=== PATIENT | male | born 1970 | race Caucasian/White ===

== ENCOUNTER 2017-03-12 19:02 | Inpatient (IN) | payer OTHER ==
--- NOTE | 2017-03-12 20:49 | PDOC ---
History of Present Illness - History of Present Illness Initial Comments: 46 year old male with MR and multiple congenital cerebral malformations presenting for supposed workup for constipation. Paperwork did not reveal much else but to simply perform an abdominal XR for constipation workup. Per the sitter at the side f the bed, his behavior is normal and denies any fevers, chils, nausea, vomiting. He did not that he had some liquid stool in his diaper and is passing gas. 03/12/17 21:39 <Jose Bowden - Last Filed: 03/12/17 21:38> <Zi Muñoz - Last Filed: 03/13/17 01:00> - General Chief Complaint: Constipation Stated Complaint: PCP SENT/CONSTIPATION Time Seen by Provider: 03/12/17 20:49 Past History - Suicide/Smoking/Psychosocial Hx Smoking History: Never smoked Have you smoked in the past 12 months: No Information on smoking cessation initiated: No Hx Alcohol Use: No Drug/Substance Use Hx: No <Jose Bowden - Last Filed: 03/12/17 21:38> <Zi Muñoz - Last Filed: 03/13/17 01:00> - Past Medical History Allergies/Adverse Reactions: Allergies Allergy/AdvReac Type Severity Reaction Status Date / Time ceresin [From Eucerin] Allergy Verified 03/12/17 19:25 emollient combination no.33 Allergy Verified 03/12/17 19:25 [From Eucerin] isopropyl myristate Allergy Verified 03/12/17 19:25 [From Eucerin] lanolin alcohols Allergy Verified 03/12/17 19:25 [From Eucerin] latex Allergy Verified 03/12/17 19:25 mineral oil [From Eucerin] Allergy Verified 03/12/17 19:25 petrolatum,white Allergy Verified 03/12/17 19:25 [From Eucerin] phenytoin sodium Allergy Verified 03/12/17 19:25 [From Dilantin] phenytoin sodium extended Allergy Verified 03/12/17 19:25 [From Dilantin] soap [From Eucerin] Allergy Verified 03/12/17 19:25 water [From Eucerin] Allergy Verified 03/12/17 19:25 Review of Systems - Review of Systems Able to Perform ROS?: No <Jose Bowden - Last Filed: 03/12/17 21:38> *Physical Exam - Vital Signs Last Vital Signs Temp Pulse Resp BP Pulse Ox 97.5 F L 94 H 18 134/88 03/12/17 19:23 03/12/17 19:23 03/12/17 19:23 03/12/17 19:23 - Physical Exam General Appearance: Yes: Nourished, Appropriately Dressed. No: Apparent Distress Gastrointestinal/Abdominal: positive: Soft, Protuberent, Other (Tympanitic. Difficult to assess bowel sounds 2/2 movement.). negative: Normal Bowel Sounds , Tender, Flat, Tenderness Rectal Exam: positive: normal exam, normal rectal tone, other (No stool in the recatal vault.) Musculoskeletal: positive: Other (COntracted to the side.) Extremity: positive: Normal Capillary Refill, Normal Inspection Integumentary: positive: Normal Color, Dry, Warm Neurologic: positive: Alert (MR at baseline. Makes vocal noises but does not have an intellible speech ability. ) <Jose Bowden - Last Filed: 03/12/17 21:38> - Vital Signs Last Vital Signs Temp Pulse Resp BP Pulse Ox 97.5 F L 94 H 18 134/88 03/12/17 19:23 03/12/17 19:23 03/12/17 19:23 03/12/17 19:23 <Zi Muñoz - Last Filed: 03/13/17 01:00> ED Treatment Course - RADIOLOGY Radiology Studies Ordered: Category Date Time Status ABDOMEN & PELVIS CT W/O CONTR [CT] Stat CT Scan 03/12/17 22:11 Taken <Zi Muñoz - Last Filed: 03/13/17 01:00> Medical Decision Making - Medical Decision Making 46 year old male with MR presenting with possible constipation as there is no stool in his rectal vault and his bowel soudn sare possibly hyperactive with difficult to assess bowel sounds. Will get an abdominal series for constipation evaluation. 03/12/17 21:54 <Jose Bowden - Last Filed: 03/12/17 21:38> *DC/Admit/Observation/Transfer <Jose Bowden - Last Filed: 03/12/17 21:38> - Discharge Dispostion Admit: Yes <Zi Muñoz - Last Filed: 10/05/17 01:00> Diagnosis at time of Disposition: Large bowel obstruction - Discharge Dispostion Condition at time of disposition: Fair
--- NOTE | 2017-03-12 22:06 | PDOC ---
Attending Attestation - Resident Resident Name: Jose Bowden - ED Attending Attestation I have performed the following: I have examined & evaluated the patient, The case was reviewed & discussed with the resident, I agree w/resident's findings & plan, Exceptions are as noted - HPI HPI: 03/12/17 22:05 46-year-old male with multiple comorbidities, severe MR referred to the ER for evaluation of distended abdomen and suspected constipation. - Physicial Exam PE: 03/12/17 22:05 Patient is awake, nonverbal, not uncooperative, afebrile and hemodynamically stable. Abdomen is noted to be distended, nontender and tympanitic. Rectal exam reveals no stool in the rectal vault and passage of flat is. - Medical Decision Making 03/12/17 22:06 46-year-old male with multiple comorbidities, severe mental retardation referred to the ER for distended abdomen and suspected constipation. Rectal exam reveals no evidence of impaction. Will obtain flat and upright to rule out an SBO. Will reassess. 03/13/17 00:48 CT that and pelvis reveals large amount of retained feces, dilated loops of redundant sigmoid proximally, questionable distal obstruction and rectal mucosal thickening. Will admit to med/surge with GI consultation further evaluation and treatment.
[2017-03-13] MEDS ORDERED: DEXTROSE 5%-0.45% SALINE 1,000 ML IV SCH (00:45)
[2017-03-13 01:20] LABS: MCH 30.2 pg (25.7-33.7); MCHC 33.7 g/dl (32.0-35.9); MEAN CELL VOLUME 89.6 fl (80-96); MEAN PLT VOLUME 6.6 fl (7.5-11.1); PLATELET COUNT 416 K/MM3 (134-434); RDW 13.2 % (11.9-15.9); WHITE BLOOD COUNT 5.4 K/mm3 (4.0-10.0)
[2017-03-13 01:32] LABS: INR 1.13 (0.82-1.09); PROTHROMBIN TIME (PATIENT) 12.5 SEC (9.98-11.88)
[2017-03-13 01:43] LABS: ALBUMIN 3.1 g/dl (3.4-5.0); ALK PHOS 152 U/L (45-117); ANION GAP 8 (8-16); BILIRUBIN,TOTAL 0.2 mg/dL (0.2-1.0); CALCIUM 8.9 mg/dL (8.5-10.1); CO2 30 mmol/L (21-32); CREATININE 0.6 mg/dL (0.7-1.3); GLUCOSE,RANDOM 84 mg/dL (74-106); SGOT/AST 14 U/L (15-37); SGPT/ALT 16 U/L (12-78); TOT PROT 6.8 g/dl (6.4-8.2)
[2017-03-13] MEDS: SODIUM CHLORIDE 1,000 ML IV SCH (02:32)
--- NOTE | 2017-03-13 03:05 | HP ---
CHIEF COMPLAINT: r/o fecal impaction PCP: Dr. Kahlil Mcdaniels HISTORY OF PRESENT ILLNESS: 46yo M with PMH of epilepsy and profound MR, sent in from [place] for r/o of fecal impaction. Pt is nonverbal, aide at bedside. Per aide pt's last normal bowel movement was yesterday. Pt had small amount of liquid stool today. Pt is passing flatus. Aide denies recent illness, fever, vomiting. Per aide pt is at baseline mentation and does not appear to be in pain. 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 profound mental retardation parotitis PAST SURGICAL HISTORY: ventriculo-peritoneal shunt placement lumbosacral spinal surgery Social History: Smoking: never Alcohol: none Drugs: none Allergies ceresin [From Eucerin] Allergy (Verified 03/12/17 19:25) emollient combination no.33 [From Eucerin] Allergy (Verified 03/12/17 19:25) isopropyl myristate [From Eucerin] Allergy (Verified 03/12/17 19:25) lanolin alcohols [From Eucerin] Allergy (Verified 03/12/17 19:25) latex Allergy (Verified 03/12/17 19:25) mineral oil [From Eucerin] Allergy (Verified 03/12/17 19:25) petrolatum,white [From Eucerin] Allergy (Verified 03/12/17 19:25) phenytoin sodium [From Dilantin] Allergy (Verified 03/12/17 19:25) phenytoin sodium extended [From Dilantin] Allergy (Verified 03/12/17 19:25) soap [From Eucerin] Allergy (Verified 03/12/17 19:25) water [From Eucerin] Allergy (Verified 03/12/17 19:25) HOME MEDICATIONS: Home Medications Medication Instructions Recorded Calcium Carbonate/Vitamin D3 1 each PO DAILY 03/13/17 [Oyster Shell Calcium-Vit D Tab] Calcium Carbonate/Vitamin D3 1 each PO BID 03/13/17 [Oystercal-D 500 mg-400 Unit Tb] Carbamazepine [Carbamazepine ER] 200 mg PO DAILY 03/13/17 Carbamazepine [Carbamazepine ER] 200 mg PO DAILY 03/13/17 Carbamazepine [Carbamazepine ER] 300 mg PO DAILY 03/13/17 Carbamazepine [Carbamazepine ER] 300 mg PO DAILY 03/13/17 Carbamazepine [Carbamazepine ER] 400 mg PO DAILY 03/13/17 Cetirizine HCl 10 mg PO DAILY 03/13/17 Cetirizine HCl [Zyrtec -] 10 mg PO DAILY 03/13/17 Clonazepam [KlonoPIN] 0.5 mg PO TID 03/13/17 Clonazepam [Klonopin -] 0.5 mg PO TID 03/13/17 Electrolyte,Oral [Pedialyte -] 118 ml PO QID 03/13/17 Fluticasone Prop 0.05% Nasal 2 spray NS DAILY 03/13/17 [Flonase -] Magnesium Hydrox 2400MG/30Ml [Milk 30 ml PO BID 03/13/17 of Magnesia -] Methylcellulose [Citrucel] 1,000 mg PO DAILY 03/13/17 Methylcellulose [Citrucel] 1,000 mg PO DAILY 03/13/17 Phenobarbital 64.8 mg PO BID 03/13/17 Sodium Chloride 500 mg PO BID 03/13/17 REVIEW OF SYSTEMS Unable to perform. PHYSICAL EXAMINATION Vital Signs - 24 hr 03/12/17 03/13/17 03/13/17 19:23 03:11 03:39 Temperature 97.5 F L 99 F Pulse Rate 94 H 71 Respiratory 18 20 20 Rate Blood Pressure 134/88 136/98 O2 Sat by Pulse 96 Oximetry (%) GENERAL: Awake, alert, in no acute distress. HEAD: Atraumatic, large deformity of frontal skull noted. EYES: Sclera anicteric, conjunctiva clear. No lid lag. EARS, NOSE, THROAT: Moist mucous membranes. NECK: Supple, trachea midline. LUNGS: Breath sounds equal, clear to auscultation bilaterally. No wheezes, and no crackles. No accessory muscle use. HEART: Regular rate and rhythm, normal S1 and S2 without murmur, rub or gallop. ABDOMEN: Soft, nontender, not distended, hyperactive bowel sounds, tympanitic. MUSCULOSKELETAL: Extremities flexed, though could be extended passively. No bony deformities or tenderness. LOWER EXTREMITIES: Warm, well-perfused. No peripheral edema. SKIN: Warm, dry, normal turgor, no rashes or lesions noted. Laboratory Last Values WBC 5.4 K/mm3 (4.0-10.0) 03/13/17 01:12 RBC 4.12 M/mm3 (4.00-5.60) 03/13/17 01:12 Hgb 12.4 GM/dL (11.7-16.9) 03/13/17 01:12 Hct 36.9 % (35.4-49) 03/13/17 01:12 MCV 89.6 fl (80-96) 03/13/17 01:12 MCH 30.2 pg (25.7-33.7) 03/13/17 01:12 MCHC 33.7 g/dl (32.0-35.9) 03/13/17 01:12 RDW 13.2 % (11.9-15.9) 03/13/17 01:12 Plt Count 416 K/MM3 (134-434) 03/13/17 01:12 MPV 6.6 fl (7.5-11.1) L 03/13/17 01:12 Total Counted 100 03/13/17 01:12 Neutrophils % No Result Required. 03/13/17 01:12 Neutrophils % (Manual) 36 % (42.8-82.8) L 03/13/17 01:12 Band Neuts % (Manual) 3 % (0-10) 03/13/17 01:12 Lymphocytes % No Result Required. 03/13/17 01:12 Lymphocytes % (Manual) 45 % (8-40) H 03/13/17 01:12 Monocytes % (Manual) 16 % (3.8-10.2) H* 03/13/17 01:12 PT with INR 12.50 SEC (9.98-11.88) H 03/13/17 01:12 INR 1.13 (0.82-1.09) 03/13/17 01:12 Sodium 133 mmol/L (136-145) L 03/13/17 01:12 Potassium 4.3 mmol/L (3.5-5.1) 03/13/17 01:12 Chloride 95 mmol/L (98-107) L 03/13/17 01:12 Carbon Dioxide 30 mmol/L (21-32) 03/13/17 01:12 Anion Gap 8 (8-16) 03/13/17 01:12 BUN 5 mg/dL (7-18) L 03/13/17 01:12 Creatinine 0.6 mg/dL (0.7-1.3) L 03/13/17 01:12 Creat Clearance w eGFR > 60 (>60) 03/13/17 01:12 Random Glucose 84 mg/dL (74-106) 03/13/17 01:12 Calcium 8.9 mg/dL (8.5-10.1) 03/13/17 01:12 Total Bilirubin 0.2 mg/dL (0.2-1.0) 03/13/17 01:12 AST 14 U/L (15-37) L 03/13/17 01:12 ALT 16 U/L (12-78) 03/13/17 01:12 Alkaline Phosphatase 152 U/L (45-117) H 03/13/17 01:12 Total Protein 6.8 g/dl (6.4-8.2) 03/13/17 01:12 Albumin 3.1 g/dl (3.4-5.0) L 03/13/17 01:12 IMAGIN03/12/17 Abdominal Xray - official report pending 03/12/17 Abdomen/Pelvis CT without contrast -> large feces colon. Slightly thickened rectum and distal sigmoid colon with minimally dilated, air-filled redundant sigmoid colon proximal to this point, suspicious for ileus or partial obstruction due to sigmoid mass or colitis; consider f/u colonoscopy. No volvulus. No free air. ASSESSMENT/PLAN: 46yo M with PMH of epilepsy and profound MR, sent in from [place] for r/o of fecal impaction. Admit to Med-Surg for ileus vs partial large bowel obstruction. 1) ileus vs partial large bowel obstruction vs reactive proctitis 2/2 impacted stool - npo - NS @ 80 ml/hr - GI Consult - continue home meds of MOM 30ml po BID, Citrucel 1,000mg po daily. 2) epilepsy - continue home meds of Carbamazepine 500mg po in the am and 400mg po in the pm, Clonazepam 0.5mg po TID, and Phenobarbital 64.8mg po BID. 3) disuse osteoporosis - continue home med of Ca++ carbonate/Vit D3 500mg/400U po BID 4) FEN - Fluids: NS @ 80 ml/hr - Electrolytes: slight hyponatremia noted, continue IVFs - Nutrition: npo 5) DVT prophylaxis - Heparin 5,000U SQ TID Visit type - Emergency Visit Emergency Visit: Yes ED Registration Date: 03/13/17 Care time: The patient presented to the Emergency Department on the above date and was hospitalized for further evaluation of their emergent condition. - New Patient This patient is new to me today: Yes Date on this admission: 03/13/17 - Critical Care Critical Care patient: No
--- NOTE | 2017-03-13 03:21 | HP ---
Admitting History and Physical - Admission Chief Complaint: Abd distention History of Present Illness: 46M with multiple medical problems including multiple congential problems such as microcephaly functional quadriplegia seizure disorder severe mental retardation presents to the ED with caregiver from [facility] with no bowel movement and abdomina ditention. Per aide he recently had a small BM which was liquid in nature and has been passing flatus. Caregiver denies any history of recent fevers chills chest pain or shortness of breath. CTAP done in ED found to have possible large bowel obstruction large amount of stool in colon possible reactive proctitis vs rectal thickening from sigmoid thichening or mass. History Source: Medical Record, Caregiver Limitations to Obtaining History: Clinical Condition, Physical Impairment, Poor Historian, Other (MR) - Smoking History Smoking history: Never smoked Have you smoked in the past 12 months: No - Alcohol/Substance Use Hx Alcohol Use: No Home Medications - Allergies Allergies/Adverse Reactions: Allergies Allergy/AdvReac Type Severity Reaction Status Date / Time ceresin [From Eucerin] Allergy Verified 03/12/17 19:25 emollient combination no.33 Allergy Verified 03/12/17 19:25 [From Eucerin] isopropyl myristate Allergy Verified 03/12/17 19:25 [From Eucerin] lanolin alcohols Allergy Verified 03/12/17 19:25 [From Eucerin] latex Allergy Verified 03/12/17 19:25 mineral oil [From Eucerin] Allergy Verified 03/12/17 19:25 petrolatum,white Allergy Verified 03/12/17 19:25 [From Eucerin] phenytoin sodium Allergy Verified 03/12/17 19:25 [From Dilantin] phenytoin sodium extended Allergy Verified 03/12/17 19:25 [From Dilantin] soap [From Eucerin] Allergy Verified 03/12/17 19:25 water [From Eucerin] Allergy Verified 03/12/17 19:25 - Home Medications Home Medications: Ambulatory Orders Calcium Carbonate/Vitamin D3 [Oyster Shell Calcium-Vit D Tab] 1 each PO DAILY Calcium Carbonate/Vitamin D3 [Oystercal-D 500 mg-400 Unit Tb] 1 each PO BID 10/23 Carbamazepine [Carbamazepine ER] 200 mg PO DAILY 03/13/17 Carbamazepine [Carbamazepine ER] 200 mg PO DAILY 03/13/17 Carbamazepine [Carbamazepine ER] 300 mg PO DAILY 03/13/17 Carbamazepine [Carbamazepine ER] 300 mg PO DAILY 03/13/17 Carbamazepine [Carbamazepine ER] 400 mg PO DAILY 03/13/17 Cetirizine HCl 10 mg PO DAILY 03/13/17 Cetirizine HCl [Zyrtec -] 10 mg PO DAILY 03/13/17 Clonazepam [KlonoPIN] 0.5 mg PO TID 03/13/17 Clonazepam [Klonopin -] 0.5 mg PO TID 03/13/17 Electrolyte,Oral [Pedialyte -] 118 ml PO QID 03/13/17 Fluticasone Prop 0.05% Nasal [Flonase -] 2 spray NS DAILY 03/13/17 Magnesium Hydrox 2400MG/30Ml [Milk of Magnesia -] 30 ml PO BID 03/13/17 Methylcellulose [Citrucel] 1,000 mg PO DAILY 03/13/17 Methylcellulose [Citrucel] 1,000 mg PO DAILY 03/13/17 Phenobarbital 64.8 mg PO BID 03/13/17 Sodium Chloride 500 mg PO BID 03/13/17 Review of Systems Unable to obtain ROS, reason: nonverbal Physical Examination Vital Signs: Vital Signs Temperature 97.5 F L 03/12/17 19:23 Pulse Rate 94 H 03/12/17 19:23 Respiratory Rate 18 03/12/17 19:23 Blood Pressure 134/88 03/12/17 19:23 O2 Sat by Pulse Oximetry (%) Constitutional: Yes: No Distress, Calm Eyes: Yes: Conjunctiva Clear HENT: Yes: Other (prominent forehead) Cardiovascular: Yes: Regular Rate and Rhythm Respiratory: Yes: CTA Bilaterally Gastrointestinal: Yes: Soft, Distention. No: Tenderness Edema: No Neurological: Yes: Alert Psychiatric: Yes: Alert Labs: CBC, BMP 03/13/17 01:12 03/13/17 01:12 Imaging - Results X-ray: Image Reviewed Cat Scan: Report Reviewed, Image Reviewed Assessment/Plan 46M with mutliple congential medical problems presents to ED from [facility] Problem list: Possible large bowel obstruction secondary to large amount of stool vs pseudoobstruction vs ileus sigmoid and rectal thickening ABD distention seizure d/o functional quadriplegia microcephaly severe MR Plan: Admit to inpatient med/surg NPO IVF will consider NGT if worsen or has nausea vomiting continue home meds DVT PPx with HSQ GI consult restart home meds for seizure restart klonopin Full H&P to follow Case discussed with admitting business services intern and attending Dr. Martinez Visit type - Emergency Visit Emergency Visit: Yes ED Registration Date: 03/13/17 Care time: The patient presented to the Emergency Department on the above date and was hospitalized for further evaluation of their emergent condition. - New Patient This patient is new to me today: Yes Date on this admission: 03/13/17 - Critical Care Critical Care patient: No
[2017-03-13 03:28] VITALS: BMI 17.9
[2017-03-13 04:22] LABS: TOTAL CELLS COUNTED 100
--- NOTE | 2017-03-13 04:36 | PN ---
Teaching Attending Note Name of Resident: Roslyn Meléndez ATTENDING PHYSICIAN STATEMENT I saw and evaluated the patient. I reviewed the resident's note and discussed the case with the resident. I agree with the resident's findings and plan as documented. SUBJECTIVE: 46 year old male with mental retardation , non verbal, presents from [place] for constipation / possible fecal impaction . As per aide Pt is passing flatus. No further information is available . At baseline of his mental status PAST MEDICAL HISTORY: MR Porencephalic cerebral cysts Cortical blindness Epilepsy Osteoporosis GERD Esophagitis Cerebral Palsy Sialoadenitis PAST SURGICAL HISTORY: TONGUE AND QUARTER STITCHER shunt lumbosacral spinal surgery Social History: Smoking: never Alcohol: none Drugs: none Allergies ceresin [From Eucerin] Allergy (Verified 03/12/17 19:25) emollient combination no.33 [From Eucerin] Allergy (Verified 03/12/17 19:25) isopropyl myristate [From Eucerin] Allergy (Verified 03/12/17 19:25) lanolin alcohols [From Eucerin] Allergy (Verified 03/12/17 19:25) latex Allergy (Verified 03/12/17 19:25) mineral oil [From Eucerin] Allergy (Verified 03/12/17 19:25) petrolatum,white [From Eucerin] Allergy (Verified 03/12/17 19:25) phenytoin sodium [From Dilantin] Allergy (Verified 03/12/17 19:25) phenytoin sodium extended [From Dilantin] Allergy (Verified 03/12/17 19:25) soap [From Eucerin] Allergy (Verified 03/12/17 19:25) water [From Eucerin] Allergy (Verified 03/12/17 19:25) OBJECTIVE: Vital Signs Temperature 99 F 03/13/17 03:11 Pulse Rate 71 03/13/17 03:11 Respiratory Rate 20 03/13/17 03:39 Blood Pressure 136/98 03/13/17 03:11 O2 Sat by Pulse Oximetry (%) 96 03/13/17 03:39 Eyes: Yes: Conjunctiva Clear HENT: Yes: Other (prominent forehead) Cardiovascular: Yes: Regular Rate and Rhythm Respiratory: Yes: CTA Bilaterally Gastrointestinal: Yes: Soft, Distention. No: Tenderness Edema: No EXT: contracted CBC, BMP 03/13/17 01:12 03/13/17 01:12 CMP Sodium 133 mmol/L (136-145) L 03/13/17 01:12 Potassium 4.3 mmol/L (3.5-5.1) 03/13/17 01:12 Chloride 95 mmol/L (98-107) L 03/13/17 01:12 Carbon Dioxide 30 mmol/L (21-32) 03/13/17 01:12 Anion Gap 8 (8-16) 03/13/17 01:12 BUN 5 mg/dL (7-18) L 03/13/17 01:12 Creatinine 0.6 mg/dL (0.7-1.3) L 03/13/17 01:12 Creat Clearance w eGFR > 60 (>60) 03/13/17 01:12 Random Glucose 84 mg/dL (74-106) 03/13/17 01:12 Calcium 8.9 mg/dL (8.5-10.1) 03/13/17 01:12 Total Bilirubin 0.2 mg/dL (0.2-1.0) 03/13/17 01:12 AST 14 U/L (15-37) L 03/13/17 01:12 ALT 16 U/L (12-78) 03/13/17 01:12 Alkaline Phosphatase 152 U/L (45-117) H 03/13/17 01:12 Total Protein 6.8 g/dl (6.4-8.2) 03/13/17 01:12 Albumin 3.1 g/dl (3.4-5.0) L 03/13/17 01:12 03/12/17 Abdominal Xray - official report pending 03/12/17 Abdomen/Pelvis CT without contrast -> large feces colon. Slightly thickened rectum and distal sigmoid colon with minimally dilated, air-filled redundant sigmoid colon proximal to this point, suspicious for ileus or partial obstruction due to sigmoid mass or colitis; consider f/u colonoscopy. No volvulus. No free air. ASSESSMENT AND PLAN: 1. Proctitis/sigmoiditis/possible pseudo obstruction - possibly due to fecal impaction /constipation - MOM BID - record BM - IVF - GI eval - NPO except meds 2. Hyponatremia - hypovolemic - IVF -monitor BMP 3. Seizure disorder - c/w current meds
[2017-03-13] MEDS: clonazePAM 0.5 MG TABLET PO SCH ×4 (05:35→21:25)
[2017-03-13] MEDS: HEPARIN NA (PORCINE) 5,000 UNITS/ML 1ML VIAL SQ SCH ×3 (05:36→21:24)
--- NOTE | 2017-03-13 07:19 | CONSULT ---
Consult Consult Specialty:: GI Referred by:: Hospitalist Reason for Consultation:: abnormal CT abdomen, constipation - History of Present Illness History of Present Illness: Profound mental retardation, seizures. [facility] a [facility] for evaluation of constipation. Rectal exam on admission revealed no stool in rectal vault, soft abdomen with with hyperactive bowels, no significant electrolytes abnormalities, or leukocytosis. As per records, a normal BM was on Mar. 4. On Mar 5, the pt had a small volume, loose stools. CT abdomen significant for large amount of stool up to proximal sigmoid, sigmoid mucosal thickening, question of partial obstruction. Official CT read is pending. No vomiting. - History Source History Provided By: Medical Record, Caregiver (as documented) - Past Medical History Additional Medical History: H&P reviewed. Please see H&P - Past Surgical History Additional Surgical History: H&P reviewed. Please see H&P - Alcohol/Substance Use Hx Alcohol Use: No - Smoking History Smoking history: Never smoked Have you smoked in the past 12 months: No Home Medications - Allergies Allergies/Adverse Reactions: Allergies Allergy/AdvReac Type Severity Reaction Status Date / Time ceresin [From Eucerin] Allergy Verified 03/12/17 19:25 emollient combination no.33 Allergy Verified 03/12/17 19:25 [From Eucerin] isopropyl myristate Allergy Verified 03/12/17 19:25 [From Eucerin] lanolin alcohols Allergy Verified 03/12/17 19:25 [From Eucerin] latex Allergy Verified 03/12/17 19:25 mineral oil [From Eucerin] Allergy Verified 03/12/17 19:25 petrolatum,white Allergy Verified 03/12/17 19:25 [From Eucerin] phenytoin sodium Allergy Verified 03/12/17 19:25 [From Dilantin] phenytoin sodium extended Allergy Verified 03/12/17 19:25 [From Dilantin] soap [From Eucerin] Allergy Verified 03/12/17 19:25 water [From Eucerin] Allergy Verified 03/12/17 19:25 - Home Medications Home Medications: Ambulatory Orders Calcium Carbonate/Vitamin D3 [Oyster Shell Calcium-Vit D Tab] 1 each PO DAILY Calcium Carbonate/Vitamin D3 [Oystercal-D 500 mg-400 Unit Tb] 1 each PO BID 10/23 Carbamazepine [Carbamazepine ER] 200 mg PO DAILY 03/13/17 Carbamazepine [Carbamazepine ER] 200 mg PO DAILY 03/13/17 Carbamazepine [Carbamazepine ER] 300 mg PO DAILY 03/13/17 Carbamazepine [Carbamazepine ER] 300 mg PO DAILY 03/13/17 Carbamazepine [Carbamazepine ER] 400 mg PO DAILY 03/13/17 Cetirizine HCl 10 mg PO DAILY 03/13/17 Cetirizine HCl [Zyrtec -] 10 mg PO DAILY 03/13/17 Clonazepam [KlonoPIN] 0.5 mg PO TID 03/13/17 Clonazepam [Klonopin -] 0.5 mg PO TID 03/13/17 Electrolyte,Oral [Pedialyte -] 118 ml PO QID 03/13/17 Fluticasone Prop 0.05% Nasal [Flonase -] 2 spray NS DAILY 03/13/17 Magnesium Hydrox 2400MG/30Ml [Milk of Magnesia -] 30 ml PO BID 03/13/17 Methylcellulose [Citrucel] 1,000 mg PO DAILY 03/13/17 Methylcellulose [Citrucel] 1,000 mg PO DAILY 03/13/17 Phenobarbital 64.8 mg PO BID 03/13/17 Sodium Chloride 500 mg PO BID 03/13/17 Family Disease History - Family Disease History Family History: Unable to Obtain Review of Systems Unable to obtain ROS, reason: Please see HP. Physical Exam Vital Signs: Vital Signs Temperature 99 F 03/13/17 03:11 Pulse Rate 71 03/13/17 03:11 Respiratory Rate 20 03/13/17 03:39 Blood Pressure 136/98 03/13/17 03:11 O2 Sat by Pulse Oximetry (%) 96 03/13/17 03:39 Constitutional: Yes: No Distress Eyes: Yes: Conjunctiva Clear Respiratory: Yes: Regular Gastrointestinal: Yes: Normal Bowel Sounds, Soft. No: Distention, Hepatomegaly , Melena, Palpable Mass, Pulsatile Mass, Rectal Bleeding, Tenderness, Tenderness , Rebound, Vomiting ...Rectal Exam: Yes: Other (Done in ED earlier to day, no stool in rectal vault) Musculoskeletal: Yes: Joint Stiffness. No: Joint Swelling Labs: Abnormal Lab Results 03/13/17 03/13/17 03/13/17 01:12 01:12 01:12 MPV 6.6 L Neutrophils % (Manual) 36 L Lymphocytes % (Manual) 45 H Monocytes % (Manual) 16 H* PT with INR 12.50 H Sodium 133 L Chloride 95 L BUN 5 L Creatinine 0.6 L AST 14 L Alkaline Phosphatase 152 H Albumin 3.1 L Current Medications Generic Name Dose Route Start Last Admin Trade Name Freq PRN Reason Stop Dose Admin Calcium Carbonate/Cholecalciferol 1 tab 03/13/17 10:00 Os-Giovanni 500+D - PO BID [facility] Carbamazepine 400 mg/ 500 mg 03/13/17 10:00 Carbamazepine 100 mg PO DAILY LINO Carbamazepine 400 mg 03/13/17 22:00 Tegretol Xr - PO HS LINO Clonazepam 0.5 mg 03/13/17 06:00 03/13/17 05:35 Klonopin - PO 0.5 mg TID LINO Administration Fluticasone Propionate 2 spray 03/13/17 10:00 Flonase - NS DAILY [facility] Heparin Sodium (Porcine) 5,000 unit 03/13/17 06:00 03/13/17 05:36 Heparin - SQ 5,000 unit TID LINO Administration Sodium Chloride 1,000 mls @ 80 mls/hr 03/13/17 01:45 03/13/17 02:32 Normal Saline - IV 80 mls/hr ASDIR LINO Administration Influenza Virus Vaccine Quadrival 60 mcg 03/13/17 03:45 Flulaval Quad [id number] IM 03/13/17 03:46 .ONCE ONE Loratadine 10 mg 03/13/17 10:00 Claritin - PO DAILY [facility] Magnesium Hydroxide 30 ml 03/13/17 10:00 Milk Of Magnesia - PO BID [facility] Non-Formulary Medication 1,000 mg 03/13/17 10:00 Methylcellulose [Citrucel] PO DAILY [facility] Phenobarbital 60 mg 03/13/17 10:00 Phenobarbital - PO BID [facility] Imaging - Results X-ray: Report Reviewed Cat Scan: Report Reviewed Problem List - Problems (1) Large bowel obstruction Assessment/Plan: Abnormal CT findings suggestive of sigmoid mucosal abnormality/possible partial large bowel obstruction with a large amounts of stool up to proximal sigmoid on CT. The patient, however, is not in distress and appears to be at his baseline. There is no vomiting, or distended abdomen. A normal BM was 1 day ago (as per HP ). Will plan a colonoscopy to asses sigmoid findings. Split prep with dulcolax ordered. May need to use and NG to administer the PEG Code(s): K56.609 - UNSP INTESTNL OBST, UNSP TO PARTIAL VERSUS COMPLETE OBST (2) Constipation Code(s): K59.00 - CONSTIPATION, UNSPECIFIED Qualifiers: Constipation type: other constipation type Qualified Code(s): K59.09 - Other constipation; K59.09 - Other constipation Visit type - Emergency Visit Emergency Visit: No - New Patient This patient is new to me today: No - Critical Care Critical Care patient: No
[2017-03-13 07:24] LABS: MCH 30.4 pg (25.7-33.7); MEAN CELL VOLUME 89.6 fl (80-96); MEAN PLT VOLUME 6.7 fl (7.5-11.1); PLATELET COUNT 405 K/MM3 (134-434); RDW 13.4 % (11.9-15.9); WHITE BLOOD COUNT 4.5 K/mm3 (4.0-10.0)
[2017-03-13 08:08] LABS: CALCIUM 8.3 mg/dL (8.5-10.1); GLUCOSE,RANDOM 82 mg/dL (74-106)
[2017-03-13 08:17] LABS: ALK PHOS 150 U/L (45-117); ANION GAP 8 (8-16); BILIRUBIN,TOTAL 0.5 mg/dL (0.2-1.0); CO2 28 mmol/L (21-32); CREATININE 0.4 mg/dL (0.7-1.3); PHOSPHOROUS 2.7 mg/dL (2.5-4.9); SGOT/AST 15 U/L (15-37); SGPT/ALT 14 U/L (12-78); TOT PROT 6.4 g/dl (6.4-8.2)
[2017-03-13] MEDS: CALCIUM 500MG/VIT-D 200 UNITS COMBO TABLET (FP) PO SCH ×3 (09:42→16:19)
[2017-03-13] MEDS: FLUTICASONE PROP 0.05% 16 GM NASAL SPRAY NS SCH (09:43)
[2017-03-13] MEDS: MAGNESIUM HYDROX 2400MG/30ML ORAL SUSPENSION 30 ML CUP PO SCH ×4 (09:43→21:23)
[2017-03-13] MEDS: PHENobarbital 30 MG TABLET PO SCH ×4 (09:43→21:23)
[2017-03-13] MEDS: LORATADINE 10 MG TABLET PO SCH ×2 (09:43→16:19)
[2017-03-13] MEDS ORDERED: CARBAMAZEPINE 200 MG PO SCH (10:00)
[2017-03-13] MEDS ORDERED: CARBAMAZEPINE 400 MG PO SCH (10:00)
[2017-03-13] MEDS ORDERED: PATIENT'S OWN MEDICATION (NON-FORMULARY) (Methylcellulose [Citrucel] 1,000 MG) PO SCH (10:00)
[2017-03-13] MEDS ORDERED: FLU VACCINE QUAD 60 MCG/0.5 ML (MDV 17-18) IM ONE (10:00)
[2017-03-13] MEDS ORDERED: PATIENT'S OWN MEDICATION (NON-FORMULARY) (Carbamazepine [Carbamazepine Er] 300 MG) PO SCH (10:00)
[2017-03-13] MEDS ORDERED: ELECTROLYTE,ORAL 118 ML SOLUTION PO SCH (10:00)
--- NOTE | 2017-03-13 10:12 | PN ---
Progress Note (short form) - Note Progress Note: CT suggests sigmoid valvulus. Plan Flex-sig now Problem List - Problems (1) Large bowel obstruction Code(s): K56.609 - UNSP INTESTNL OBST, UNSP TO PARTIAL VERSUS COMPLETE OBST (2) Constipation Code(s): K59.00 - CONSTIPATION, UNSPECIFIED Qualifiers: Constipation type: other constipation type Qualified Code(s): K59.09 - Other constipation; K59.09 - Other constipation Visit type - Emergency Visit Emergency Visit: No - New Patient This patient is new to me today: No - Critical Care Critical Care patient: No
[2017-03-13] MEDS ORDERED: PROPOFOL 20 ML ONE ×2 (11:33)
[2017-03-13] MEDS ORDERED: PEG3350/SOD SULF,BICARB,CL/KCL 4,000 ML SOLN.RECON PO ONE ×2 (12:18→16:00)
--- NOTE | 2017-03-13 12:18 | PN ---
Progress Note (short form) - Note Progress Note: A colonoscopy to transverse colon was perfomed. A sigmoid valvulus was noted and mitigated without imediate complications. Formed stool noted from sigmoid to examined transverse colono. Visualized mucosa appeared normal. No lesion. Noted. No need for colonoscopy at ths time however, complete Golytely as ordered and maintain on Miramax po bid going forward. Problem List - Problems (1) Large bowel obstruction Code(s): K56.609 - UNSP INTESTNL OBST, UNSP TO PARTIAL VERSUS COMPLETE OBST (2) Constipation Code(s): K59.00 - CONSTIPATION, UNSPECIFIED Qualifiers: Constipation type: other constipation type Qualified Code(s): K59.09 - Other constipation; K59.09 - Other constipation Visit type - Emergency Visit Emergency Visit: No - New Patient This patient is new to me today: No - Critical Care Critical Care patient: No
--- NOTE | 2017-03-13 12:43 | PN ---
Progress Note (short form) - Note Progress Note: post procedure. Discussed with the pt's next of kin on record Problem List - Problems (1) Large bowel obstruction Code(s): K56.609 - UNSP INTESTNL OBST, UNSP TO PARTIAL VERSUS COMPLETE OBST (2) Constipation Code(s): K59.00 - CONSTIPATION, UNSPECIFIED Qualifiers: Constipation type: other constipation type Qualified Code(s): K59.09 - Other constipation; K59.09 - Other constipation
[2017-03-13] MEDS: CARBAMAZEPINE PO SCH ×2 (14:05→16:20)
--- NOTE | 2017-03-13 14:30 | PROC ---
Procedure Note Procedure: NGT inserted. 16fr used. Placed at 55 cm. Patient tolerated the procedure well. CXR ordered to confirm placement.
--- NOTE | 2017-03-13 14:41 | PN ---
Physical Exam: SUBJECTIVE: Patient seen and examined at bedside. Patient nonverbal at baseline and unable to give ROS. No events overnight as per aide at bedside. OBJECTIVE: Vital Signs Period Temp Pulse Resp BP Sys/Skinner Pulse Ox Last 24 Hr 97.7 F-99 F 71-98 20-28 99-141/58-98 96-99 GENERAL: The patient is awake, alert, and fully oriented, in no acute distress. HEAD: Normal with no signs of trauma. EYES: extraocular movements intact, sclera anicteric, conjunctiva clear. No ptosis. . NECK: Trachea midline, full range of motion, supple. LUNGS: Breath sounds equal, clear to auscultation bilaterally, no wheezes, no crackles, no accessory muscle use. HEART: Regular rate and rhythm, S1, S2 without murmur, rub or gallop. ABDOMEN: Soft, nontender, nondistended, normoactive bowel sounds, no guarding, no rebound, no hepatosplenomegaly, distended colon felt in the lower quadrants. EXTREMITIES: 2+ pulses, warm, well-perfused, no edema. NEUROLOGICAL: Cranial nerves II through X grossly intact. Normal speech, gait not observed. PSYCH: Normal mood, normal affect. SKIN: Warm, dry, normal turgor, no rashes or lesions noted Laboratory Results - last 24 hr 03/13/17 03/13/17 03/13/17 01:12 01:12 01:12 WBC 5.4 RBC 4.12 Hgb 12.4 Hct 36.9 MCV 89.6 MCH 30.2 MCHC 33.7 RDW 13.2 Plt Count 416 MPV 6.6 L Total Counted 100 Neutrophils % No Result Required. Neutrophils % (Manual) 36 L Band Neuts % (Manual) 3 Lymphocytes % No Result Required. Lymphocytes % (Manual) 45 H Monocytes % (Manual) 16 H* PT with INR 12.50 H INR 1.13 Sodium 133 L Potassium 4.3 Chloride 95 L Carbon Dioxide 30 Anion Gap 8 BUN 5 L Creatinine 0.6 L Creat Clearance w eGFR > 60 Random Glucose 84 Calcium 8.9 Phosphorus Magnesium Total Bilirubin 0.2 AST 14 L ALT 16 Alkaline Phosphatase 152 H Total Protein 6.8 Albumin 3.1 L 03/13/17 03/13/17 06:45 06:45 WBC 4.5 RBC 3.89 L Hgb 11.8 Hct 34.9 L MCV 89.6 MCH 30.4 MCHC 34.0 RDW 13.4 Plt Count 405 MPV 6.7 L Total Counted Neutrophils % Neutrophils % (Manual) Band Neuts % (Manual) Lymphocytes % Lymphocytes % (Manual) Monocytes % (Manual) PT with INR INR Sodium 133 L Potassium 4.2 Chloride 97 L Carbon Dioxide 28 Anion Gap 8 BUN 3 L D Creatinine 0.4 L D Creat Clearance w eGFR > 60 Random Glucose 82 Calcium 8.3 L Phosphorus 2.7 Magnesium 2.0 Total Bilirubin 0.5 D AST 15 ALT 14 Alkaline Phosphatase 150 H Total Protein 6.4 Albumin 3.0 L Active Medications Generic Name Dose Route Start Last Admin Trade Name Freq PRN Reason Stop Dose Admin Bisacodyl 20 mg 03/13/17 15:00 Dulcolax - PO 03/13/17 15:01 ONCE ONE Calcium Carbonate/Cholecalciferol 1 tab 03/13/17 10:00 03/13/17 14:05 Os-Giovanni 500+D - PO 1 tab BID LINO Administration Carbamazepine 400 mg/ 500 mg 03/13/17 10:00 03/13/17 14:05 Carbamazepine 100 mg PO 500 mg DAILY LINO Administration Carbamazepine 400 mg 03/13/17 22:00 Tegretol Xr - PO HS LINO Clonazepam 0.5 mg 03/13/17 06:00 03/13/17 14:06 Klonopin - PO 0.5 mg TID LINO Administration Fluticasone Propionate 2 spray 03/13/17 10:00 03/13/17 09:43 Flonase - NS 2 sprays DAILY LINO Administration Heparin Sodium (Porcine) 5,000 unit 03/13/17 06:00 03/13/17 14:06 Heparin - SQ 5,000 unit TID LINO Administration Sodium Chloride 1,000 mls @ 80 mls/hr 03/13/17 01:45 03/13/17 02:32 Normal Saline - IV 80 mls/hr ASDIR LINO Administration Loratadine 10 mg 03/13/17 10:00 03/13/17 09:43 Claritin - PO 10 mg DAILY LINO Administration Magnesium Hydroxide 30 ml 03/13/17 10:00 03/13/17 14:05 Milk Of Magnesia - PO 30 ml BID LINO Administration Phenobarbital 60 mg 03/13/17 10:00 03/13/17 14:05 Phenobarbital - PO 60 mg BID LINO Administration ASSESSMENT/PLAN: 46yo M with PMH of epilepsy and profound MR, sent in from [place] for r/o of fecal impaction. Admit to Med-Surg for ileus vs partial large bowel obstruction. # partial large bowel obstruction 2/2 sigmoid volvulus -CT shows sigmoid volvulus -s/p flexible sigmoidoscopy with resolution of the volvulus -golytely via NGT as per GI -npo -NS @ 80 ml/hr -continue home meds of Milk Of Magnesia 30ml po BID, Citrucel 1,000mg po daily. # epilepsy -continue home Carbamazepine 500mg po in the am and 400mg po in the pm -continue home Clonazepam 0.5mg po TID -continue home Phenobarbital 64.8mg po BID. #disuse osteoporosis -continue home med of Ca++ carbonate/Vit D3 500mg/400U po BID #FEN -NS @ 80 ml/hr -monitor lytes -NPO #DVT prophylaxis -Heparin 5kU SQ TID #Dispo -admitted for the treatment of sigmoid volvulus Visit type - Emergency Visit Emergency Visit: Yes ED Registration Date: 03/13/17 Care time: The patient presented to the Emergency Department on the above date and was hospitalized for further evaluation of their emergent condition. - New Patient This patient is new to me today: No - Critical Care Critical Care patient: No
[2017-03-13] MEDS ORDERED: BISACODYL 5 MG TABLET.DR (FP) PO ONE (15:00)
--- NOTE | 2017-03-13 15:15 | PROC ---
Endoscopy Procedure Endoscopy procedure completed. Please see scanned procedure report.
--- NOTE | 2017-03-13 17:08 | PN ---
Teaching Attending Note Name of Resident: Charlie Curran ATTENDING PHYSICIAN STATEMENT I saw and evaluated the patient. I reviewed the resident's note and discussed the case with the resident. I agree with the resident's findings and plan as documented. SUBJECTIVE:resting comfortable OBJECTIVE: Last Vital Signs Temp Pulse Resp BP Pulse Ox 97.8 F 106 H 22 134/78 99 03/13/17 15:10 03/13/17 15:10 03/13/17 15:10 03/13/17 12:29 03/13/17 12:29 General NAD HEENT enlarged protrusion from center of forehead, soft center, non tender CV S1 S2 RRR no murmur/rub/gallop Lungs CTA anteriorly Abdomen firm +distended +tympanic throughout non tender ASSESSMENT AND PLAN: 46yo M with PMH microcephaly, functional quadriplegia, seizure, intellectual disability sent from [place] due to abdominal distention 1. Sigmoid volvulus- s/p flex sigmoidoscopy today. with successful reversal of obstruction. NGT placed and confirmed by CXR on my read. will start golytelyl via NGT to encourage fecal impaction evacuation. if pt is unable to tolerate NGT placement will need to encourage frequent drinking of golyteyl. GI on board 2. Hyponatremia- likley dehydration. IVF. monitor 3. seizure-no seizure like activity. cont phenobarb and carbmazepine 4. functional quadriplegia 5. intellectual disability 6. DVT ppx -hep sq
[2017-03-13] MEDS ORDERED: PT OWN MED DRAWER 7, Y5N ONE (18:27)
[2017-03-13] MEDS ORDERED: carBAMazepine XR 400 MG TAB.ER.12H PO SCH (22:00)
[2017-03-13] MEDS ORDERED: carBAMazepine 200 MG/10 ML UNIT-DOSE CUP PEG SCH ×2 (22:00→22:09)
[2017-03-14] MEDS: SODIUM CHLORIDE 1,000 ML IV SCH ×2 (01:10→16:50)
[2017-03-14] MEDS: HEPARIN NA (PORCINE) 5,000 UNITS/ML 1ML VIAL SQ SCH ×3 (05:48→22:05)
[2017-03-14] MEDS: clonazePAM 0.5 MG TABLET PO SCH ×3 (06:14→22:04)
--- NOTE | 2017-03-14 06:35 | PN ---
Physical Exam: SUBJECTIVE: Patient seen and examined at bedside. Patient pulled out his NGT overnight. OBJECTIVE: Vital Signs Period Temp Pulse Resp BP Sys/Skinner Pulse Ox Last 24 Hr 97.8 F-98.5 F 88-114 20-28 99-150/58-95 96-99 GENERAL: The patient is awake, alert, and fully oriented, in no acute distress. HEAD: Normal with no signs of trauma. EYES: sclera anicteric, conjunctiva clear. No ptosis. NECK: Trachea midline, full range of motion, supple. LUNGS: Breath sounds equal, clear to auscultation bilaterally, no wheezes, no crackles, no accessory muscle use. HEART: Regular rate and rhythm, S1, S2 without murmur, rub or gallop. ABDOMEN: Soft, nontender, mild distension , normoactive bowel sounds, no guarding, no rebound, no hepatosplenomegaly, no masses. EXTREMITIES: 2+ pulses, warm, well-perfused, no edema. NEUROLOGICAL: Cranial nerves II through X grossly intact. Normal speech, gait not observed. exam limited due to patient's functional status SKIN: Warm, dry, normal turgor, no rashes or lesions noted Laboratory Results - last 24 hr 03/13/17 03/13/17 06:45 06:45 WBC 4.5 RBC 3.89 L Hgb 11.8 Hct 34.9 L MCV 89.6 MCH 30.4 MCHC 34.0 RDW 13.4 Plt Count 405 MPV 6.7 L Sodium 133 L Potassium 4.2 Chloride 97 L Carbon Dioxide 28 Anion Gap 8 BUN 3 L D Creatinine 0.4 L D Creat Clearance w eGFR > 60 Random Glucose 82 Calcium 8.3 L Phosphorus 2.7 Magnesium 2.0 Total Bilirubin 0.5 D AST 15 ALT 14 Alkaline Phosphatase 150 H Total Protein 6.4 Albumin 3.0 L Active Medications Generic Name Dose Route Start Last Admin Trade Name Freq PRN Reason Stop Dose Admin Carbamazepine 500 mg 03/14/17 10:00 Tegretol Oral Suspension - PEG DAILY LINO Carbamazepine 400 mg 03/13/17 22:09 Tegretol Oral Suspension - PEG HS LINO Clonazepam 0.5 mg 03/13/17 06:00 03/14/17 06:14 Klonopin - PO 0.5 mg TID LINO Administration Fluticasone Propionate 2 spray 03/13/17 10:00 03/13/17 09:43 Flonase - NS 2 sprays DAILY LINO Administration Heparin Sodium (Porcine) 5,000 unit 03/13/17 06:00 03/14/17 05:48 Heparin - SQ 5,000 unit TID LINO Administration Sodium Chloride 1,000 mls @ 80 mls/hr 03/13/17 01:45 03/14/17 01:10 Normal Saline - IV 80 mls/hr ASDIR LINO Administration Magnesium Hydroxide 30 ml 03/13/17 10:00 03/13/17 21:23 Milk Of Magnesia - PO 30 ml BID LINO Administration Phenobarbital 60 mg 03/13/17 10:00 03/13/17 21:23 Phenobarbital - PO 60 mg BID LINO Administration ASSESSMENT/PLAN: 46yo M with PMH of epilepsy and profound MR, sent in from [place] for r/o of fecal impaction. Admit to Med-Surg for ileus vs partial large bowel obstruction. # partial large bowel obstruction 2/2 sigmoid volvulus -s/p flexible sigmoidoscopy with resolution of the volvulus -s/p about 3L golytely via NGT before is was pulled out -diet advanced to clears -NS @ 80 ml/hr -continue home meds of Milk Of Magnesia 30ml po BID, Citrucel 1,000mg po daily. -CT shows sigmoid volvulus # epilepsy -continue home Carbamazepine 500mg po in the am and 400mg po in the pm -continue home Clonazepam 0.5mg po TID -continue home Phenobarbital 64.8mg po BID. #disuse osteoporosis -continue home med of Ca++ carbonate/Vit D3 500mg/400U po BID #FEN -NS @ 80 ml/hr -monitor lytes -clear liquid diet #DVT prophylaxis -Heparin 5kU SQ TID #Dispo -admitted for the treatment of sigmoid volvulus; planning for discharge in the next few days if patient tolerating PO Visit type - Emergency Visit Emergency Visit: Yes ED Registration Date: 03/13/17 Care time: The patient presented to the Emergency Department on the above date and was hospitalized for further evaluation of their emergent condition. - New Patient This patient is new to me today: No - Critical Care Critical Care patient: No
[2017-03-14] MEDS ORDERED: carBAMazepine 200 MG/10 ML UNIT-DOSE CUP PO SCH (07:08)
--- NOTE | 2017-03-14 07:30 | PN ---
Progress Note, Physician History of Present Illness: Received > 3000 ml of Golytely and having multiple loose stools, as per night nurse. No events otherwise. - Current Medication List Current Medications: Active Medications Carbamazepine (Tegretol Oral Suspension -) 400 mg PO HS [facility] Carbamazepine (Tegretol Oral Suspension -) 500 mg PO DAILY [facility] Clonazepam (Klonopin -) 0.5 mg PO TID [facility] Last Admin: 03/14/17 06:14 Dose: 0.5 mg Fluticasone Propionate (Flonase -) 2 spray NS DAILY [facility] Last Admin: 03/13/17 09:43 Dose: 2 sprays Heparin Sodium (Porcine) (Heparin -) 5,000 unit SQ TID [facility] Last Admin: 03/14/17 05:48 Dose: 5,000 unit Sodium Chloride (Normal Saline -) 1,000 mls @ 80 mls/hr IV ASDIR [facility] Last Admin: 03/14/17 01:10 Dose: 80 mls/hr Magnesium Hydroxide (Milk Of Magnesia -) 30 ml PO BID [facility] Last Admin: 03/13/17 21:23 Dose: 30 ml Phenobarbital (Phenobarbital -) 60 mg PO BID [facility] Last Admin: 03/13/17 21:23 Dose: 60 mg - Objective Vital Signs: Vital Signs Temperature 98.5 F 03/14/17 06:00 Pulse Rate 102 H 03/14/17 06:00 Respiratory Rate 20 03/14/17 06:00 Blood Pressure 148/89 03/14/17 06:00 O2 Sat by Pulse Oximetry (%) 96 03/13/17 22:00 Constitutional: Yes: No Distress, Calm Cardiovascular: Yes: Regular Rate and Rhythm Respiratory: Yes: Regular, CTA Bilaterally Gastrointestinal: Yes: Normal Bowel Sounds, Soft. No: Distention, Melena, Palpable Mass, Pulsatile Mass, Rectal Bleeding, Tenderness, Vomiting Labs: CBC, BMP 03/13/17 06:45 03/13/17 06:45 INR, PTT INR 1.13 (0.82-1.09) 03/13/17 01:12 Abnormal Lab Results 03/13/17 03/13/17 06:45 06:45 RBC 3.89 L Hct 34.9 L MPV 6.7 L Sodium 133 L Chloride 97 L BUN 3 L D Creatinine 0.4 L D Calcium 8.3 L Alkaline Phosphatase 150 H Albumin 3.0 L Problem List - Problems (1) Large bowel obstruction Assessment/Plan: s/p colonoscopy with resolution of sigmoid valvulus Code(s): K56.609 - UNSP INTESTNL OBST, UNSP TO PARTIAL VERSUS COMPLETE OBST (2) Constipation Assessment/Plan: resolved. D/c home on Miramax bid Code(s): K59.00 - CONSTIPATION, UNSPECIFIED Qualifiers: Constipation type: other constipation type Qualified Code(s): K59.09 - Other constipation; K59.09 - Other constipation
[2017-03-14 08:34] LABS: MCH 29.7 pg (25.7-33.7); MCHC 33.1 g/dl (32.0-35.9); MEAN CELL VOLUME 89.7 fl (80-96); MEAN PLT VOLUME 6.5 fl (7.5-11.1); PLATELET COUNT 472 K/MM3 (134-434); RDW 13.5 % (11.9-15.9); WHITE BLOOD COUNT 4.5 K/mm3 (4.0-10.0)
[2017-03-14 08:56] LABS: ALBUMIN 2.8 g/dl (3.4-5.0); ANION GAP 8 (8-16); BILIRUBIN,TOTAL 0.3 mg/dL (0.2-1.0); CALCIUM 8.3 mg/dL (8.5-10.1); CO2 28 mmol/L (21-32); GLUCOSE,RANDOM 87 mg/dL (74-106); MAGNESIUM 2.4 mg/dL (1.8-2.4); PHOSPHOROUS 2.4 mg/dL (2.5-4.9); SGOT/AST 14 U/L (15-37)
[2017-03-14 09:02] LABS: ALK PHOS 150 U/L (45-117); CREATININE 0.4 mg/dL (0.7-1.3); SGPT/ALT 15 U/L (12-78); TOT PROT 6.5 g/dl (6.4-8.2)
[2017-03-14] MEDS ORDERED: carBAMazepine 200 MG/10 ML UNIT-DOSE CUP PEG SCH (10:00)
[2017-03-14] MEDS ORDERED: PT OWN MED DRAWER 7, Y5N ONE ×3 (11:17→11:40)
[2017-03-14] MEDS: MAGNESIUM HYDROX 2400MG/30ML ORAL SUSPENSION 30 ML CUP PO SCH ×2 (11:24→22:04)
[2017-03-14] MEDS: FLUTICASONE PROP 0.05% 16 GM NASAL SPRAY NS SCH (11:25)
[2017-03-14] MEDS: PHENobarbital 30 MG TABLET PO SCH ×2 (11:25→22:04)
[2017-03-14] MEDS: carBAMazepine 200 MG/10 ML UNIT-DOSE CUP PO SCH (11:48)
--- NOTE | 2017-03-14 12:25 | PN ---
Teaching Attending Note Name of Resident: Charlie Curran ATTENDING PHYSICIAN STATEMENT I saw and evaluated the patient. I reviewed the resident's note and discussed the case with the resident. I agree with the resident's findings and plan as documented. SUBJECTIVE:resting comfortable OBJECTIVE: Last Vital Signs Temp Pulse Resp BP Pulse Ox 98.5 F 102 H 20 148/89 96 03/14/17 06:00 03/14/17 06:00 03/14/17 06:00 03/14/17 06:00 03/13/17 22:00 General NAD Abdomen soft +distended +tympanic. hypoactive BS. ASSESSMENT AND PLAN: 46yo M with PMH microcephaly, functional quadriplegia, seizure, intellectual disability sent from [place] due to abdominal distention 1. Sigmoid volvulus- s/p flex sigmoidoscopy 03/14 with successful reversal. pt tolerated NGT till this morning when he pulled it out. multiple BM since last night. will slowly advance diet. will cont gentle hydration. concern for dehydration with multiple BM. miralax as needed to maintain daily BM. GI on board 2. Hyponatremia- likley dehydration. improved 3. seizure-no seizure like activity. cont phenobarb and carbmazepine 4. functional quadriplegia 5. intellectual disability 6. DVT ppx -hep sq 7. plan for discharge tomorrow
[2017-03-14] MEDS: NAPH,MB-DB/K PH,MBDB POWDER PACKET PO SCH (22:05)
[2017-03-15] MEDS: SODIUM CHLORIDE 1,000 ML IV SCH ×2 (04:55→05:24)
[2017-03-15] MEDS: NAPH,MB-DB/K PH,MBDB POWDER PACKET PO SCH (05:26)
[2017-03-15] MEDS: clonazePAM 0.5 MG TABLET PO SCH (05:26)
[2017-03-15] MEDS: HEPARIN NA (PORCINE) 5,000 UNITS/ML 1ML VIAL SQ SCH (05:26)
[2017-03-15 08:23] VITALS: PULSE 98
[2017-03-15 08:48] LABS: ANION GAP 10 (8-16); CALCIUM 8.5 mg/dL (8.5-10.1); CO2 26 mmol/L (21-32); CREATININE 0.5 mg/dL (0.7-1.3); GLUCOSE,RANDOM 71 mg/dL (74-106); MAGNESIUM 2.5 mg/dL (1.8-2.4); PHOSPHOROUS 3.5 mg/dL (2.5-4.9)
[2017-03-15 09:04] VITALS: BP 169/95; TEMP 98.7
--- NOTE | 2017-03-15 09:10 | PN ---
Progress Note (short form) - Note Progress Note: resting comfortable Current Medications Generic Name Dose Route Start Last Admin Trade Name Laverne PRN Reason Stop Dose Admin Carbamazepine 400 mg 03/14/17 07:08 03/14/17 22:05 Tegretol Oral Suspension - PO 400 mg HS LINO Administration Carbamazepine 500 mg 03/14/17 10:00 03/14/17 11:48 Tegretol Oral Suspension - PO 500 mg DAILY LINO Administration Clonazepam 0.5 mg 03/13/17 06:00 03/15/17 05:26 Klonopin - PO 0.5 mg TID LINO Administration Fluticasone Propionate 2 spray 03/13/17 10:00 03/14/17 11:25 Flonase - NS 2 sprays DAILY LINO Administration Heparin Sodium (Porcine) 5,000 unit 03/13/17 06:00 03/15/17 05:26 Heparin - SQ 5,000 unit TID LINO Administration Sodium Chloride 1,000 mls @ 80 mls/hr 03/13/17 01:45 03/15/17 05:24 Normal Saline - IV Not Given ASDIR LINO Magnesium Hydroxide 30 ml 03/13/17 10:00 03/14/17 22:04 Milk Of Magnesia - PO 30 ml BID LINO Administration Phenobarbital 60 mg 03/13/17 10:00 03/14/17 22:04 Phenobarbital - PO 60 mg BID LINO Administration Potassium Phos/Sodium Phos 1 packet 03/14/17 22:00 03/15/17 05:26 Phos-Nak Packet - PO 1 packet TID LINO Administration Last Vital Signs Temp Pulse Resp BP Pulse Ox 98.7 F 98 H 18 169/95 95 03/15/17 09:00 03/15/17 06:00 03/15/17 09:00 03/15/17 09:00 03/14/17 22:00 General resting comfortable CV S1 S2 RRR no murmur/rub/gallop Lungs CTA anteriorly Abdomen soft +distended +tympanic, normoactive BS not tender extremities no edema CBCD WBC 4.5 K/mm3 (4.0-10.0) 03/14/17 08:00 RBC 3.87 M/mm3 (4.00-5.60) L 03/14/17 08:00 Hgb 11.5 GM/dL (11.7-16.9) L 03/14/17 08:00 Hct 34.7 % (35.4-49) L 03/14/17 08:00 MCV 89.7 fl (80-96) 03/14/17 08:00 MCHC 33.1 g/dl (32.0-35.9) 03/14/17 08:00 RDW 13.5 % (11.9-15.9) 03/14/17 08:00 Plt Count 472 K/MM3 (134-434) H 03/14/17 08:00 MPV 6.5 fl (7.5-11.1) L 03/14/17 08:00 CMP Sodium 135 mmol/L (136-145) L 03/15/17 06:00 Potassium 4.5 mmol/L (3.5-5.1) 03/15/17 06:00 Chloride 99 mmol/L (98-107) 03/15/17 06:00 Carbon Dioxide 26 mmol/L (21-32) 03/15/17 06:00 Anion Gap 10 (8-16) 03/15/17 06:00 BUN 3 mg/dL (7-18) L 03/15/17 06:00 Creatinine 0.5 mg/dL (0.7-1.3) L D 03/15/17 06:00 Creat Clearance w eGFR > 60 (>60) 03/14/17 08:00 Calcium 8.5 mg/dL (8.5-10.1) 03/15/17 06:00 Total Bilirubin 0.3 mg/dL (0.2-1.0) D 03/14/17 08:00 AST 14 U/L (15-37) L 03/14/17 08:00 ALT 15 U/L (12-78) 03/14/17 08:00 Alkaline Phosphatase 150 U/L (45-117) H 03/14/17 08:00 Total Protein 6.5 g/dl (6.4-8.2) 03/14/17 08:00 Albumin 2.8 g/dl (3.4-5.0) L 03/14/17 08:00 ASSESSMENT AND PLAN: 46yo M with PMH microcephaly, functional quadriplegia, seizure, intellectual disability sent from [place] due to abdominal distention 1. Sigmoid volvulus- s/p flex sigmoidoscopy 03/14 with successful reversal. tolerating liquid diet. continues to have multiple BM now semi-solid. will advance to regular diet. will need to cont miralax to cont BM twice daily. GI on board 2. Hyponatremia- likley dehydration. improved 3. seizure-no seizure like activity. cont phenobarb and carbmazepine 4. functional quadriplegia 5. intellectual disability 6. DVT ppx -hep sq 7. medical stable for discharge. multiple attempts to reach Dr Mcdaniels yesterday. will reach out this morning for as ready for discharge Visit type - Emergency Visit Emergency Visit: Yes ED Registration Date: 03/13/17 Care time: The patient presented to the Emergency Department on the above date and was hospitalized for further evaluation of their emergent condition. - New Patient This patient is new to me today: No - Critical Care Critical Care patient: No - Discharge Referral Referred to [facility] No
[2017-03-15] MEDS ORDERED: PT OWN MED DRAWER 7, Y5N ONE (11:13)
[2017-03-15] MEDS: carBAMazepine 200 MG/10 ML UNIT-DOSE CUP PO SCH (11:25)
[2017-03-15] MEDS: FLUTICASONE PROP 0.05% 16 GM NASAL SPRAY NS SCH (11:25)
[2017-03-15] MEDS: PHENobarbital 30 MG TABLET PO SCH (11:25)
[2017-03-15] MEDS: MAGNESIUM HYDROX 2400MG/30ML ORAL SUSPENSION 30 ML CUP PO SCH (11:26)
--- NOTE | 2017-03-16 16:23 | DS ---
Physical Exam: HOSPITAL COURSE: Date of Admission:03/13/17 The patient is a 46 yo m w/ PMH epilepsy and developmental delay sent from [place] for evaluation of abdominal distension and suspected fecal impaction. In the ED, a KUB showed moderate air distension of the bowel compatible with constipation. He was admitted for the evaluation of constipation with possible large bowel obstruction. Gastroenterology specialists were consulted. Patient was treated with A CT of the abdomen showed a sigmoid volvulus. The patient underwent a flexible sigmoidoscopy on 03/[address] Johnson. Patient tolerated procedure well with resolution of the volvulus. Patient was treated with golytely via NGT resulting in multiple loose bowel movments. The patient was discharged back to [place] with instructions to take his home milk of magnesia daily until he began having 2 bowel movements per day. He was also advised to drink water to prevent dehydration. Date of Discharge: 03/16/17 Minutes to complete discharge: 20 Discharge Summary Reason For Visit: LARGE BOWEL OBSTRUCTION - Instructions Diet, Activity, Other Instructions: You were admitted to the hospital due to a sigmoid volvulus which is a twisting of the bowel. Due to this you had a lot of stool backed up in your bowels. Continue to take milk of magnesia every day until you are having at least 2 bowel movements per day. While you are having a lot of bowel movements ensure you are drinking plenty of water so that you do not get dehydrated. Resume your home medications Return to the hospital if your symptoms worsen. Referrals: Kahlil Mcdaniels Jr [Non Staff, Medical] - Disposition[facility] - Home Medications Comprehensive Discharge Medication List: Ambulatory Orders Calcium Carbonate/Vitamin D3 [Oystercal-D 500 mg-400 Unit Tb] 1 each PO BID 10/23 Carbamazepine [Carbamazepine ER] 200 mg PO DAILY 03/13/17 Carbamazepine [Carbamazepine ER] 200 mg PO DAILY 03/13/17 Carbamazepine [Carbamazepine ER] 300 mg PO DAILY 03/13/17 Carbamazepine [Carbamazepine ER] 300 mg PO DAILY 03/13/17 Carbamazepine [Carbamazepine ER] 400 mg PO DAILY 03/13/17 Cetirizine HCl [Zyrtec -] 10 mg PO DAILY 03/13/17 Clonazepam [KlonoPIN] 0.5 mg PO TID 03/13/17 Clonazepam [Klonopin -] 0.5 mg PO TID 03/13/17 Electrolyte,Oral [Pedialyte -] 118 ml PO QID 03/13/17 Fluticasone Prop 0.05% Nasal [Flonase -] 2 spray NS DAILY 03/13/17 Magnesium Hydrox 2400MG/30Ml [Milk of Magnesia -] 30 ml PO BID 03/13/17 Methylcellulose [Citrucel] 1,000 mg PO DAILY 03/13/17 Methylcellulose [Citrucel] 1,000 mg PO DAILY 03/13/17 Phenobarbital 64.8 mg PO BID 03/13/17 Sodium Chloride 500 mg PO BID 03/13/17 Carbamazepine Xr [Tegretol XR -] 400 mg PO HS tab 03/15/17 This patient is new to me today: No Emergency Visit: Yes ED Registration Date: 03/13/17 Care time: The patient presented to the Emergency Department on the above date and was hospitalized for further evaluation of their emergent condition. Critical Care patient: No - Discharge Referral Referred to [facility] Med [facility].: No
== END 2017-03-15 14:58 | DRG 388 ==
LOC: JER 19:02 → JERBED 03-13 01:00 → J6S 03-13 02:36
PROVIDERS: ADMIT Internal Medicine; ATTEND Internal Medicine
PROC: 0D9680Z Drainage of Stomach with Drainage Device, Via Natural or Artificial Opening Endoscopic (ICD-10-PCS; 2017-03-13)
PROC: 0DJD8ZZ Inspection of Lower Intestinal Tract, Via Natural or Artificial Opening Endoscopic (ICD-10-PCS; principal; 2017-03-13 11:00)
DX: K56.2 Volvulus (principal); R53.2 Functional quadriplegia; G40.802 Other epilepsy, not intractable, without status epilepticus; F73 Profound intellectual disabilities; Q04.6 Congenital cerebral cysts; E87.1 Hypo-osmolality and hyponatremia; K56.699 Other intestinal obstruction unspecified as to partial versus complete obstruction; K56.41 Fecal impaction; M81.8 Other osteoporosis without current pathological fracture; H47.619 Cortical blindness, unspecified side of brain; L30.8 Other specified dermatitis; K21.0 Gastro-esophageal reflux disease with esophagitis; G80.8 Other cerebral palsy; K11.20 Sialoadenitis, unspecified; I34.0 Nonrheumatic mitral (valve) insufficiency; Q02 Microcephaly; E86.1 Hypovolemia
CPT/HCPCS: 36415; 71010-TC; 74020-TC; 74176-TC; 80048; 80053; 83735; 84100; 85025; 85027; 85610; 90688; 99282-25; J1644

== ENCOUNTER 2017-03-19 18:56 | Emergency (ER) | payer OTHER ==
[2017-03-19 19:11] VITALS: BP 120/94; PULSE 68; TEMP 98.3; BMI 19.0
--- NOTE | 2017-03-19 22:06 | PDOC ---
History of Present Illness - General Chief Complaint: Constipation Stated Complaint: PCP SENT Time Seen by Provider: 03/19/17 21:56 History Source: Patient (c0) - History of Present Illness Initial Comments: 03/19/17 22:08 46 year old male with history of CP, nonverbal, spasticity, UTI, h-pylori, esophagitis from [facility] c/o enlarged abdomen recent admission for intestinal obstruction. patient sent from radiology department xray dilated loops r/o SBO. Past History - Past Medical History Allergies/Adverse Reactions: Allergies Allergy/AdvReac Type Severity Reaction Status Date / Time ceresin [From Eucerin] Allergy Verified 03/19/17 19:02 emollient combination no.33 Allergy Verified 03/19/17 19:02 [From Eucerin] isopropyl myristate Allergy Verified 03/19/17 19:02 [From Eucerin] lanolin alcohols Allergy Verified 03/19/17 19:02 [From Eucerin] latex Allergy Verified 03/19/17 19:02 mineral oil [From Eucerin] Allergy Verified 03/19/17 19:02 petrolatum,white Allergy Verified 03/19/17 19:02 [From Eucerin] phenytoin sodium Allergy Verified 03/19/17 19:02 [From Dilantin] phenytoin sodium extended Allergy Verified 03/19/17 19:02 [From Dilantin] soap [From Eucerin] Allergy Verified 03/19/17 19:02 water [From Eucerin] Allergy Verified 03/19/17 19:02 Home Medications: Ambulatory Orders Calcium Carbonate/Vitamin D3 [Oystercal-D 500 mg-400 Unit Tb] 1 each PO BID 10/23 Carbamazepine [Carbamazepine ER] 200 mg PO DAILY 03/13/17 Carbamazepine [Carbamazepine ER] 200 mg PO DAILY 03/13/17 Carbamazepine [Carbamazepine ER] 300 mg PO DAILY 03/13/17 Carbamazepine [Carbamazepine ER] 300 mg PO DAILY 03/13/17 Carbamazepine [Carbamazepine ER] 400 mg PO DAILY 03/13/17 Cetirizine HCl [Zyrtec -] 10 mg PO DAILY 03/13/17 Clonazepam [KlonoPIN] 0.5 mg PO TID 03/13/17 Clonazepam [Klonopin -] 0.5 mg PO TID 03/13/17 Electrolyte,Oral [Pedialyte -] 118 ml PO QID 03/13/17 Fluticasone Prop 0.05% Nasal [Flonase -] 2 spray NS DAILY 03/13/17 Magnesium Hydrox 2400MG/30Ml [Milk of Magnesia -] 30 ml PO BID 03/13/17 Methylcellulose [Citrucel] 1,000 mg PO DAILY 03/13/17 Methylcellulose [Citrucel] 1,000 mg PO DAILY 03/13/17 Phenobarbital 64.8 mg PO BID 03/13/17 Sodium Chloride 500 mg PO BID 03/13/17 Carbamazepine Xr [Tegretol XR -] 400 mg PO HS tab 03/15/17 Cefpodoxime Proxetil [Vantin -] 200 mg PO Q12H #20 tablet 03/20/17 GI Disorders: Yes (esophagitis) 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 No: Vomiting *Physical Exam - Vital Signs Last Vital Signs Temp Pulse Resp BP Pulse Ox 98.3 F 68 18 120/94 97 03/19/17 19:00 03/19/17 19:00 03/19/17 19:00 03/19/17 19:00 03/19/17 19:00 - Physical Exam General Appearance: Yes: Other (nonverbal. no eye contact) Respiratory/Chest: positive: Lungs Clear, Normal Breath Sounds Cardiovascular: positive: Regular Rhythm, Regular Rate Gastrointestinal/Abdominal: positive: Decreased BS, Distended, Tenderness Extremity: positive: Normal Capillary Refill Integumentary: positive: Dry, Warm Neurologic: positive: Alert Heart Score/ECG Review - ECG Intrepretation Rhythm: Regular Rhythm Comment:: 03/20/17 03:36 NSR: 72 ED Treatment Course - LABORATORY CBC & Chemistry Diagram: 03/20/17 00:45 03/20/17 00:45 - RADIOLOGY Radiograph Interpretation: 03/19/17 22:16 X-ray: Moderate diffuse air distention in the colon with paucity of stools. Air- filled nondilated small bowel loops likely on the basis of ileus. Progress Note - Progress Note Progress Note: A: abdominal distention r/o SBO P: cbc cmp type and screen CTAP: There is moderate diffuse colonic distention with air and liquid stool which could represent ileus or diarrhea. Moderate cystitis. Mild proctitis with diffuse colonic air and liquid stool suggestive of diarrheal illness or ileitis UA: Suggestive of UTI *DC/Admit/Observation/Transfer Diagnosis at time of Disposition: UTI (urinary tract infection) Qualifiers: Urinary tract infection type: acute cystitis Hematuria presence: without hematuria Qualified Code(s): N30.00 - Acute cystitis without hematuria - Discharge Dispostion Disposition: [facility] - Prescriptions Prescriptions: Cefpodoxime Proxetil [Vantin -] 200 mg PO Q12H #20 tablet - Patient Instructions Printed Discharge Instructions: Urinary Tract Infection Additional Instructions: continue cefpodoxime as prescribed. return to the ER if symptoms worsen.
[2017-03-19] MEDS ORDERED: SODIUM CHLORIDE 500 ML IV STA (22:18)
[2017-03-19] MEDS ORDERED: ONDANSETRON 4 MG/2 ML VIAL IVPUSH ONE (22:35)
[2017-03-19] MEDS ORDERED: ONDANSETRON 4 MG/2 ML VIAL ONE (22:46)
[2017-03-19 23:43] LABS: URINE APPEARANCE SLCLOUDY; URINE BILIRUBIN NEGATIVE (NEGATIVE); URINE BLOOD 2+ (NEGATIVE); URINE GLUCOSE (UA) NEGATIVE (NEGATIVE); URINE KETONE NEGATIVE (NEGATIVE); URINE NITRITE POSITIVE (NEGATIVE); URINE PROTEIN NEGATIVE (NEGATIVE); URINE UROBILINOGEN NEGATIVE mg/dL (0.2-1.0)
[2017-03-19 23:45] LABS: URINE COLOR YELLOW
[2017-03-19 23:52] LABS: URINE BACTERIA MANY /hpf (NONE SEEN); URINE MUCUS MANY; URINE RBC 47 /hpf (0-3); URINE WBC 93 /hpf (3-5)
[2017-03-20 00:53] LABS: MCH 30.6 pg (25.7-33.7); MCHC 33.9 g/dl (32.0-35.9); MEAN CELL VOLUME 90.1 fl (80-96); RDW 13.8 % (11.9-15.9)
[2017-03-20 00:58] LABS: INR 0.97 (0.82-1.09)
[2017-03-20 01:01] LABS: ACTIVATED PTT 32.8 SECONDS (26.9-34.4)
[2017-03-20 01:21] LABS: ALBUMIN 3.5 g/dl (3.4-5.0); ALK PHOS 168 U/L (45-117); ANION GAP 10 (8-16); BILIRUBIN,TOTAL 0.3 mg/dL (0.2-1.0); CO2 29 mmol/L (21-32); CREATININE 0.6 mg/dL (0.7-1.3); GLUCOSE,RANDOM 76 mg/dL (74-106); SGPT/ALT 21 U/L (12-78); TOT PROT 7.9 g/dl (6.4-8.2)
[2017-03-20 01:22] LABS: SGOT/AST 26 U/L (15-37)
--- NOTE | 2017-03-20 01:59 | PDOC ---
*Physical Exam - Vital Signs Last Vital Signs Temp Pulse Resp BP Pulse Ox 98.3 F 68 18 120/94 97 03/19/17 19:00 03/19/17 19:00 03/19/17 19:00 03/19/17 19:00 03/19/17 19:00 Heart Score/ECG Review #1 03/20/17 01:58 Twelve-lead EKG was performed and reviewed by me. Normal sinus rhythm, rate of 72. Normal axis and intervals. Possible left ventricular hypertrophy. No ST elevations or T-wave inversions. ED Treatment Course - LABORATORY CBC & Chemistry Diagram: 03/20/17 00:45 03/20/17 00:45 - ADDITIONAL ORDERS Additional order review: Laboratory Results 03/20/17 03/20/17 03/19/17 00:45 00:35 23:25 PT with INR 11.00 INR 0.97 PTT (Actin FS) 32.8 Sodium 133 L Cancelled Potassium 5.0 Cancelled Chloride 94 L Cancelled Carbon Dioxide 29 Cancelled Anion Gap 10 Cancelled BUN 5 L D Cancelled Creatinine 0.6 L Cancelled Creat Clearance w eGFR > 60 Cancelled Random Glucose 76 Cancelled Calcium 9.0 Cancelled Total Bilirubin 0.3 Cancelled AST 26 D Cancelled ALT 21 D Cancelled Alkaline Phosphatase 168 H Cancelled Total Protein 7.9 D Cancelled Albumin 3.5 D Cancelled Lipase Cancelled Urine Color Urine Appearance Urine pH Urine Protein Urine Glucose (UA) Urine Ketones Urine Blood Urine Nitrite Urine Bilirubin Urine Urobilinogen Urine RBC Urine WBC Ur Epithelial Cells Urine Bacteria Urine Mucus 03/19/17 23:25 PT with INR INR PTT (Actin FS) Sodium Potassium Chloride Carbon Dioxide Anion Gap BUN Creatinine Creat Clearance w eGFR Random Glucose Calcium Total Bilirubin AST ALT Alkaline Phosphatase Total Protein Albumin Lipase Urine Color Yellow Urine Appearance Slcloudy Urine pH 5.0 Urine Protein Negative Urine Glucose (UA) Negative Urine Ketones Negative Urine Blood 2+ H Urine Nitrite Positive Urine Bilirubin Negative Urine Urobilinogen Negative Urine RBC 47 Urine WBC 93 Ur Epithelial Cells Rare Urine Bacteria Many Urine Mucus Many 03/20/17 00:45 RBC 4.40 MCV 90.1 MCHC 33.9 RDW 13.8 - Medications Given in the ED: ED Medications Discontinued Medications Generic Name Dose Route Start Last Admin Trade Name Freq PRN Reason Stop Dose Admin Sodium Chloride 500 mls @ 500 mls/hr 10/11/17 22:18 03/20/17 00:56 Normal Saline - IV 03/19/17 23:17 500 mls/hr ASDIR STA Administration Ondansetron HCl 4 mg 03/19/17 22:35 03/20/17 00:56 Zofran Injection IVPUSH 03/19/17 22:36 4 mg ONCE ONE Administration Medical Decision Making - Medical Decision Making 03/20/17 01:40 Pt seen by the Advanced Practice Provider under my direct supervision In summary, pt with a hx of severe MR, recent intestinal obstruction p/w outpatient AXR concerning for bowel obstruction. Labs pending currently as first set was hemolyzed. Pt is pending CTAP to evaluate for obstruction. Pt signed out to night attending Dr. Glover for further management and follow up on pending studies. *DC/Admit/Observation/Transfer Diagnosis at time of Disposition: UTI (urinary tract infection) - Discharge Dispostion [facility] - Prescriptions Prescriptions: Cefpodoxime Proxetil [Vantin -] 200 mg PO Q12H #20 tablet - Patient Instructions Printed Discharge Instructions: Urinary Tract Infection Additional Instructions: continue cefpodoxime as prescribed. return to the ER if symptoms worsen.
[2017-03-20 02:11] LABS: MEAN PLT VOLUME 6.8 fl (7.5-11.1); PLATELET COUNT 430 K/MM3 (134-434); PLATELET ESTIMATE ADEQUATE (NORMAL); TOTAL CELLS COUNTED 100; WHITE BLOOD COUNT 8.1 K/mm3 (4.0-10.0)
[2017-03-20] MEDS ORDERED: CEFTRIAXONE 1 GM in DEXTROSE 5%-WATER - 50 ML IVPB ONE (02:35)
[2017-03-20] MEDS ORDERED: CEFTRIAXONE 50 ML ONE (03:12)
[2017-03-20 10:22] LABS: URINE LEUK ESTERASE 1+ (NEGATIVE)
--- NOTE | 2017-03-20 11:53 | EKG ---
Test Reason : Blood Pressure : / mmHG Vent. Rate : 072 BPM Atrial Rate : 072 BPM P-R Int : 118 ms QRS Dur : 090 ms QT Int : 388 ms P-R-T Axes : 036 083 071 degrees QTc Int : 424 ms POOR DATA QUALITY, INTERPRETATION MAY BE ADVERSELY AFFECTED NORMAL SINUS RHYTHM VOLTAGE CRITERIA FOR LEFT VENTRICULAR HYPERTROPHY ABNORMAL ECG WHEN COMPARED WITH ECG OF 13-APR-2004 02:15, VENT. RATE HAS DECREASED BY [address] ELEVATION NOW PRESENT IN INFERIOR LEADS NON-SPECIFIC CHANGE IN ST SEGMENT IN ANTEROLATERAL LEADS T WAVE INVERSION NO LONGER EVIDENT IN INFERIOR LEADS T WAVE INVERSION NO LONGER EVIDENT IN ANTERIOR LEADS Confirmed by MIRNA MIKE MD ([id number]) on 03/20/2017 11:53:00 AM Referred By: Confirmed By:MIRNA MIKE MD
== END 2017-03-20 03:43 ==
LOC: JER 18:56
PROC: 3E03329 Introduction of Other Anti-infective into Peripheral Vein, Percutaneous Approach (ICD-10-PCS; principal; 2017-03-19)
PROC: 3E033GC Introduction of Other Therapeutic Substance into Peripheral Vein, Percutaneous Approach (ICD-10-PCS; 2017-03-19)
PROC: 3E0337Z Introduction of Electrolytic and Water Balance Substance into Peripheral Vein, Percutaneous Approach (ICD-10-PCS; 2017-03-19)
DX: N30.00 Acute cystitis without hematuria (principal); G80.9 Cerebral palsy, unspecified; H54.7 Unspecified visual loss; R25.2 Cramp and spasm; K20.9 Esophagitis, unspecified
CPT/HCPCS: 36415; 71010-TC; 74000-TC; 74177-TC; 80053; 81003; 81015; 85027; 85610; 85730; 93005; 93010; 99282-25

== ENCOUNTER 2017-03-30 17:28 | Emergency (ER) | payer OTHER ==
[2017-03-30 17:37] VITALS: BP 116/96; PULSE 82; BMI 16.8
--- NOTE | 2017-03-30 18:03 | PDOC ---
Attending Attestation - Resident Resident Name: Benito Cuellar - ED Attending Attestation I have performed the following: I have examined & evaluated the patient, The case was reviewed & discussed with the resident, I agree w/resident's findings & plan, Exceptions are as noted - HPI HPI: 03/30/17 18:01 46 yo male BIBA from [facility] for abd distention. Seen several times this month for same cmoplaint. Has had 2 ct scans ,the first on Mar 12 and Mar 20. 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
--- NOTE | 2017-03-30 18:43 | PDOC ---
History of Present Illness - General Chief Complaint: Pain Stated Complaint: STOMACH PAIN Time Seen by Provider: 03/30/17 17:55 Past History - Past Medical History Allergies/Adverse Reactions: Allergies Allergy/AdvReac Type Severity Reaction Status Date / Time ceresin [From Eucerin] Allergy Verified 03/30/17 17:37 emollient combination no.33 Allergy Verified 03/30/17 17:37 [From Eucerin] isopropyl myristate Allergy Verified 03/30/17 17:37 [From Eucerin] lanolin alcohols Allergy Verified 03/30/17 17:37 [From Eucerin] latex Allergy Verified 03/30/17 17:37 mineral oil [From Eucerin] Allergy Verified 03/30/17 17:37 petrolatum,white Allergy Verified 03/30/17 17:37 [From Eucerin] phenytoin sodium Allergy Verified 03/30/17 17:37 [From Dilantin] phenytoin sodium extended Allergy Verified 03/30/17 17:37 [From Dilantin] soap [From Eucerin] Allergy Verified 03/30/17 17:37 water [From Eucerin] Allergy Verified 03/19/17 19:02 Home Medications: Ambulatory Orders Calcium Carbonate/Vitamin D3 [Oystercal-D 500 mg-400 Unit Tb] 1 each PO BID Carbamazepine [Carbamazepine ER] 200 mg PO DAILY 03/30/17 Carbamazepine [Carbamazepine ER] 300 mg PO DAILY 03/30/17 Carbamazepine [Carbamazepine ER] 400 mg PO DAILY 03/30/17 Cetirizine HCl 10 mg PO DAILY 03/30/17 Clonazepam [Klonopin -] 0.5 mg PO TID 03/30/17 Fluticasone Prop 0.05% Nasal [Flonase -] 1 - 2 spray NS DAILY 03/30/17 Magnesium Hydrox 2400MG/30Ml [Milk of Magnesia -] 30 ml PO DAILY 03/30/17 Multivit-Min/FA/Lycopen/Lutein [Vitrum 50+ Senior Tablet] 5 5ml PO DAILY Phenobarbital 64.8 mg PO BID 03/30/17 Sodium Chloride 500 mg PO DAILY 03/30/17 GI Disorders: Yes (esophagitis) Seizures: Yes (general convulsive epilepsy) Other medical history: MR - Immunization History Immunization Up to Date: Yes - Suicide/Smoking/Psychosocial Hx Smoking History: Never smoked Have you smoked in the past 12 months: No Hx Alcohol Use: No Drug/Substance Use Hx: No Substance Use Type: None *Physical Exam - Vital Signs Last Vital Signs Temp Pulse Resp BP Pulse Ox 82 20 116/96 99 03/30/17 17:29 03/30/17 17:29 03/30/17 17:29 03/30/17 17:29
--- NOTE | 2017-03-30 19:07 | PDOC ---
History of Present Illness - General Chief Complaint: Pain Stated Complaint: STOMACH PAIN Time Seen by Provider: 03/30/17 17:55 - History of Present Illness Initial Comments: 03/30/17 21:02 Patient is a 46 y.o. male with a PMH of CP who presents with abdominal distention. As per electronics hardware design engineer at bedside patient had 2 normal bowel movement today and one watery bowel movement As per EMR, patient has been evaluated x2 at our facility for the same complaint at which time he was diagnosed with adynamic ileus (03/20) and sigmoid volulus and constipation (03/22). As patient has a h/o CP with resulting MR, patient is unable to provide ROS. Past History - Past Medical History Allergies/Adverse Reactions: Allergies Allergy/AdvReac Type Severity Reaction Status Date / Time ceresin [From Eucerin] Allergy Verified 03/30/17 17:37 emollient combination no.33 Allergy Verified 03/30/17 17:37 [From Eucerin] isopropyl myristate Allergy Verified 03/30/17 17:37 [From Eucerin] lanolin alcohols Allergy Verified 03/30/17 17:37 [From Eucerin] latex Allergy Verified 03/30/17 17:37 mineral oil [From Eucerin] Allergy Verified 03/30/17 17:37 petrolatum,white Allergy Verified 03/30/17 17:37 [From Eucerin] phenytoin sodium Allergy Verified 03/30/17 17:37 [From Dilantin] phenytoin sodium extended Allergy Verified 03/30/17 17:37 [From Dilantin] soap [From Eucerin] Allergy Verified 03/30/17 17:37 water [From Eucerin] Allergy Verified 03/19/17 19:02 Home Medications: Ambulatory Orders Calcium Carbonate/Vitamin D3 [Oystercal-D 500 mg-400 Unit Tb] 1 each PO BID Carbamazepine [Carbamazepine ER] 200 mg PO DAILY 03/30/17 Carbamazepine [Carbamazepine ER] 300 mg PO DAILY 03/30/17 Carbamazepine [Carbamazepine ER] 400 mg PO DAILY 03/30/17 Cetirizine HCl 10 mg PO DAILY 03/30/17 Clonazepam [Klonopin -] 0.5 mg PO TID 03/30/17 Fluticasone Prop 0.05% Nasal [Flonase -] 1 - 2 spray NS DAILY 03/30/17 Magnesium Hydrox 2400MG/30Ml [Milk of Magnesia -] 30 ml PO DAILY 03/30/17 Multivit-Min/FA/Lycopen/Lutein [Vitrum 50+ Senior Tablet] 5 5ml PO DAILY Phenobarbital 64.8 mg PO BID 03/30/17 Sodium Chloride 500 mg PO DAILY 03/30/17 GI Disorders: Yes (esophagitis) Seizures: Yes (general convulsive epilepsy) Other medical history: MR - Immunization History Immunization Up to Date: Yes - Suicide/Smoking/Psychosocial Hx Smoking History: Never smoked Have you smoked in the past 12 months: No Hx Alcohol Use: No Drug/Substance Use Hx: No Substance Use Type: None Review of Systems - Review of Systems Able to Perform ROS?: No *Physical Exam - Vital Signs Last Vital Signs Temp Pulse Resp BP Pulse Ox 82 20 116/96 99 03/30/17 17:29 03/30/17 17:29 03/30/17 17:29 03/30/17 17:29 - Physical Exam General Appearance: Yes: Thin HEENT: positive: Other (large forehead lipoma). negative: Muffled/Hoarse voice (non-verbal (@ baseline)) Cardiovascular: positive: S1, S2 Gastrointestinal/Abdominal: positive: Normal Bowel Sounds, Protuberent, Distended, Other (semi-rigid) Musculoskeletal: positive: Other (Patient is contracted with flexed LE) Neurologic: positive: Alert, Other (Patient has CP as per electronics hardware design engineer @ bedside is at baseline MS) ED Treatment Course - LABORATORY CBC & Chemistry Diagram: 03/30/17 22:35 03/30/17 22:35 Medical Decision Making - Medical Decision Making 03/30/17 22:44 Patient is a 46 y.o. male who presents with distended abdomen. Patient has recent CT scan x2 showing volvulus and constipation. PLAN: 1. CBC, CMP 2. KUB Reasess 03/30/17 23:58 Patient care to continue with Dr. Arndt (Attending) *DC/Admit/Observation/Transfer Diagnosis at time of Disposition: Abdominal distension
[2017-03-30] MEDS ORDERED: SODIUM CHLORIDE 500 ML IV STA (21:42)
[2017-03-30 22:46] LABS: BASOPHIL 1.1 % (0-2.0); MCH 30.5 pg (25.7-33.7); MCHC 34.5 g/dl (32.0-35.9); MEAN CELL VOLUME 88.4 fl (80-96); MEAN PLT VOLUME 6.5 fl (7.5-11.1); NEUTROPHILS 46.5 % (42.8-82.8); PLATELET COUNT 579 K/MM3 (134-434); RDW 13.7 % (11.9-15.9); WHITE BLOOD COUNT 5.4 K/mm3 (4.0-10.0)
[2017-03-30 23:05] LABS: ALBUMIN 3.6 g/dl (3.4-5.0); ALK PHOS 144 U/L (45-117); ANION GAP 11 (8-16); BILIRUBIN,TOTAL 0.3 mg/dL (0.2-1.0); CALCIUM 9.2 mg/dL (8.5-10.1); CO2 28 mmol/L (21-32); CREATININE 0.5 mg/dL (0.7-1.3); GLUCOSE,RANDOM 85 mg/dL (74-106); SGPT/ALT 24 U/L (12-78); TOT PROT 7.5 g/dl (6.4-8.2)
[2017-03-30 23:06] LABS: SGOT/AST 24 U/L (15-37)
[2017-03-31 02:58] LABS: URINE APPEARANCE CLEAR; URINE BILIRUBIN NEGATIVE (NEGATIVE); URINE BLOOD NEGATIVE (NEGATIVE); URINE COLOR COLORLESS; URINE GLUCOSE (UA) NEGATIVE (NEGATIVE); URINE KETONE NEGATIVE (NEGATIVE); URINE NITRITE NEGATIVE (NEGATIVE); URINE PROTEIN NEGATIVE (NEGATIVE); URINE UROBILINOGEN NEGATIVE mg/dL (0.2-1.0)
[2017-03-31] MEDS ORDERED: SODIUM CHLORIDE 500 ML IV STA (03:15)
--- NOTE | 2017-03-31 03:28 | PDOC ---
*Physical Exam - Vital Signs Last Vital Signs Temp Pulse Resp BP Pulse Ox 82 20 116/96 99 03/30/17 17:29 03/30/17 17:29 03/30/17 17:29 03/30/17 17:29 ED Treatment Course - LABORATORY CBC & Chemistry Diagram: 03/30/17 22:35 03/30/17 22:35 - ADDITIONAL ORDERS Additional order review: Laboratory Results 03/31/17 03/30/17 03/30/17 02:45 22:35 22:35 Sodium 133 L Potassium 4.2 Chloride 94 L Carbon Dioxide 28 Anion Gap 11 BUN 3 L D Creatinine 0.5 L Creat Clearance w eGFR > 60 Random Glucose 85 Lactic Acid 1.1 Calcium 9.2 Total Bilirubin 0.3 AST 24 ALT 24 Alkaline Phosphatase 144 H Total Protein 7.5 Albumin 3.6 Urine Color Colorless Urine Appearance Clear Urine pH 8.0 D Urine Protein Negative Urine Glucose (UA) Negative Urine Ketones Negative Urine Blood Negative Urine Nitrite Negative Urine Bilirubin Negative Urine Urobilinogen Negative 03/30/17 22:35 RBC 4.34 MCV 88.4 MCHC 34.5 RDW 13.7 MPV 6.5 L Neutrophils % 46.5 Lymphocytes % 35.1 Monocytes % 12.3 H Eosinophils % 5.0 H Basophils % 1.1 - RADIOLOGY Radiology Studies Ordered: Category Date Time Status ABDOMEN & PELVIS CT WITH CONTR [CT] Stat CT Scan 03/31/17 00:52 Taken - Medications Given in the ED: ED Medications Discontinued Medications Generic Name Dose Route Start Last Admin Trade Name Rikyq PRN Reason Stop Dose Admin Sodium Chloride 500 mls @ 500 mls/hr 03/30/17 21:42 03/30/17 22:46 Normal Saline - IV 03/30/17 22:41 500 mls/hr ASDIR STA Administration *DC/Admit/Observation/Transfer Diagnosis at time of Disposition: Abdominal distension - Discharge Dispostion Disposition: HOME Condition at time of disposition: Improved - Patient Instructions Printed Discharge Instructions: DI for Ileus Additional Instructions: please continue GI regiment return for any worsening symptoms
[2017-03-31 10:22] LABS: URINE LEUK ESTERASE Negative (NEGATIVE)
== END 2017-03-31 04:13 ==
LOC: JER 17:28
PROC: 3E0337Z Introduction of Electrolytic and Water Balance Substance into Peripheral Vein, Percutaneous Approach (ICD-10-PCS; principal; 2017-03-30)
DX: R14.0 Abdominal distension (gaseous) (principal); G80.8 Other cerebral palsy; F79 Unspecified intellectual disabilities; G40.802 Other epilepsy, not intractable, without status epilepticus; K20.8 Other esophagitis
CPT/HCPCS: 36415; 74000-TC; 74177-TC; 80053; 81003; 83605; 85025; 96360; 96361; 99282-25

== ENCOUNTER 2017-05-05 19:31 | Inpatient (IN) | payer OTHER ==
--- NOTE | 2017-05-05 21:52 | PDOC ---
History of Present Illness - General Chief Complaint: Pain Stated Complaint: ABDOMINAL DISTENTION Time Seen by Provider: 05/05/17 21:52 History Source: Patient - History of Present Illness Initial Comments: 05/05/17 22:22 46 year old male send in from [facility] to worsening abdominal distention and scrotal abrasion. patient is noted to have sudden onset on abdominal distension. reports one small BM today as per nurse. denies vomiting, SOB, patient has a history of profound MR, seizure disorder, ileus, partial obstruction Past History - Past Medical History Allergies/Adverse Reactions: Allergies Allergy/AdvReac Type Severity Reaction Status Date / Time ceresin [From Eucerin] Allergy Verified 03/30/17 17:37 egg Allergy Verified 05/06/17 10:26 emollient combination no.33 Allergy Verified 05/05/17 19:35 [From Eucerin] isopropyl myristate Allergy Verified 05/05/17 19:35 [From Eucerin] lanolin alcohols Allergy Verified 05/05/17 19:35 [From Eucerin] latex Allergy Verified 05/05/17 19:35 mineral oil [From Eucerin] Allergy Verified 05/05/17 19:35 petrolatum,white Allergy Verified 05/05/17 19:35 [From Eucerin] phenytoin sodium Allergy Verified 05/05/17 19:35 [From Dilantin] phenytoin sodium extended Allergy Verified 05/05/17 19:35 [From Dilantin] soap [From Eucerin] Allergy Verified 05/05/17 19:35 strawberry Allergy Verified 05/06/17 19:52 water [From Eucerin] Allergy Verified 05/05/17 19:35 Home Medications: Ambulatory Orders Calcium Carbonate/Vitamin D3 [Oystercal-D 500 mg-400 Unit Tb] 1 each PO BID Carbamazepine [Carbamazepine ER] 200 mg PO DAILY 03/30/17 Carbamazepine [Carbamazepine ER] 300 mg PO DAILY 03/30/17 Carbamazepine [Carbamazepine ER] 400 mg PO DAILY 03/30/17 Cetirizine HCl 10 mg PO DAILY 03/30/17 Clonazepam [Klonopin -] 0.5 mg PO TID 03/30/17 Fluticasone Prop 0.05% Nasal [Flonase -] 1 - 2 spray NS DAILY 03/30/17 Magnesium Hydrox 2400MG/30Ml [Milk of Magnesia -] 30 ml PO DAILY 03/30/17 Multivit-Min/FA/Lycopen/Lutein [Vitrum 50+ Senior Tablet] 5 5ml PO DAILY Phenobarbital 64.8 mg PO BID 03/30/17 Sodium Chloride 500 mg PO DAILY 03/30/17 COPD: No GI Disorders: Yes (esophagitis) Seizures: Yes (general convulsive epilepsy) Other medical history: profound mental retardation, vp training shunt cortical blindness , cerebral palsy - Immunization History Immunization Up to Date: Yes - Suicide/Smoking/Psychosocial Hx Smoking History: Never smoked Have you smoked in the past 12 months: No Hx Alcohol Use: No Drug/Substance Use Hx: No Substance Use Type: None Review of Systems - Review of Systems Able to Perform ROS?: Yes Is the patient limited Italian proficient: No Constitutional: No: Symptoms Reported, See HPI, Chills, Diaphoresis, Fever, Loss of Appetite, Malaise, Night Sweats, Weakness, Weight Stable, Unintentional Wgt. Loss, Unexplained wgt Loss, Other ABD/GI: Yes: Constipated : Yes: Other (foul smelling urine, abdominal distention) *Physical Exam - Vital Signs Last Vital Signs Temp Pulse Resp BP Pulse Ox 85 20 112/80 96 05/05/17 19:35 05/05/17 19:35 05/05/17 19:35 05/05/17 19:35 - Physical Exam General Appearance: Yes: Appropriately Dressed Respiratory/Chest: positive: Lungs Clear, Normal Breath Sounds Gastrointestinal/Abdominal: positive: Soft, Decreased BS, Distended (Typhanic) Male Genitalia: positive: normal genitalia, other (excoriation to scrotal area. ) Extremity: positive: Normal Capillary Refill, Normal Inspection, Normal Range of Motion ED Treatment Course - LABORATORY CBC & Chemistry Diagram: 05/08/17 09:30 05/07/17 06:30 Progress Note - Progress Note Progress Note: A: Abdominal distention/ constipation P: UA UCX Abdominal Xray: CTAP patient to be admitted for further management of care. Medical Decision Making - Medical Decision Making 05/06/17 01:02 CTAP: An new dense right lower lobar consolidation is suspicious for pneumonia. Additional bilateral pacer these are more consistent with dependent atelectasis. The visualized cardiac chambers are normal in size and configuration. Normal unenhanced liver gallbladder pancreas, spleen, adrenal glands and kidneys. There is diffuse air and liquid stool distention to the colon measuring up to 11.3 cm in the sigmoid colon. Patient is at risk for bowel perforation and severe ileus/toxic megacolon is considered. There is no aortic aneurysm. There is no significant retroperitoneal lymphadenopathy. Appendix not visualized. Urinary bladder and prostate glands are normal. pelvic free fluid is identified. 05/06/17 04:21 patient case discussed with Dr. Walters. reports no acute surgical intervention. will see patient in the AM ICU ted [employer] consulted for admission. patient is hemodynamically stable. *DC/Admit/Observation/Transfer Diagnosis at time of Disposition: Ileus, unspecified, Abdominal distension Pneumonia Qualifiers: Pneumonia type: due to unspecified organism Laterality: right Lung location: lower lobe of lung Qualified Code(s): J18.1 - Lobar pneumonia, unspecified organism UTI (urinary tract infection) Qualifiers: Urinary tract infection type: acute cystitis Hematuria presence: without hematuria Qualified Code(s): N30.00 - Acute cystitis without hematuria - Discharge Dispostion Admit: Yes - Referrals - Patient Instructions - Post Discharge Activity
[2017-05-05 22:59] LABS: URINE APPEARANCE CLOUDY; URINE BILIRUBIN NEGATIVE (NEGATIVE); URINE BLOOD 2+ (NEGATIVE); URINE COLOR AMBER; URINE GLUCOSE (UA) NEGATIVE (NEGATIVE); URINE KETONE NEGATIVE (NEGATIVE); URINE NITRITE NEGATIVE (NEGATIVE); URINE PROTEIN NEGATIVE (NEGATIVE); URINE UROBILINOGEN NEGATIVE mg/dL (0.2-1.0)
[2017-05-05 23:04] LABS: URINE MUCUS RARE; URINE RBC 13 /hpf (0-3); URINE WBC 16 /hpf (3-5)
[2017-05-06] MEDS ORDERED: PIPERACILLIN/TAZOBACTAM 4.5 GM VIAL IVPB ONE (01:25)
[2017-05-06 01:38] LABS: EOSINOPHIL 2.8 % (0-4.5); MCH 29.9 pg (25.7-33.7); MCHC 34.2 g/dl (32.0-35.9); MEAN CELL VOLUME 87.6 fl (80-96); MEAN PLT VOLUME 6.6 fl (7.5-11.1); NEUTROPHILS 50.4 % (42.8-82.8); PLATELET COUNT 421 K/MM3 (134-434); RDW 13.2 % (11.9-15.9); WHITE BLOOD COUNT 7.6 K/mm3 (4.0-10.0)
[2017-05-06 01:48] LABS: INR 1.24 (0.82-1.09)
[2017-05-06 01:50] LABS: ACTIVATED PTT 32.6 SECONDS (26.9-34.4)
[2017-05-06 02:08] LABS: ALBUMIN 3.1 g/dl (3.4-5.0); ALK PHOS 136 U/L (45-117); ANION GAP 8 (8-16); BILIRUBIN,TOTAL 0.2 mg/dL (0.2-1.0); CO2 30 mmol/L (21-32); CREATININE 0.4 mg/dL (0.7-1.3); GLUCOSE,RANDOM 86 mg/dL (74-106); SGOT/AST 35 U/L (15-37); SGPT/ALT 42 U/L (12-78); TOT PROT 6.8 g/dl (6.4-8.2)
[2017-05-06] MEDS ORDERED: SODIUM CHLORIDE 1,000 ML IV STA (02:33)
[2017-05-06] MEDS ORDERED: METRONIDAZOLE 500 MG PREMIXED 500 MG/100 ML MG IVPB ONE (02:33)
[2017-05-06] MEDS ORDERED: VANCOMYCIN 1 GRAM (PRE-DOCKED) 1,000 MG/250 ML BAG IVPB ONE (02:38)
--- NOTE | 2017-05-06 02:54 | PN ---
Teaching Attending Note Name of Resident: Parker Pace ATTENDING PHYSICIAN STATEMENT I saw and evaluated the patient. I reviewed the resident's note and discussed the case with the resident. I agree with the resident's findings and plan as documented. SUBJECTIVE: 46 M with MR/CP, porencephalic cerebral cysts, Siloadenitis, epilepsy, cortical blindness, GERD, esophagitis, from [facility], who is non-verbal at baseline , who presents with abdominal distension and scrotal rash. As per aide, pt. has been having diarrhea and last movement was yesterday, unsure of flatus. Pt. had recent admit in 03/25 for sigmoid volvulous. Pt. was coughing at bedside. OBJECTIVE: Physical: VS: Vital Signs Period Temp Pulse Resp BP Sys/Skinner Pulse Ox Last 24 Hr 85 20 112/80 96 GEN: NAD, resting in bed, AA0X0 HEENT: Tumor on forehead, Eyes pt. unwilling to open, mouth pt. unwilling to open CARD: RRR S1, S2 RESP: Coarse breath sounds bases ABD: BS X4, NTD to palpation, Distended EXT: - C/C/E Allergies Allergy/AdvReac Type Severity Reaction Status Date / Time ceresin [From Eucerin] Allergy Verified 03/30/17 17:37 emollient combination no.33 Allergy Verified 05/05/17 19:35 [From Eucerin] isopropyl myristate Allergy Verified 05/05/17 19:35 [From Eucerin] lanolin alcohols Allergy Verified 05/05/17 19:35 [From Eucerin] latex Allergy Verified 05/05/17 19:35 mineral oil [From Eucerin] Allergy Verified 05/05/17 19:35 petrolatum,white Allergy Verified 05/05/17 19:35 [From Eucerin] phenytoin sodium Allergy Verified 05/05/17 19:35 [From Dilantin] phenytoin sodium extended Allergy Verified 05/05/17 19:35 [From Dilantin] soap [From Eucerin] Allergy Verified 05/05/17 19:35 water [From Eucerin] Allergy Verified 05/05/17 19:35 CBCD WBC 7.6 K/mm3 (4.0-10.0) D 05/06/17 01:25 RBC 3.93 M/mm3 (4.00-5.60) L 05/06/17 01:25 Hgb 11.8 GM/dL (11.7-16.9) D 05/06/17 01:25 Hct 34.4 % (35.4-49) L 05/06/17 01:25 MCV 87.6 fl (80-96) 05/06/17 01:25 MCHC 34.2 g/dl (32.0-35.9) 05/06/17 01:25 RDW 13.2 % (11.9-15.9) 05/06/17 01:25 Plt Count 421 K/MM3 (134-434) D 05/06/17 01:25 MPV 6.6 fl (7.5-11.1) L 05/06/17 01:25 CMP Sodium 131 mmol/L (136-145) L 05/06/17 01:25 Potassium 4.6 mmol/L (3.5-5.1) 05/06/17 01:25 Chloride 93 mmol/L (98-107) L 05/06/17 01:25 Carbon Dioxide 30 mmol/L (21-32) 05/06/17 01:25 Anion Gap 8 (8-16) 05/06/17 01:25 BUN 5 mg/dL (7-18) L D 05/06/17 01:25 Creatinine 0.4 mg/dL (0.7-1.3) L 05/06/17 01:25 Creat Clearance w eGFR > 60 (>60) 05/06/17 01:25 Random Glucose 86 mg/dL (74-106) 05/06/17 01:25 Calcium 9.0 mg/dL (8.5-10.1) 05/06/17 01:25 Total Bilirubin 0.2 mg/dL (0.2-1.0) D 05/06/17 01:25 AST 35 U/L (15-37) D 05/06/17 01:25 ALT 42 U/L (12-78) D 05/06/17 01:25 Alkaline Phosphatase 136 U/L (45-117) H 05/06/17 01:25 Total Protein 6.8 g/dl (6.4-8.2) 05/06/17 01:25 Albumin 3.1 g/dl (3.4-5.0) L 05/06/17 01:25 CTAP: An new dense right lower lobar consolidation is suspicious for pneumonia. Additional bilateral pacer these are more consistent with dependent atelectasis. The visualized cardiac chambers are normal in size and configuration. Normal unenhanced liver gallbladder pancreas, spleen, adrenal glands and kidneys. There is diffuse air and liquid stool distention to the colon measuring up to 11.3 cm in the sigmoid colon. Patient is at risk for bowel perforation and severe ileus/toxic megacolon is considered. There is no aortic aneurysm. There is no significant retroperitoneal lymphadenopathy. Appendix not visualized. Urinary bladder and prostate glands are normal. pelvic free fluid is identified. Urine Test Results Urine Color Cindy 05/05/17 22:50 Urine Appearance Cloudy 05/05/17 22:50 Urine pH 7.0 (5.0-8.0) 05/05/17 22:50 Ur Specific [place] 1.011 (1.001-1.035) 05/05/17 22:50 Urine Protein Negative (NEGATIVE) 05/05/17 22:50 Urine Glucose (UA) Negative (NEGATIVE) 05/05/17 22:50 Urine Ketones Negative (NEGATIVE) 05/05/17 22:50 Urine Blood 2+ (NEGATIVE) H 05/05/17 22:50 Urine Nitrite Negative (NEGATIVE) 05/05/17 22:50 Urine Bilirubin Negative (NEGATIVE) 05/05/17 22:50 Ur Epithelial Cells Rare /HPF (FEW) 05/05/17 22:50 Urine Mucus Rare 05/05/17 22:50 Ambulatory Orders Calcium Carbonate/Vitamin D3 [Oystercal-D 500 mg-400 Unit Tb] 1 each PO BID Carbamazepine [Carbamazepine ER] 200 mg PO DAILY 03/30/17 Carbamazepine [Carbamazepine ER] 300 mg PO DAILY 03/30/17 Carbamazepine [Carbamazepine ER] 400 mg PO DAILY 03/30/17 Cetirizine HCl 10 mg PO DAILY 03/30/17 Clonazepam [Klonopin -] 0.5 mg PO TID 03/30/17 Fluticasone Prop 0.05% Nasal [Flonase -] 1 - 2 spray NS DAILY 03/30/17 Magnesium Hydrox 2400MG/30Ml [Milk of Magnesia -] 30 ml PO DAILY 03/30/17 Multivit-Min/FA/Lycopen/Lutein [Vitrum 50+ Senior Tablet] 5 5ml PO DAILY Phenobarbital 64.8 mg PO BID 03/30/17 Sodium Chloride 500 mg PO DAILY 03/30/17 ASSESSMENT AND PLAN: 46 M with MR/CP, porencephalic cerebral cysts, Siloadenitis, epilepsy, cortical blindness, GERD, esophagitis, from [facility], who is non-verbal at baseline , who presents with abdominal distension and rash on scrotum, found to have toxic megacolon, uti and RLL pneumonia 1.) Severe Ileus/Toxic Megacolon - Stat LA - IVF - Sx. consulted for risk of bowel perf. - GI consult - C/W Flagyl, S/P Zosyn in ED - Chk. C.Diff- consider adding PO Vanc - Repeat labs - Zosyn in ED - Blood cx - ID consult 2.) UTI - Zosyn given in ED - U Cx 3.) RLL PNA - HCAP (recent Hospitlization) - Vanco/Zosyn given in ED - CXR stat - Urine AGs - Sputum Cx 4.)SeiszureDO - C/W home meds 5.) Scrotal Rash - May be Daphne, difficult to assess due to pt. positioning - Nystatin Powder 6.) GERD - C/W Home meds 7.) Epilepsy - C/W home meds 8.) Dvt ppx - SCDS Place in Med-Sx
--- NOTE | 2017-05-06 03:07 | HP ---
CHIEF COMPLAINT: Abdominal distention PCP:Dr. Kahlil Mcdaniels HISTORY OF PRESENT ILLNESS: 46yo M with PMH of epilepsy and profound MR, sent in from [place] for abdominal distention and scrotal rash. Pt is nonverbal, aide at bedside. Patient had sudden onset abdominal distention. Per aide pt had 1 small BM yesterday. Patient was admitted in early March for sigmoid volvulous. ER course was notable for: (1) CBC, CMP, UA- wbc of 16 (2)Abd xray- mechanical obstruction vs pseudo obstruction vs ileus vs toxic megacolon (3)CTAP: An new dense right lower lobar consolidation is suspicious for pneumonia. Additional bilateral pacer these are more consistent with dependent atelectasis. The visualized cardiac chambers are normal in size and configuration. Normal unenhanced liver gallbladder pancreas, spleen, adrenal glands and kidneys. There is diffuse air and liquid stool distention to the colon measuring up to 11.3 cm in the sigmoid colon. Patient is at risk for bowel perforation and severe ileus/toxic megacolon is considered. There is no aortic aneurysm. There is no significant retroperitoneal lymphadenopathy. Appendix not visualized. Urinary bladder and prostate glands are normal. pelvic free fluid is identified. 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 parotitis PAST SURGICAL HISTORY: ventriculo-peritoneal shunt placement lumbosacral spinal surgery Social History: Smoking: unable to assess Alcohol: Drugs: Family History: unable to assess Allergies ceresin [From Eucerin] Allergy (Verified 03/30/17 17:37) emollient combination no.33 [From Eucerin] Allergy (Verified 05/05/17 19:35) isopropyl myristate [From Eucerin] Allergy (Verified 05/05/17 19:35) lanolin alcohols [From Eucerin] Allergy (Verified 05/05/17 19:35) latex Allergy (Verified 05/05/17 19:35) mineral oil [From Eucerin] Allergy (Verified 05/05/17 19:35) petrolatum,white [From Eucerin] Allergy (Verified 05/05/17 19:35) phenytoin sodium [From Dilantin] Allergy (Verified 05/05/17 19:35) phenytoin sodium extended [From Dilantin] Allergy (Verified 05/05/17 19:35) soap [From Eucerin] Allergy (Verified 05/05/17 19:35) water [From Eucerin] Allergy (Verified 05/05/17 19:35) HOME MEDICATIONS: Home Medications Medication Instructions Recorded Calcium Carbonate/Vitamin D3 1 each PO BID 03/30/17 [Oystercal-D 500 mg-400 Unit Tb] Carbamazepine [Carbamazepine ER] 200 mg PO DAILY 03/30/17 Carbamazepine [Carbamazepine ER] 300 mg PO DAILY 03/30/17 Carbamazepine [Carbamazepine ER] 400 mg PO DAILY 03/30/17 Cetirizine HCl 10 mg PO DAILY 03/30/17 Clonazepam [Klonopin -] 0.5 mg PO TID 03/30/17 Fluticasone Prop 0.05% Nasal 1 - 2 spray NS DAILY 03/30/17 [Flonase -] Magnesium Hydrox 2400MG/30Ml [Milk 30 ml PO DAILY 03/30/17 of Magnesia -] Multivit-Min/FA/Lycopen/Lutein 5 5ml PO DAILY 03/30/17 [Vitrum 50+ Senior Tablet] Phenobarbital 64.8 mg PO BID 03/30/17 Sodium Chloride 500 mg PO DAILY 03/30/17 REVIEW OF SYSTEMS-- UNABLE TO ASSESS PHYSICAL EXAMINATION Vital Signs - 24 hr 05/05/17 19:35 Pulse Rate 85 Respiratory 20 Rate Blood Pressure 112/80 O2 Sat by Pulse 96 Oximetry (%) GENERAL: a&o X 0, No acute distress, laying in bed HEAD: forehead mass, unable to assess HEENT LUNGS: Breath sounds equal, mild crackles at base. HEART: Regular rate and rhythm, normal S1 and S2 without murmur, rub or gallop. ABDOMEN: Soft, nontender, +distended, hyperactive bowel sounds, no guarding, no rebound, no masses. No hepatomegaly or splenomegaly. : +scrotal rash Rectal: No stool in the vault. Good tone. No blood. Laboratory Results - last 24 hr 05/05/17 05/06/17 05/06/17 22:50 01:25 01:25 WBC 7.6 D RBC 3.93 L Hgb 11.8 D Hct 34.4 L MCV 87.6 MCH 29.9 MCHC 34.2 RDW 13.2 Plt Count 421 D MPV 6.6 L Neutrophils % 50.4 Lymphocytes % 31.3 Monocytes % 14.5 H Eosinophils % 2.8 Basophils % 1.0 PT with INR INR PTT (Actin FS) Sodium Potassium Chloride Carbon Dioxide Anion Gap BUN Creatinine Creat Clearance w eGFR Random Glucose Calcium Total Bilirubin AST ALT Alkaline Phosphatase Total Protein Albumin Urine Color Cindy Urine Appearance Cloudy Urine pH 7.0 Ur Specific [place] 1.011 Urine Protein Negative Urine Glucose (UA) Negative Urine Ketones Negative Urine Blood 2+ H Urine Nitrite Negative Urine Bilirubin Negative Urine Urobilinogen Negative Urine WBC (Auto) 16 Urine RBC (Auto) 13 Ur Epithelial Cells Rare Urine Mucus Rare Blood Type O POSITIVE Antibody Screen Negative 05/06/17 05/06/17 01:25 01:25 WBC RBC Hgb Hct MCV MCH MCHC RDW Plt Count MPV Neutrophils % Lymphocytes % Monocytes % Eosinophils % Basophils % PT with INR 14.00 H INR 1.24 H PTT (Actin FS) 32.6 Sodium 131 L Potassium 4.6 Chloride 93 L Carbon Dioxide 30 Anion Gap 8 BUN 5 L D Creatinine 0.4 L Creat Clearance w eGFR > 60 Random Glucose 86 Calcium 9.0 Total Bilirubin 0.2 D AST 35 D ALT 42 D Alkaline Phosphatase 136 H Total Protein 6.8 Albumin 3.1 L Urine Color Urine Appearance Urine pH Ur Specific [place] Urine Protein Urine Glucose (UA) Urine Ketones Urine Blood Urine Nitrite Urine Bilirubin Urine Urobilinogen Urine WBC (Auto) Urine RBC (Auto) Ur Epithelial Cells Urine Mucus Blood Type Antibody Screen ASSESSMENT/PLAN: 46yo M with PMH of epilepsy and profound MR, sent in from [place] for abdominal distention admitted to med-surg for further evaluation # ABD distention 2/2 to ileus vs toxic megacolon -IVF @ 100 cc/hr -GI consult, Dr Johnson -Surgery consult, Dr. Walters -ID consult, Dr. Pablo -C diff and stool cx pending -Zosyn given in the ED, Flagyl x 1 dose given -Blood cultures # UTI -Zosyn given in the ED -Urine culture pending # Right lower lobe pneumonia, possible HCAP -Vancomycin and zosyn given in the ED -Stat CXR -Urine antigens pending -Sputum culture pending # Seizure disorder -Continue carbamazepine, klonopin, and phenobarbital # Scrotal rash -Nystatin powder to affected area #FEN/GI -IVF NS @ 100 cc/hr -wnl -npo #PPx -scd's b/l -GI ppx not indicated at this time Dispo: Home medications need to be confirmed, Visit type - Emergency Visit Emergency Visit: Yes ED Registration Date: 05/06/17 Care time: The patient presented to the Emergency Department on the above date and was hospitalized for further evaluation of their emergent condition. - New Patient This patient is new to me today: Yes Date on this admission: 05/06/17 - Critical Care Critical Care patient: No
[2017-05-06] MEDS: SODIUM CHLORIDE 1,000 ML IV SCH ×2 (04:02→11:19)
[2017-05-06] MEDS ORDERED: HEPARIN NA (PORCINE) 5,000 UNITS/ML 1ML VIAL SQ SCH (06:00)
[2017-05-06] MEDS: clonazePAM 0.5 MG TABLET PO SCH ×3 (07:45→21:40)
[2017-05-06 09:41] LABS: BASOPHIL 0.6 % (0-2.0); EOSINOPHIL 2.7 % (0-4.5); MCH 29.4 pg (25.7-33.7); MCHC 33.8 g/dl (32.0-35.9); MEAN CELL VOLUME 86.9 fl (80-96); MEAN PLT VOLUME 6.7 fl (7.5-11.1); NEUTROPHILS 60.5 % (42.8-82.8); PLATELET COUNT 462 K/MM3 (134-434); RDW 13.1 % (11.9-15.9); WHITE BLOOD COUNT 6.1 K/mm3 (4.0-10.0)
[2017-05-06 09:47] LABS: PHOSPHOROUS 3.7 mg/dL (2.5-4.9)
[2017-05-06 10:05] LABS: ANION GAP 6 (8-16); CALCIUM 8.6 mg/dL (8.5-10.1); CO2 29 mmol/L (21-32); CREATININE 0.4 mg/dL (0.7-1.3); GLUCOSE,RANDOM 89 mg/dL (74-106); MAGNESIUM 2.2 mg/dL (1.8-2.4)
[2017-05-06] MEDS: METRONIDAZOLE 500 MG PREMIXED 500 MG/100 ML MG IVPB SCH ×3 (10:55→18:32)
[2017-05-06] MEDS: carBAMazepine XR 400 MG TAB.ER.12H PO SCH (10:55)
[2017-05-06] MEDS ORDERED: PT OWN MED DRAWER 7, Y5N ONE (11:14)
[2017-05-06] MEDS: NYSTATIN POWDER 100,000 UNITS/GM - 15 GM TOPICAL POWDER TP SCH (11:31)
[2017-05-06 11:41] LABS: URINE LEUK ESTERASE TRACE (NEGATIVE)
--- NOTE | 2017-05-06 11:43 | CON.GI ---
Consult Consult Specialty:: GI Referred by:: Hospitalist Diamante - History of Present Illness History of Present Illness: Chart reviewed. The patient is known to us from prior admission in March for sigmiod valvulous s/p flex-sig decompression. 46yo M with PMH of epilepsy and profound MR, sent in from [place] for abdominal distention. Per aide, pt had 1 small BM yesterday. Not in distress, or discomfort. No vomiting reported. Afebrile with soft abdomen and dilated distal colon on imaging w/o typical valvulous picture. - History Source History Provided By: Medical Record, Caregiver Limitations to Obtaining History: Clinical Condition - Past Medical History Additional Medical History: H&P reviewed. Please see H&P - Alcohol/Substance Use Hx Alcohol Use: No - Smoking History Smoking history: Never smoked Have you smoked in the past 12 months: No Home Medications - Allergies Allergies/Adverse Reactions: Allergies Allergy/AdvReac Type Severity Reaction Status Date / Time ceresin [From Eucerin] Allergy Verified 03/30/17 17:37 egg Allergy Verified 05/06/17 10:26 emollient combination no.33 Allergy Verified 05/05/17 19:35 [From Eucerin] isopropyl myristate Allergy Verified 05/05/17 19:35 [From Eucerin] lanolin alcohols Allergy Verified 05/05/17 19:35 [From Eucerin] latex Allergy Verified 05/05/17 19:35 mineral oil [From Eucerin] Allergy Verified 05/05/17 19:35 petrolatum,white Allergy Verified 05/05/17 19:35 [From Eucerin] phenytoin sodium Allergy Verified 05/05/17 19:35 [From Dilantin] phenytoin sodium extended Allergy Verified 05/05/17 19:35 [From Dilantin] soap [From Eucerin] Allergy Verified 05/05/17 19:35 strawberry Allergy Verified 05/06/17 19:52 water [From Eucerin] Allergy Verified 05/05/17 19:35 - Home Medications Home Medications: Ambulatory Orders Calcium Carbonate/Vitamin D3 [Oystercal-D 500 mg-400 Unit Tb] 1 each PO BID Carbamazepine [Carbamazepine ER] 200 mg PO DAILY 03/30/17 Carbamazepine [Carbamazepine ER] 300 mg PO DAILY 03/30/17 Carbamazepine [Carbamazepine ER] 400 mg PO DAILY 03/30/17 Cetirizine HCl 10 mg PO DAILY 03/30/17 Clonazepam [Klonopin -] 0.5 mg PO TID 03/30/17 Fluticasone Prop 0.05% Nasal [Flonase -] 1 - 2 spray NS DAILY 03/30/17 Magnesium Hydrox 2400MG/30Ml [Milk of Magnesia -] 30 ml PO DAILY 03/30/17 Multivit-Min/FA/Lycopen/Lutein [Vitrum 50+ Senior Tablet] 5 5ml PO DAILY Phenobarbital 64.8 mg PO BID 03/30/17 Sodium Chloride 500 mg PO DAILY 03/30/17 Family Disease History - Family Disease History Family History: Unable to Obtain Review of Systems Findings/Remarks: please refer to H&P Physical Exam-GI Vital Signs: Vital Signs Temperature 99.7 F H 05/06/17 08:15 Pulse Rate 81 05/06/17 08:15 Respiratory Rate 19 05/06/17 08:15 Blood Pressure 124/67 05/06/17 08:15 O2 Sat by Pulse Oximetry (%) 96 05/05/17 19:35 Constitutional: Yes: No Distress, Calm Eyes: Yes: Conjunctiva Clear HENT: Yes: Atraumatic Cardiovascular: Yes: Regular Rate and Rhythm Respiratory: Yes: Regular Gastrointestinal Inspection: No: Distention ...Palpate: Yes: Soft. No: Firm/Rigid, Guarding, Mass, Pulsatile Mass, Tenderness, Tenderness, Epigastium, Tenderness, Rebound ...Percussion: No: Fluid Wave, Tympanitic Labs: CBC, BMP 05/06/17 09:15 05/06/17 09:15 INR, PTT INR 1.24 (0.82-1.09) H 05/06/17 01:25 CBCD WBC 6.1 K/mm3 (4.0-10.0) 05/06/17 09:15 RBC 4.20 M/mm3 (4.00-5.60) 05/06/17 09:15 Hgb 12.4 GM/dL (11.7-16.9) 05/06/17 09:15 Hct 36.5 % (35.4-49) 05/06/17 09:15 MCV 86.9 fl (80-96) 05/06/17 09:15 MCHC 33.8 g/dl (32.0-35.9) 05/06/17 09:15 RDW 13.1 % (11.9-15.9) 05/06/17 09:15 Plt Count 462 K/MM3 (134-434) H 05/06/17 09:15 MPV 6.7 fl (7.5-11.1) L 05/06/17 09:15 CMP Sodium 132 mmol/L (136-145) L 05/06/17 09:15 Potassium 4.2 mmol/L (3.5-5.1) 05/06/17 09:15 Chloride 97 mmol/L (98-107) L 05/06/17 09:15 Carbon Dioxide 29 mmol/L (21-32) 05/06/17 09:15 Anion Gap 6 (8-16) L 05/06/17 09:15 BUN 3 mg/dL (7-18) L D 05/06/17 09:15 Creatinine 0.4 mg/dL (0.7-1.3) L 05/06/17 09:15 Creat Clearance w eGFR > 60 (>60) 05/06/17 01:25 Calcium 8.6 mg/dL (8.5-10.1) 05/06/17 09:15 Total Bilirubin 0.2 mg/dL (0.2-1.0) D 05/06/17 01:25 AST 35 U/L (15-37) D 05/06/17 01:25 ALT 42 U/L (12-78) D 05/06/17 01:25 Alkaline Phosphatase 136 U/L (45-117) H 05/06/17 01:25 Total Protein 6.8 g/dl (6.4-8.2) 05/06/17 01:25 Albumin 3.1 g/dl (3.4-5.0) L 05/06/17 01:25 Laboratory Results - last 24 hr 05/05/17 05/06/17 05/06/17 22:50 01:25 01:25 WBC 7.6 D RBC 3.93 L Hgb 11.8 D Hct 34.4 L MCV 87.6 MCH 29.9 MCHC 34.2 RDW 13.2 Plt Count 421 D MPV 6.6 L Neutrophils % 50.4 Lymphocytes % 31.3 Monocytes % 14.5 H Eosinophils % 2.8 Basophils % 1.0 PT with INR INR PTT (Actin FS) Sodium Potassium Chloride Carbon Dioxide Anion Gap BUN Creatinine Creat Clearance w eGFR Random Glucose Lactic Acid Calcium Phosphorus Magnesium Total Bilirubin AST ALT Alkaline Phosphatase Total Protein Albumin Urine Color Cindy Urine Appearance Cloudy Urine pH 7.0 Ur Specific [place] 1.011 Urine Protein Negative Urine Glucose (UA) Negative Urine Ketones Negative Urine Blood 2+ H Urine Nitrite Negative Urine Bilirubin Negative Urine Urobilinogen Negative Ur Leukocyte Esterase Trace H Urine WBC (Auto) 16 Urine RBC (Auto) 13 Ur Epithelial Cells Rare Urine Mucus Rare Blood Type O POSITIVE Antibody Screen Negative 05/06/17 05/06/17 05/06/17 01:25 01:25 02:49 WBC RBC Hgb Hct MCV MCH MCHC RDW Plt Count MPV Neutrophils % Lymphocytes % Monocytes % Eosinophils % Basophils % PT with INR 14.00 H INR 1.24 H PTT (Actin FS) 32.6 Sodium 131 L Potassium 4.6 Chloride 93 L Carbon Dioxide 30 Anion Gap 8 BUN 5 L D Creatinine 0.4 L Creat Clearance w eGFR > 60 Random Glucose 86 Lactic Acid 1.0 Calcium 9.0 Phosphorus 3.7 Magnesium Total Bilirubin 0.2 D AST 35 D ALT 42 D Alkaline Phosphatase 136 H Total Protein 6.8 Albumin 3.1 L Urine Color Urine Appearance Urine pH Ur Specific [place] Urine Protein Urine Glucose (UA) Urine Ketones Urine Blood Urine Nitrite Urine Bilirubin Urine Urobilinogen Ur Leukocyte Esterase Urine WBC (Auto) Urine RBC (Auto) Ur Epithelial Cells Urine Mucus Blood Type Antibody Screen 05/06/17 05/06/17 09:15 09:15 WBC 6.1 RBC 4.20 Hgb 12.4 Hct 36.5 MCV 86.9 MCH 29.4 MCHC 33.8 RDW 13.1 Plt Count 462 H MPV 6.7 L Neutrophils % 60.5 D Lymphocytes % 21.7 D Monocytes % 14.5 H Eosinophils % 2.7 Basophils % 0.6 PT with INR INR PTT (Actin FS) Sodium 132 L Potassium 4.2 Chloride 97 L Carbon Dioxide 29 Anion Gap 6 L BUN 3 L D Creatinine 0.4 L Creat Clearance w eGFR Random Glucose 89 Lactic Acid Calcium 8.6 Phosphorus Magnesium 2.2 Total Bilirubin AST ALT Alkaline Phosphatase Total Protein Albumin Urine Color Urine Appearance Urine pH Ur Specific [place] Urine Protein Urine Glucose (UA) Urine Ketones Urine Blood Urine Nitrite Urine Bilirubin Urine Urobilinogen Ur Leukocyte Esterase Urine WBC (Auto) Urine RBC (Auto) Ur Epithelial Cells Urine Mucus Blood Type Antibody Screen Imaging - Results X-ray: Report Reviewed (distended colon with cut off at rectum) Cat Scan: Report Reviewed (limited study, pulm consolidation?) Assessment/Plan Recurrent colonic distension w/o signs f toxicity, significant electrolyte imbalance, or surgical abdomen. Had a small BM yesterday, per caregiver. No significant pathology on flex-sig in March of this year. Consider rectal tube PRN Miralax qid Resume previous diet Frequent abdominal exams repeat abd xray in am tomorrow Observe
--- NOTE | 2017-05-06 11:45 | PN ---
Progress Note (short form) - Note Progress Note: ID consult dictated imp/reccd 46 year old male from [facility] recent admission for sigmoid volvolus in March treated with endoscopy by GI, now readmitted with abdominal distention and diarrhea staff from the center is at the bedside and reports that about a week or two back he started having abdominal distention no fevers, no vomiting but he is "spitting up" cxray with left sided infiltrate ct abd pelvis with RLL pneumonia and distended colon received vancomycin and zosyn and flagyl in ED suggest continue zosyn for HCAP/aspiration pneumonia flagyl for possible cdiff f/u cultures stools for cdiff/culture GI/Surgery to see d/w Surgery Dr Walters who is requesting repeat abdominal xray- will order for surgeon Problem List - Problems (1) Pneumonia Code(s): J18.9 - PNEUMONIA, UNSPECIFIED ORGANISM Qualifiers: Pneumonia type: due to unspecified organism Laterality: right Lung location: lower lobe of lung Qualified Code(s): J18.1 - Lobar pneumonia, unspecified organism (2) Ileus, unspecified Code(s): K56.7 - ILEUS, UNSPECIFIED
[2017-05-06] MEDS ORDERED: PIPERACILLIN/TAZOB 3.375 GM/50 ML PRE-DOCKED IVPB SCH (12:00)
[2017-05-06 13:25] VITALS: BMI 17.1
[2017-05-06] MEDS: PIPERACILLIN/TAZOB 3.375 GM 3.375 GM in DEXTROSE 5%-WATER - 50 ML IVPB SCH ×2 (13:30→21:37)
--- NOTE | 2017-05-06 13:42 | CONSULT ---
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 Patient was admitted in early March for sigmoid volvulus and had flex sig decompression by GI. Pt is nonverbal, aide at bedside, but he was not here last night when pt was admitted. Patient reportedly had sudden onset abdominal distention. Per chart, pt had had 1 small BM yesterday before coming in. The aide reports he gets enemas if no formed stool for 3 days, but then he usually has very watery output. In the ER, he was afebrile, with mild hyponatremia and normal wbc; CT showed colonic distention without obstruction. He is admitted to medicine. 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 multiple porencephalic cerebral cysts. presence of cerebrospinal fluid drainage device / ventriculo-peritoneal shunt. 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 atopic dermatitis. GERD with esophagitis. mumps. optic atrophy. 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 sialoadenitis. profound mental retardation. parotitis - Past Surgical History Past Surgical History: Yes: Colonoscopy (flex sig for decompression Mar 2017) Additional Surgical History: CONDUIT INSTALLER shunt, spinal rods/LS spine surgery - Alcohol/Substance Use Hx Alcohol Use: No History of Substance Use: reports: None - Smoking History Smoking history: Never smoked Have you smoked in the past 12 months: No - Social History Usual Living Arrangement: Other (residential facility) ADL: Support Services Home Medications - Allergies Allergies/Adverse Reactions: Allergies Allergy/AdvReac Type Severity Reaction Status Date / Time ceresin [From Eucerin] Allergy Verified 03/30/17 17:37 egg Allergy Verified 05/06/17 10:26 emollient combination no.33 Allergy Verified 05/05/17 19:35 [From Eucerin] isopropyl myristate Allergy Verified 05/05/17 19:35 [From Eucerin] lanolin alcohols Allergy Verified 05/05/17 19:35 [From Eucerin] latex Allergy Verified 05/05/17 19:35 mineral oil [From Eucerin] Allergy Verified 05/05/17 19:35 petrolatum,white Allergy Verified 05/05/17 19:35 [From Eucerin] phenytoin sodium Allergy Verified 05/05/17 19:35 [From Dilantin] phenytoin sodium extended Allergy Verified 05/05/17 19:35 [From Dilantin] soap [From Eucerin] Allergy Verified 05/05/17 19:35 water [From Eucerin] Allergy Verified 05/05/17 19:35 - Home Medications Home Medications: Ambulatory Orders Calcium Carbonate/Vitamin D3 [Oystercal-D 500 mg-400 Unit Tb] 1 each PO BID Carbamazepine [Carbamazepine ER] 200 mg PO DAILY 03/30/17 Carbamazepine [Carbamazepine ER] 300 mg PO DAILY 03/30/17 Carbamazepine [Carbamazepine ER] 400 mg PO DAILY 03/30/17 Cetirizine HCl 10 mg PO DAILY 03/30/17 Clonazepam [Klonopin -] 0.5 mg PO TID 03/30/17 Fluticasone Prop 0.05% Nasal [Flonase -] 1 - 2 spray NS DAILY 03/30/17 Magnesium Hydrox 2400MG/30Ml [Milk of Magnesia -] 30 ml PO DAILY 03/30/17 Multivit-Min/FA/Lycopen/Lutein [Vitrum 50+ Senior Tablet] 5 5ml PO DAILY Phenobarbital 64.8 mg PO BID 03/30/17 Sodium Chloride 500 mg PO DAILY 03/30/17 Family Disease History - Family Disease History Family History: Unable to Obtain (pt nonverbal) Review of Systems Unable to obtain ROS, reason: pt nonverbal Findings/Remarks: per chart from ER/facility - Review of Systems Gastrointestinal: reports: Bloating, Constipation. denies: Nausea, Vomiting Neurological: reports: Pre-Existing Deficit Physical Exam Vital Signs: Vital Signs Temperature 99.7 F H 05/06/17 13:16 Pulse Rate 81 05/06/17 13:16 Respiratory Rate 19 05/06/17 13:16 Blood Pressure 124/67 05/06/17 13:16 O2 Sat by Pulse Oximetry (%) 97 05/06/17 13:16 Constitutional: Yes: No Distress, Calm, Thin Eyes: Yes: Conjunctiva Clear, Other (blind) HENT: Yes: Atraumatic. No: Normocephalic (bulging/bulbous forehead) Neck: Yes: Supple, Trachea Midline Cardiovascular: Yes: Regular Rate and Rhythm. No: Murmur Respiratory: Yes: Regular, CTA Bilaterally (with slightly coarse exhalations) Gastrointestinal: Yes: Normal Bowel Sounds, Soft. No: Distention (abdomen flat/ scaphoid but somewhat tympanic), Tenderness (does not seem to be) ...Rectal Exam: Yes: Sphincter Tone Normal, Other (vault empty, no stool on glove). No: Hemorrhoids/External Renal/: Yes: Incontinence (in diaper) Musculoskeletal: Yes: Other (moves all limbs) Extremities: Yes: Other (holds UE and LE in contracted positions but can straighten out) Edema: No Integumentary: No: Jaundice, Rash Neurological: Yes: Alert, Pre-Existing Deficit, Unresponsive (nonverbal but does wail at times) Psychiatric: Yes: Alert (but nonverbal, nonresponsive). No: Oriented Labs: CBC, BMP 05/06/17 09:15 05/06/17 09:15 CMP Sodium 132 mmol/L (136-145) L 05/06/17 09:15 Potassium 4.2 mmol/L (3.5-5.1) 05/06/17 09:15 Chloride 97 mmol/L (98-107) L 05/06/17 09:15 Carbon Dioxide 29 mmol/L (21-32) 05/06/17 09:15 Anion Gap 6 (8-16) L 05/06/17 09:15 BUN 3 mg/dL (7-18) L D 05/06/17 09:15 Creatinine 0.4 mg/dL (0.7-1.3) L 05/06/17 09:15 Creat Clearance w eGFR > 60 (>60) 05/06/17 01:25 Random Glucose 89 mg/dL (74-106) 05/06/17 09:15 Lactic Acid 1.0 mmol/L (0.4-2.0) 05/06/17 02:49 Calcium 8.6 mg/dL (8.5-10.1) 05/06/17 09:15 Phosphorus 3.7 mg/dL (2.5-4.9) 05/06/17 01:25 Magnesium 2.2 mg/dL (1.8-2.4) 05/06/17 09:15 Total Bilirubin 0.2 mg/dL (0.2-1.0) D 05/06/17 01:25 AST 35 U/L (15-37) D 05/06/17 01:25 ALT 42 U/L (12-78) D 05/06/17 01:25 Alkaline Phosphatase 136 U/L (45-117) H 05/06/17 01:25 Total Protein 6.8 g/dl (6.4-8.2) 05/06/17 01:25 Albumin 3.1 g/dl (3.4-5.0) L 05/06/17 01:25 Urine Test Results Urine Color Cindy 05/05/17 22:50 Urine Appearance Cloudy 05/05/17 22:50 Urine pH 7.0 (5.0-8.0) 05/05/17 22:50 Ur Specific [place] 1.011 (1.001-1.035) 05/05/17 22:50 Urine Protein Negative (NEGATIVE) 05/05/17 22:50 Urine Glucose (UA) Negative (NEGATIVE) 05/05/17 22:50 Urine Ketones Negative (NEGATIVE) 05/05/17 22:50 Urine Blood 2+ (NEGATIVE) H 05/05/17 22:50 Urine Nitrite Negative (NEGATIVE) 05/05/17 22:50 Urine Bilirubin Negative (NEGATIVE) 05/05/17 22:50 Ur Leukocyte Esterase Trace (NEGATIVE) H 05/05/17 22:50 Ur Epithelial Cells Rare /HPF (FEW) 05/05/17 22:50 Urine Mucus Rare 05/05/17 22:50 Imaging - Results X-ray: Pending Cat Scan: Report Reviewed (colonic distention, particularly sigmoid, without evidence of obstruction, liquid stool and air in rectum, patchy consolidation RLL lung), Image Reviewed Problem List - Problems (1) Adynamic ileus Assessment/Plan: abdomen not really distended on exam, no tenderness, no distress pt with recurrent colonic dilation will check AXR prior to considering rectal tube placement, given lack of abdominal distention GI consult noted Thank you for the opportunity to participate in the care of this patient. Code(s): K56.0 - PARALYTIC ILEUS (2) Hyponatremia Code(s): E87.1 - HYPO-OSMOLALITY AND HYPONATREMIA (3) Functional quadriplegia Code(s): R53.2 - FUNCTIONAL QUADRIPLEGIA (4) Intellectual disability Code(s): F79 - UNSPECIFIED INTELLECTUAL DISABILITIES (5) Seizure Code(s): R56.9 - UNSPECIFIED CONVULSIONS
--- NOTE | 2017-05-06 16:40 | CONS ---
INFECTIOUS DISEASE CONSULTATION DATE OF CONSULTATION: 05/06/2017 REQUESTING PHYSICIAN: The hospitalist service. HISTORY OF PRESENT ILLNESS: This is a 46-year-old man who is a resident of the [facility]. He has a history of mental retardation, cerebral palsy, and seizure disorder. He was recently in the hospital in March with a sigmoid volvulus that was decompressed by GI via endoscopy. He apparently, after several weeks at the senior care, started having increasing abdominal distention. He was admitted yesterday with abdominal distention and reported diarrhea at the senior care. In the emergency room, he was noted to have a possible ileus as well as a right-sided pneumonia. He was given vancomycin, Zosyn, and Flagyl in the ER, and I am asked to see him for further recommendations. He has had no fever, and he is resting comfortably. He is nonverbal and unable to give any history. The aide is present who reports that he is behaving normally. He does not have any signs of distress and he looks quite comfortable. He has apparently been eating normally. There has been no vomiting, though he does "spit up" frequently. PAST MEDICAL HISTORY: Notable for profound mental retardation, cerebral palsy, epilepsy, esophagitis. 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 He has had lumbosacral spinal surgery as well. FAMILY HISTORY: Not available. ALLERGIES: LATEX and DILANTIN as well as he has food allergies. MEDICATIONS AT THE RETIREMENT: Include calcium with vitamin D, carbamazepine, cetirizine, clonazepam, fluticasone, milk of magnesia, phenobarbital. SOCIAL HISTORY: Not available. REVIEW OF SYSTEMS: Per the aide, he reports that he had a small bowel movement that was normal this morning, but per the report, he has had diarrhea. PHYSICAL EXAMINATION: General: He is resting comfortably. Vital Signs: His temperature is 99.7. His pulse is 124/67, respiratory rate is 81, blood pressure is 127/67. He weighs 119 pounds. HEENT: Normocephalic. He has a conical protrusion in his forehead. He is alert, but he is not participating in his care. Heart: Regular rate and rhythm. Lungs: Diminished breath sounds at the bases. Abdomen: He has bowel sounds. It is soft. It is distended. Extremities: Without edema. LABORATORY DATA: Labs are notable for a white count of 6.1, hemoglobin 12.4, platelets of 462. BUN is 3 and creatinine 0.4. LFTs are normal. His CAT scan of his abdomen and pelvis shows consolidation of the right lower lobe and colonic distention. Chest x-ray shows a right-sided infiltrate. In summary, this is a 46-year-old man with pneumonia. I would suggest considering continuing Zosyn for healthcare-acquired pneumonia versus aspiration, Flagyl for possible Clostridium difficile given the history of diarrhea in the setting of bowel distention. Follow up his cultures, stools for C. difficile and culture. GI Surgery to see. I spoke with the surgeon, Dr. Walters, who is requesting repeat abdominal x-ray which I will order. Further recommendations to follow. JAXSON MILLER M.D. [id number]
--- NOTE | 2017-05-06 17:04 | PN ---
Physical Exam: SUBJECTIVE: Patient seen and examined at bedside. He is nonverbal and baseline altered. History was unable to be taken. His aid states that he had one previous bowel movement. OBJECTIVE: Vital Signs Period Temp Pulse Resp BP Sys/Skinner Pulse Ox Last 24 Hr 99.7 F-99.7 F 81-85 19-20 112-124/67-80 96-97 GENERAL: The patient is awake, but not alert or oriented x3 HEAD: large mass protruding from the front of the forehead that is firm on palpation with a soft top. This is chronic and has been documented before LUNGS: Breath sounds equal, clear to auscultation bilaterally, no wheezes, no crackles, no accessory muscle use. HEART: Regular rate and rhythm, S1, S2 without murmur, rub or gallop. ABDOMEN: Soft, nontender, nondistended, normoactive bowel sounds, no guarding, no rebound, no hepatosplenomegaly, no masses. Abdomen was not found to be distended per my exam. EXTREMITIES: 2+ pulses, warm, well-perfused, no edema. NEUROLOGICAL: unable to assess due to mental status PSYCH: Normal mood, normal affect. SKIN: Warm, dry, normal turgor, no rashes or lesions noted Laboratory Results - last 24 hr 05/05/17 05/06/17 05/06/17 22:50 01:25 01:25 WBC 7.6 D RBC 3.93 L Hgb 11.8 D Hct 34.4 L MCV 87.6 MCH 29.9 MCHC 34.2 RDW 13.2 Plt Count 421 D MPV 6.6 L Neutrophils % 50.4 Lymphocytes % 31.3 Monocytes % 14.5 H Eosinophils % 2.8 Basophils % 1.0 PT with INR INR PTT (Actin FS) Sodium Potassium Chloride Carbon Dioxide Anion Gap BUN Creatinine Creat Clearance w eGFR Random Glucose Lactic Acid Calcium Phosphorus Magnesium Total Bilirubin AST ALT Alkaline Phosphatase Total Protein Albumin Urine Color Cindy Urine Appearance Cloudy Urine pH 7.0 Ur Specific Lemmon 1.011 Urine Protein Negative Urine Glucose (UA) Negative Urine Ketones Negative Urine Blood 2+ H Urine Nitrite Negative Urine Bilirubin Negative Urine Urobilinogen Negative Ur Leukocyte Esterase Trace H Urine WBC (Auto) 16 Urine RBC (Auto) 13 Ur Epithelial Cells Rare Urine Mucus Rare Blood Type O POSITIVE Antibody Screen Negative 05/06/17 05/06/17 05/06/17 01:25 01:25 02:49 WBC RBC Hgb Hct MCV MCH MCHC RDW Plt Count MPV Neutrophils % Lymphocytes % Monocytes % Eosinophils % Basophils % PT with INR 14.00 H INR 1.24 H PTT (Actin FS) 32.6 Sodium 131 L Potassium 4.6 Chloride 93 L Carbon Dioxide 30 Anion Gap 8 BUN 5 L D Creatinine 0.4 L Creat Clearance w eGFR > 60 Random Glucose 86 Lactic Acid 1.0 Calcium 9.0 Phosphorus 3.7 Magnesium Total Bilirubin 0.2 D AST 35 D ALT 42 D Alkaline Phosphatase 136 H Total Protein 6.8 Albumin 3.1 L Urine Color Urine Appearance Urine pH Ur Specific Lemmon Urine Protein Urine Glucose (UA) Urine Ketones Urine Blood Urine Nitrite Urine Bilirubin Urine Urobilinogen Ur Leukocyte Esterase Urine WBC (Auto) Urine RBC (Auto) Ur Epithelial Cells Urine Mucus Blood Type Antibody Screen 05/06/17 05/06/17 09:15 09:15 WBC 6.1 RBC 4.20 Hgb 12.4 Hct 36.5 MCV 86.9 MCH 29.4 MCHC 33.8 RDW 13.1 Plt Count 462 H MPV 6.7 L Neutrophils % 60.5 D Lymphocytes % 21.7 D Monocytes % 14.5 H Eosinophils % 2.7 Basophils % 0.6 PT with INR INR PTT (Actin FS) Sodium 132 L Potassium 4.2 Chloride 97 L Carbon Dioxide 29 Anion Gap 6 L BUN 3 L D Creatinine 0.4 L Creat Clearance w eGFR Random Glucose 89 Lactic Acid Calcium 8.6 Phosphorus Magnesium 2.2 Total Bilirubin AST ALT Alkaline Phosphatase Total Protein Albumin Urine Color Urine Appearance Urine pH Ur Specific Lemmon Urine Protein Urine Glucose (UA) Urine Ketones Urine Blood Urine Nitrite Urine Bilirubin Urine Urobilinogen Ur Leukocyte Esterase Urine WBC (Auto) Urine RBC (Auto) Ur Epithelial Cells Urine Mucus Blood Type Antibody Screen Active Medications Generic Name Dose Route Start Last Admin Trade Name Freq PRN Reason Stop Dose Admin Carbamazepine 400 mg 05/06/17 10:00 05/06/17 10:55 Tegretol Xr - PO Not Given DAILY LINO Clonazepam 0.5 mg 05/06/17 06:00 05/06/17 07:45 Klonopin - PO 0.5 mg TID LINO Administration Sodium Chloride 1,000 mls @ 100 mls/hr 05/06/17 03:15 05/06/17 11:19 Normal Saline - IV 100 mls/hr ASDIR LINO Administration Metronidazole 500 mg in 100 mls @ 100 mls/hr 05/06/17 12:00 05/06/17 14:00 Flagyl 500mg Premixed Ivpb - IVPB 100 mls/hr Q8H-IV LINO Administration Piperacillin Sod/Tazobactam 50 mls @ 100 mls/hr 05/06/17 12:00 05/06/17 13:30 Sod 3.375 gm/ Dextrose IVPB 100 mls/hr Q8H-IV LINO Administration Nystatin 1 applic 05/06/17 10:00 05/06/17 11:31 Nystop Powder - TP 1 applic DAILY LINO Administration Phenobarbital 60 mg 05/06/17 11:41 Phenobarbital - PO BID LINO ASSESSMENT/PLAN: 46yo M with PMH of epilepsy and profound MR, sent in from [place] for abdominal distention admitted to med-surg for further evaluation of possible ileus, pseudoobstruction, or obstruction. # ABD distention 2/2 to ileus -continue IVF @ 100 cc/hr -GI consult, Dr Johnson appreciated: miralax QID, resume previous diet, frequent abdominal exams, repeat abdominal xray -Surgery consult, Dr. Walters appreciated: does not think abdomen is distended, will recheck abd xray before attempting rectal tube placement -ID consult, Dr. Rojas -Zosyn given in the ED, Flagyl x 1 dose given, continue abx day 2 -f/u abdominal xray in AM -f/u Blood cultures # UTI: leukocyte esterase rare -Zosyn given in the ED -Urine culture pending # Right lower lobe pneumonia, possible HCAP -Vancomycin and zosyn given in the ED -f/u CXR -continue zosyn as per ID recs # Seizure disorder -Continue carbamazepine, klonopin, and phenobarbital # Scrotal rash -Nystatin powder to affected area #FEN/GI -IVF NS @ 100 cc/hr -replete electrolytes in AM -NPO until speech and swallow, except meds #PPx -scd's b/l -GI ppx not indicated at this time Dispo: Home medications need to be confirmed, Visit type - Emergency Visit Emergency Visit: No - New Patient This patient is new to me today: Yes Date on this admission: 05/06/17 - Critical Care Critical Care patient: No
--- NOTE | 2017-05-06 18:52 | PN ---
Teaching Attending Note Name of Resident: Joni Fisher ATTENDING PHYSICIAN STATEMENT I saw and evaluated the patient. I reviewed the resident's note and discussed the case with the resident. I agree with the resident's findings and plan as documented. SUBJECTIVE:resting comfortable OBJECTIVE: Last Vital Signs Temp Pulse Resp BP Pulse Ox 99.7 F H 81 19 124/67 97 05/06/17 13:16 05/06/17 13:16 05/06/17 13:16 05/06/17 13:16 05/06/17 13:16 General NAD HEENT large frontal mass, soft, nontender CV S1 S2 RRR no murmur/rub/gallop Lungs CTA B/L No wheezing/ralesr/rhonchi abdomen soft +distended +tympanic. normoactive BS Extremities no pedal edema ASSESSMENT AND PLAN: 46yo M with PMH MR/CP, porencephalic cerebral cysts, Siloadenitis, epilepsy, cortical blindness, GERD, esophagitis, from [facility] presented with abdominal distention 1. Abdominal distention- clinically stable. AXR concern for obstruction with possible toxic megacolon. CT imaging is now negative for this. will repeat AXR in the AM. remain NPO for now. IVF. check bladder scan to ensure not retaining. 2. RLL HCAP- possible aspiration. will check swallow eval to assess prior to starting for diet. start on Zosyn and flagyl. ID on board. Cx pending. legionella/strep negative. 3. Hyponatremia- likely dehydration. on IVF. 4. scrotal rash- not visualized by me. on nystatin powder 5. epilepsy- no signs of seizure like activity. cont tegretol 6. DVT ppx- start hep sq as no emergent need for surgery
[2017-05-06] MEDS: HEPARIN NA (PORCINE) 5,000 UNITS/ML 1ML VIAL SQ SCH ×2 (20:20→21:39)
[2017-05-06] MEDS: PHENobarbital 30 MG TABLET PO SCH (21:37)
[2017-05-07] MEDS: METRONIDAZOLE 500 MG PREMIXED 500 MG/100 ML MG IVPB SCH ×2 (02:38→12:12)
[2017-05-07] MEDS: PIPERACILLIN/TAZOB 3.375 GM 3.375 GM in DEXTROSE 5%-WATER - 50 ML IVPB SCH ×3 (02:39→17:07)
[2017-05-07] MEDS: SODIUM CHLORIDE 1,000 ML IV SCH ×3 (06:33→21:43)
[2017-05-07] MEDS: clonazePAM 0.5 MG TABLET PO SCH ×3 (06:34→21:46)
[2017-05-07 07:21] LABS: MCH 29.7 pg (25.7-33.7); MEAN CELL VOLUME 87.2 fl (80-96); MEAN PLT VOLUME 6.5 fl (7.5-11.1); PLATELET COUNT 493 K/MM3 (134-434); RDW 13.2 % (11.9-15.9); WHITE BLOOD COUNT 5.2 K/mm3 (4.0-10.0)
[2017-05-07 08:00] LABS: ALBUMIN 2.9 g/dl (3.4-5.0); ANION GAP 9 (8-16); CALCIUM 8.5 mg/dL (8.5-10.1); CO2 26 mmol/L (21-32); GLUCOSE,RANDOM 88 mg/dL (74-106); MAGNESIUM 2.3 mg/dL (1.8-2.4); PHOSPHOROUS 3.5 mg/dL (2.5-4.9); SGOT/AST 32 U/L (15-37)
[2017-05-07 08:02] LABS: ALK PHOS 120 U/L (45-117); BILIRUBIN,TOTAL 0.5 mg/dL (0.2-1.0); CREATININE 0.6 mg/dL (0.7-1.3); SGPT/ALT 42 U/L (12-78); TOT PROT 6.7 g/dl (6.4-8.2)
--- NOTE | 2017-05-07 11:11 | PN ---
Progress Note, Physician History of Present Illness: No events. Not in distress. Abdomen soft, not distended - Current Medication List Current Medications: Active Medications Carbamazepine (Tegretol Xr -) 400 mg PO DAILY [facility] Last Admin: 05/06/17 10:55 Dose: Not Given Clonazepam (Klonopin -) 0.5 mg PO TID [facility] Last Admin: 05/07/17 06:34 Dose: 0.5 mg Heparin Sodium (Porcine) (Heparin -) 5,000 unit SQ BID [facility] Last Admin: 05/06/17 21:39 Dose: Not Given Sodium Chloride (Normal Saline -) 1,000 mls @ 100 mls/hr IV ASDIR [facility] Last Admin: 05/07/17 06:33 Dose: 100 mls/hr Metronidazole (Flagyl 500mg Premixed Ivpb -) 500 mg in 100 mls @ 100 mls/hr IVPB Q8H-IV [facility] Last Admin: 05/07/17 02:38 Dose: 100 mls/hr Piperacillin Sod/Tazobactam (Sod 3.375 gm/ Dextrose) 50 mls @ 100 mls/hr IVPB Q8H-IV [facility] Last Admin: 05/07/17 02:39 Dose: 100 mls/hr Nystatin (Nystop Powder -) 1 applic TP DAILY [facility] Last Admin: 05/06/17 11:31 Dose: 1 applic Phenobarbital (Phenobarbital -) 60 mg PO BID [facility] Last Admin: 05/06/17 21:37 Dose: 60 mg - Objective Vital Signs: Vital Signs Temperature 98.8 F 05/07/17 07:00 Pulse Rate 80 05/07/17 07:00 Respiratory Rate 20 05/07/17 07:00 Blood Pressure 141/57 05/07/17 07:00 O2 Sat by Pulse Oximetry (%) 97 05/06/17 21:00 Constitutional: Yes: No Distress, Calm Gastrointestinal: Yes: Soft. No: Distention, Melena, Palpable Mass, Rectal Bleeding, Tenderness, Vomiting Labs: CBC, BMP 05/07/17 06:30 05/07/17 06:30 INR, PTT INR 1.24 (0.82-1.09) H 05/06/17 01:25 - ....Imaging X-ray: Report Reviewed (colon not distended) Problem List - Problems (1) Abdominal distension Code(s): R14.0 - ABDOMINAL DISTENSION (GASEOUS) Assessment/Plan Comfortable. No longer distended. Benign abdomen on exam Miralax qid-qd (proactively) Resume previous diet OK to D/C? from GI stand point
--- NOTE | 2017-05-07 11:12 | CONSULT ---
Admitting History and Physical - Primary Care Physician PCP: Maddison Boucher - Admission History of Present Illness: 46yo M with PMH MR/CP, porencephalic cerebral cysts, Siloadenitis, epilepsy, cortical blindness, GERD, esophagitis, from [facility] presented with abdominal distention CXR at [facility]- "Probable RLL PNA.Aspiration to be considered.Severe Ileus/toxic megacolon...."" CXR/CT abd Right infiltrate. AB tx for HCAP/aspiration pneumonia Today's Abd X-ray- Resolved distention/No obstruction. Pt on a pureed diet and thin(?) liquid at [facility]. Pt has been NPO since admission. 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: Seizure (epilepsy), Other (profound MR) Gastrointestinal: Yes: Constipation, GERD, Other (recurrent/chronic colonic dilation, sigmoid volvulus in March 2017) Musculoskeletal: Yes: Other (some contractions) - Past Surgical History Past Surgical History: Yes: Colonoscopy (flex sig for decompression Mar 2017) - Smoking History Smoking history: Never smoked Have you smoked in the past 12 months: No - Alcohol/Substance Use Hx Alcohol Use: No History of Substance Use: reports: None - Social History ADL: Support Services History - Admission Reason For Visit: ABDOMINAL DISTENTION ILEUS OF UNSPECIFIED TYPE - Diagnostics X-ray: Report Reviewed CT Scan: Report Reviewed - General Mental Status: Awake and Alert (Profound cognitive/language deficits from . ) Attention: Distractible Ability to Follow Directions: Poor - Hearing Hearing: Normal Speech Evaluation - Communication Primary Language: KINYARWANDA Communication: Yes: Non-Communicable Oral Expression Ability: Yes: Non-Verbal (vocal) - Speech Characteristics Voice Loudness: Normal Voice Pitch: Yes: Normal Voice Phonatory-based Quality: Yes: Normal Nasal Resonance: Normal - Language/Auditory Comprehension Observation: Able to respond to yes/no queries: No, Comprehends Conversational Speech: No (doubtful) - Swallow Evaluation/Bedside Assessment Current Nutritional Intake: NPO Laryngeal Movement: Able to Palpate, Reduced Excursion, Labored,delay initiation , Reduced Velocity, Other (At times not triggered.) Oral Prep Time: Increased Timing of Swallow: Delayed Coughing/Throat Clear: Yes Recommendations - Speech Evaluation, Impression/Plan Impression: Pt with h/o coughing on meals, with recent right side PNA. Swallow is delayed, intermittently not generated and with reduced VOM/ROM of laryngeal swallow. - [facility] - Dysphagia Impressions/Plan Swallowing Skills: Impaired Dysphagia Impressions: Mild Impairment, Moderate Impairment, Ongoing Evaluation , Suspect Aspiration *Silent aspiration: cannot be R/O at bedside Recommendations: Modified Barium Swallow, Other (NPO until [facility] [place] today) - Recommendations Medication Administration: Crushed with applesauce
--- NOTE | 2017-05-07 11:16 | PN ---
Progress Note (short form) - Note Progress Note: Pt seen and examined in bed. No distress. Aide at bedside, states pt does not appear uncomfortable or in pain. No overnight events. Had small BM yesterday per aide, soft. Vital Signs Period Temp Pulse Resp BP Sys/Skinner Pulse Ox Last 24 Hr 97.5 F-98.8 F 80-98 20-22 128-165/57-98 97 PE: nonverbal, appears comfortable, vocalizes occasionally but unintelligible protuberant forehead/soft mass present, blind but does open eyes abdomen soft, nondistended, nontender, + tympany holds limbs contracted but can extend both arms and legs CBC, BMP 05/07/17 06:30 05/07/17 06:30 AXR showing distended loops of colon, but appears a little less dilated than yesterday and less than corrosion technician/CT from day before A/P: recurrent colonic dilation, likely pseudoobstruction no volvulus this admission seems to be resolving spontaneously no surgical intervention indicated would ensure that pt is not receiving lactulose as part of bowel regimen, as it will ferment and tend to produce gas ok for diet resumption pending speech/swallow eval Problem List - Problems (1) Adynamic ileus Code(s): K56.0 - PARALYTIC ILEUS (2) Hyponatremia Assessment/Plan: resolved Code(s): E87.1 - HYPO-OSMOLALITY AND HYPONATREMIA (3) Functional quadriplegia Code(s): R53.2 - FUNCTIONAL QUADRIPLEGIA (4) Intellectual disability Code(s): F79 - UNSPECIFIED INTELLECTUAL DISABILITIES (5) Seizure Code(s): R56.9 - UNSPECIFIED CONVULSIONS
[2017-05-07] MEDS ORDERED: PT OWN MED DRAWER 7, Y5N ONE ×3 (11:56→21:10)
[2017-05-07] MEDS: HEPARIN NA (PORCINE) 5,000 UNITS/ML 1ML VIAL SQ SCH ×2 (12:11→21:45)
[2017-05-07] MEDS: PHENobarbital 30 MG TABLET PO SCH ×2 (12:11→21:46)
[2017-05-07] MEDS: carBAMazepine XR 400 MG TAB.ER.12H PO SCH (12:11)
[2017-05-07] MEDS: NYSTATIN POWDER 100,000 UNITS/GM - 15 GM TOPICAL POWDER TP SCH (12:12)
--- NOTE | 2017-05-07 13:25 | PN ---
Teaching Attending Note Name of Resident: Joni Fisher ATTENDING PHYSICIAN STATEMENT I saw and evaluated the patient. I reviewed the resident's note and discussed the case with the resident. I agree with the resident's findings and plan as documented. SUBJECTIVE:resting comfortable OBJECTIVE: Last Vital Signs Temp Pulse Resp BP Pulse Ox 98.8 F 80 20 141/57 97 05/07/17 07:00 05/07/17 07:00 05/07/17 07:00 05/07/17 07:00 05/06/17 21:00 General NAD HEENT large frontal mass, soft, nontender CV S1 S2 RRR no murmur/rub/gallop Lungs CTA B/L No wheezing/ralesr/rhonchi abdomen soft NT/ND. normoactive BS Extremities no pedal edema ASSESSMENT AND PLAN: 46yo M with PMH MR/CP, porencephalic cerebral cysts, Siloadenitis, epilepsy, cortical blindness, GERD, esophagitis, from [facility] presented with abdominal distention 1. Abdominal distention- clinically stable. AXR shows improvement from yesterday. will advance diet once cleared by swallow therapist. \ 2. RLL HCAP- possible aspiration. will check swallow eval to assess prior to starting for diet. on Zosyn and flagyl day 2. ID on board. Cx pending. legionella/strep negative. 3. Hyponatremia- likely dehydration. improved. on IVF which will d/c once diet is advanced 4. scrotal rash- not visualized by me. on nystatin powder 5. epilepsy- no signs of seizure like activity. cont tegretol 6. DVT ppx- start hep sq
--- NOTE | 2017-05-07 15:44 | PN ---
Progress Note (short form) - Note Progress Note: just returned from barium swallow NAD Vital Signs Period Temp Pulse Resp BP Sys/Skinner Pulse Ox Last 24 Hr 97.5 F-98.8 F 80-98 20-22 128-165/57-98 97 cor-rrr lungs clear abd soft,nt, less distention ext no edema Microbiology 05/06/17 04:40 Blood - Fresh Frozen Plasma Unit Blood Culture - Preliminary NO GROWTH OBTAINED AFTER 24 HOURS, INCUBATION TO CONTINUE FOR 4 DAYS. 05/06/17 04:40 Blood - Fresh Frozen Plasma Unit Blood Culture - Preliminary NO GROWTH OBTAINED AFTER 24 HOURS, INCUBATION TO CONTINUE FOR 4 DAYS. 05/05/17 22:30 Urine - Urine Clean Catch Legionella Antigen - Final 05/05/17 22:30 Urine - Urine Clean Catch Streptococcus pneumoniae Antigen ( M - Final suggest continue zosyn for HCAP/aspiration pneumonia-day #2 no diarrhea here in the hospital to f/u with swallow and advance diet as tolerated if tolerating diet can switch to po augmentin in am to complete 7 days Problem List - Problems (1) Pneumonia Code(s): J18.9 - PNEUMONIA, UNSPECIFIED ORGANISM Qualifiers: Pneumonia type: due to unspecified organism Laterality: right Lung location: lower lobe of lung Qualified Code(s): J18.1 - Lobar pneumonia, unspecified organism (2) Ileus, unspecified Code(s): K56.7 - ILEUS, UNSPECIFIED
--- NOTE | 2017-05-07 16:39 | PN ---
Physical Exam: SUBJECTIVE: Patient seen and examined at bedside. History unable to be taken due to mental status, aid says he had a couple of bowel movements. OBJECTIVE: Vital Signs Period Temp Pulse Resp BP Sys/Skinner Pulse Ox Last 24 Hr 97.5 F-98.8 F 80-98 20-22 128-165/57-98 97 GENERAL: The patient is awake, but not alert or oriented x3 HEAD: large mass protruding from the front of the forehead that is firm on palpation with a soft top. This is chronic and has been documented before LUNGS: Breath sounds equal, clear to auscultation bilaterally, no wheezes, no crackles, no accessory muscle use. HEART: Regular rate and rhythm, S1, S2 without murmur, rub or gallop. ABDOMEN: Soft, nontender, nondistended, normoactive bowel sounds, no guarding, no rebound, no hepatosplenomegaly, no masses. Abdomen was not found to be distended per my exam. EXTREMITIES: 2+ pulses, warm, well-perfused, no edema. NEUROLOGICAL: unable to assess due to mental status PSYCH: Normal mood, normal affect. SKIN: Warm, dry, normal turgor, no rashes or lesions noted Laboratory Results - last 24 hr 05/07/17 05/07/17 06:30 06:30 WBC 5.2 RBC 3.93 L Hgb 11.6 L Hct 34.2 L MCV 87.2 MCH 29.7 MCHC 34.0 RDW 13.2 Plt Count 493 H MPV 6.5 L Sodium 135 L Potassium 4.4 Chloride 100 Carbon Dioxide 26 Anion Gap 9 BUN 6 L D Creatinine 0.6 L D Creat Clearance w eGFR > 60 Random Glucose 88 Calcium 8.5 Phosphorus 3.5 Magnesium 2.3 Total Bilirubin 0.5 D AST 32 ALT 42 Alkaline Phosphatase 120 H Total Protein 6.7 Albumin 2.9 L Active Medications Generic Name Dose Route Start Last Admin Trade Name Freq PRN Reason Stop Dose Admin Carbamazepine 400 mg 05/07/17 16:00 Tegretol Oral Suspension - PO DAILY LINO Clonazepam 0.5 mg 05/06/17 06:00 05/07/17 06:34 Klonopin - PO 0.5 mg TID LINO Administration Heparin Sodium (Porcine) 5,000 unit 05/06/17 19:00 05/07/17 12:11 Heparin - SQ 5,000 unit BID LINO Administration Sodium Chloride 1,000 mls @ 100 mls/hr 05/06/17 03:15 05/07/17 06:33 Normal Saline - IV 100 mls/hr ASDIR LINO Administration Piperacillin Sod/Tazobactam 50 mls @ 100 mls/hr 05/06/17 12:00 05/07/17 02:39 Sod 3.375 gm/ Dextrose IVPB 100 mls/hr Q8H-IV LINO Administration Nystatin 1 applic 05/06/17 10:00 05/07/17 12:12 Nystop Powder - TP 1 applic DAILY LINO Administration Phenobarbital 60 mg 05/06/17 11:41 05/07/17 12:11 Phenobarbital - PO 60 mg BID LINO Administration ASSESSMENT/PLAN: 46yo M with PMH of epilepsy and profound MR, sent in from [place] for abdominal distention admitted to med-surg for further evaluation of possible ileus, pseudoobstruction, or obstruction. # ABD distention 2/2 to ileus -GI consult, Dr Johnson appreciated: miralax QID, resume previous diet, frequent abdominal exams, repeat abdominal xray -ID consult, Dr. Rojas, can D/c flagyl, will transition to augmentin PO tomorrow, abx day 3 - take augmentin 875mg BID for 7 days starting in the AM -abdominal xray shows improving distention -speech swallow performed - pureed food -blood cx negative # UTI: leukocyte esterase rare -Zosyn given in the ED -Urine culture pending # Right lower lobe pneumonia, possible HCAP -Vancomycin and zosyn given in the ED -f/u CXR -continue zosyn as per ID recs # Seizure disorder -Continue carbamazepine, klonopin, and phenobarbital -- switch carbamazepine to liquid formulation # Scrotal rash -Nystatin powder to affected area #FEN/GI -no standing fluids -replete electrolytes in AM -puree foods #PPx -scd's b/l -GI ppx not indicated at this time Dispo: -continue to monitor on med-surg, possible DC friday Visit type - Emergency Visit Emergency Visit: No - New Patient This patient is new to me today: No - Critical Care Critical Care patient: No
[2017-05-07] MEDS: carBAMazepine 200 MG/10 ML UNIT-DOSE CUP PO SCH ×2 (18:44→21:47)
[2017-05-08] MEDS: clonazePAM 0.5 MG TABLET PO SCH ×3 (05:54→23:31)
[2017-05-08] MEDS: SODIUM CHLORIDE 1,000 ML IV SCH (05:57)
--- NOTE | 2017-05-08 09:52 | PN ---
Progress Note (short form) - Note Progress Note: Pt seen and examined in bed. No distress but mildly agitated. No overnight events. Pt is awake, vocalizing at times, unintelligible. Puts finger in mouth, may be hungry. Peripheral IV running. Vital Signs Period Temp Pulse Resp BP Sys/Skinner Pulse Ox Last 24 Hr 97.1 F-97.8 F 71-98 22-22 140-169/49-98 97 PE: nonverbal, appears comfortable, vocalizes occasionally but unintelligible protuberant forehead/soft mass present, blind but does open eyes abdomen soft, nondistended, nontender moving all limbs, legs wrapped around each other yesterday CBC, BMP 05/07/17 06:30 05/07/17 06:30 A/P: recurrent colonic dilation, likely pseudoobstruction resolving spontaneously tolerating po as puree would ensure that pt is not receiving lactulose as part of bowel regimen, as it will ferment and tend to produce gas no surgical intervention indicated Problem List - Problems (1) Adynamic ileus Code(s): K56.0 - PARALYTIC ILEUS (2) Functional quadriplegia Code(s): R53.2 - FUNCTIONAL QUADRIPLEGIA (3) Intellectual disability Code(s): F79 - UNSPECIFIED INTELLECTUAL DISABILITIES (4) Seizure Code(s): R56.9 - UNSPECIFIED CONVULSIONS
[2017-05-08] MEDS ORDERED: PT OWN MED DRAWER 7, Y5N ONE ×3 (09:57→21:04)
[2017-05-08] MEDS: PHENobarbital 30 MG TABLET PO SCH ×2 (09:57→23:32)
[2017-05-08] MEDS: AMOX TR/POT CLAV 875MG/125MG TABLETS (FP) PO SCH ×2 (09:57→17:55)
[2017-05-08] MEDS: carBAMazepine 200 MG/10 ML UNIT-DOSE CUP PO SCH ×2 (10:05→23:31)
[2017-05-08] MEDS: HEPARIN NA (PORCINE) 5,000 UNITS/ML 1ML VIAL SQ SCH ×2 (10:05→23:31)
[2017-05-08] MEDS: NYSTATIN POWDER 100,000 UNITS/GM - 15 GM TOPICAL POWDER TP SCH (10:11)
[2017-05-08 10:23] LABS: MCH 29.3 pg (25.7-33.7); MCHC 33.5 g/dl (32.0-35.9); MEAN CELL VOLUME 87.3 fl (80-96); MEAN PLT VOLUME 6.3 fl (7.5-11.1); PLATELET COUNT 545 K/MM3 (134-434); RDW 13.1 % (11.9-15.9)
[2017-05-08] MEDS ORDERED: POLYETHYLENE GLYCOL 3350 119 GM BTL PO ONE (10:45)
--- NOTE | 2017-05-08 12:33 | PN ---
Progress Note, CLAY MILLER - Note Progress Note: Selected Entries 05/07/17 05/07/17 05/07/17 07:00 14:04 18:24 Breakfast Temperature 98.8 F 97.5 F L 97.8 F 05/07/17 05/08/17 05/08/17 22:00 06:00 10:41 Breakfast 50% Temperature 97.6 F 97.1 F L Started on puree/thin liquid. Good appetite and tolerance. Lying down after lunch, although staff repeatedly repositions him. Observe for increase in congestion.
--- NOTE | 2017-05-08 16:37 | PN ---
Teaching Attending Note Name of Resident: Joni Fisher ATTENDING PHYSICIAN STATEMENT I saw and evaluated the patient. I reviewed the resident's note and discussed the case with the resident. I agree with the resident's findings and plan as documented. SUBJECTIVE:agitated. clapping his hands repeatedly OBJECTIVE: Last Vital Signs Temp Pulse Resp BP Pulse Ox 98.1 F 90 20 145/50 97 05/08/17 14:58 05/08/17 14:58 05/08/17 14:58 05/08/17 14:58 05/07/17 21:00 General agitated, unable to sit still HEENT large frontal mass, soft, nontender CV S1 S2 RRR no murmur/rub/gallop Lungs CTA B/L No wheezing/ralesr/rhonchi abdomen soft NT/ND. 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 Abdominal distention- clinically stable. tolerating puree diet. no BM since yesterday. pt appears uncomfortable. concern may be due to no BM. will give miralax and monitor for response. since abdomen is soft with BS will hold off on repeating imaging of abdomen 2. RLL HCAP- possible aspiration. switched zosyn to augmentin to complete 7 day course. ID on board. Cx negative 3. Hyponatremia- likely dehydration. d/c IVF 4. scrotal rash- not visualized by me. on nystatin powder 5. epilepsy- no signs of seizure like activity. cont tegretol 6. DVT ppx- hep sq
--- NOTE | 2017-05-08 18:31 | PN ---
Physical Exam: SUBJECTIVE: Patient seen and examined at bedside. He is more agitated compared to yesterday, flailing around and being more aggressive. OBJECTIVE: Vital Signs Period Temp Pulse Resp BP Sys/Skinner Pulse Ox Last 24 Hr 97 F-98.1 F 75-93 20-22 138-165/49-78 97-97 GENERAL: The patient is awake, but not alert or oriented x3, very agitated HEAD: large mass protruding from the front of the forehead that is firm on palpation with a soft top. This is chronic and has been documented before LUNGS: Breath sounds equal, clear to auscultation bilaterally, no wheezes, no crackles, no accessory muscle use. HEART: Regular rate and rhythm, S1, S2 without murmur, rub or gallop. ABDOMEN: Soft, nontender, nondistended, normoactive bowel sounds, no guarding, no rebound, no hepatosplenomegaly, no masses. Abdomen was not found to be distended per my exam. EXTREMITIES: 2+ pulses, warm, well-perfused, no edema. NEUROLOGICAL: unable to assess due to mental status PSYCH: Normal mood, normal affect. SKIN: Warm, dry, normal turgor, no rashes or lesions noted CBC, BMP 05/08/17 09:30 05/07/17 06:30 ASSESSMENT/PLAN: 46yo M with PMH of epilepsy and profound MR, sent in from [place] for abdominal distention admitted to med-surg for further evaluation of possible ileus, pseudoobstruction, or obstruction. # ABD distention 2/2 to ileus -GI consult, Dr Johnson appreciated: miralax QID, frequent abdominal exams -Speech/Swallow - puree diet -ID consult, Dr. Rojas, augmentin 875mg BID for 7 days, day 1 -abdominal xray shows improving distention -blood cx negative -reevaluate in Am # UTI: leukocyte esterase rare -Zosyn given in the ED -Urine culture pending # Right lower lobe pneumonia, possible HCAP -Vancomycin and zosyn given in the ED -f/u CXR -continue zosyn as per ID recs # Seizure disorder -switch carbamazepine to liquid formulation # Scrotal rash -Nystatin powder to affected area #FEN/GI -no standing fluids -replete electrolytes in AM -puree foods #PPx -scd's b/l -GI ppx not indicated at this time Dispo: -continue to monitor on med-surg, possible DC friday Visit type - Emergency Visit Emergency Visit: No - New Patient This patient is new to me today: No - Critical Care Critical Care patient: No
[2017-05-09] MEDS: clonazePAM 0.5 MG TABLET PO SCH ×2 (06:44→15:08)
[2017-05-09 06:57] LABS: MCH 29.7 pg (25.7-33.7); MCHC 33.7 g/dl (32.0-35.9); MEAN PLT VOLUME 6.7 fl (7.5-11.1); PLATELET COUNT 520 K/MM3 (134-434); WHITE BLOOD COUNT 6.8 K/mm3 (4.0-10.0)
[2017-05-09 07:03] LABS: ANION GAP 4 (8-16); CALCIUM 8.7 mg/dL (8.5-10.1); CO2 30 mmol/L (21-32); CREATININE 0.5 mg/dL (0.7-1.3); GLUCOSE,RANDOM 75 mg/dL (74-106)
[2017-05-09] MEDS: AMOX TR/POT CLAV 875MG/125MG TABLETS (FP) PO SCH (09:00)
[2017-05-09] MEDS: PHENobarbital 30 MG TABLET PO SCH (11:08)
[2017-05-09] MEDS: HEPARIN NA (PORCINE) 5,000 UNITS/ML 1ML VIAL SQ SCH (11:08)
[2017-05-09] MEDS: carBAMazepine 200 MG/10 ML UNIT-DOSE CUP PO SCH (11:09)
[2017-05-09] MEDS: NYSTATIN POWDER 100,000 UNITS/GM - 15 GM TOPICAL POWDER TP SCH (11:10)
--- NOTE | 2017-05-09 11:21 | PN ---
Progress Note (short form) - Note Progress Note: Pt seen and examined in bed. No distress, resting comfortably, smiles and puts finger in mouth when awakened. No overnight events. Two BMs recorded yesterday. Vital Signs Period Temp Pulse Resp BP Sys/Skinner Pulse Ox Last 24 Hr 96.9 F-98.6 F 77-93 19-20 109-145/50-87 97 PE: nonverbal, appears comfortable, vocalizes occasionally but unintelligible protuberant forehead/soft mass present, blind but does open eyes abdomen soft, nondistended, nontender moving all limbs, legs wrapped around each other CBC, BMP 05/09/17 06:25 05/09/17 06:25 Microbiology 05/06/17 04:40 Blood Culture - Preliminary Blood - Fresh Frozen Plasma Unit NO GROWTH OBTAINED AFTER 72 HOURS, INCUBATION TO CONTINUE FOR 2 DAYS. 05/06/17 04:40 Blood Culture - Preliminary Blood - Fresh Frozen Plasma Unit NO GROWTH OBTAINED AFTER 72 HOURS, INCUBATION TO CONTINUE FOR 2 DAYS. 05/05/17 22:50 Urine Culture - Final Urine - Urine Kumar Escherichia Coli E. coli resistant to amp, Unasyn A/P: recurrent colonic dilation, likely pseudoobstruction resolved spontaneously tolerating po would ensure that pt is not receiving lactulose as part of bowel regimen (inpt or outpatient), as it will ferment and tend to produce gas no surgical intervention indicated will sign off, no need for surgical followup Problem List - Problems (1) Adynamic ileus Code(s): K56.0 - PARALYTIC ILEUS (2) Functional quadriplegia Code(s): R53.2 - FUNCTIONAL QUADRIPLEGIA (3) Intellectual disability Code(s): F79 - UNSPECIFIED INTELLECTUAL DISABILITIES (4) Seizure Code(s): R56.9 - UNSPECIFIED CONVULSIONS
--- NOTE | 2017-05-09 14:41 | DS ---
Physical Exam: SUBJECTIVE: Patient seen and examined at bedside. Patient was laying in bed with his legs up in the air and making unintelligble noises. Per nurse, this is patient's baseline. OBJECTIVE: Vital Signs Period Temp Pulse Resp BP Sys/Skinner Pulse Ox Last 24 Hr 96.9 F-98.6 F 77-93 19-20 109-145/50-87 97 PHYSICAL EXAM GENERAL: The patient is awake, but not alert or oriented x3, very agitated HEAD: large mass protruding from the front of the forehead that is firm on palpation with a soft top. This is chronic and has been documented before LUNGS: Breath sounds equal, clear to auscultation bilaterally, no wheezes, no crackles, no accessory muscle use. HEART: Regular rate and rhythm, S1, S2 without murmur, rub or gallop. ABDOMEN: Soft, nontender, nondistended, normoactive bowel sounds, no guarding, no rebound, no hepatosplenomegaly, no masses. Abdomen was not found to be distended per my exam. EXTREMITIES: 2+ pulses, warm, well-perfused, no edema. NEUROLOGICAL: unable to assess due to mental status PSYCH: Normal mood, normal affect. SKIN: Warm, dry, normal turgor, no rashes or lesions noted LABS Laboratory Results - last 24 hr 05/09/17 05/09/17 06:25 06:25 WBC 6.8 D RBC 4.19 Hgb 12.4 Hct 36.8 MCV 88.0 MCH 29.7 MCHC 33.7 RDW 13.0 Plt Count 520 H MPV 6.7 L Sodium 134 L Potassium 4.3 Chloride 100 Carbon Dioxide 30 Anion Gap 4 L BUN 6 L Creatinine 0.5 L Random Glucose 75 Calcium 8.7 HOSPITAL COURSE: Date of Admission:05/06/17 46yo M with PMH of epilepsy and profound MR, sent in from [place] for abdominal distention admitted to med-surg for further evaluation of abdominal distention. Patient had an xray abdomen performed that showed diffuse abdominal distention and infiltrates in the lungs. He was also found to have a UTI. Patient was started on antibiotics and kept NPO. The following day, patient appeared clinically better with no further distention. Patient had one bowel movement. He was given a speech and swallow evaluation and was found to tolerate dysphagia puree diet. Patient was subsequently given miralax and then a fleet enema. Patient had a bowel movement. Patient improved the following day and the decision was made to discharge the patient on a course to finish antibiotics at his halfway care facility. Date of Discharge: 05/09/17 Minutes to complete discharge: 30 Discharge Summary Reason For Visit: ABDOMINAL DISTENTION ILEUS OF UNSPECIFIED TYPE Current Active Problems Abdominal distension (Acute) Ileus, unspecified (Acute) Pneumonia (Acute) UTI (urinary tract infection) (Acute) Condition: Stable - Instructions Diet, Activity, Other Instructions: You have been admitted to the hospital for the treatment of bowel distention, urinary tract infection and pneumonia. Your distention has significantly decreased and you were able to have bowel movements. You were treated for pneumonia and urinary tract infection with antibiotics in the hospital. Medical Recommendations: -Your swallowing was evaluated in the hospital and it was determined that you would be most benefited from a dysphagia pureed diet at home. -Please take the following medications at home: -Cefuroxime (Ceftin) 500mg by mouth two times a day for 3 days after you leave the hospital. This is an antibiotic that will help treat both pneumonia and urinary tract infection together. -You can take miralax at home as you have been doing for constipation. If that does not work and you have not had a bowel movement in >1 day, you can try doing a fleet enema, which has worked for you during this hospitalization. -If you begin to have fevers >101, chills, nausea, vomiting, diarrhea, please return to the emergency room immediately. Referrals: Kahlil Mcdaniels Jr [Primary Care Provider] - Disposition: HOME - Home Medications Comprehensive Discharge Medication List: Ambulatory Orders Calcium Carbonate/Vitamin D3 [Oystercal-D 500 mg-400 Unit Tb] 1 each PO BID Carbamazepine [Carbamazepine ER] 300 mg PO DAILY 03/30/17 Cetirizine HCl 10 mg PO DAILY 03/30/17 Clonazepam [Klonopin -] 0.5 mg PO TID 03/30/17 Fluticasone Prop 0.05% Nasal [Flonase -] 1 - 2 spray NS DAILY 03/30/17 Magnesium Hydrox 2400MG/30Ml [Milk of Magnesia -] 30 ml PO DAILY 03/30/17 Multivit-Min/FA/Lycopen/Lutein [Vitrum 50+ Senior Tablet] 5 5ml PO DAILY Phenobarbital 64.8 mg PO BID 03/30/17 Sodium Chloride 500 mg PO DAILY 03/30/17 Cefuroxime Axetil [Ceftin -] 500 mg PO BID #6 tablet 05/09/17 This patient is new to me today: No Emergency Visit: No Critical Care patient: No - Discharge Referral Referred to [facility] No
--- NOTE | 2017-05-09 14:50 | PN ---
Teaching Attending Note Name of Resident: Joni Fisher ATTENDING PHYSICIAN STATEMENT I saw and evaluated the patient. I reviewed the resident's note and discussed the case with the resident. I agree with the resident's findings and plan as documented. SUBJECTIVE:resting comfortable OBJECTIVE: Last Vital Signs Temp Pulse Resp BP Pulse Ox 97.1 F L 77 19 111/77 97 05/09/17 06:00 05/09/17 06:00 05/09/17 06:00 05/09/17 06:00 05/08/17 21:00 General NADl HEENT large frontal mass, soft, nontender CV S1 S2 RRR no murmur/rub/gallop Lungs CTA B/L No wheezing/ralesr/rhonchi abdomen soft NT/ND. 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 Abdominal distention- clinically stable. tolerating puree diet. s/p moderate BM after miralax. agitation yesterday was likely due to constipation. need to cont miralax to monitor for daily BM 2. RLL HCAP- possible aspiration. on augmentin to complete 7 day course. ID on board. Cx negative 3. Hyponatremia- likely dehydration. resolved 4. scrotal rash- not visualized by me. on nystatin powder 5. epilepsy- no signs of seizure like activity. cont tegretol 6. DVT ppx- hep sq 7. medically optimized for discharge to [facility]
[2017-05-09 14:52] VITALS: BP 115/69; PULSE 79; TEMP 97.4
[2017-05-09] MEDS ORDERED: CEFUROXIME AXETIL 500 MG TABLET PO SCH (22:00)
== END 2017-05-09 17:12 | disposition home or self-care (01) | DRG 177 ==
LOC: JER 19:31 → JERBED 05-06 02:28 → J5S 05-06 07:18
PROVIDERS: ADMIT Internal Medicine; ATTEND Internal Medicine
DX: J69.0 Pneumonitis due to inhalation of food and vomit (principal); R53.2 Functional quadriplegia; K56.0 Paralytic ileus; F73 Profound intellectual disabilities; N39.0 Urinary tract infection, site not specified; K59.31 Toxic megacolon; G80.1 Spastic diplegic cerebral palsy; E87.1 Hypo-osmolality and hyponatremia; G40.89 Other seizures; J98.11 Atelectasis; E86.0 Dehydration; B96.20 Unspecified Escherichia coli [E. coli] as the cause of diseases classified elsewhere; B95.3 Streptococcus pneumoniae as the cause of diseases classified elsewhere; G93.0 Cerebral cysts; Z98.2 Presence of cerebrospinal fluid drainage device; R32 Unspecified urinary incontinence; L20.9 Atopic dermatitis, unspecified; K59.00 Constipation, unspecified; R21 Rash and other nonspecific skin eruption; D49.2 Neoplasm of unspecified behavior of bone, soft tissue, and skin; M81.8 Other osteoporosis without current pathological fracture; K21.0 Gastro-esophageal reflux disease with esophagitis
CPT/HCPCS: 36415; 71010-TC; 74000-TC; 74020-TC; 74176-TC; 74230-TC; 80048; 80053; 81003; 81015; 83605; 83735; 84100; 85025; 85027; 85610; 85730; 86850; 86900; 86901; 87040; 87086; 87186; 87899; 92611-GN; 99282-25; J1644

== ENCOUNTER 2017-09-13 20:50 | Emergency (ER) | payer OTHER ==
[2017-09-13 21:22] VITALS: BP 116/82; PULSE 98; TEMP 97.8; BMI 22.9
--- NOTE | 2017-09-13 23:49 | PDOC ---
History of Present Illness - History of Present Illness Initial Comments: 09/13/17 23:24 History obtained from EMR, [facility] papers and aide @ bedside as patient has baseline MR. 46 year old male presents from [facility] after 1 episode of brown colored hematemesis. FOBT positive @ [facility]. Tolerating PO intake. Normal BM. No h/o fevers/chills. As per EMR patient has h/o previous admissions for illeus, volvulus. Staff @ bedside cannot recall last BM. <Gwen Duncan - Last Filed: 09/14/17 07:30> <Zita Hahn - Last Filed: 09/14/17 22:57> - General Chief Complaint: Nausea/Vomiting Stated Complaint: VOMIT Time Seen by Provider: 09/13/17 22:26 Past History - Past Medical History Anemia: No Asthma: No Cancer: No Cardiac Disorders: No CVA: No COPD: No CHF: No Dementia: No Diabetes: No GI Disorders: Yes (esophagitis) Disorders: No HTN: No Hypercholesterolemia: No Liver Disease: No Seizures: Yes (general convulsive epilepsy) Thyroid Disease: No - Surgical History Abdominal Surgery: No Appendectomy: No Cardiac Surgery: No Cholecystectomy: No Lung Surgery: No Neurologic Surgery: No - Immunization History Immunization Up to Date: Yes - Suicide/Smoking/Psychosocial Hx Smoking History: Never smoked Have you smoked in the past 12 months: No Information on smoking cessation initiated: No Hx Alcohol Use: No Drug/Substance Use Hx: No Substance Use Type: None <Gwen Duncan - Last Filed: 09/14/17 07:30> <Zita Hahn - Last Filed: 09/14/17 22:57> - Past Medical History Allergies/Adverse Reactions: Allergies Allergy/AdvReac Type Severity Reaction Status Date / Time ceresin [From Eucerin] Allergy Verified 03/30/17 17:37 egg Allergy Verified 05/06/17 10:26 emollient combination no.33 Allergy Verified 05/05/17 19:35 [From Eucerin] isopropyl myristate Allergy Verified 05/05/17 19:35 [From Eucerin] lanolin alcohols Allergy Verified 05/05/17 19:35 [From Eucerin] latex Allergy Verified 05/05/17 19:35 mineral oil [From Eucerin] Allergy Verified 05/05/17 19:35 petrolatum,white Allergy Verified 05/05/17 19:35 [From Eucerin] phenytoin sodium Allergy Verified 05/05/17 19:35 [From Dilantin] phenytoin sodium extended Allergy Verified 05/05/17 19:35 [From Dilantin] soap [From Eucerin] Allergy Verified 05/05/17 19:35 strawberry Allergy Verified 05/06/17 19:52 water [From Eucerin] Allergy Verified 05/05/17 19:35 Home Medications: Ambulatory Orders Calcium Carbonate/Vitamin D3 [Oystercal-D 500 mg-400 Unit Tb] 1 each PO BID Carbamazepine [Carbamazepine ER] 300 mg PO DAILY 03/30/17 Cetirizine HCl 10 mg PO DAILY 03/30/17 Fluticasone Prop 0.05% Nasal [Flonase -] 1 - 2 spray NS DAILY 03/30/17 Magnesium Hydrox 2400MG/30Ml [Milk of Magnesia -] 30 ml PO DAILY 03/30/17 Multivit-Min/FA/Lycopen/Lutein [Vitrum 50+ Senior Tablet] 5 5ml PO DAILY Phenobarbital 64.8 mg PO BID 03/30/17 Sodium Chloride 500 mg PO DAILY 03/30/17 clonazePAM [Klonopin -] 0.5 mg PO TID 03/30/17 Cefuroxime Axetil [Ceftin -] 500 mg PO BID #6 tablet 05/09/17 Review of Systems - Review of Systems Able to Perform ROS?: No (MR - non verbal, baseline) <Gwen Duncan - Last Filed: 09/14/17 07:30> *Physical Exam - Vital Signs Last Vital Signs Temp Pulse Resp BP Pulse Ox 97.8 F 98 H 18 116/82 100 09/13/17 21:06 09/13/17 21:06 09/13/17 21:06 09/13/17 21:06 09/13/17 21:06 - Physical Exam General Appearance: Yes: Nourished, Appropriately Dressed, Other (non-verbal ( baseline), withdraws from pain) HEENT: positive: JANE Neck: positive: Trachea midline, Supple Respiratory/Chest: positive: Lungs Clear Cardiovascular: positive: S1, S2 Gastrointestinal/Abdominal: positive: Normal Bowel Sounds, Flat. negative: Protuberent, Distended, Hernia, Mass Extremity: positive: Normal Capillary Refill, Other (contracted upper extremity) Integumentary: positive: Normal Color, Dry, Warm Neurologic: positive: Alert <Gwen Duncan - Last Filed: 09/14/17 07:30> - Vital Signs Last Vital Signs Temp Pulse Resp BP Pulse Ox 97.8 F 98 H 18 116/82 100 09/13/17 21:06 09/13/17 21:06 09/13/17 21:06 09/13/17 21:06 09/13/17 21:06 <Zita Hahn - Last Filed: 09/14/17 22:57> ED Treatment Course - LABORATORY CBC & Chemistry Diagram: 09/14/17 00:06 09/14/17 00:06 <Gwen Duncan - Last Filed: 09/14/17 07:30> - LABORATORY CBC & Chemistry Diagram: 09/14/17 00:06 09/14/17 00:06 - ADDITIONAL ORDERS Additional order review: Laboratory Results 09/14/17 09/14/17 00:06 00:06 PT with INR 12.50 H INR 1.11 PTT (Actin FS) 32.0 Sodium 134 L Potassium 4.5 Chloride 93 L Carbon Dioxide 29 Anion Gap 12 BUN 10 D Creatinine 0.6 L Creat Clearance w eGFR > 60 Random Glucose 90 Calcium 9.4 Total Bilirubin 0.3 D AST 23 D ALT 27 D Alkaline Phosphatase 154 H D Total Protein 7.8 Albumin 3.6 D 09/14/17 00:06 RBC 4.30 MCV 87.6 MCHC 34.1 RDW 15.8 D MPV 6.9 L Neutrophils % 70.7 Lymphocytes % 16.1 D Monocytes % 11.6 H Eosinophils % 1.2 Basophils % 0.4 <Zita Hahn - Last Filed: 09/14/17 22:57> Medical Decision Making - Medical Decision Making 09/14/17 05:25 46 year old male presents from [facility] for solo episode of brownish colored emesis. Physical exam shows soft, non-distended, non-tympanic abdomen with normal BS. CBC negative for anemia. Will discharge to [facility] with PMD follow-up and referral to GI. 09/14/17 07:31 <Gwen Duncan - Last Filed: 09/14/17 07:30> *DC/Admit/Observation/Transfer <Gwen Duncan - Last Filed: 09/14/17 07:30> - Discharge Dispostion Admit: No <Zita Hahn - Last Filed: 09/14/17 22:57> Diagnosis at time of Disposition: Vomiting, Normal exam - Discharge Dispostion Disposition: HOME Condition at time of disposition: Stable - Referrals Referrals: Taylor Arndt MD [Primary Care Provider] - Loida Jiménez MD [Staff Physician] - - Patient Instructions Printed Discharge Instructions: DI for Vomiting -- Adult - Post Discharge Activity Attending Attestation - Resident Resident Name: Gwen Duncan - ED Attending Attestation I have performed the following: I have examined & evaluated the patient, The case was reviewed & discussed with the resident, I agree w/resident's findings & plan - HPI HPI: 09/14/17 22:55 Pt [facility] brown em[facility] In the ER pt is non-verbal/severe MR. He is unable to contribute to his history. - Physicial Exam PE: 09/14/17 22:55 Agree with resident exam - Medical Decision Making 09/14/17 22:56 Pt is hemodynamically stable and he has normal Hb/HCT. Follow with PMD and outpatinet GI. <Zita Hahn - Last Filed: 09/14/17 22:57>
[2017-09-14 00:15] LABS: BASO % 0.4 % (0-2.0); EOS % 1.2 % (0-4.5); HEMATOCRIT 37.6 % (35.4-49); HEMOGLOBIN 12.8 GM/dL (11.7-16.9); LYMPH % 16.1 % (8-40); MCH 29.9 pg (25.7-33.7); MCHC 34.1 g/dl (32.0-35.9); MEAN CELL VOLUME 87.6 fl (80-96); MEAN PLT VOLUME 6.9 fl (7.5-11.1); MONO % 11.6 % (3.8-10.2); NEUT % 70.7 % (42.8-82.8); PLATELET COUNT 396 K/MM3 (134-434); RDW 15.8 % (11.9-15.9); WHITE BLOOD COUNT 6.5 K/mm3 (4.0-10.0)
[2017-09-14 00:28] LABS: INR 1.11 (0.82-1.09); PROTHROMBIN TIME (PATIENT) 12.5 SEC (9.98-11.88)
[2017-09-14 00:47] LABS: ALBUMIN 3.6 g/dl (3.4-5.0); ALK PHOS 154 U/L (45-117); ANION GAP 12 (8-16); BILIRUBIN,TOTAL 0.3 mg/dL (0.2-1.0); BLOOD UREA NITROGEN 10 mg/dL (7-18); CALCIUM 9.4 mg/dL (8.5-10.1); CHLORIDE 93 mmol/L (98-107); CO2 29 mmol/L (21-32); CREATININE 0.6 mg/dL (0.7-1.3); GLUCOSE,RANDOM 90 mg/dL (74-106); POTASSIUM 4.5 mmol/L (3.5-5.1); SGOT/AST 23 U/L (15-37); SGPT/ALT 27 U/L (12-78); SODIUM 134 mmol/L (136-145); TOT PROT 7.8 g/dl (6.4-8.2)
== END 2017-09-14 01:18 | disposition home or self-care (01) ==
LOC: JER 20:50
DX: R11.10 Vomiting, unspecified (principal); F79 Unspecified intellectual disabilities
CPT/HCPCS: 36415; 80053; 85025; 85610; 85730; 86850; 86900; 86901; 99282-25

== ENCOUNTER 2018-03-06 22:34 | Emergency (ER) | payer OTHER ==
[2018-03-06 22:43] VITALS: BMI 15.5
--- NOTE | 2018-03-06 23:17 | PDOC ---
History of Present Illness <Zita Hahn - Last Filed: 03/07/18 02:10> - History of Present Illness Initial Comments: 47yo M with PMH of adynamic ileus, sigmoid volvulus, severe MR sent by his adult living facility for poor po intake today. According to attendant, patient refused to eat or drink anything today. He also refused medications. It is unknown whether patient has any abdominal pain, emesis, or bowel movements. History is limited by patients MR. <Radha Quiroz - Last Filed: 03/07/18 07:33> - General Chief Complaint: Loss of Appetite Stated Complaint: EVALUATION Time Seen by Provider: 03/06/18 22:46 Past History <Zita Hahn - Last Filed: 03/07/18 02:10> - Past Medical History Anemia: No Asthma: No Cancer: No Cardiac Disorders: No CVA: No COPD: No CHF: No Dementia: No Diabetes: No GI Disorders: Yes (esophagitis) Disorders: No HTN: No Hypercholesterolemia: No Liver Disease: No Seizures: Yes (general convulsive epilepsy) Thyroid Disease: No - Surgical History Abdominal Surgery: No Appendectomy: No Cardiac Surgery: No Cholecystectomy: No Lung Surgery: No Neurologic Surgery: No - Immunization History Immunization Up to Date: Yes - Suicide/Smoking/Psychosocial Hx Smoking History: Never smoked Have you smoked in the past 12 months: No Hx Alcohol Use: No Drug/Substance Use Hx: No Substance Use Type: None <Radha Quiroz - Last Filed: 03/07/18 07:33> - Past Medical History Allergies/Adverse Reactions: Allergies Allergy/AdvReac Type Severity Reaction Status Date / Time ceresin [From Eucerin] Allergy Verified 03/06/18 22:43 corn Allergy Verified 03/06/18 23:29 egg Allergy Verified 03/06/18 22:43 emollient combination no.33 Allergy Verified 03/06/18 22:43 [From Eucerin] isopropyl myristate Allergy Verified 03/06/18 22:43 [From Eucerin] lanolin alcohols Allergy Verified 03/06/18 22:43 [From Eucerin] latex Allergy Verified 03/06/18 22:43 mineral oil [From Eucerin] Allergy Verified 03/06/18 22:43 petrolatum,white Allergy Verified 03/06/18 22:43 [From Eucerin] phenytoin sodium Allergy Verified 03/06/18 22:43 [From Dilantin] phenytoin sodium extended Allergy Verified 03/06/18 22:43 [From Dilantin] soap [From Eucerin] Allergy Verified 03/06/18 22:43 strawberry Allergy Verified 03/06/18 22:43 water [From Eucerin] Allergy Verified 03/06/18 22:43 Home Medications: Ambulatory Orders Calcium Carbonate/Vitamin D3 [Oystercal-D 500 mg-400 Unit Tb] 1 each PO BID Carbamazepine [Carbamazepine ER] 300 mg PO DAILY 03/30/17 Cetirizine HCl 10 mg PO DAILY 03/30/17 Fluticasone Prop 0.05% Nasal [Flonase -] 1 - 2 spray NS DAILY 03/30/17 Magnesium Hydrox 2400MG/30Ml [Milk of Magnesia -] 30 ml PO DAILY 03/30/17 Multivit-Min/FA/Lycopen/Lutein [Vitrum 50+ Senior Tablet] 5 5ml PO DAILY Phenobarbital 64.8 mg PO BID 03/30/17 Sodium Chloride 500 mg PO DAILY 03/30/17 clonazePAM [Klonopin -] 0.5 mg PO TID 03/30/17 Cefuroxime Axetil [Ceftin -] 500 mg PO BID #6 tablet 05/09/17 Glycerin Suppository Adult - 1 each RC DAILY #7 supp.rect 03/07/18 Review of Systems - Review of Systems Able to Perform ROS?: No (hx or MR; nonverbal ) <Radha Quiroz - Last Filed: 03/07/18 07:33> *Physical Exam - Vital Signs Last Vital Signs Temp Pulse Resp BP Pulse Ox 98.8 F 76 18 143/95 99 03/06/18 23:28 03/06/18 22:37 03/06/18 22:37 03/06/18 22:37 03/06/18 22:37 <Zita Hahn - Last Filed: 03/07/18 02:10> - Vital Signs Last Vital Signs Temp Pulse Resp BP Pulse Ox 76 18 143/95 99 03/06/18 22:37 03/06/18 22:37 03/06/18 22:37 03/06/18 22:37 - Physical Exam Comments: General: Awake, alert, and fully oriented, in no acute distress Head: no signs of trauma Eyes: EOMI, sclera anicteric ENT: Moist mucus membranes Neck: Normal ROM, supple Lungs: Lungs clear, normal breath sounds Cardio: Regular rhythm, S1 and S2 present Abdomen: Soft, nontender Extremities: Normal range of motion, Distal pulses present SKIN: Warm, Dry, normal turgor Neurologic: Cranial nerves II through XII grossly intact. Normal speech <Radha Quiroz - Last Filed: 03/07/18 07:33> ED Treatment Course - LABORATORY CBC & Chemistry Diagram: 03/07/18 00:30 03/07/18 01:32 - ADDITIONAL ORDERS Additional order review: Laboratory Results 03/07/18 03/07/18 03/07/18 01:32 01:15 00:30 Sodium 135 L Cancelled Cancelled Potassium 3.9 Cancelled Cancelled Chloride 96 L Cancelled Cancelled Carbon Dioxide 34 H Cancelled Cancelled Anion Gap 5 L Cancelled Cancelled BUN 8 Cancelled Cancelled Creatinine 0.7 Cancelled Cancelled Creat Clearance w eGFR > 60 Cancelled Cancelled Random Glucose 104 Cancelled Cancelled Calcium 9.2 Cancelled Cancelled Total Bilirubin 0.3 Cancelled Cancelled AST 25 Cancelled Cancelled ALT 24 Cancelled Cancelled Alkaline Phosphatase 148 H Cancelled Cancelled Total Protein 7.7 Cancelled Cancelled Albumin 3.5 Cancelled Cancelled 03/07/18 00:30 RBC 5.04 MCV 90.5 MCHC 33.2 RDW 15.8 MPV 7.9 D Neutrophils % 75.7 Lymphocytes % 12.1 D Monocytes % 11.8 H Eosinophils % 0.1 D Basophils % 0.3 - Medications Given in the ED: ED Medications Discontinued Medications Generic Name Dose Route Start Last Admin Trade Name Freq PRN Reason Stop Dose Admin Sodium Chloride 1,000 mls @ 1,000 mls/hr 03/06/18 23:42 03/07/18 01:10 Normal [place] - IV 03/07/18 00:41 1,000 mls/hr ASDIR STA Administration <Zita Hahn - Last Filed: 03/07/18 02:10> - LABORATORY CBC & Chemistry Diagram: 03/07/18 00:30 03/07/18 01:32 <Radha Quiroz - Last Filed: 03/07/18 07:33> Medical Decision Making - Medical Decision Making 47yo M with PMH of adynamic ileus, sigmoid volvulus, severe MR sent by his adult living facility for poor po intake today. Patient has moist mucus membrane, good capillary refill, and vitals WNL. Low suspicion for infection. Will attempt po challenge. 03/06/18 23:39 Patient refused orange juice. 1L NS CBC, CMP unremarkable Will discharge. [facility] with [facility] at [facility] regarding [facility] course. 03/07/18 07:31 <Radha Quiroz - Last Filed: 03/07/18 07:33> *DC/Admit/Observation/Transfer - Discharge Dispostion Decision to Admit order: No <Zita Hahn - Last Filed: 03/07/18 02:10> <Radha Quiroz - Last Filed: 03/07/18 07:33> Diagnosis at time of Disposition: Routine adult health maintenance, Normal appearance of tissue - Discharge Dispostion Disposition: HOME Condition at time of disposition: Stable - Prescriptions Prescriptions: Glycerin Suppository Adult - 1 each RC DAILY #7 supp.rect
[2018-03-06 23:28] VITALS: TEMP 98.8
[2018-03-06] MEDS ORDERED: SODIUM CHLORIDE 1,000 ML IV STA (23:42)
--- NOTE | 2018-03-06 23:59 | PDOC ---
Attending Attestation - HPI HPI: This patient is a 47 year old male, with PMHx of profound MR, epilepsy, sigmoid volvulus, esophagitis, presenting from [facility] for inability to tolerate PO solids and liquids and refusal to take meds since this morning. Patient was sent here for evaluation for dehydration. <Cinthia Galo - Last Filed: 03/06/18 23:59> - Resident Resident Name: Radha Quiroz - ED Attending Attestation I have performed the following: I have examined & evaluated the patient, The case was reviewed & discussed with the resident, I agree w/resident's findings & plan - Physicial Exam PE: 03/07/18 00:10 Agree with resident exam. Pt has normal vitals. Pt has moist mucus membrabnes and he is drooling. Not apparent that he is dehydrated. - Medical Decision Making 03/07/18 00:49 CBC is normal. Pt is getting hydrated. Once chem is done, he will be sent home. 03/07/18 02:12 Pt received 1 L NSS and he will be discharged. Chem was hemolyzed multiple times. I will no longer await a result he is stable to go home. 03/07/18 02:21 Chem is back; pt may be sent back to the [facility] <Zita Hahn - Last Filed: 03/08/18 02:32>
[2018-03-07 00:42] LABS: BASO % 0.3 % (0-2.0); EOS % 0.1 % (0-4.5); HEMATOCRIT 45.6 % (35.4-49); HEMOGLOBIN 15.1 GM/dL (11.7-16.9); LYMPH % 12.1 % (8-40); MCHC 33.2 g/dl (32.0-35.9); MEAN CELL VOLUME 90.5 fl (80-96); MEAN PLT VOLUME 7.9 fl (7.5-11.1); MONO % 11.8 % (3.8-10.2); NEUT % 75.7 % (42.8-82.8); PLATELET COUNT 336 K/MM3 (134-434); RBC 5.04 M/mm3 (4.00-5.60); RDW 15.8 % (11.9-15.9); WHITE BLOOD COUNT 7.4 K/mm3 (4.0-10.0)
[2018-03-07 02:08] LABS: ALBUMIN 3.5 g/dl (3.4-5.0); ALK PHOS 148 U/L (45-117); ANION GAP 5 MMOL/L (8-16); BILIRUBIN,TOTAL 0.3 mg/dL (0.2-1); BLOOD UREA NITROGEN 8 mg/dL (7-18); CALCIUM 9.2 mg/dL (8.5-10.1); CHLORIDE 96 mmol/L (98-107); CO2 34 mmol/L (21-32); CREATININE 0.7 mg/dL (0.55-1.3); GLUCOSE,RANDOM 104 mg/dL (74-106); POTASSIUM 3.9 mmol/L (3.5-5.1); SGOT/AST 25 U/L (15-37); SGPT/ALT 24 U/L (13-61); SODIUM 135 mmol/L (136-145); TOT PROT 7.7 g/dl (6.4-8.2)
[2018-03-07 02:39] VITALS: BP 136/72; PULSE 72
== END 2018-03-07 02:38 | disposition home or self-care (01) ==
LOC: JER 22:34
PROC: 3E0337Z Introduction of Electrolytic and Water Balance Substance into Peripheral Vein, Percutaneous Approach (ICD-10-PCS; principal; 2018-03-06)
DX: Z00.00 Encounter for general adult medical examination without abnormal findings (principal); F72 Severe intellectual disabilities; G40.909 Epilepsy, unspecified, not intractable, without status epilepticus; K20.9 Esophagitis, unspecified; Z87.19 Personal history of other diseases of the digestive system
CPT/HCPCS: 36415; 80053; 85025; 96360; 99282-25; J7030

== ENCOUNTER 2018-07-04 21:57 | Inpatient (IN) | payer OTHER ==
--- NOTE | 2018-07-04 22:21 | PDOC ---
History of Present Illness - General Chief Complaint: Nausea/Vomiting Stated Complaint: VOMITTING Time Seen by Provider: 07/04/18 22:16 History Source: Patient - History of Present Illness Initial Comments: 07/04/18 22:23 Initial HPI obtained from EMR and papers provided by [facility] The patient is a 47 year old male with a PMH of dynamic ileus, sigmoid volvulus , severe MR (2/2 to cerebral anoxic injury), esophagitis, epilepsy, osteoporosis , sialoadenitis, porencephalic cysts, OFFICE EXECUTIVE shunt who presents from [place] for an episode of coffee colored emesis. VS stable @ assisted living facility. 07/04/18 23:03 Case d/w Karmen Blunt RN @ [facility] Patient had an episode of coffee colored emesis @ 8:45 p.m. this evening. Large BM today, Last PO intake @ 4:30-5 p.m. today. Patient is at baseline MS. Past History - Past Medical History Allergies/Adverse Reactions: Allergies Allergy/AdvReac Type Severity Reaction Status Date / Time ceresin [From Eucerin] Allergy Verified 07/04/18 22:03 corn Allergy Verified 07/04/18 22:03 egg Allergy Verified 07/04/18 22:03 emollient combination no.33 Allergy Verified 07/04/18 22:03 [From Eucerin] isopropyl myristate Allergy Verified 07/04/18 22:03 [From Eucerin] lanolin alcohols Allergy Verified 07/04/18 22:03 [From Eucerin] latex Allergy Verified 07/04/18 22:03 mineral oil [From Eucerin] Allergy Verified 07/04/18 22:03 petrolatum,white Allergy Verified 07/04/18 22:03 [From Eucerin] phenytoin sodium Allergy Verified 07/04/18 22:03 [From Dilantin] phenytoin sodium extended Allergy Verified 07/04/18 22:03 [From Dilantin] soap [From Eucerin] Allergy Verified 07/04/18 22:03 strawberry Allergy Verified 07/04/18 22:03 water [From Eucerin] Allergy Verified 07/04/18 22:03 Home Medications: Ambulatory Orders Calcium Carbonate/Vitamin D3 [Oystercal-D 500 mg-400 Unit Tb] 1 each PO BID Carbamazepine [Carbamazepine ER] 300 mg PO DAILY 03/30/17 Cetirizine HCl 10 mg PO DAILY 03/30/17 Fluticasone Prop 0.05% Nasal [Flonase -] 1 - 2 spray NS DAILY 03/30/17 Magnesium Hydrox 2400MG/30Ml [Milk of Magnesia -] 30 ml PO DAILY 03/30/17 Multivit-Min/FA/Lycopen/Lutein [Vitrum 50 Plus Senior Tablet] 5 5ml PO DAILY Phenobarbital 64.8 mg PO BID 03/30/17 Sodium Chloride 500 mg PO DAILY 03/30/17 clonazePAM [Klonopin -] 0.5 mg PO TID 03/30/17 Cefuroxime Axetil [Ceftin -] 500 mg PO BID #6 tablet 05/09/17 Glycerin Suppository Adult - 1 each RC DAILY #7 supp.rect 03/07/18 Anemia: No Asthma: No Cancer: No Cardiac Disorders: No CVA: No COPD: No CHF: No Dementia: No Diabetes: No GI Disorders: Yes (esophagitis) Disorders: No HTN: No Hypercholesterolemia: No Liver Disease: No Seizures: Yes (general convulsive epilepsy) Thyroid Disease: No - Surgical History Abdominal Surgery: No Appendectomy: No Cardiac Surgery: No Cholecystectomy: No Lung Surgery: No Neurologic Surgery: No - Immunization History Immunization Up to Date: Yes - Suicide/Smoking/Psychosocial Hx Smoking History: Never smoked Have you smoked in the past 12 months: No Hx Alcohol Use: No Drug/Substance Use Hx: No Substance Use Type: None Review of Systems - Review of Systems Able to Perform ROS?: No *Physical Exam - Vital Signs Last Vital Signs Temp Pulse Resp BP Pulse Ox 98.2 F 92 H 18 119/89 96 07/04/18 21:58 07/04/18 21:58 07/04/18 21:58 07/04/18 21:58 07/04/18 21:58 - Physical Exam General Appearance: Yes: Thin, Other (Alert, drooling, non-verbal (baseline)) Neck: positive: Trachea midline, Supple Respiratory/Chest: positive: Lungs Clear, Normal Breath Sounds Cardiovascular: positive: S1, S2. negative: Edema, JVD, Murmur Vascular Pulses: Dorsalis-Pedis (R): 2+, Doralis-Pedis (L): 2+ Gastrointestinal/Abdominal: positive: Other (hypoactive BS in all 4 quadrants; distended, non-tympanitic) Extremity: positive: Normal Capillary Refill, Normal Inspection Integumentary: positive: Normal Color, Dry, Warm Neurologic: positive: Alert, Other (@ baseline). negative: Respond to painful stimul Moderate Sedation - Procedure Monitoring Vital Signs: Procedure Monitoring Vital Signs Temperature 98.2 F 07/04/18 21:58 Pulse Rate 92 H 07/04/18 21:58 Respiratory Rate 18 07/04/18 21:58 Blood Pressure 119/89 07/04/18 21:58 O2 Sat by Pulse Oximetry (%) 96 07/04/18 21:58 ED Treatment Course - LABORATORY CBC & Chemistry Diagram: 07/05/18 01:15 07/05/18 01:15 Medical Decision Making - Medical Decision Making 07/04/18 22:58 47 year old male from [facility] with solo episode of coffee colored emesis. Limited historian 2/2 to severe MR. VS unremarkable. Abdomen distended, hypoactive bowel sounds. Frontal diagnosis: GI bleed, SBO, OFFICE EXECUTIVE shunt dysfunction causing vomiting also consider acute appy, acute saige, gastroenteritis, PUD. Will obtain CT Abdomen pelvis, CT head Lactic Acid, Lipase, FOBT, Basic Labs. Prophylatic IV Protonix. Reassess. 07/04/18 22:58 Message left with patient's HCP, Ms. Yesenia Cantu to update her on plan of care 07/05/18 01:57 CBC, CMP pending Patient @ CT scan. Not tolerating IV contrast, will obtain non-contrast of abdomen. Patient signed out to Dr. Aguayo (Resident) and Dr. Hahn (Attending). *DC/Admit/Observation/Transfer Diagnosis at time of Disposition: Coffee ground emesis - Referrals Referrals: Kahlil Mcdaniels Jr [Primary Care Provider] - - Patient Instructions - Post Discharge Activity
[2018-07-04] MEDS ORDERED: PANTOPRAZOLE SODIUM 40 MG VIAL IVPUSH ONE (22:40)
[2018-07-04] MEDS: PANTOPRAZOLE SODIUM 80 MG in SODIUM CHLORIDE 100 ML IVPB SCH (23:05)
--- NOTE | 2018-07-04 23:18 | PDOC ---
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 The patient is MR and unable to provide a history. As per lamination spinner at bedside, pt symptoms started today with the vomiting. - Physicial Exam PE: 07/04/18 23:14 GENERAL: Awake, alert, and fully oriented, in no acute distress HEAD: No signs of trauma. +Enlarged chronic cranium EYES: EOMI, sclera anicteric, conjunctiva clear ENT: Auricles normal inspection Moist mucosa NECK: Normal ROM, supple, LUNGS: Breath sounds equal, clear to auscultation bilaterally. No wheezes, and no crackles HEART: Regular rate and rhythm, normal S1 and S2, no murmurs, rubs or gallops ABDOMEN: +distended, seemingly nontender. EXTREMITIES: Normal range of motion, no edema. No clubbing or cyanosis. No cords, erythema, or tenderness NEUROLOGICAL: Cranial nerves II through XII grossly intact. Nonverbal SKIN: Warm, Dry, normal turgor, no rashes or lesions noted. - Medical Decision Making 07/04/18 23:17 Vital Signs Temp Pulse Resp BP Pulse Ox 98.2 F 92 H 18 119/89 96 07/04/18 21:58 07/04/18 21:58 07/04/18 21:58 07/04/18 21:58 07/04/18 21:58 47 MR pt c/ coffee ground emesis. R/o UGIB. Start Protonix bolus and drip R/o bowel obstruction. Needs lactic acid and CT abdomen and pelvis. 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 Labs, IV fluids, admit.
[2018-07-05] MEDS ORDERED: PANTOPRAZOLE SODIUM 40 MG/100 ML BAG IVPB ONE (00:56)
[2018-07-05] MEDS ORDERED: PANTOPRAZOLE SODIUM 40 MG VIAL ONE ×2 (00:57→23:01)
[2018-07-05 01:23] LABS: INR 1.05 (0.83-1.09); PROTHROMBIN TIME (PATIENT) 12.4 SEC (9.7-13.0)
[2018-07-05 01:38] LABS: BASO % 0.2 % (0-2.0); EOS % 1.6 % (0-4.5); HEMATOCRIT 36.4 % (35.4-49); HEMOGLOBIN 12.7 GM/dL (11.7-16.9); MCH 32.5 pg (25.7-33.7); MEAN CELL VOLUME 92.9 fl (80-96); MEAN PLT VOLUME 7.1 fl (7.5-11.1); MONO % 7.8 % (3.8-10.2); NEUT % 77.4 % (42.8-82.8); PLATELET COUNT 519 K/MM3 (134-434); RBC 3.91 M/mm3 (4.00-5.60); RDW 15.6 % (11.9-15.9)
--- NOTE | 2018-07-05 01:46 | PDOC ---
*Physical Exam - Vital Signs Last Vital Signs Temp Pulse Resp BP Pulse Ox 98.6 F 92 H 18 119/89 96 07/05/18 01:44 07/04/18 21:58 07/04/18 21:58 07/04/18 21:58 07/04/18 21:58 ED Treatment Course - LABORATORY CBC & Chemistry Diagram: 07/05/18 01:15 07/05/18 01:15 - ADDITIONAL ORDERS Additional order review: Laboratory Results 07/05/18 07/05/18 00:40 00:40 PT with INR 12.40 INR 1.05 PTT (Actin FS) 35.0 Lactic Acid 1.5 - Medications Given in the ED: ED Medications Discontinued Medications Generic Name Dose Route Start Last Admin Trade Name Freq PRN Reason Stop Dose Admin Pantoprazole Sodium 40 mg 07/04/18 22:40 07/04/18 22:45 Protonix Iv IVPUSH 07/04/18 22:41 40 mg ONCE ONE Administration Medical Decision Making - Medical Decision Making 07/05/18 01:[address] Duncan. 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 Patient abdomen distended and currently pending head and abdomen/pelvis CTs for further evaluation. Will likely be admitted. 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 CT Abdomen / Pelvis significant for right lower lobe aspiration pneumonia w/ additional possible colonic ileus or toxic megacolon. Patient started on zosyn for treatment. Will admit for further care. *DC/Admit/Observation/Transfer Diagnosis at time of Disposition: Coffee ground emesis Aspiration pneumonia Qualifiers: Aspiration pneumonia type: unspecified Laterality: unspecified laterality Lung location: unspecified part of lung Qualified Code(s): J69.0 - Pneumonitis due to inhalation of food and vomit - Discharge Dispostion Decision to Admit order: Yes - Referrals Referrals: Kahlil Mcdaniels Jr [Primary Care Provider] - - Patient Instructions - Post Discharge Activity
[2018-07-05 02:12] LABS: ALBUMIN 3.1 g/dl (3.4-5.0); ALK PHOS 136 U/L (45-117); ANION GAP 7 MMOL/L (8-16); BILIRUBIN,TOTAL 0.2 mg/dL (0.2-1); BLOOD UREA NITROGEN 13 mg/dL (7-18); CALCIUM 8.7 mg/dL (8.5-10.1); CHLORIDE 97 mmol/L (98-107); CO2 31 mmol/L (21-32); CREATININE 0.6 mg/dL (0.55-1.3); GLUCOSE,RANDOM 90 mg/dL (74-106); LIPASE 144 U/L (73-393); POTASSIUM 4.9 mmol/L (3.5-5.1); SGOT/AST 34 U/L (15-37); SGPT/ALT 25 U/L (13-61); SODIUM 135 mmol/L (136-145); TOT PROT 7.5 g/dl (6.4-8.2)
--- NOTE | 2018-07-05 02:25 | PDOC ---
*Physical Exam - Vital Signs Last Vital Signs Temp Pulse Resp BP Pulse Ox 98.6 F 92 H 18 119/89 96 07/05/18 01:44 07/04/18 21:58 07/04/18 21:58 07/04/18 21:58 07/04/18 21:58 Heart Score/ECG Review - ECG Intrepretation Rhythm: Regular Rhythm - [place]: Normal - P and RI Prominent R with upright T in V1 (true posterior VA): No Delta Wave(s) Present: No WPW: No - QRS Poor R Wave Progression: No Q Wave Present: No - ST and T Early Repolarization: No Non Specific ST-T Wave changes: No Flattened T Waves: No Prolonged Q-T Interval: No - ECG Impressions Normal ECG: Yes Non-specific ST Elevation: No Ischemic Changes: No Bradycardia: No ED Treatment Course - LABORATORY CBC & Chemistry Diagram: 07/05/18 01:15 07/05/18 01:15 - ADDITIONAL ORDERS Additional order review: Laboratory Results 07/05/18 07/05/18 07/05/18 01:15 01:15 00:40 PT with INR 12.40 INR 1.05 PTT (Actin FS) 35.0 Sodium 135 L Potassium 4.9 Chloride 97 L Carbon Dioxide 31 Anion Gap 7 L BUN 13 Creatinine 0.6 Creat Clearance w eGFR > 60 Random Glucose 90 Lactic Acid Calcium 8.7 Total Bilirubin 0.2 AST 34 ALT 25 Alkaline Phosphatase 136 H Creatine Kinase 116 Troponin I < 0.02 Total Protein 7.5 Albumin 3.1 L Lipase 144 Stool Occult Blood Negative 07/05/18 00:40 PT with INR INR PTT (Actin FS) Sodium Potassium Chloride Carbon Dioxide Anion Gap BUN Creatinine Creat Clearance w eGFR Random Glucose Lactic Acid 1.5 Calcium Total Bilirubin AST ALT Alkaline Phosphatase Creatine Kinase Troponin I Total Protein Albumin Lipase Stool Occult Blood 07/05/18 01:15 RBC 3.91 L MCV 92.9 MCHC 35.0 RDW 15.6 MPV 7.1 L D Neutrophils % 77.4 Lymphocytes % 13.0 Monocytes % 7.8 Eosinophils % 1.6 D Basophils % 0.2 - Medications Given in the ED: ED Medications Discontinued Medications Generic Name Dose Route Start Last Admin Trade Name Freq PRN Reason Stop Dose Admin Pantoprazole Sodium 40 mg 07/04/18 22:40 07/04/18 22:45 Protonix Iv IVPUSH 07/04/18 22:41 40 mg ONCE ONE Administration Medical Decision Making - Medical Decision Making 07/05/18 02:25 I received pt on signout. 07/05/18 02:26 Pt comes with coffee ground emesis and requires GI consult. HE WILL BE ADMITTED 07/05/18 02:58 Patient Name: LUIS EDUARDO SANDHU THIS IS A PRELIMINARY REPORT FROM [facility] DATE OF SERVICE: 2018-07-05 01:47:52 IMAGES: [id number] EXAM: HEAD CT WITHOUT CONTRAST HISTORY: TOBACCO PRIZER shunt COMPARISON: None. FINDINGS: Right frontal ventriculostomy catheter present with its tip in the right lateral ventricle. There is a second old catheter within the right lateral ventricle, possibly disconnected from any external shunt. There is severe hydrocephalus of the lateral ventricles with normal diameter third ventricle and fourth ventricle. Stenosis at the aqueduct of Sylvius is considered. There is severe cortical atrophy with little if any through the cortex overlying the dilated posterior horns. 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 Recommend comparison to prior exams. No hemorrhage, transtentorial herniation or midline shift. No skull fracture. IMPRESSION: Severe cortical atrophy and other chronic changes without definite evidence of acute pathology. Recommend direct comparison to prior exams. 07/05/18 02:59 Patient Name: LUIS EDUARDO SANDHU THIS IS A PRELIMINARY REPORT FROM [facility] DATE OF SERVICE: 2018-07-05 01:52:11 IMAGES: [id number] EXAM: ABDOMEN \T\ PELVIS CT W/O CONTR HISTORY: History of volvulus COMPARISON: None. FINDINGS: Right lower lobe consolidation could represent aspiration pneumonia. The visualized cardiac chambers are normal size and configuration. Normal unenhanced liver, gallbladder, pancreas, spleen, adrenal glands and kidneys. Evaluate of bowel is limited by streak artifact from the spinal metallic maryuri as well as copious air throughout the colon. There is a large amount of solid and liquid stool in the colon without definite mesenteric twist. Findings could represent severe colonic ileus or toxic megacolon without definite findings for volvulus. There is no aortic aneurysm. There is no significant retroperitoneal lymphadenopathy. There is an catheter in the right lower quadrant, possible TOBACCO PRIZER shunt or peritoneal dialysis catheter. Small amount of ascites is noted. There is no evidence of appendicitis although the appendix is not clearly visualized. The urinary bladder and prostate gland are normal. There is no significant pelvic lymphadenopathy. IMPRESSION: Possible right lower lobe aspiration pneumonia. Limited evaluation without evidence of volvulus but there may be severe colonic ileus or toxic megacolon. Consider decompression of the colon with a rectal tube and then repeat the exam. Small amount of ascites. Right lower quadrant catheter may represent old peritoneal dialysis catheter or ventriculoperitoneal shunt. 07/05/18 03:08 *DC/Admit/Observation/Transfer Diagnosis at time of Disposition: Coffee ground emesis Aspiration pneumonia Qualifiers: Aspiration pneumonia type: unspecified Laterality: unspecified laterality Lung location: unspecified part of lung Qualified Code(s): J69.0 - Pneumonitis due to inhalation of food and vomit - Referrals Referrals: Kahlil Mcdaniels Jr [Primary Care Provider] - - Patient Instructions - Post Discharge Activity
[2018-07-05] MEDS ORDERED: PIPERACILLIN/TAZOB 3.375 GM 3.375 GM in DEXTROSE 5%-WATER - 50 ML IVPB ONE (03:02)
--- NOTE | 2018-07-05 03:42 | HP ---
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 Patient's aid does not know his history or current condition. ED was able to speak with patient's nurse at [facility] (Karmen Blunt RN ), who reported that patient had an episode of coffee colored emesis last night and had a large bowel movement. Patient at his baseline mental status. No further episodes of coffee ground emesis at the ED. HCP, Ms. Yesenia Cantu ER course was notable for: (1)Protonix drip started. Zosyn given. (2)FOBT negative. (3)Head CT - Severe cortical atrophy and other chronic changes without definite evidence of acute pathology. (4)CT AP - Possible right lower lobe aspiration pneumonia. Limited evaluation without evidence of volvulus but there may be severe colonic ileus or toxic megacolon. Consider decompression of the colon with a rectal tube and then repeat exam. Small amount of ascites. Right lower quadrant catheter may represent old peritoneal dialysis catheter or ventriculoperitoneal shunt. 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 PAST SURGICAL HISTORY: Social History: Smoking:denies Alcohol:denies Drugs: denies Family History: Allergies ceresin [From Eucerin] Allergy (Verified 07/04/18 22:03) corn Allergy (Verified 07/04/18 22:03) egg Allergy (Verified 07/04/18 22:03) emollient combination no.33 [From Eucerin] Allergy (Verified 07/04/18 22:03) isopropyl myristate [From Eucerin] Allergy (Verified 07/04/18 22:03) lanolin alcohols [From Eucerin] Allergy (Verified 07/04/18 22:03) latex Allergy (Verified 07/04/18 22:03) mineral oil [From Eucerin] Allergy (Verified 07/04/18 22:03) petrolatum,white [From Eucerin] Allergy (Verified 07/04/18 22:03) phenytoin sodium [From Dilantin] Allergy (Verified 07/04/18 22:03) phenytoin sodium extended [From Dilantin] Allergy (Verified 07/04/18 22:03) soap [From Eucerin] Allergy (Verified 07/04/18 22:03) strawberry Allergy (Verified 07/04/18 22:03) water [From Eucerin] Allergy (Verified 07/04/18 22:03) HOME MEDICATIONS: Home Medications Medication Instructions Recorded Calcium Carbonate/Vitamin D3 1 each PO BID 03/30/17 [Oystercal-D 500 mg-400 Unit Tb] Carbamazepine [Carbamazepine ER] 300 mg PO DAILY 03/30/17 Cetirizine HCl 10 mg PO DAILY 03/30/17 Fluticasone Prop 0.05% Nasal 1 - 2 spray NS DAILY 03/30/17 [Flonase -] Magnesium Hydrox 2400MG/30Ml [Milk 30 ml PO DAILY 03/30/17 of Magnesia -] Multivit-Min/FA/Lycopen/Lutein 5 5ml PO DAILY 03/30/17 [Vitrum 50 Plus Senior Tablet] Phenobarbital 64.8 mg PO BID 03/30/17 Sodium Chloride 500 mg PO DAILY 03/30/17 clonazePAM [Klonopin -] 0.5 mg PO TID 03/30/17 Cefuroxime Axetil [Ceftin -] 500 mg PO BID #6 tablet 05/09/17 Glycerin Suppository Adult - 1 each RC DAILY #7 supp.rect 03/07/18 REVIEW OF SYSTEMS CONSTITUTIONAL: Absent: fever, chills, diaphoresis, generalized weakness, malaise, loss of appetite, weight change HEENT: Absent: rhinorrhea, nasal congestion, throat pain, throat swelling, difficulty swallowing, mouth swelling, ear pain, eye pain, visual changes CARDIOVASCULAR: Absent: chest pain, syncope, palpitations, irregular heart rate, lightheadedness , peripheral edema RESPIRATORY: Absent: cough, shortness of breath, dyspnea with exertion, orthopnea, wheezing, stridor, hemoptysis GASTROINTESTINAL: Absent: abdominal pain, abdominal distension,coffee ground emesis, nausea, vomiting, diarrhea, constipation, melena, hematochezia GENITOURINARY: Absent: dysuria, frequency, urgency, hesitancy, hematuria, flank pain, genital pain MUSCULOSKELETAL: Absent: myalgia, arthralgia, joint swelling, back pain, neck pain SKIN: Absent: rash, itching, pallor HEMATOLOGIC/IMMUNOLOGIC: Absent: easy bleeding, easy bruising, lymphadenopathy, frequent infections ENDOCRINE: Absent: unexplained weight gain, unexplained weight loss, heat intolerance, cold intolerance NEUROLOGIC: Absent: headache, focal weakness or paresthesias, dizziness, unsteady gait, seizure, mental status changes, bladder or bowel incontinence PSYCHIATRIC: Absent: anxiety, depression, suicidal or homicidal ideation, hallucinations. PHYSICAL EXAMINATION Vital Signs - 24 hr 07/04/18 07/05/18 21:58 01:44 Temperature 98.2 F 98.6 F Pulse Rate 92 H Respiratory 18 Rate Blood Pressure 119/89 O2 Sat by Pulse 96 Oximetry (%) GENERAL: Awake, alert, not in distress, laying in bed. HEAD: large, firm, nontender mass protruding from the forehead. LUNGS: +few scattered rhonchi bilaterally HEART: Regular rate and rhythm, normal S1 and S2 without murmur, rub or gallop. ABDOMEN: Soft, mildly distended, nontender, normoactive bowel sounds MUSCULOSKELETAL: Normal range of motion at all joints. No bony deformities or tenderness. No CVA tenderness. UPPER EXTREMITIES: 2+ pulses, warm, well-perfused. RUE contracted. No peripheral edema. LOWER EXTREMITIES: 2+ pulses, warm, well-perfused. No peripheral edema. NEUROLOGICAL: unable to assess mental status SKIN: Warm, dry, normal turgor, no rashes or lesions noted. Laboratory Results - last 24 hr 07/05/18 07/05/18 07/05/18 00:40 00:40 00:40 WBC RBC Hgb Hct MCV MCH MCHC RDW Plt Count MPV Absolute Neuts (auto) Neutrophils % Lymphocytes % Monocytes % Eosinophils % Basophils % Nucleated RBC % PT with INR 12.40 INR 1.05 PTT (Actin FS) 35.0 Sodium Potassium Chloride Carbon Dioxide Anion Gap BUN Creatinine Creat Clearance w eGFR Random Glucose Lactic Acid 1.5 Calcium Total Bilirubin AST ALT Alkaline Phosphatase Creatine Kinase Troponin I Total Protein Albumin Lipase Stool Occult Blood Blood Type Cancelled Antibody Screen Cancelled 07/05/18 07/05/18 07/05/18 01:15 01:15 01:15 WBC 10.0 RBC 3.91 L Hgb 12.7 Hct 36.4 D MCV 92.9 MCH 32.5 MCHC 35.0 RDW 15.6 Plt Count 519 H D MPV 7.1 L D Absolute Neuts (auto) 7.7 Neutrophils % 77.4 Lymphocytes % 13.0 Monocytes % 7.8 Eosinophils % 1.6 D Basophils % 0.2 Nucleated RBC % 0 PT with INR INR PTT (Actin FS) Sodium 135 L Potassium 4.9 Chloride 97 L Carbon Dioxide 31 Anion Gap 7 L BUN 13 Creatinine 0.6 Creat Clearance w eGFR > 60 Random Glucose 90 Lactic Acid Calcium 8.7 Total Bilirubin 0.2 AST 34 ALT 25 Alkaline Phosphatase 136 H Creatine Kinase 116 Troponin I < 0.02 Total Protein 7.5 Albumin 3.1 L Lipase 144 Stool Occult Blood Negative Blood Type Antibody Screen ASSESSMENT/PLAN: Patient is a 47 year old male with a past medical history of dynamic ileus, sigmoid volvulus, severe MR (2/2 to cerebral anoxic injury), esophagitis, epilepsy, osteoporosis, sialoadenitis, porencephalic cysts, 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 #Coffee-colored emesis likely 2/2 UGIB vs LGIB -FOBT negative -Protonix drip started at the ED -H/H stable -Speech/Swallow once patient is cleared to eat. -GI (Dr. Jiménez) consulted. #Abdominal distention likely 2/2 ileus -CT AP - Limited evaluation without evidence of volvulus but there may be severe colonic ileus or toxic megacolon. Consider decompression of the colon with a rectal tube and then repeat exam. -Abdominal xray # Right lower lobe pneumonia, possible 2/2 aspiration -CT AP - Possible right lower lobe aspiration pneumonia. -Zosyn given in the ED -f/u CXR -continue zosyn for now # Seizure disorder -Carbamazepine 300mg PO daily and Phenobarbital 64.8mg BID -Klonopin 0.5mg Po TID #FEN -IV LR while on NPo -Routine bmp monitoring -NPO #Prophylaxis -SCDs b/l -On protonix drip #Disposition -full code -admit to med-surg Visit type - Emergency Visit Emergency Visit: Yes ED Registration Date: 07/05/18 Care time: The patient presented to the Emergency Department on the above date and was hospitalized for further evaluation of their emergent condition. - New Patient This patient is new to me today: Yes Date on this admission: 07/05/18 - Critical Care Critical Care patient: No
[2018-07-05] MEDS ORDERED: PIPERACILLIN/TAZOB 3.375 GM 3.375 GM/50 ML BAG IVPB ONE (03:44)
--- NOTE | 2018-07-05 04:59 | PN ---
Teaching Attending Note ATTENDING PHYSICIAN STATEMENT I saw and evaluated the patient. I reviewed the resident's note and discussed the case with the resident. I agree with the resident's findings and plan as documented. SUBJECTIVE: This is a 47 year old male with a past medical history of dynamic ileus, sigmoid volvulus, severe MR (2/2 to cerebral anoxic injury), esophagitis, epilepsy, osteoporosis, sialoadenitis, porencephalic cysts, FIRST MATE shunt who presents from [facility] for an episode of coffee colored emesis OBJECTIVE: ASSESSMENT AND PLAN: 47 y/o trached patient from the [place] facilty presented to the hospital for respiratory distress found to have Right lower Lobe infiltrate patient is being admitted for aspiriation pneumonia. Right lower lobe pneumonia, possible 2/2 aspiration -CT AP - Possible right lower lobe aspiration pneumonia. -Zosyn given in the ED -f/u CXR -continue zosyn for now Abdominal distention likely 2/2 ileus -CT AP - Limited evaluation without evidence of volvulus but there may be severe colonic ileus or toxic megacolon. Consider decompression of the colon with a rectal tube and then repeat exam. -Abdominal xray Coffee-colored emesis likely 2/2 UGIB vs LGIB - unlikely patient HB is stable with 12 - with negative FOBT - c/w IVBP panaprezole 40mg twice day -H/H stable -Speech/Swallow once patient is cleared to eat. -F/u with GI Seizure disorder C/w Carbamazepine 300mg PO daily c/w Phenobarbital 64.8mg BID -Clonazepam 0.5mg Po TID #FEN -IV LR while on NPo -Routine bmp monitoring -NPO #Prophylaxis -SCDs b/l -On protonix drip #Disposition -full code -admit to med-surg
[2018-07-05] MEDS ORDERED: LACTATED RINGERS SOLUTION 1,000 ML/1,000 ML INFUS.BAG IV SCH (06:15)
[2018-07-05] MEDS ORDERED: clonazePAM 0.5 MG TABLET ONE ×3 (06:45→23:01)
[2018-07-05 07:50] LABS: BASO % 0.3 % (0-2.0); EOS % 4.1 % (0-4.5); HEMATOCRIT 31.9 % (35.4-49); HEMOGLOBIN 11.4 GM/dL (11.7-16.9); LYMPH % 21.3 % (8-40); MCHC 35.7 g/dl (32.0-35.9); MEAN CELL VOLUME 92.5 fl (80-96); MEAN PLT VOLUME 6.8 fl (7.5-11.1); MONO % 10.5 % (3.8-10.2); NEUT % 63.8 % (42.8-82.8); PLATELET COUNT 432 K/MM3 (134-434); RBC 3.44 M/mm3 (4.00-5.60); RDW 15.7 % (11.9-15.9)
[2018-07-05] MEDS: clonazePAM 0.5 MG TABLET PO SCH ×3 (08:00→23:28)
[2018-07-05 08:14] LABS: ALBUMIN 2.8 g/dl (3.4-5.0); ALK PHOS 117 U/L (45-117); ANION GAP 8 MMOL/L (8-16); BILIRUBIN,TOTAL 0.3 mg/dL (0.2-1); BLOOD UREA NITROGEN 14 mg/dL (7-18); CALCIUM 8.8 mg/dL (8.5-10.1); CHLORIDE 100 mmol/L (98-107); CO2 28 mmol/L (21-32); CREATININE 0.6 mg/dL (0.55-1.3); GLUCOSE,RANDOM 71 mg/dL (74-106); MAGNESIUM 1.8 mg/dL (1.8-2.4); POTASSIUM 4.4 mmol/L (3.5-5.1); SGOT/AST 20 U/L (15-37); SGPT/ALT 21 U/L (13-61); SODIUM 136 mmol/L (136-145); TOT PROT 6.6 g/dl (6.4-8.2)
[2018-07-05] MEDS ORDERED: AMPICILLIN NA/SULBACTAM NA 3 GM in SODIUM CHLORIDE 100 ML IVPB SCH ×2 (09:00→10:00)
[2018-07-05] MEDS: PANTOPRAZOLE SODIUM 80 MG in SODIUM CHLORIDE 100 ML IVPB SCH ×2 (09:01→09:54)
[2018-07-05] MEDS ORDERED: CEFTRIAXONE 1 GM/50 ML BAG ONE (09:03)
[2018-07-05] MEDS: SODIUM CHLORIDE 1,000 ML IV SCH (09:17)
[2018-07-05] MEDS: LORATADINE 10 MG TABLET PO SCH (09:34)
[2018-07-05] MEDS: MAGNESIUM HYDROX 2400MG/30ML ORAL SUSPENSION 30 ML CUP PO SCH (09:35)
[2018-07-05] MEDS: GLYCERIN 1 RECTAL SUPPOSITORY, ADULT RC SCH (09:35)
[2018-07-05] MEDS: CALCIUM 500MG/VIT-D 200 UNITS COMBO TABLET (FP) PO SCH ×2 (09:36→23:28)
[2018-07-05] MEDS: MULTIVITAMINS THER W-MINERALS COMBO TABLET (FP) PO SCH (09:36)
[2018-07-05] MEDS: CEFTRIAXONE 1 GM in DEXTROSE 5%-WATER - 50 ML IVPB SCH (09:55)
[2018-07-05] MEDS ORDERED: CEFTRIAXONE 1 GM in DEXTROSE 5%-WATER 100 ML IVPB SCH (10:00)
[2018-07-05] MEDS ORDERED: PIPERACILLIN/TAZOB 3.375 GM 3.375 GM in DEXTROSE 5%-WATER - 50 ML IVPB SCH (10:00)
[2018-07-05] MEDS: PHENobarbital 30 MG TABLET PO SCH ×2 (10:16→23:29)
--- NOTE | 2018-07-05 10:40 | PN ---
Progress Note, Physician Chief Complaint: Unable to obtain - Current Medication List Current Medications: Active Medications Calcium Carbonate/Cholecalciferol (Os-Giovanni 500+D -) 1 tab PO BID [facility] Last Admin: 07/05/18 09:36 Dose: 1 tab Carbamazepine (Tegretol Xr -) 300 mg PO DAILY LINO Last Admin: 07/05/18 09:36 Dose: 300 mg Clonazepam (Klonopin -) 0.5 mg PO TID [facility] Last Admin: 07/05/18 08:00 Dose: 0.5 mg Fluticasone Propionate (Flonase -) 1 - 2 spray NS DAILY [facility] Glycerin (Glycerin Suppository Adult -) 1 each RC DAILY [facility] Last Admin: 07/05/18 09:35 Dose: Not Given Pantoprazole Sodium 80 mg/ (Sodium Chloride) 100 mls @ 10 mls/hr IVPB Q10H [facility]O Last Admin: 07/05/18 09:54 Dose: 10 mls/hr Metronidazole (Flagyl 500mg Premixed Ivpb -) 500 mg in 100 mls @ 100 mls/hr IVPB Q8H-IV [facility]O Last Admin: 07/05/18 09:54 Dose: 100 mls/hr Sodium Chloride (Normal Saline -) 1,000 mls @ 75 mls/hr IV ASDIR [facility]O Last Admin: 07/05/18 09:17 Dose: 75 mls/hr Ceftriaxone Sodium 1 gm/ (Dextrose) 50 mls @ 100 mls/hr IVPB DAILY [facility]; Protocol Last Admin: 07/05/18 09:55 Dose: Not Given Loratadine (Claritin -) 10 mg PO DAILY [facility] Last Admin: 07/05/18 09:34 Dose: 10 mg Magnesium Hydroxide (Milk Of Magnesia -) 30 ml PO DAILY [facility] Last Admin: 07/05/18 09:35 Dose: Not Given Multivitamins/Minerals (Theragran-M) 1 each PO DAILY [facility] Last Admin: 07/05/18 09:36 Dose: 1 each Phenobarbital (Phenobarbital -) 60 mg PO BID [facility] Last Admin: 07/05/18 10:16 Dose: 60 mg - Objective Vital Signs: Vital Signs Temperature 37.0 C 07/05/18 07:22 Pulse Rate 66 07/05/18 07:22 Respiratory Rate 18 07/05/18 07:22 Blood Pressure 120/65 07/05/18 07:22 O2 Sat by Pulse Oximetry (%) 97 07/05/18 07:22 Constitutional: Yes: Other (moaning during exam, aid at bedside says looking better and closer to baseline) HENT: Yes: Other (forehead mass noted) Cardiovascular: Yes: Regular Rate and Rhythm. No: Gallop, Murmur, Rub Respiratory: Yes: Rhonchi, Tachypnea. No: Regular, CTA Bilaterally, Rales, Wheezes Gastrointestinal: Yes: Normal Bowel Sounds, Soft, Distention. No: Tenderness Extremities: Yes: Other (contractions) Edema: No Labs: CBC, BMP 07/05/18 07:30 07/05/18 07:30 INR, PTT INR 1.05 (0.83-1.09) 07/05/18 00:40 Problem List - Problems (1) Aspiration pneumonia Assessment/Plan: -noted to have aspiration pneumonia -place on rocephin and flagyl -monitor Code(s): J69.0 - PNEUMONITIS DUE TO INHALATION OF FOOD AND VOMIT Qualifiers: Aspiration pneumonia type: unspecified Laterality: unspecified laterality Lung location: unspecified part of lung Qualified Code(s): J69.0 - Pneumonitis due to inhalation of food and vomit (2) Coffee ground emesis Assessment/Plan: -much lower suspicion for GIB -awaiting official CT scan, but reviewed and showing volvulus and large amount of retained stool -suspect patient had fecal emesis over hematemesis -will change protonix gtt to IV protonix bid -monitor Code(s): K92.0 - HEMATEMESIS (3) Fecal impaction Assessment/Plan: -patient with severe and extensive fecal impaction -case d/w Dr Jiménez -will have NGT placed and go lytely given -also order enemas to help stimulate from below Code(s): K56.41 - FECAL IMPACTION (4) Ileus, unspecified Assessment/Plan: -continue npo Code(s): K56.7 - ILEUS, UNSPECIFIED (5) Functional quadriplegia Code(s): R53.2 - FUNCTIONAL QUADRIPLEGIA (6) Intellectual disability Code(s): F79 - UNSPECIFIED INTELLECTUAL DISABILITIES
--- NOTE | 2018-07-05 11:04 | EKG ---
Test Reason : Blood Pressure : / mmHG Vent. Rate : 088 BPM Atrial Rate : 088 BPM P-R Int : 114 ms QRS Dur : 088 ms QT Int : 342 ms P-R-T Axes : 050 053 080 degrees QTc Int : 413 ms NORMAL SINUS RHYTHM NONSPECIFIC T WAVE ABNORMALITY POSSIBLE RIGHT VENTRICULAR HYPERTROPHY ABNORMAL ECG WHEN COMPARED WITH ECG OF 20-MAR-2017 01:05, NO SIGNIFICANT CHANGE WAS FOUND Confirmed by AAMIR GONZALEZ MD ([id number]) on 07/05/2018 11:04:40 AM Referred By: Confirmed By:AAMIR GONZALEZ MD
--- NOTE | 2018-07-05 13:52 | CON.GI ---
Consult Consult Specialty:: Gastroenterology ( covering GI service) Referred by:: Dr. Camejo Reason for Consultation:: Coffee ground emesis - History of Present Illness Chief Complaint: Noncommunicative History of Present Illness: 47M resident of the [facility] was transferred for coffee ground emesis. No melena has ensued. He has been previously seen by Dr Johnson for sigmoid volvulus which required 03/13/17 sigmoidoscopy with detorsion but this time a large BM has been reported at the time of transfer. No vomiting in the ER. 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 spinal stabilization rods - Alcohol/Substance Use Hx Alcohol Use: No History of Substance Use: reports: None - Smoking History Smoking history: Never smoked Have you smoked in the past 12 months: No - Social History Usual Living Arrangement: Other (residential facility) ADL: Support Services Home Medications - Allergies Allergies/Adverse Reactions: Allergies Allergy/AdvReac Type Severity Reaction Status Date / Time ceresin [From Eucerin] Allergy Verified 07/04/18 22:03 corn Allergy Verified 07/04/18 22:03 egg Allergy Verified 07/04/18 22:03 emollient combination no.[email or web address] Allergy Verified 07/04/18 22:03 [From Eucerin] isopropyl myristate Allergy Verified 07/04/18 22:03 [From Eucerin] lanolin alcohols Allergy Verified 07/04/18 22:03 [From Eucerin] latex Allergy Verified 07/04/18 22:03 mineral oil [From Eucerin] Allergy Verified 07/04/18 22:03 petrolatum,white Allergy Verified 07/04/18 22:03 [From Eucerin] phenytoin sodium Allergy Verified 07/04/18 22:03 [From Dilantin] phenytoin sodium extended Allergy Verified 07/04/18 22:03 [From Dilantin] soap [From Eucerin] Allergy Verified 07/04/18 22:03 strawberry Allergy Verified 07/04/18 22:03 water [From Eucerin] Allergy Verified 07/04/18 22:03 - Home Medications Home Medications: Ambulatory Orders Calcium Carbonate/Vitamin D3 [Oystercal-D 500 mg-400 Unit Tb] 1 each PO BID Carbamazepine [Carbamazepine ER] 300 mg PO DAILY 03/30/17 Cetirizine HCl 10 mg PO DAILY 03/30/17 Fluticasone Prop 0.05% Nasal [Flonase -] 1 - 2 spray NS DAILY 03/30/17 Magnesium Hydrox 2400MG/30Ml [Milk of Magnesia -] 30 ml PO DAILY 03/30/17 Multivit-Min/FA/Lycopen/Lutein [Vitrum 50 Plus Senior Tablet] 5 5ml PO DAILY Phenobarbital 64.8 mg PO BID 03/30/17 Sodium Chloride 500 mg PO DAILY 03/30/17 clonazePAM [Klonopin -] 0.5 mg PO TID 03/30/17 Cefuroxime Axetil [Ceftin -] 500 mg PO BID #6 tablet 05/09/17 Glycerin Suppository Adult - 1 each RC DAILY #7 supp.rect 03/07/18 Family Disease History - Family Disease History Family History: Unable to Obtain Review of Systems Unable to obtain ROS, reason: noncommunicative Physical Exam-GI Vital Signs: Vital Signs Temperature 98.6 F 07/05/18 07:22 Pulse Rate 66 07/05/18 07:22 Respiratory Rate 18 07/05/18 07:22 Blood Pressure 120/65 07/05/18 07:22 O2 Sat by Pulse Oximetry (%) 97 07/05/18 07:22 CBC,CMP WBC 7.0 K/mm3 (4.0-10.0) 07/05/18 07:30 RBC 3.44 M/mm3 (4.00-5.60) L 07/05/18 07:30 Hgb 11.4 GM/dL (11.7-16.9) L 07/05/18 07:30 Hct 31.9 % (35.4-49) L 07/05/18 07:30 MCV 92.5 fl (80-96) 07/05/18 07:30 MCH 33.0 pg (25.7-33.7) 07/05/18 07:30 MCHC 35.7 g/dl (32.0-35.9) 07/05/18 07:30 RDW 15.7 % (11.9-15.9) 07/05/18 07:30 Plt Count 432 K/MM3 (134-434) 07/05/18 07:30 MPV 6.8 fl (7.5-11.1) L 07/05/18 07:30 Absolute Neuts (auto) 4.4 K/mm3 (1.5-8.0) 07/05/18 07:30 Neutrophils % 63.8 % (42.8-82.8) 07/05/18 07:30 Lymphocytes % 21.3 % (8-40) D 07/05/18 07:30 Monocytes % 10.5 % (3.8-10.2) H 07/05/18 07:30 Eosinophils % 4.1 % (0-4.5) D 07/05/18 07:30 Basophils % 0.3 % (0-2.0) 07/05/18 07:30 Nucleated RBC % 0 % (0-0) 07/05/18 07:30 Sodium 136 mmol/L (136-145) 07/05/18 07:30 Potassium 4.4 mmol/L (3.5-5.1) 07/05/18 07:30 Chloride 100 mmol/L (98-107) 07/05/18 07:30 Carbon Dioxide 28 mmol/L (21-32) 07/05/18 07:30 Anion Gap 8 MMOL/L (8-16) 07/05/18 07:30 BUN 14 mg/dL (7-18) 07/05/18 07:30 Creatinine 0.6 mg/dL (0.55-1.3) 07/05/18 07:30 Creat Clearance w eGFR > 60 (>60) 07/05/18 07:30 Random Glucose 71 mg/dL (74-106) L 07/05/18 07:30 Lactic Acid 1.5 mmol/L (0.4-2.0) 07/05/18 00:40 Calcium 8.8 mg/dL (8.5-10.1) 07/05/18 07:30 Phosphorus 4.0 mg/dL (2.5-4.9) 07/05/18 07:30 Magnesium 1.8 mg/dL (1.8-2.4) 07/05/18 07:30 Total Bilirubin 0.3 mg/dL (0.2-1) 07/05/18 07:30 AST 20 U/L (15-37) 07/05/18 07:30 ALT 21 U/L (13-61) 07/05/18 07:30 Alkaline Phosphatase 117 U/L (45-117) 07/05/18 07:30 Creatine Kinase 116 U/L (26-308) 07/05/18 01:15 Troponin I < 0.02 ng/ml (0.00-0.05) 07/05/18 01:15 Total Protein 6.6 g/dl (6.4-8.2) 07/05/18 07:30 Albumin 2.8 g/dl (3.4-5.0) L 07/05/18 07:30 Lipase 144 U/L (73-393) 07/05/18 01:15 Current Medications Generic Name Dose Route Start Last Admin Trade Name Rikyq PRN Reason Stop Dose Admin Calcium Carbonate/Cholecalciferol 1 tab 07/05/18 10:00 07/05/18 09:36 Os-Giovanni 500+D - PO 1 tab BID LINO Administration Carbamazepine 300 mg 07/05/18 10:00 07/05/18 09:36 Tegretol Xr - PO 300 mg DAILY LINO Administration Clonazepam 0.5 mg 07/05/18 06:00 07/05/18 08:00 Klonopin - PO 0.5 mg TID LINO Administration Fluticasone Propionate 1 - 2 spray 07/05/18 10:00 Flonase - NS DAILY LINO Glycerin 1 each 07/05/18 10:00 07/05/18 09:35 Glycerin Suppository Adult - RC Not Given DAILY LINO Metronidazole 500 mg in 100 mls @ 100 mls/hr 07/05/18 10:00 07/05/18 09:54 Flagyl 500mg Premixed Ivpb - IVPB 100 mls/hr Q8H-IV [facility]O Administration Sodium Chloride 1,000 mls @ 75 mls/hr 07/05/18 09:00 07/05/18 09:17 Normal Saline - IV 75 mls/hr ASDIR LINO Administration Ceftriaxone Sodium 1 gm/ 50 mls @ 100 mls/hr 07/05/18 10:00 07/05/18 09:55 Dextrose IVPB Not Given DAILY [facility] Protocol Loratadine 10 mg 07/05/18 10:00 07/05/18 09:34 Claritin - PO 10 mg DAILY [facility]O Administration Magnesium Hydroxide 30 ml 07/05/18 10:00 07/05/18 09:35 Milk Of Magnesia - PO Not Given DAILY [facility]O Multivitamins/Minerals 1 each 07/05/18 10:00 07/05/18 09:36 Theragran-M PO 1 each DAILY [facility] Administration Pantoprazole Sodium 40 mg 07/05/18 22:00 Protonix Iv IVPUSH BID LINO Phenobarbital 60 mg 07/05/18 10:15 07/05/18 10:16 Phenobarbital - PO 60 mg BID [facility]O Administration Constitutional: Yes: Other (noncommunicative) Eyes: Yes: Other (legally blind) HENT: Yes: Other (prominent firm frontal protuberance) Cardiovascular: Yes: Regular Rate and Rhythm Respiratory: Yes: Rhonchi (upper airway) Gastrointestinal Inspection: Yes: Distention ...Auscultate: Yes: Hypoactive Bowel Sounds ...Palpate: Yes: Soft, Other (no elicitable tenderness) ...Percussion: Yes: Tympanitic ...Rectal Exam: Yes: Guaiac Negative (soft pasty brown stool filling rectum) Labs: CBC, BMP 07/05/18 07:30 07/05/18 07:30 INR, PTT INR 1.05 (0.83-1.09) 07/05/18 00:40 Problem List - Problems (1) Coffee ground emesis Assessment/Plan: I believe the coffee ground emesis reflects vomiting of stagnant small bowel contents rather than GI bleeding. He has a relative bowel obstruction caused by fecal impaction associated with pseudoobstruction syndrome commonly found in such unfortunate and institutionalized patients. I do not see volvulus on this admission which is supported by the reported large BM on transfer. I discussed the case with Dr Mata and support his plan to insert an NG tube for Golytely colon lavage. Code(s): K92.0 - HEMATEMESIS (2) Pseudo-obstruction of intestine Code(s): K59.8 - OTHER SPECIFIED FUNCTIONAL INTESTINAL DISORDERS (3) Abdominal distension Code(s): R14.0 - ABDOMINAL DISTENSION (GASEOUS) (4) Fecal impaction Code(s): K56.41 - FECAL IMPACTION (5) Sigmoid volvulus Code(s): K56.2 - VOLVULUS (6) Functional quadriplegia Code(s): R53.2 - FUNCTIONAL QUADRIPLEGIA (7) Seizure Code(s): R56.9 - UNSPECIFIED CONVULSIONS Assessment/Plan Vomiting stagnant small bowel contents due to fecal impaction/pseudoobstruction Agree with Golytely lavage planned by Dr Camejo
[2018-07-05] MEDS: FLUTICASONE PROP 0.05% 16 GM NASAL SPRAY NS SCH (18:14)
[2018-07-05] MEDS: PANTOPRAZOLE SODIUM 40 MG VIAL IVPUSH SCH (23:29)
[2018-07-06] MEDS: SODIUM CHLORIDE 1,000 ML IV SCH ×3 (01:11→21:49)
[2018-07-06] MEDS ORDERED: PIPERACILLIN/TAZOB 3.375 GM 3.375 GM in DEXTROSE 5%-WATER - 50 ML IVPB SCH (02:00)
[2018-07-06] MEDS: clonazePAM 0.5 MG TABLET PO SCH ×3 (06:26→21:26)
[2018-07-06 08:07] LABS: ANION GAP 6 MMOL/L (8-16); BLOOD UREA NITROGEN 6 mg/dL (7-18); CALCIUM 8.3 mg/dL (8.5-10.1); CHLORIDE 102 mmol/L (98-107); CO2 29 mmol/L (21-32); CREATININE 0.6 mg/dL (0.55-1.3); GLUCOSE,RANDOM 78 mg/dL (74-106); MAGNESIUM 1.8 mg/dL (1.8-2.4); PHOSPHOROUS 3.3 mg/dL (2.5-4.9); POTASSIUM 3.9 mmol/L (3.5-5.1); SODIUM 136 mmol/L (136-145)
[2018-07-06] MEDS ORDERED: PNEUMOCOCCAL 23 VACCINE 0.5 ML VIAL IM ONE (08:30)
[2018-07-06] MEDS ORDERED: DEXTROSE 5%-WATER - 50 ML IVPB ONE (08:34)
[2018-07-06] MEDS ORDERED: cefTRIAXone SODIUM 1 GM VIAL ONE (08:34)
[2018-07-06] MEDS: CEFTRIAXONE 1 GM in DEXTROSE 5%-WATER - 50 ML IVPB SCH (09:06)
[2018-07-06 09:17] LABS: BASO % 0.5 % (0-2.0); EOS % 8.3 % (0-4.5); HEMATOCRIT 31.1 % (35.4-49); HEMOGLOBIN 10.7 GM/dL (11.7-16.9); LYMPH % 21.4 % (8-40); MCH 31.8 pg (25.7-33.7); MCHC 34.6 g/dl (32.0-35.9); MONO % 11.2 % (3.8-10.2); NEUT % 58.6 % (42.8-82.8); PLATELET COUNT 432 K/MM3 (134-434); RBC 3.37 M/mm3 (4.00-5.60); WHITE BLOOD COUNT 5.6 K/mm3 (4.0-10.0)
[2018-07-06] MEDS ORDERED: PNEUMOC 13-VAL CONJ-DIP CRM/PF 0.5 ML DISP.SYRIN IM ONE (10:01)
--- NOTE | 2018-07-06 11:26 | PN ---
Progress Note, Physician Chief Complaint: Unable to obtain - Current Medication List Current Medications: Active Medications Calcium Carbonate/Cholecalciferol (Os-Giovanni 500+D -) 1 tab PO BID [facility] Last Admin: 07/05/18 23:28 Dose: 1 tab Carbamazepine (Tegretol Xr -) 300 mg PO DAILY [facility] Last Admin: 07/05/18 09:36 Dose: 300 mg Clonazepam (Klonopin -) 0.5 mg PO TID [facility] Last Admin: 07/06/18 06:26 Dose: 0.5 mg Fluticasone Propionate (Flonase -) 2 spray NS DAILY [facility] Last Admin: 07/05/18 18:14 Dose: Not Given Glycerin (Glycerin Suppository Adult -) 1 each RC DAILY [facility] Last Admin: 07/05/18 09:35 Dose: Not Given Metronidazole (Flagyl 500mg Premixed Ivpb -) 500 mg in 100 mls @ 100 mls/hr IVPB Q8H-IV [facility] Last Admin: 07/06/18 01:11 Dose: 100 mls/hr Sodium Chloride (Normal Saline -) 1,000 mls @ 75 mls/hr IV ASDIR [facility] Last Admin: 07/06/18 01:11 Dose: 75 mls/hr Ceftriaxone Sodium 1 gm/ (Dextrose) 50 mls @ 100 mls/hr IVPB DAILY [facility]; Protocol Last Admin: 07/06/18 09:06 Dose: 100 mls/hr Loratadine (Claritin -) 10 mg PO DAILY [facility] Last Admin: 07/05/18 09:34 Dose: 10 mg Magnesium Hydroxide (Milk Of Magnesia -) 30 ml PO DAILY [facility] Last Admin: 07/05/18 09:35 Dose: Not Given Multivitamins/Minerals (Theragran-M) 1 each PO DAILY [facility] Last Admin: 07/05/18 09:36 Dose: 1 each Pantoprazole Sodium (Protonix Iv) 40 mg IVPUSH BID [facility] Last Admin: 07/05/18 23:29 Dose: 40 mg Phenobarbital (Phenobarbital -) 60 mg PO BID [facility] Last Admin: 07/05/18 23:29 Dose: 60 mg - Objective Vital Signs: Vital Signs Temperature 36.7 C 07/06/18 05:00 Pulse Rate 58 L 07/06/18 05:00 Respiratory Rate 20 07/06/18 05:00 Blood Pressure 124/80 07/06/18 05:00 O2 Sat by Pulse Oximetry (%) 97 07/06/18 02:02 Constitutional: Yes: No Distress, Calm Cardiovascular: Yes: Regular Rate and Rhythm. No: Gallop, Murmur, Rub Respiratory: Yes: Regular, CTA Bilaterally. No: Rales, Rhonchi, Wheezes Gastrointestinal: Yes: Normal Bowel Sounds, Soft, Distention. No: Tenderness Extremities: Yes: WNL Edema: No Labs: CBC, BMP 07/06/18 06:30 07/06/18 06:00 INR, PTT INR 1.05 (0.83-1.09) 07/05/18 00:40 Problem List - Problems (1) Aspiration pneumonia Code(s): J69.0 - PNEUMONITIS DUE TO INHALATION OF FOOD AND VOMIT Qualifiers: Aspiration pneumonia type: unspecified Laterality: unspecified laterality Lung location: unspecified part of lung Qualified Code(s): J69.0 - Pneumonitis due to inhalation of food and vomit (2) Coffee ground emesis Code(s): K92.0 - HEMATEMESIS (3) Fecal impaction Code(s): K56.41 - FECAL IMPACTION (4) Ileus, unspecified Code(s): K56.7 - ILEUS, UNSPECIFIED (5) Functional quadriplegia Code(s): R53.2 - FUNCTIONAL QUADRIPLEGIA (6) Intellectual disability Code(s): F79 - UNSPECIFIED INTELLECTUAL DISABILITIES Assessment/Plan (1) Aspiration pneumonia Assessment/Plan: -noted to have aspiration pneumonia -continue rocephin and flagyl day 2 -much improved Code(s): J69.0 - PNEUMONITIS DUE TO INHALATION OF FOOD AND VOMIT Qualifiers: Aspiration pneumonia type: unspecified Laterality: unspecified laterality Lung location: unspecified part of lung Qualified Code(s): J69.0 - Pneumonitis due to inhalation of food and vomit (2) Coffee ground emesis Assessment/Plan: -NGT in place -monitor H/H -continue protonix Code(s): K92.0 - HEMATEMESIS (3) Fecal impaction Assessment/Plan: -NGT in place to begin go lytely today -can stop once having bowel movements -monitor potassium Code(s): K56.41 - FECAL IMPACTION (4) Ileus, unspecified Assessment/Plan: -continue npo Code(s): K56.7 - ILEUS, UNSPECIFIED (5) Functional quadriplegia Code(s): R53.2 - FUNCTIONAL QUADRIPLEGIA (6) Intellectual disability Code(s): F79 - UNSPECIFIED INTELLECTUAL DISABILITIES
[2018-07-06] MEDS: CALCIUM 500MG/VIT-D 200 UNITS COMBO TABLET (FP) PO SCH ×2 (11:49→21:46)
[2018-07-06] MEDS: MULTIVITAMINS THER W-MINERALS COMBO TABLET (FP) PO SCH (11:50)
[2018-07-06] MEDS: PANTOPRAZOLE SODIUM 40 MG VIAL IVPUSH SCH ×2 (11:54→21:26)
[2018-07-06] MEDS: MAGNESIUM HYDROX 2400MG/30ML ORAL SUSPENSION 30 ML CUP PO SCH (11:54)
[2018-07-06] MEDS: PHENobarbital 30 MG TABLET PO SCH ×2 (11:55→21:26)
[2018-07-06] MEDS: LORATADINE 10 MG TABLET PO SCH (11:55)
[2018-07-06] MEDS ORDERED: PEG3350/SOD SULF,BICARB,CL/KCL 4,000 ML SOLN.RECON PO ONE (12:00)
[2018-07-06] MEDS: GLYCERIN 1 RECTAL SUPPOSITORY, ADULT RC SCH (12:32)
--- NOTE | 2018-07-06 13:03 | PN ---
Progress Note (short form) - Note Progress Note: Seen and examined at bedside Discussed with nurse, had issue with golytely order, will start now Patient nonverbal Vital Signs Temp 98.1 F 07/06/18 05:00 Pulse 58 L 07/06/18 05:00 Resp 20 07/06/18 05:00 BP 124/80 07/06/18 05:00 Pulse Ox 97 07/06/18 02:02 NAD soft, distended/tympanitic, nontender CBC, BMP 07/06/18 06:30 07/06/18 06:00 Impression: pseudo-obstruction/obstipation. To begin NG golytely purge now. K>4 Mg>2. Monitor for bm's.
[2018-07-06] MEDS: FLUTICASONE PROP 0.05% 16 GM NASAL SPRAY NS SCH (13:34)
[2018-07-06] MEDS: carBAMazepine 200 MG/10 ML UNIT-DOSE CUP NGT SCH ×2 (13:35→17:59)
[2018-07-06] MEDS ORDERED: PT OWN MED DRAWER 7, Y5N ONE (18:03)
[2018-07-07] MEDS: clonazePAM 0.5 MG TABLET PO SCH ×3 (06:51→22:23)
[2018-07-07] MEDS ORDERED: PT OWN MED DRAWER 7, Y5N ONE ×5 (07:00→17:09)
[2018-07-07 07:57] LABS: BASO % 0.5 % (0-2.0); EOS % 4.9 % (0-4.5); HEMATOCRIT 31.3 % (35.4-49); HEMOGLOBIN 10.8 GM/dL (11.7-16.9); LYMPH % 14.9 % (8-40); MCH 31.3 pg (25.7-33.7); MCHC 34.5 g/dl (32.0-35.9); MEAN PLT VOLUME 6.9 fl (7.5-11.1); MONO % 9.1 % (3.8-10.2); NEUT % 70.6 % (42.8-82.8); PLATELET COUNT 434 K/MM3 (134-434); RBC 3.45 M/mm3 (4.00-5.60); RDW 15.8 % (11.9-15.9); WHITE BLOOD COUNT 6.8 K/mm3 (4.0-10.0)
[2018-07-07] MEDS: carBAMazepine 200 MG/10 ML UNIT-DOSE CUP NGT SCH ×3 (08:16→17:14)
[2018-07-07 08:29] LABS: ANION GAP 10 MMOL/L (8-16); BLOOD UREA NITROGEN 8 mg/dL (7-18); CALCIUM 8.4 mg/dL (8.5-10.1); CHLORIDE 102 mmol/L (98-107); CO2 26 mmol/L (21-32); CREATININE 0.5 mg/dL (0.55-1.3); GLUCOSE,RANDOM 74 mg/dL (74-106); PHOSPHOROUS 2.6 mg/dL (2.5-4.9); POTASSIUM 4.2 mmol/L (3.5-5.1); SODIUM 137 mmol/L (136-145)
[2018-07-07] MEDS: PANTOPRAZOLE SODIUM 40 MG VIAL IVPUSH SCH ×2 (09:30→22:24)
[2018-07-07] MEDS: PHENobarbital 30 MG TABLET PO SCH ×2 (09:30→22:23)
[2018-07-07] MEDS: MAGNESIUM HYDROX 2400MG/30ML ORAL SUSPENSION 30 ML CUP PO SCH (09:30)
[2018-07-07] MEDS: LORATADINE 10 MG TABLET PO SCH (09:31)
[2018-07-07] MEDS: MULTIVITAMINS THER W-MINERALS COMBO TABLET (FP) PO SCH (09:31)
[2018-07-07] MEDS: CALCIUM 500MG/VIT-D 200 UNITS COMBO TABLET (FP) PO SCH ×2 (09:31→22:23)
[2018-07-07] MEDS: GLYCERIN 1 RECTAL SUPPOSITORY, ADULT RC SCH (09:40)
[2018-07-07] MEDS ORDERED: DEXTROSE 5%-WATER - 50 ML IVPB ONE (10:47)
[2018-07-07] MEDS ORDERED: cefTRIAXone SODIUM 1 GM VIAL ONE (10:47)
[2018-07-07] MEDS: CEFTRIAXONE 1 GM in DEXTROSE 5%-WATER - 50 ML IVPB SCH (10:49)
--- NOTE | 2018-07-07 12:44 | PN ---
GI Progress Note Subjective: No acute events Small BM reported - Objective Vital Signs: Vital Signs Temperature 98.3 F 07/07/18 10:22 Pulse Rate 75 07/07/18 10:22 Respiratory Rate 14 07/07/18 10:22 Blood Pressure 122/74 07/07/18 10:22 O2 Sat by Pulse Oximetry (%) 97 07/06/18 02:02 Constitutional: Calm Eyes: No: Sclera Icterus Cardiovascular: Yes: Regular Rate and Rhythm Respiratory: Yes: Diminished (at bases, poor insp effort) Gastrointestinal Inspection: Yes: Distention (softly protuberant) ...Auscultate: Yes: Hyperactive Bowel Sounds ...Palpate: No: Tenderness (No grimacing upon palpation) ...Percussion: Yes: Tympanitic (Mild tympany) Extremities: Yes: Other (b/l LE contractures) Edema: No (No LE edema) Neurological: Yes: Alert Labs: CBC, BMP 07/07/18 06:37 07/07/18 06:37 INR, PTT INR 1.05 (0.83-1.09) 07/05/18 00:40 Problem List - Problems (1) Coffee ground emesis Assessment/Plan: No further emesis Code(s): K92.0 - HEMATEMESIS (2) Fecal impaction Assessment/Plan: Received golytely with small BM. For repat AXR Code(s): K56.41 - FECAL IMPACTION
[2018-07-07] MEDS: FLUTICASONE PROP 0.05% 16 GM NASAL SPRAY NS SCH (13:32)
--- NOTE | 2018-07-07 13:43 | PN ---
Physical Exam: SUBJECTIVE: Patient seen and examined by me at bedside. No acute events overnight. Patient started on golyte yesterday with one small bowel movement today Plans for repeat Abdominal X-Ray OBJECTIVE: Vital Signs Period Temp Pulse Resp BP Sys/Skinner Pulse Ox Last 24 Hr 97.5 F-98.4 F 67-82 14-20 122-156/74-87 GENERAL: The patient is awake and in no acute distress. HEAD: large, firm, nontender mass protruding from the forehead. EYES: PERRL, sclera anicteric, conjunctiva clear. ENT: moist mucous membranes. LUNGS: Few scattered rhonchi bilaterally with no accessory muscle use. HEART: RRR, nomral S1 and S2 without murmur, rub or gallop. ABDOMEN: Soft, nontender, Protruded, hyperactive bowel sounds, no guarding, no rebound EXTREMITIES:b/l upper and lower extremity contractures, no edema. Laboratory Results 07/07/18 06:37 07/07/18 06:37 Active Medications Generic Name Dose Route Start Last Admin Trade Name Laverne PRN Reason Stop Dose Admin Calcium Carbonate/Cholecalciferol 1 tab 07/05/18 10:00 07/07/18 09:31 Os-Giovanni 500+D - PO 1 tab BID LINO Administration Carbamazepine 100 mg 07/06/18 13:00 07/07/18 12:59 Tegretol Oral Suspension - NGT 100 mg TIDCM LINO Administration Clonazepam 0.5 mg 07/05/18 06:00 07/07/18 06:51 Klonopin - PO 0.5 mg TID LINO Administration Fluticasone Propionate 2 spray 07/05/18 10:00 07/06/18 13:34 Flonase - NS Not Given DAILY LINO Metronidazole 500 mg in 100 mls @ 100 mls/hr 07/05/18 10:00 07/07/18 09:31 Flagyl 500mg Premixed Ivpb - IVPB 100 mls/hr Q8H-IV LINO Administration Sodium Chloride 1,000 mls @ 75 mls/hr 07/05/18 09:00 07/06/18 21:49 Normal Saline - IV 75 mls/hr ASDIR LINO Administration Ceftriaxone Sodium 1 gm/ 50 mls @ 100 mls/hr 07/05/18 10:00 07/07/18 10:49 Dextrose IVPB 100 mls/hr DAILY LINO Administration Protocol Loratadine 10 mg 07/05/18 10:00 07/07/18 09:31 Claritin - PO 10 mg DAILY LINO Administration Magnesium Hydroxide 30 ml 07/05/18 10:00 07/07/18 09:30 Milk Of Magnesia - PO 30 ml DAILY LINO Administration Multivitamins/Minerals 1 each 07/05/18 10:00 07/07/18 09:31 Theragran-M PO 1 each DAILY [facility]O Administration Pantoprazole Sodium 40 mg 07/05/18 22:00 07/07/18 09:30 Protonix Iv IVPUSH 40 mg BID LINO Administration Phenobarbital 60 mg 07/05/18 10:15 07/07/18 09:30 Phenobarbital - PO 60 mg BID LINO Administration ASSESSMENT/PLAN: Patient is a 47 year old male who was BIBEMS after one episode of coffee ground emesis and was found to have fecal impaction as well as aspiration pneumonia. Patient admitted for further monitoring and management. Fecal Impaction -Given Golyte yesterday with one small bowel movement today -Continue MoM -Repeat abdominal X-Ray today Coffee Ground Emesis -NG tube not on suction as patient had no further episodes of emesis Aspiration Pneumonia -Continue Ceftriaxone 1gm daily and Flagyl 500mg Q8H IVPB (Day #3) -HOB -Aspiration precautions Seizure disorder -Carbamazepine 300mg PO daily and Phenobarbital 64.8mg BID -Klonopin 0.5mg Po TID Ileus -Continue NPO -Will resume feeds after Abdominal x-ray results Functional Quadriplegia Intellectual Disability F/E/N -IV NS @75mls/hr -Electrolytes wnl -NPO Prophylaxis -SCDs bilateral for DVT's -Protonix 40mg BID Disposition -full code -Repeat Abdominal X-Ray Soledad Hdez [id number] Visit type - Emergency Visit Emergency Visit: Yes ED Registration Date: 07/05/18 Care time: The patient presented to the Emergency Department on the above date and was hospitalized for further evaluation of their emergent condition. - New Patient This patient is new to me today: Yes Date on this admission: 07/07/18 - Critical Care Critical Care patient: No
--- NOTE | 2018-07-07 14:41 | PN ---
Teaching Attending Note Name of Resident: Soledad Hdez ATTENDING PHYSICIAN STATEMENT I saw and evaluated the patient. I reviewed the resident's note and discussed the case with the resident. I agree with the resident's findings and plan as documented. SUBJECTIVE: Unable to obtain OBJECTIVE: Last Vital Signs Temp Pulse Resp BP Pulse Ox 36.8 C 84 16 138/104 H 97 07/07/18 14:52 07/07/18 14:52 07/07/18 14:52 07/07/18 14:52 07/06/18 02:02 Gen: nad Pulm: ronchi in all mercado CV: rrr w/o m/r/g Abd: distended, tympanic Ext: no c/c/e, contractures CBC, BMP 07/07/18 06:37 07/07/18 06:37 ASSESSMENT AND PLAN: 1) Aspiration pneumonia Assessment/Plan: -noted to have aspiration pneumonia -continue rocephin and flagyl day 3 Code(s): J69.0 - PNEUMONITIS DUE TO INHALATION OF FOOD AND VOMIT Qualifiers: Aspiration pneumonia type: unspecified Laterality: unspecified laterality Lung location: unspecified part of lung Qualified Code(s): J69.0 - Pneumonitis due to inhalation of food and vomit (2) Coffee ground emesis Assessment/Plan: -NGT in place -monitor H/H -continue protonix Code(s): K92.0 - HEMATEMESIS (3) Fecal impaction Assessment/Plan: -appreciate GI assistance -NGT in place -finished go lytely -follow up AXR Code(s): K56.41 - FECAL IMPACTION (4) Ileus, unspecified Assessment/Plan: -continue npo Code(s): K56.7 - ILEUS, UNSPECIFIED (5) Functional quadriplegia Code(s): R53.2 - FUNCTIONAL QUADRIPLEGIA (6) Intellectual disability Code(s): F79 - UNSPECIFIED INTELLECTUAL DISABILITIES Problem List - Problems (1) Aspiration pneumonia Code(s): J69.0 - PNEUMONITIS DUE TO INHALATION OF FOOD AND VOMIT Qualifiers: Aspiration pneumonia type: unspecified Laterality: unspecified laterality Lung location: unspecified part of lung Qualified Code(s): J69.0 - Pneumonitis due to inhalation of food and vomit (2) Coffee ground emesis Code(s): K92.0 - HEMATEMESIS (3) Fecal impaction Code(s): K56.41 - FECAL IMPACTION (4) Ileus, unspecified Code(s): K56.7 - ILEUS, UNSPECIFIED (5) Functional quadriplegia Code(s): R53.2 - FUNCTIONAL QUADRIPLEGIA (6) Intellectual disability Code(s): F79 - UNSPECIFIED INTELLECTUAL DISABILITIES
--- NOTE | 2018-07-07 15:23 | PN ---
Progress Note (short form) - Note Progress Note: Rectal tube placed without resistance. lavaged w/ 1 L of sterile water: copious liquid stool expelled as well as air towards the end of the lavage. D/C NGT Repeat AXR ordered Problem List - Problems (1) Coffee ground emesis Code(s): K92.0 - HEMATEMESIS (2) Fecal impaction Code(s): K56.41 - FECAL IMPACTION
[2018-07-07 16:51] VITALS: BMI 19.7
[2018-07-08] MEDS ORDERED: PT OWN MED DRAWER 7, Y5N ONE ×4 (05:23→17:27)
[2018-07-08] MEDS: clonazePAM 0.5 MG TABLET PO SCH ×3 (06:43→22:18)
[2018-07-08 07:23] LABS: HEMATOCRIT 32.3 % (35.4-49); HEMOGLOBIN 11.2 GM/dL (11.7-16.9); MCH 31.7 pg (25.7-33.7); MCHC 34.7 g/dl (32.0-35.9); MEAN CELL VOLUME 91.4 fl (80-96); MEAN PLT VOLUME 6.8 fl (7.5-11.1); PLATELET COUNT 469 K/MM3 (134-434); RBC 3.54 M/mm3 (4.00-5.60); RDW 15.6 % (11.9-15.9); WHITE BLOOD COUNT 5.6 K/mm3 (4.0-10.0)
[2018-07-08] MEDS: carBAMazepine 200 MG/10 ML UNIT-DOSE CUP NGT SCH ×3 (08:35→17:28)
[2018-07-08] MEDS: MAGNESIUM HYDROX 2400MG/30ML ORAL SUSPENSION 30 ML CUP PO SCH (10:02)
[2018-07-08] MEDS: PANTOPRAZOLE SODIUM 40 MG VIAL IVPUSH SCH ×2 (10:03→22:18)
[2018-07-08] MEDS: LORATADINE 10 MG TABLET PO SCH (10:03)
[2018-07-08] MEDS: FLUTICASONE PROP 0.05% 16 GM NASAL SPRAY NS SCH (10:04)
[2018-07-08] MEDS: CALCIUM 500MG/VIT-D 200 UNITS COMBO TABLET (FP) PO SCH ×2 (10:05→22:18)
[2018-07-08] MEDS: PHENobarbital 30 MG TABLET PO SCH ×2 (10:05→22:18)
[2018-07-08] MEDS: MULTIVITAMINS THER W-MINERALS COMBO TABLET (FP) PO SCH (10:05)
--- NOTE | 2018-07-08 10:51 | PN ---
Physical Exam: SUBJECTIVE: Patient seen and examined by me at bedside. No acute events overnight. Patient with several bowel movements overnight Plans for repeat Abdominal X-Ray today OBJECTIVE: Vital Signs Period Temp Pulse Resp BP Sys/Skinner Pulse Ox Last 24 Hr 97 F-98.2 F 61-84 16-20 136-156/8-104 GENERAL: The patient is awake and in no acute distress. HEAD: large, firm, nontender mass protruding from the forehead. EYES: PERRL, sclera anicteric, conjunctiva clear. ENT: moist mucous membranes. LUNGS: Few scattered rhonchi bilaterally with no accessory muscle use. HEART: RRR, nomral S1 and S2 without murmur, rub or gallop. ABDOMEN: Soft, nontender, mildly distended, hyperactive bowel sounds, no guarding, no rebound EXTREMITIES:b/l upper and lower extremity contractures, no edema. Laboratory Results - last 24 hr 07/08/18 06:00 WBC 5.6 RBC 3.54 L Hgb 11.2 L Hct 32.3 L MCV 91.4 MCH 31.7 MCHC 34.7 RDW 15.6 Plt Count 469 H MPV 6.8 L Active Medications Generic Name Dose Route Start Last Admin Trade Name Freq PRN Reason Stop Dose Admin Calcium Carbonate/Cholecalciferol 1 tab 07/05/18 10:00 07/08/18 10:05 Os-Giovanni 500+D - PO 1 tab BID LINO Administration Carbamazepine 100 mg 07/06/18 13:00 07/08/18 08:35 Tegretol Oral Suspension - NGT 100 mg TIDCM LINO Administration Clonazepam 0.5 mg 07/05/18 06:00 07/08/18 06:43 Klonopin - PO 0.5 mg TID LINO Administration Fluticasone Propionate 2 spray 07/05/18 10:00 07/08/18 10:04 Flonase - NS 2 spray DAILY LINO Administration Metronidazole 500 mg in 100 mls @ 100 mls/hr 07/05/18 10:00 07/08/18 10:03 Flagyl 500mg Premixed Ivpb - IVPB 100 mls/hr Q8H-IV [facility]O Administration Sodium Chloride 1,000 mls @ 75 mls/hr 07/05/18 09:00 07/06/18 21:49 Normal Saline - IV 75 mls/hr ASDIR [facility]O Administration Ceftriaxone Sodium 1 gm/ 50 mls @ 100 mls/hr 07/05/18 10:00 07/07/18 10:49 Dextrose IVPB 100 mls/hr DAILY LINO Administration Protocol Loratadine 10 mg 07/05/18 10:00 07/08/18 10:03 Claritin - PO 10 mg DAILY [facility]O Administration Magnesium Hydroxide 30 ml 07/05/18 10:00 07/08/18 10:02 Milk Of Magnesia - PO 30 ml DAILY [facility] Administration Multivitamins/Minerals 1 each 07/05/18 10:00 07/08/18 10:05 Theragran-M PO 1 each DAILY [facility] Administration Pantoprazole Sodium 40 mg 07/05/18 22:00 07/08/18 10:03 Protonix Iv IVPUSH 40 mg BID [facility]O Administration Phenobarbital 60 mg 07/05/18 10:15 07/08/18 10:05 Phenobarbital - PO 60 mg BID LINO Administration ASSESSMENT/PLAN: Patient is a 47 year old male who was BIBEMS after one episode of coffee ground emesis and was found to have fecal impaction as well as aspiration pneumonia. Patient admitted for further monitoring and management. Fecal Impaction -S/P rectal tube placement by GI and several bowel movements throughout the night. -Continue MoM -Repeat abdominal X-Ray today -[facility] -TSH ordered for tomorrow Coffee Ground Emesis -Had no further episodes of emesis -NG tube out Aspiration Pneumonia -Continue Ceftriaxone 1gm daily and Flagyl 500mg Q8H IVPB (Day #4) -HOB -Aspiration precautions Seizure disorder -Carbamazepine 300mg PO daily and Phenobarbital 64.8mg BID -Klonopin 0.5mg Po TID Ileus -Continue NPO -Will resume his diet after Abdominal x-ray results Functional Quadriplegia Intellectual Disability F/E/N -IV NS @75mls/hr -Electrolytes wnl -NPO Prophylaxis -SCDs bilateral for DVT's -Protonix 40mg BID Disposition -full code -Repeat Abdominal X-Ray Soledad Hdez [id number] Visit type - Emergency Visit Emergency Visit: Yes ED Registration Date: 07/05/18 Care time: The patient presented to the Emergency Department on the above date and was hospitalized for further evaluation of their emergent condition. - New Patient This patient is new to me today: No - Critical Care Critical Care patient: No
[2018-07-08] MEDS ORDERED: cefTRIAXone SODIUM 1 GM VIAL ONE (11:18)
[2018-07-08] MEDS ORDERED: DEXTROSE 5%-WATER - 50 ML IVPB ONE (11:19)
[2018-07-08] MEDS: CEFTRIAXONE 1 GM in DEXTROSE 5%-WATER - 50 ML IVPB SCH (11:22)
--- NOTE | 2018-07-08 15:01 | PN ---
Progress Note, Physician Chief Complaint: Abdominal distension History of Present Illness: Pt seen/examined at bedside, nonverbal, nursing staff report multiple loose brown bms overnight following rectal tube placement with lavage by Dr. Devi yesterday. No vomiting report. - Current Medication List Current Medications: Active Medications Calcium Carbonate/Cholecalciferol (Os-Giovanni 500+D -) 1 tab PO BID [facility] Last Admin: 07/08/18 10:05 Dose: 1 tab Carbamazepine (Tegretol Oral Suspension -) 100 mg NGT TIDCM [facility] Last Admin: 07/08/18 11:22 Dose: 100 mg Clonazepam (Klonopin -) 0.5 mg PO TID [facility] Last Admin: 07/08/18 13:41 Dose: 0.5 mg Fluticasone Propionate (Flonase -) 2 spray NS DAILY [facility] Last Admin: 07/08/18 10:04 Dose: 2 spray Metronidazole (Flagyl 500mg Premixed Ivpb -) 500 mg in 100 mls @ 100 mls/hr IVPB Q8H-IV [facility] Last Admin: 07/08/18 10:03 Dose: 100 mls/hr Sodium Chloride (Normal Saline -) 1,000 mls @ 75 mls/hr IV ASDIR [facility] Last Admin: 07/06/18 21:49 Dose: 75 mls/hr Ceftriaxone Sodium 1 gm/ (Dextrose) 50 mls @ 100 mls/hr IVPB DAILY [facility]; Protocol Last Admin: 07/08/18 11:22 Dose: 100 mls/hr Loratadine (Claritin -) 10 mg PO DAILY [facility] Last Admin: 07/08/18 10:03 Dose: 10 mg Magnesium Hydroxide (Milk Of Magnesia -) 30 ml PO DAILY [facility] Last Admin: 07/08/18 10:02 Dose: 30 ml Multivitamins/Minerals (Theragran-M) 1 each PO DAILY [facility] Last Admin: 07/08/18 10:05 Dose: 1 each Pantoprazole Sodium (Protonix Iv) 40 mg IVPUSH BID [facility] Last Admin: 07/08/18 10:03 Dose: 40 mg Phenobarbital (Phenobarbital -) 60 mg PO BID [facility] Last Admin: 07/08/18 10:05 Dose: 60 mg - Objective Vital Signs: Vital Signs Temperature 98.2 F 07/08/18 14:47 Pulse Rate 76 07/08/18 09:28 Respiratory Rate 16 07/08/18 14:47 Blood Pressure 162/77 07/08/18 14:47 O2 Sat by Pulse Oximetry (%) 99 07/08/18 09:00 Constitutional: Yes: Well Nourished, No Distress, Calm, Other (Nonverbal, does not follow commands) Cardiovascular: Yes: WNL, Regular Rate and Rhythm Respiratory: Yes: WNL, Regular, CTA Bilaterally Gastrointestinal: Yes: Soft, Distention, Other (Abd softly distended, no tenderness elicited) Labs: CBC, BMP 07/08/18 06:00 07/07/18 06:37 INR, PTT INR 1.05 (0.83-1.09) 07/05/18 00:40 Assessment/Plan 47 yo male h/o severe MR, sigmoid volvulus s/p prior decompression presents with coffee ground emesis and fecal impaction in setting of likely underlying ileus vs pseudoobstruction. Hb stable. Multiple loose brown bms overnight following golytely and rectal tube with lavage yesterday by Dr. Devi. Repeat xray revealing dilated bowel loops overall appearing unchanged. -No urgent indication for endoscopy at this time -Continue supportive measures -Serial abd exams and daily abd xray -Check TSH -If continues to have bms and no further vomiting, could start miralax daily-bid -Frequent repositioning/turning in bed to enable further passage of flatus/bms -Continue to monitor electrolytes as replace as needed -Avoid narcotics
--- NOTE | 2018-07-08 15:10 | PN ---
Teaching Attending Note Name of Resident: Soledad Hdez ATTENDING PHYSICIAN STATEMENT I saw and evaluated the patient. I reviewed the resident's note and discussed the case with the resident. I agree with the resident's findings and plan as documented with exceptions below. SUBJECTIVE: Patient seen and examined. Non verbal, unable to do ROS. OBJECTIVE: Vital Signs Period Temp Pulse Resp BP Sys/Skinner Pulse Ox Last 24 Hr 97 F-98.2 F 61-76 16-20 136-162/8-97 99 Intake & Output 07/05/18 07/06/18 07/07/18 07/08/18 23:59 23:59 23:59 23:59 Intake Total 1375 0 925 Balance 1375 0 925 Weight 101 lb 9.6 oz 101 lb General: lying in bed Chest: poor effort Abdomen;soft, distended, positive bowel sounds, no grimacing on deep palpation but limited exam, no voluntary or involuntary guarding or rigidity Extremities: contractures Home Medications Medication Instructions Recorded Calcium Carbonate/Vitamin D3 1 each PO BID 03/30/17 [Oystercal-D 500 mg-400 Unit Tb] Carbamazepine [Carbamazepine ER] 300 mg PO DAILY 03/30/17 Cetirizine HCl 10 mg PO DAILY 03/30/17 Fluticasone Prop 0.05% Nasal 1 - 2 spray NS DAILY 03/30/17 [Flonase -] Magnesium Hydrox 2400MG/30Ml [Milk 30 ml PO DAILY 03/30/17 of Magnesia -] Multivit-Min/FA/Lycopen/Lutein 5 5ml PO DAILY 03/30/17 [Vitrum 50 Plus Senior Tablet] Phenobarbital 64.8 mg PO BID 03/30/17 Sodium Chloride 500 mg PO DAILY 03/30/17 clonazePAM [Klonopin -] 0.5 mg PO TID 03/30/17 Cefuroxime Axetil [Ceftin -] 500 mg PO BID #6 tablet 05/09/17 Glycerin Suppository Adult - 1 each RC DAILY #7 supp.rect 03/07/18 Active Medications Calcium Carbonate/Cholecalciferol (Os-Giovanni 500+D -) 1 tab PO BID REPLACED BY [facility] Last Admin: 07/08/18 10:05 Dose: 1 tab Carbamazepine (Tegretol Oral Suspension -) 100 mg NGT TIDCM REPLACED BY [facility] Last Admin: 07/08/18 11:22 Dose: 100 mg Clonazepam (Klonopin -) 0.5 mg PO TID REPLACED BY [facility] Last Admin: 07/08/18 13:41 Dose: 0.5 mg Fluticasone Propionate (Flonase -) 2 spray NS DAILY [facility]PLACED BY [facility] Last Admin: 07/08/18 10:04 Dose: 2 spray Metronidazole (Flagyl 500mg Premixed Ivpb -) 500 mg in 100 mls @ 100 mls/hr IVPB Q8H-IV [facility] Last Admin: 07/08/18 10:03 Dose: 100 mls/hr Sodium Chloride (Normal Saline -) 1,000 mls @ 75 mls/hr IV ASDIR REPLACED BY [facility] Last Admin: 07/06/18 21:49 Dose: 75 mls/hr Ceftriaxone Sodium 1 gm/ (Dextrose) 50 mls @ 100 mls/hr IVPB DAILY REPLACED BY [facility]; Protocol Last Admin: 07/08/18 11:22 Dose: 100 mls/hr Loratadine (Claritin -) 10 mg PO DAILY REPLACED BY [facility] Last Admin: 07/08/18 10:03 Dose: 10 mg Magnesium Hydroxide (Milk Of Magnesia -) 30 ml PO DAILY REPLACED BY [facility] Last Admin: 07/08/18 10:02 Dose: 30 ml Multivitamins/Minerals (Theragran-M) 1 each PO DAILY REPLACED BY [facility] Last Admin: 07/08/18 10:05 Dose: 1 each Pantoprazole Sodium (Protonix Iv) 40 mg IVPUSH BID REPLACED BY [facility] Last Admin: 07/08/18 10:03 Dose: 40 mg Phenobarbital (Phenobarbital -) 60 mg PO BID REPLACED BY [facility] Last Admin: 07/08/18 10:05 Dose: 60 mg Laboratory Results - last 24 hr 07/08/18 06:00 WBC 5.6 RBC 3.54 L Hgb 11.2 L Hct 32.3 L MCV 91.4 MCH 31.7 MCHC 34.7 RDW 15.6 Plt Count 469 H MPV 6.8 L Abdominal xray results reviewed ASSESSMENT AND PLAN: 47 year old male with a past medical history of dynamic ileus, sigmoid volvulus , severe MR (2/2 to cerebral anoxic injury), esophagitis, epilepsy, osteoporosis , sialoadenitis, porencephalic cysts, [employer] shunt admitted with coffee ground emesis, found with ileus and aspiration PNA -Ileus/suspected Pseudo-obstruction from fecal impaction -Coffee ground emesis, suspect from stagnant bowels rather than actual bleed -Aspiration pneumonia -Severe mental retardation due to cerebral anoxic injur -Esophagitis -Epilepsy -Osteoporosis Plan: GI input noted, s/p rectal tube with copious amount of watery brown stool. Still with ongoing BM, abdominal xray noted. Serial abdominal exams, follow up with GI. Surgery input based on clinical course. PO meds as tolerated Bowel regimen per GI. Change iVF to D5-LR. BGM q6h while nPO given concerns for hypoglycemia Repeat imaging CT A/P with Contrast via NGT if fails to improve or new concerns. Ceftriaxone/flagyl day 4, aspiration precautions, NPO with IVF for now. Tegretol, clonazepam/phenobarbital DVTPPX start heparin in 24 hours if no further bleed concerns Dispo pending clinical improvement.
[2018-07-08] MEDS: DEXTROSE 5%-LACTATED RINGERS 1,000 ML IV SCH (15:25)
[2018-07-09] MEDS: DEXTROSE 5%-LACTATED RINGERS 1,000 ML IV SCH ×3 (02:30→19:19)
[2018-07-09] MEDS: clonazePAM 0.5 MG TABLET PO SCH ×3 (05:52→21:58)
[2018-07-09 07:48] LABS: HEMATOCRIT 34.7 % (35.4-49); HEMOGLOBIN 11.9 GM/dL (11.7-16.9); MCH 31.5 pg (25.7-33.7); MCHC 34.4 g/dl (32.0-35.9); MEAN CELL VOLUME 91.5 fl (80-96); MEAN PLT VOLUME 6.9 fl (7.5-11.1); PLATELET COUNT 461 K/MM3 (134-434); RBC 3.79 M/mm3 (4.00-5.60); RDW 15.8 % (11.9-15.9); WHITE BLOOD COUNT 6.2 K/mm3 (4.0-10.0)
[2018-07-09] MEDS ORDERED: PT OWN MED DRAWER 7, Y5N ONE ×4 (08:03→17:18)
--- NOTE | 2018-07-09 08:12 | PN ---
Physical Exam: SUBJECTIVE: Patient seen and examined by me at bedside. No acute events overnight. Patient had one bowel movement overnight Repeat Abdominal X-Ray showed no changes from previous one Will begin his puree thin liquid diet today OBJECTIVE: Vital Signs Period Temp Pulse Resp BP Sys/Skinner Pulse Ox Last 24 Hr 97 F-98.2 F 65-76 16-20 125-162/8-94 98-99 GENERAL: The patient is awake and in no acute distress. HEAD: large, firm, nontender mass protruding from the forehead. EYES: PERRL, sclera anicteric, conjunctiva clear. ENT: moist mucous membranes. LUNGS: Few scattered rhonchi bilaterally with no accessory muscle use. HEART: RRR, nomral S1 and S2 without murmur, rub or gallop. ABDOMEN: Soft, nontender, mildly distended, hyperactive bowel sounds, no guarding, no rebound EXTREMITIES:b/l upper and lower extremity contractures, no edema. Laboratory Results 07/08/18 07/09/18 07/09/18 22:11 03:52 06:00 WBC 6.2 RBC 3.79 L Hgb 11.9 Hct 34.7 L MCV 91.5 MCH 31.5 MCHC 34.4 RDW 15.8 Plt Count 461 H MPV 6.9 L POC Glucometer 101 90 Active Medications Generic Name Dose Route Start Last Admin Trade Name Freq PRN Reason Stop Dose Admin Calcium Carbonate/Cholecalciferol 1 tab 07/05/18 10:00 07/08/18 22:18 Os-Giovanni 500+D - PO 1 tab BID LINO Administration Carbamazepine 100 mg 07/06/18 13:00 07/08/18 17:28 Tegretol Oral Suspension - NGT 100 mg TIDCM LINO Administration Clonazepam 0.5 mg 07/05/18 06:00 07/09/18 05:52 Klonopin - PO 0.5 mg TID LINO Administration Fluticasone Propionate 2 spray 07/05/18 10:00 07/08/18 10:04 Flonase - NS 2 spray DAILY LINO Administration Metronidazole 500 mg in 100 mls @ 100 mls/hr 07/05/18 10:00 07/09/18 02:29 Flagyl 500mg Premixed Ivpb - IVPB 100 mls/hr Q8H-IV LINO Administration Ceftriaxone Sodium 1 gm/ 50 mls @ 100 mls/hr 07/05/18 10:00 07/08/18 11:22 Dextrose IVPB 100 mls/hr DAILY LINO Administration Protocol Dextrose/Lactated Ringer's 1,000 mls @ 100 mls/hr 07/08/18 15:30 07/09/18 02: 30 D5-Lr - IV 100 mls/hr ASDIR LINO Administration Loratadine 10 mg 07/05/18 10:00 07/08/18 10:03 Claritin - PO 10 mg DAILY LINO Administration Magnesium Hydroxide 30 ml 07/05/18 10:00 07/08/18 10:02 Milk Of Magnesia - PO 30 ml DAILY LINO Administration Multivitamins/Minerals 1 each 07/05/18 10:00 07/08/18 10:05 Theragran-M PO 1 each DAILY LINO Administration Pantoprazole Sodium 40 mg 07/05/18 22:00 07/08/18 22:18 Protonix Iv IVPUSH 40 mg BID LINO Administration Phenobarbital 60 mg 07/05/18 10:15 07/08/18 22:18 Phenobarbital - PO 60 mg BID LINO Administration ASSESSMENT/PLAN: Patient is a 47 year old male who was BIBEMS after one episode of coffee ground emesis and was found to have fecal impaction as well as aspiration pneumonia. Patient admitted for further monitoring and management. Fecal Impaction -S/P rectal tube placement with lavage by Dr. Devi (07/07/18). Bowel movement overnight -Repeat Abdominal X-ray yesterday (07/08/18) and revealed no changes from previous image -Continue MoM -Will need a bowel regimen at the correction. Will be on Miralax BID -TSH wnl Coffee Ground Emesis -Had no further episodes of emesis -NG tube out Aspiration Pneumonia -Completed 3 days of Ceftriaxone 1gm daily and Flagyl 500mg Q8H IVPB and now switched to Augmentin BID for 7 days -HOB -Aspiration precautions Seizure disorder -Carbamazepine 300mg PO daily and Phenobarbital 64.8mg BID -Klonopin 0.5mg Po TID Ileus -Continue NPO -Will begin cleasrs and advance as tolerated Functional Quadriplegia Intellectual Disability F/E/N -IV NS @75mls/hr -Electrolytes wnl -NPO but will resume puree with thin liquid diet Prophylaxis -SCDs bilateral for DVT's -Protonix 40mg BID Disposition -Full code Soledad Hdez [id number] Visit type - Emergency Visit Emergency Visit: Yes ED Registration Date: 07/05/18 Care time: The patient presented to the Emergency Department on the above date and was hospitalized for further evaluation of their emergent condition. - New Patient This patient is new to me today: No - Critical Care Critical Care patient: No
[2018-07-09] MEDS: carBAMazepine 200 MG/10 ML UNIT-DOSE CUP NGT SCH ×3 (08:14→17:21)
[2018-07-09 08:37] LABS: ANION GAP 9 MMOL/L (8-16); CALCIUM 8.6 mg/dL (8.5-10.1); CHLORIDE 100 mmol/L (98-107); CO2 28 mmol/L (21-32); CREATININE 0.6 mg/dL (0.55-1.3); GLUCOSE,RANDOM 109 mg/dL (74-106); MAGNESIUM 2.2 mg/dL (1.8-2.4); PHOSPHOROUS 2.5 mg/dL (2.5-4.9); POTASSIUM 3.7 mmol/L (3.5-5.1); SODIUM 138 mmol/L (136-145)
[2018-07-09 08:38] LABS: BLOOD UREA NITROGEN 2 mg/dL (7-18)
[2018-07-09] MEDS ORDERED: cefTRIAXone SODIUM 1 GM VIAL ONE (09:49)
[2018-07-09] MEDS ORDERED: DEXTROSE 5%-WATER - 50 ML IVPB ONE (09:49)
[2018-07-09] MEDS: MAGNESIUM HYDROX 2400MG/30ML ORAL SUSPENSION 30 ML CUP PO SCH (09:51)
[2018-07-09] MEDS: PHENobarbital 30 MG TABLET PO SCH ×2 (09:51→21:58)
[2018-07-09] MEDS: MULTIVITAMINS THER W-MINERALS COMBO TABLET (FP) PO SCH (09:51)
[2018-07-09] MEDS: CALCIUM 500MG/VIT-D 200 UNITS COMBO TABLET (FP) PO SCH ×2 (09:51→21:58)
[2018-07-09] MEDS: LORATADINE 10 MG TABLET PO SCH (09:51)
[2018-07-09] MEDS: PANTOPRAZOLE SODIUM 40 MG VIAL IVPUSH SCH ×2 (09:52→21:58)
[2018-07-09] MEDS: FLUTICASONE PROP 0.05% 16 GM NASAL SPRAY NS SCH (09:55)
[2018-07-09] MEDS: CEFTRIAXONE 1 GM in DEXTROSE 5%-WATER - 50 ML IVPB SCH (11:24)
--- NOTE | 2018-07-09 11:30 | PN ---
Teaching Attending Note Name of Resident: Soledad Hdez ATTENDING PHYSICIAN STATEMENT I saw and evaluated the patient. I reviewed the resident's note and discussed the case with the resident. I agree with the resident's findings and plan as documented with exceptions below. SUBJECTIVE: Patient seen and examined. non verbal, unable to assess for ROS. OBJECTIVE: Vital Signs Period Temp Pulse Resp BP Sys/Skinner Pulse Ox Last 24 Hr 97 F-98.2 F 57-73 16-20 125-162/68-94 95-98 Intake & Output 07/06/18 07/07/18 07/08/18 07/09/18 23:59 23:59 23:59 23:59 Intake Total 1375 0 925 1100 Balance 1375 0 925 1100 Weight 101 lb 9.6 oz 101 lb General: lying in bed in no acute distress Chest Poor effort Abdomen: soft, improved distension from yesterday, positive bowel sounds, no voluntary or involuntary guarding or rigidity, no wincing or screaming on palpation Extremities: contractures Active Medications Calcium Carbonate/Cholecalciferol (Os-Giovanni 500+D -) 1 tab PO BID [facility] Last Admin: 07/09/18 09:51 Dose: 1 tab Carbamazepine (Tegretol Oral Suspension -) 100 mg NGT TIDCM [facility] Last Admin: 07/09/18 08:14 Dose: 100 mg Clonazepam (Klonopin -) 0.5 mg PO TID [facility] Last Admin: 07/09/18 05:52 Dose: 0.5 mg Fluticasone Propionate (Flonase -) 2 spray NS DAILY [facility] Last Admin: 07/09/18 09:55 Dose: 2 spray Metronidazole (Flagyl 500mg Premixed Ivpb -) 500 mg in 100 mls @ 100 mls/hr IVPB Q8H-IV [facility] Last Admin: 07/09/18 09:52 Dose: 100 mls/hr Ceftriaxone Sodium 1 gm/ (Dextrose) 50 mls @ 100 mls/hr IVPB DAILY [facility]; Protocol Last Admin: 07/09/18 11:24 Dose: 100 mls/hr Dextrose/Lactated Ringer's (D5-Lr -) 1,000 mls @ 100 mls/hr IV ASDIR [facility] Last Admin: 07/09/18 02:30 Dose: 100 mls/hr Loratadine (Claritin -) 10 mg PO DAILY [facility] Last Admin: 07/09/18 09:51 Dose: 10 mg Magnesium Hydroxide (Milk Of Magnesia -) 30 ml PO DAILY [facility] Last Admin: 07/09/18 09:51 Dose: 30 ml Multivitamins/Minerals (Theragran-M) 1 each PO DAILY [facility] Last Admin: 07/09/18 09:51 Dose: 1 each Pantoprazole Sodium (Protonix Iv) 40 mg IVPUSH BID [facility] Last Admin: 07/09/18 09:52 Dose: 40 mg Phenobarbital (Phenobarbital -) 60 mg PO BID [facility] Last Admin: 07/09/18 09:51 Dose: 60 mg Polyethylene Glycol (Miralax (For Daily Use) -) 17 gm PO BID [facility] Laboratory Results - last 24 hr 07/08/18 07/09/18 07/09/18 22:11 03:52 06:00 WBC 6.2 RBC 3.79 L Hgb 11.9 Hct 34.7 L MCV 91.5 MCH 31.5 MCHC 34.4 RDW 15.8 Plt Count 461 H MPV 6.9 L Sodium Potassium Chloride Carbon Dioxide Anion Gap BUN Creatinine Creat Clearance w eGFR POC Glucometer 101 90 Random Glucose Calcium Phosphorus Magnesium TSH 07/09/18 06:00 WBC RBC Hgb Hct MCV MCH MCHC RDW Plt Count MPV Sodium 138 Potassium 3.7 Chloride 100 Carbon Dioxide 28 Anion Gap 9 BUN 2 L* Creatinine 0.6 Creat Clearance w eGFR > 60 POC Glucometer Random Glucose 109 H Calcium 8.6 Phosphorus 2.5 Magnesium 2.2 TSH 2.08 Microbiology 07/05/18 07:30 Blood - Peripheral Venous Blood Culture - Preliminary NO GROWTH OBTAINED AFTER 96 HOURS, INCUBATION TO CONTINUE FOR 1 DAYS. 07/05/18 07:20 Blood - Peripheral Venous Blood Culture - Preliminary NO GROWTH OBTAINED AFTER 96 HOURS, INCUBATION TO CONTINUE FOR 1 DAYS. ASSESSMENT AND PLAN: 47 year old male with a past medical history of dynamic ileus, sigmoid volvulus , severe MR (2/2 to cerebral anoxic injury), esophagitis, epilepsy, osteoporosis , sialoadenitis, porencephalic cysts, [employer] shunt admitted with coffee ground emesis, found with ileus and aspiration PNA -Ileus/suspected Pseudo-obstruction from fecal impaction -Coffee ground emesis, suspect from stagnant bowels rather than actual bleed -Aspiration pneumonia -Severe mental retardation due to cerebral anoxic injur -Esophagitis -Epilepsy -Osteoporosis Plan: GI input noted, s/p rectal tube with copious amount of watery brown stool. Still with ongoing BM, abdominal xray noted. Start clears, advance to puree with liquids as tolerated. Start Miralax BID per GI recs. PO meds as tolerated Bowel regimen per GI. IVF, taper as po improves. d/c BGM in 24 hours if po tolerating. Repeat imaging CT A/P with Contrast via NGT if fails to improve or new concerns. Ceftriaxone/flagyl day 5, aspiration precautions, transition to po augmentin for a 7 day course. Tegretol, clonazepam/phenobarbital DVTPPX start heparin with monitoring of h/h Dispo back to [place] in 24-48 hours if tolerating diet and no new concerns.
[2018-07-09] MEDS: POLYETHYLENE GLYCOL 3350 119 GM BTL PO SCH ×2 (11:52→21:58)
--- NOTE | 2018-07-09 19:07 | PN ---
GI Progress Note Subjective: No acute events No BM today No vomiting - Objective Vital Signs: Vital Signs Temperature 97.8 F 07/09/18 17:28 Pulse Rate 64 07/09/18 17:28 Respiratory Rate 18 07/09/18 17:28 Blood Pressure 121/80 07/09/18 14:00 O2 Sat by Pulse Oximetry (%) 95 07/09/18 09:00 Constitutional: Calm Eyes: No: Sclera Icterus Cardiovascular: Yes: Regular Rate and Rhythm Respiratory: Yes: Diminished (at bases bilaterally) Gastrointestinal Inspection: Yes: Distention (Improved) ...Auscultate: Yes: Normoactive Bowel Sounds ...Palpate: No: Hepatomegaly, Tenderness Edema: No (No LE edema) Labs: CBC, BMP 07/09/18 06:00 07/09/18 06:00 INR, PTT INR 1.05 (0.83-1.09) 07/05/18 00:40 Problem List - Problems (1) Coffee ground emesis Assessment/Plan: No further vomiting Code(s): K92.0 - HEMATEMESIS (2) Fecal impaction Assessment/Plan: Had multiple BM's over the last 2 days. Clinically imrpoved and tolerating PO AXR in AM Code(s): K56.41 - FECAL IMPACTION
[2018-07-10] MEDS: clonazePAM 0.5 MG TABLET PO SCH ×2 (06:34→13:28)
[2018-07-10] MEDS ORDERED: AMOX TR/POTASSIUM CLAVULANATE 250 MG/5 ML BOTTLE PO SCH (08:00)
[2018-07-10] MEDS ORDERED: PT OWN MED DRAWER 7, Y5N ONE ×2 (09:38→11:44)
[2018-07-10] MEDS ORDERED: SENNOSIDES 8.6MG TABLET (FP) PO PRN (09:50)
[2018-07-10] MEDS: AMOX TR/POTASSIUM CLAVULANATE 250 MG/5 ML BOTTLE PO SCH ×2 (09:50→13:34)
[2018-07-10] MEDS: LORATADINE 10 MG TABLET PO SCH (09:51)
[2018-07-10] MEDS: MAGNESIUM HYDROX 2400MG/30ML ORAL SUSPENSION 30 ML CUP PO SCH (09:52)
[2018-07-10] MEDS: carBAMazepine 200 MG/10 ML UNIT-DOSE CUP NGT SCH ×2 (09:53→11:48)
[2018-07-10] MEDS: CALCIUM 500MG/VIT-D 200 UNITS COMBO TABLET (FP) PO SCH (09:53)
[2018-07-10] MEDS: POLYETHYLENE GLYCOL 3350 119 GM BTL PO SCH (09:53)
--- NOTE | 2018-07-10 09:53 | PN ---
GI Progress Note Subjective: No vomiting Appears comfortable - Objective Vital Signs: Vital Signs Temperature 97.4 F L 07/10/18 06:37 Pulse Rate 77 07/10/18 06:37 Respiratory Rate 20 07/10/18 06:37 Blood Pressure 146/71 07/10/18 06:37 O2 Sat by Pulse Oximetry (%) 95 07/09/18 09:00 Constitutional: Calm Eyes: No: Sclera Icterus Cardiovascular: Yes: Other (Obscured as patient was vocalizing) Respiratory: Yes: Diminished (at bases with poor insp effort) Gastrointestinal Inspection: Yes: Distention (mildly protuberant abdomen) ...Auscultate: Yes: Normoactive Bowel Sounds ...Palpate: No: Tenderness (No grimacing upon palpation) Edema: No (No LE edema) Neurological: Yes: Alert Labs: CBC, BMP 07/09/18 06:00 INR, PTT INR 1.05 (0.83-1.09) 07/05/18 00:40 - ....Imaging X-ray: Image Reviewed (air filled colon and small bowel loops) Problem List - Problems (1) Fecal impaction Assessment/Plan: With ileus, suspect air swallowing as well contributing to this Aspiration precautions MiraLAX 17g in AM Senna 2 tablets in evening Monitor abdominal exam Periodic rectal exam evaluation while at care facility to assess for developing fecal retention Code(s): K56.41 - FECAL IMPACTION
[2018-07-10] MEDS: PANTOPRAZOLE SODIUM 40 MG VIAL IVPUSH SCH (09:54)
[2018-07-10] MEDS: FLUTICASONE PROP 0.05% 16 GM NASAL SPRAY NS SCH (09:55)
[2018-07-10] MEDS: PHENobarbital 30 MG TABLET PO SCH (09:56)
[2018-07-10] MEDS: MULTIVITAMINS THER W-MINERALS COMBO TABLET (FP) PO SCH (09:57)
[2018-07-10 10:05] LABS: ANION GAP 6 MMOL/L (8-16); BLOOD UREA NITROGEN 5 mg/dL (7-18); CALCIUM 8.4 mg/dL (8.5-10.1); CHLORIDE 104 mmol/L (98-107); CO2 32 mmol/L (21-32); CREATININE 0.7 mg/dL (0.55-1.3); GLUCOSE,RANDOM 78 mg/dL (74-106); SODIUM 141 mmol/L (136-145)
--- NOTE | 2018-07-10 11:18 | PN ---
Teaching Attending Note Name of Resident: Soledad Hdez ATTENDING PHYSICIAN STATEMENT I saw and evaluated the patient. I reviewed the resident's note and discussed the case with the resident. I agree with the resident's findings and plan as documented with exceptions below. SUBJECTIVE: Patient seen and examined. non verbal, no acute distress OBJECTIVE: Vital Signs Period Temp Pulse Resp BP Sys/Skinner Pulse Ox Last 24 Hr 97.4 F-97.8 F 58-77 18-20 118-146/71-91 Intake & Output 07/07/18 07/08/18 07/09/18 07/10/18 23:59 23:59 23:59 23:59 Intake Total 0 925 2306 1000 Balance 0 925 2306 1000 Weight 101 lb General:sitting in bed no acute distress Chest: poor effort, few left basilar rales Abdomen: soft, positive bowel sounds, no guarding or rigidity, no grimacing on exam Extremities: contractures Home Medications Medication Instructions Recorded Calcium Carbonate/Vitamin D3 1 each PO BID 03/30/17 [Oystercal-D 500 mg-400 Unit Tb] Carbamazepine [Carbamazepine ER] 300 mg PO DAILY 03/30/17 Cetirizine HCl 10 mg PO DAILY 03/30/17 Fluticasone Prop 0.05% Nasal 1 - 2 spray NS DAILY 03/30/17 [Flonase -] Magnesium Hydrox 2400MG/30Ml [Milk 30 ml PO DAILY 03/30/17 of Magnesia -] Multivit-Min/FA/Lycopen/Lutein 5 5ml PO DAILY 03/30/17 [Vitrum 50 Plus Senior Tablet] Phenobarbital 64.8 mg PO BID 03/30/17 Sodium Chloride 500 mg PO DAILY 03/30/17 clonazePAM [Klonopin -] 0.5 mg PO TID 03/30/17 Glycerin Suppository Adult - 1 each RC DAILY #7 supp.rect 03/07/18 Polyethylene Glycol 3350 [Miralax 17 gm PO BID bottle 07/09/18 119 gm Btl -] Active Medications Amoxicillin/Clavulanate Potassium (Augmentin 250 Mg/5 Ml Oral Suspension -) 500 mg PO TID [facility] Last Admin: 07/10/18 09:50 Dose: 5 ml Calcium Carbonate/Cholecalciferol (Os-Giovanni 500+D -) 1 tab PO BID [facility] Last Admin: 07/10/18 09:53 Dose: 1 tab Carbamazepine (Tegretol Oral Suspension -) 100 mg NGT TIDCM [facility] Last Admin: 07/10/18 09:53 Dose: 100 mg Clonazepam (Klonopin -) 0.5 mg PO TID [facility] Last Admin: 07/10/18 06:34 Dose: 0.5 mg Fluticasone Propionate (Flonase -) 2 spray NS DAILY [facility] Last Admin: 07/10/18 09:55 Dose: 2 spray Loratadine (Claritin -) 10 mg PO DAILY [facility] Last Admin: 07/10/18 09:51 Dose: 10 mg Magnesium Hydroxide (Milk Of Magnesia -) 30 ml PO DAILY [facility] Last Admin: 07/10/18 09:52 Dose: 30 ml Multivitamins/Minerals (Theragran-M) 1 each PO DAILY [facility] Last Admin: 07/10/18 09:57 Dose: 1 each Phenobarbital (Phenobarbital -) 60 mg PO BID [facility] Last Admin: 07/10/18 09:56 Dose: 60 mg Polyethylene Glycol (Miralax (For Daily Use) -) 17 gm PO AM [facility] Senna (Senna -) 2 tab PO HS PRN PRN Reason: CONSTIPATION Laboratory Results - last 24 hr 07/09/18 07/10/18 11:55 08:00 Sodium 141 Potassium 4.0 Chloride 104 Carbon Dioxide 32 Anion Gap 6 L BUN 5 L Creatinine 0.7 Creat Clearance w eGFR > 60 POC Glucometer 118 Random Glucose 78 Calcium 8.4 L Microbiology 07/05/18 07:30 Blood - Peripheral Venous Blood Culture - Final NO GROWTH AFTER 5 DAYS INCUBATION 07/05/18 07:20 Blood - Peripheral Venous Blood Culture - Final NO GROWTH AFTER 5 DAYS INCUBATION Abdominal xrays images reviewed ASSESSMENT AND PLAN: 47 year old male with a past medical history of dynamic ileus, sigmoid volvulus , severe MR (2/2 to cerebral anoxic injury), esophagitis, epilepsy, osteoporosis , sialoadenitis, porencephalic cysts, 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 Abdominal xray overall unchanged. GI input noted, suspect swallowing air, resulting in current findings Clinical condition argues against ileus Started on miralax/senna Agree that should be intermittently monitoring for rectal distension D/c IVF. Transition to augmentin for additional 5 days Continue home meds D/c back to [place] today Plan discussed with nursing and case management.
--- NOTE | 2018-07-10 11:58 | DS ---
Physical Exam: SUBJECTIVE: Patient seen and examined by me at bedside. No acute events overnight Patient had several bowel movements in the last three days . Abdominal X-Ray ordered today overall unchanged. OBJECTIVE: Vital Signs Period Temp Pulse Resp BP Sys/Skinner Pulse Ox Last 24 Hr 97.4 F-97.8 F 58-77 18-20 118-146/71-91 PHYSICAL EXAM GENERAL: The patient is awake and in no acute distress. HEAD: large, firm, nontender mass protruding from the forehead. EYES: PERRL, sclera anicteric, conjunctiva clear. LUNGS: Few scattered rhonchi bilaterally with no accessory muscle use. HEART: RRR, nomral S1 and S2 without murmur, rub or gallop. ABDOMEN: Soft, nontender, mildly distended, hyperactive bowel sounds, no guarding, no rebound EXTREMITIES: b/l upper and lower extremity contractures, no edema. Laboratory Results 07/09/18 07/10/18 11:55 08:00 Sodium 141 Potassium 4.0 Chloride 104 Carbon Dioxide 32 Anion Gap 6 L BUN 5 L Creatinine 0.7 Creat Clearance w eGFR > 60 POC Glucometer 118 Random Glucose 78 Calcium 8.4 L Microbiology 07/05/18 07:30 Blood - Peripheral Venous Blood Culture - Final NO GROWTH AFTER 5 DAYS INCUBATION 07/05/18 07:20 Blood - Peripheral Venous Blood Culture - Final NO GROWTH AFTER 5 DAYS INCUBATION PRE-HOSPITAL COURSE: Patient is a 47 year old male with a PMHx of dynamic ileus, sigmoid volvulus, severe MR (2/2 to cerebral anoxic injury), esophagitis, epilepsy, osteoporosis, sialoadenitis, porencephalic cysts, 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 Patient had CT abdomen done and revealed right lower lobe aspiration pneumonia and severe colonic ileus or toxic megacolon. Patient was started on Protonix drip for possible GI bleed and admitted for further monitoring and management. HOSPITAL COURSE: Throughout hospitalization, patient had FOBT that was negative and no further concerns for GI bleed. However, patient was given GoLyte for fecal impaction found on CT/X-ray. Patient did not have bowel movements after golyte and a rectal tube placement with lavage by Dr. Angelo (07/07/18) was done. Patient had several bowel movements afterwards with serial Abdominal X-Rays done. Patient was also started on IV abx for Aspiration Pneumonia. Cultures were sent and negative. Patient was afebrile with no leukocytosis. Patient eventually transitioned to PO antibiotics. Patient was placed on bowel regimen , as per GI with Miralax 17g in the morning and 2 senna tablets at night. Patient medically cleared for discharge back to [facility]. Spoke to Physician Dr. Mcdaniels, who approved patient back and is aware of the bowel regimen. Date of Admission:07/05/18 Date of Discharge: 07/10/18 Minutes to complete discharge: 45 Discharge Summary Reason For Visit: ASPIRATION PNEUMONIA;COFFEE GROUND EMESIS Current Active Problems Aspiration pneumonia (Acute) Coffee ground emesis (Acute) Pseudo-obstruction of intestine (Acute) Condition: Stable - Instructions Diet, Activity, Other Instructions: RECOMMENDATIONS: -You were seen here for an infection of the lungs called Pneumonia as well as severe constipation causing you to have something called Fecal Impaction. You were seen by a gastroenterology (Stomach Doctor) who placed a rectal tube and was able to disimpact the stool. -You will need to be placed on a bowel regimen at the facility to help your bowel movements. -You will need to have frequent abdominal examinations as well as periodic rectal exam evaluation while at care facility to assess for developing fecal retention -If you experience worsening symptoms such as fevers >103, shortness of breath, or severe abdominal distention, return to the emergency department immediately. MEDICATIONS: -You will need to take Miralax 17g in the morning and Senna 2 tablets in the evening. Resume your home medication milk of magnesia. -You will be placed on antibiotics for an additional 5 days. The antibiotic is called Augmentin and you will be taking it twice a day Referrals: Tyrell Angelo DO [Staff Physician] - Kahlil Mcdaniels Jr [Primary Care Provider] - Disposition: [facility] F[facility] - Home Medications Comprehensive Discharge Medication List: Ambulatory Orders Calcium Carbonate/Vitamin D3 [Oystercal-D 500 mg-400 Unit Tb] 1 each PO BID Carbamazepine [Carbamazepine ER] 300 mg PO DAILY 03/30/17 Cetirizine HCl 10 mg PO DAILY 03/30/17 Fluticasone Prop 0.05% Nasal [Flonase -] 1 - 2 spray NS DAILY 03/30/17 Magnesium Hydrox 2400MG/30Ml [Milk of Magnesia -] 30 ml PO DAILY 03/30/17 Multivit-Min/FA/Lycopen/Lutein [Vitrum 50 Plus Senior Tablet] 5 5ml PO DAILY Phenobarbital 64.8 mg PO BID 03/30/17 Sodium Chloride 500 mg PO DAILY 03/30/17 clonazePAM [Klonopin -] 0.5 mg PO TID 03/30/17 Glycerin Suppository Adult - 1 each RC DAILY #7 supp.rect 03/07/18 Amox-Tr/K Cl [Augmentin Suspension -] 500 mg PO TID 5 Days ml 07/10/18 Polyethylene Glycol 3350 [Miralax 119 gm Btl -] 17 gm PO AM bottle 07/10/18 Sennosides [Senna -] 2 tab PO HS PRN tablet 07/10/18 This patient is new to me today: No Emergency Visit: Yes ED Registration Date: 07/05/18 Care time: The patient presented to the Emergency Department on the above date and was hospitalized for further evaluation of their emergent condition. Critical Care patient: No - Discharge Referral Referred to [facility] No
[2018-07-10 15:19] VITALS: BP 131/81; PULSE 101; TEMP 97
[2018-07-11] MEDS ORDERED: POLYETHYLENE GLYCOL 3350 119 GM BTL PO SCH (07:00)
== END 2018-07-10 17:00 | DRG 177 ==
LOC: JER 21:57 → JERBED 07-05 03:06 → J8W 07-06 00:55
PROVIDERS: ADMIT Internal Medicine; ATTEND Hospitalist
PROC: 0D9P80Z Drainage of Rectum with Drainage Device, Via Natural or Artificial Opening Endoscopic (ICD-10-PCS; principal; 2018-07-07)
DX: J69.0 Pneumonitis due to inhalation of food and vomit (principal); R53.2 Functional quadriplegia; K92.0 Hematemesis; F72 Severe intellectual disabilities; K56.609 Unspecified intestinal obstruction, unspecified as to partial versus complete obstruction; G93.1 Anoxic brain damage, not elsewhere classified; K56.0 Paralytic ileus; M81.0 Age-related osteoporosis without current pathological fracture; G40.909 Epilepsy, unspecified, not intractable, without status epilepticus; Z98.2 Presence of cerebrospinal fluid drainage device; Z91.012 Allergy to eggs; Z91.040 Latex allergy status; K56.41 Fecal impaction
CPT/HCPCS: 36415; 70450-TC; 71045-TC-FY; 74018-TC-FY; 74176-TC; 80048; 80053; 82272; 82550; 82962; 83605; 83690; 83735; 84100; 84443; 84484; 85025; 85027; 85610; 85730; 87040; 90732; 93005; 93010; 99285-25; G0009; J7030

== ENCOUNTER 2018-10-19 01:31 | Emergency (ER) | payer OTHER ==
--- NOTE | 2018-10-19 02:15 | PDOC ---
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 Patient is unable to give any history. Aide states that they saw his testicles were enlarged today, which caused him to bring him in from [place]. Past History - Past Medical History Allergies/Adverse Reactions: Allergies Allergy/AdvReac Type Severity Reaction Status Date / Time ceresin [From Eucerin] Allergy Verified 10/19/18 02:24 corn Allergy Verified 10/19/18 02:24 egg Allergy Verified 10/19/18 02:24 emollient combination no.33 Allergy Verified 10/19/18 02:24 [From Eucerin] isopropyl myristate Allergy Verified 10/19/18 02:24 [From Eucerin] lanolin alcohols Allergy Verified 10/19/18 02:24 [From Eucerin] latex Allergy Verified 10/19/18 02:24 mineral oil [From Eucerin] Allergy Verified 10/19/18 02:24 petrolatum,white Allergy Verified 10/19/18 02:24 [From Eucerin] phenytoin sodium Allergy Verified 10/19/18 02:24 [From Dilantin] phenytoin sodium extended Allergy Verified 10/19/18 02:24 [From Dilantin] soap [From Eucerin] Allergy Verified 10/19/18 02:24 strawberry Allergy Verified 10/19/18 02:24 water [From Eucerin] Allergy Verified 10/19/18 02:24 barley Allergy Uncoded 10/19/18 02:24 rye Allergy Uncoded 10/19/18 02:24 Home Medications: Ambulatory Orders Calcium Carbonate/Vitamin D3 [Oystercal-D 500 mg-400 Unit Tb] 1 each PO BID Carbamazepine [Carbamazepine ER] 300 mg PO DAILY 03/30/17 Cetirizine HCl 10 mg PO DAILY 03/30/17 Fluticasone Prop 0.05% Nasal [Flonase -] 1 - 2 spray NS DAILY 03/30/17 Magnesium Hydrox 2400MG/30Ml [Milk of Magnesia -] 30 ml PO DAILY 03/30/17 Multivit-Min/FA/Lycopen/Lutein [Vitrum 50 Plus Senior Tablet] 5 5ml PO DAILY Phenobarbital 64.8 mg PO BID 03/30/17 Sodium Chloride 500 mg PO DAILY 03/30/17 clonazePAM [Klonopin -] 0.5 mg PO TID 03/30/17 Glycerin Suppository Adult - 1 each RC DAILY #7 supp.rect 03/07/18 Amox-Tr/K Cl [Augmentin Suspension -] 500 mg PO TID 5 Days ml 07/10/18 Polyethylene Glycol 3350 [Miralax 119 gm Btl -] 17 gm PO AM bottle 07/10/18 Sennosides [Senna -] 2 tab PO HS PRN tablet 07/10/18 levoFLOXacin [Levaquin -] 500 mg PO DAILY #14 tablet 10/19/18 Anemia: No Asthma: No Cancer: No Cardiac Disorders: No CVA: No COPD: No CHF: No Dementia: No Diabetes: No GI Disorders: Yes (esophagitis) Disorders: No HTN: No Hypercholesterolemia: No Liver Disease: No Seizures: Yes (general convulsive epilepsy) Thyroid Disease: No - Surgical History Abdominal Surgery: No Appendectomy: No Cardiac Surgery: No Cholecystectomy: No Lung Surgery: No Neurologic Surgery: No - Immunization History Immunization Up to Date: Yes - Suicide/Smoking/Psychosocial Hx Smoking History: Never smoked Have you smoked in the past 12 months: No Hx Alcohol Use: No Drug/Substance Use Hx: No Substance Use Type: None Hx Substance Use Treatment: No Review of Systems - Review of Systems Able to Perform ROS?: No (2/2 clinical condition) *Physical Exam - Physical Exam Comments: 10/19/18 02:13 GENERAL: Awake, alert, moaning HEAD: No signs of trauma, frontal head mass-like abnormality EYES: PERRLA, EOMI, sclera anicteric, conjunctiva clear ENT: Auricles normal inspection, hearing grossly normal, nares patent, oropharynx clear without exudates. Moist mucosa NECK: Normal ROM, supple, no lymphadenopathy, JVD, or masses LUNGS: No distress, clear to auscultation bilaterally HEART: Regular rate and rhythm, normal S1 and S2, no murmurs, rubs or gallops, peripheral pulses normal and equal bilaterally. ABDOMEN: Soft, nontender, normoactive bowel sounds. No guarding, no rebound. No masses EXTREMITIES: Normal inspection, Normal range of motion, no edema. No clubbing or cyanosis. NEUROLOGICAL: Cranial nerves II through XII grossly intact. Normal speech, no focal sensorimotor deficits : Enlarged, hardened right testicle, moans with palpation SKIN: Warm, Dry, normal turgor, no rashes or lesions noted. 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 DDx includes , but is not limited to: torsion, hydrocele, orchitis. US ordered. 10/19/18 03:28 US shows orchitis. Suspect enteric source. Will send UC, cover with levofloxacin. Patient can take PO. Initial HR taken while patient agitated. HR 78 satting 100% on room air after settling. *DC/Admit/Observation/Transfer Diagnosis at time of Disposition: Orchitis - Discharge Dispostion Disposition: HOME Condition at time of disposition: Good Decision to Admit order: No - Prescriptions Prescriptions: levoFLOXacin [Levaquin -] 500 mg PO DAILY #14 tablet - Referrals Referrals: Kahlil Mcdaniels Jr [Primary Care Provider] - - Patient Instructions Printed Discharge Instructions: Epididymitis Additional Instructions: Please give Billy Cantu levaquin 500mg once per day for the next 10 days. Please have him return immediately if you notice spreading redness, changes in behavior or fever. - Post Discharge Activity
[2018-10-19 02:36] VITALS: BP 141/82; TEMP 98.2; BMI 18.3
[2018-10-19 03:29] VITALS: PULSE 78
--- NOTE | 2018-10-19 04:04 | PDOC ---
Attending Attestation - ED Attending Attestation I have performed the following: I have examined & evaluated the patient, The case was reviewed & discussed with the resident, I agree w/resident's findings & plan
== END 2018-10-19 04:03 | disposition home or self-care (01) ==
LOC: JER 01:31
DX: N45.2 Orchitis (principal); G40.909 Epilepsy, unspecified, not intractable, without status epilepticus; M81.0 Age-related osteoporosis without current pathological fracture; K11.20 Sialoadenitis, unspecified
CPT/HCPCS: 76870-TC; 99281-25

== ENCOUNTER 2018-12-09 19:08 | Inpatient (IN) | payer OTHER ==
--- NOTE | 2018-12-09 19:30 | PDOC ---
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 Patient is unable to follow commands or contribute to any history. Per clinical consultation note: "'continued wheezing despite treatment duoned via nebulizer, occasional cough and congestion. R/o infiltrate" VS 97.5, Pulse 103, 96% O2 in room air, BP 157/93, Resp 40' via requesting provider [facility] [phone]." Aide at the bedside is unable to provide collateral history. Discussed case with Karmen Blunt RN at [place], who confirms patient was sent to the ED for congestion and wheezing and no other complaint. Patient has had normal po intake. No vomiting noted. Last BM was two days ago and so patient is due for an enema but did not get it as he was sent to the ED instead. Past History - Past Medical History Allergies/Adverse Reactions: Allergies Allergy/AdvReac Type Severity Reaction Status Date / Time ceresin [From Eucerin] Allergy Verified 12/09/18 19:29 corn Allergy Verified 12/09/18 19:29 egg Allergy Verified 12/09/18 19:29 emollient combination no.33 Allergy Verified 12/09/18 19:29 [From Eucerin] isopropyl myristate Allergy Verified 12/09/18 19:29 [From Eucerin] lanolin alcohols Allergy Verified 12/09/18 19:29 [From Eucerin] latex Allergy Verified 12/09/18 19:29 mineral oil [From Eucerin] Allergy Verified 12/09/18 19:29 petrolatum,white Allergy Verified 12/09/18 19:29 [From Eucerin] phenytoin sodium Allergy Verified 12/09/18 19:29 [From Dilantin] phenytoin sodium extended Allergy Verified 12/09/18 19:29 [From Dilantin] soap [From Eucerin] Allergy Verified 12/09/18 19:29 strawberry Allergy Verified 12/09/18 19:29 water [From Eucerin] Allergy Verified 12/09/18 19:29 barley Allergy Uncoded 12/09/18 19:29 rye Allergy Uncoded 12/09/18 19:29 Home Medications: Ambulatory Orders Calcium Carbonate/Vitamin D3 [Oystercal-D 500 mg-400 Unit Tb] 1 each PO BID Carbamazepine [Carbamazepine ER] 300 mg PO DAILY 03/30/17 Cetirizine HCl 10 mg PO HS 03/30/17 Fluticasone Prop 0.05% Nasal [Flonase -] 1 - 2 spray NS DAILY 03/30/17 Magnesium Hydrox 2400MG/30Ml [Milk of Magnesia -] 30 ml PO DAILY 03/30/17 Multivit-Min/FA/Lycopen/Lutein [Vitrum 50 Plus Senior Tablet] 5 5ml PO DAILY Phenobarbital 64.8 mg PO BID 03/30/17 Sodium Chloride 500 mg PO BID 03/30/17 clonazePAM [Klonopin -] 0.5 mg PO TID 03/30/17 Polyethylene Glycol 3350 [Miralax 119 gm Btl -] 17 gm PO AM bottle 07/10/18 Sennosides [Senna -] 2 tab PO HS PRN tablet 07/10/18 Albuterol 2.5/Ipratropium 0.5 [Duoneb -] 1 amp NEB PRN 12/10/18 Bacitracin - [Bacitracin Topical Ointment -] 1 applic TP TID 12/10/18 Carbamazepine [Carbamazepine ER] 200 mg PO AM 12/10/18 Carbamazepine [Carbamazepine ER] 400 mg PO HS 12/10/18 Docusate Sodium 100 mg PO HS 12/10/18 Glycerin Suppository Adult - 1 each RC PRN 12/10/18 Albuterol 0.083% Nebulizer Azucena [Ventolin 0.083% Nebulizer Soln -] 1 amp NEB Q4H PRN #25 amp 12/11/18 Bisacodyl Suppository [Dulcolax Suppository -] 10 mg WV DAILY PRN supp.rect 10/25 Scopolamine Hydrobromide [Transderm-Scop -] 1 patch TD Q72H #4 patch.td72 predniSONE [Deltasone -] See Taper PO ASDIR #12 tab 07/05/19 Anemia: No Asthma: No Cancer: No Cardiac Disorders: No CVA: No COPD: No CHF: No Dementia: No Diabetes: No GI Disorders: Yes (esophagitis) Disorders: No HTN: No Hypercholesterolemia: No Liver Disease: No Seizures: Yes (general convulsive epilepsy) Thyroid Disease: No - Surgical History Abdominal Surgery: No Appendectomy: No Cardiac Surgery: No Cholecystectomy: No Lung Surgery: No Neurologic Surgery: No - Immunization History Immunization Up to Date: Yes - Suicide/Smoking/Psychosocial Hx Smoking History: Never smoked Have you smoked in the past 12 months: No Hx Alcohol Use: No Drug/Substance Use Hx: No Substance Use Type: None Hx Substance Use Treatment: No Review of Systems - Review of Systems Able to Perform ROS?: No (severe MR) *Physical Exam - Physical Exam Comments: General: Awake, alert, no acute distress Head: No signs of trauma Eyes: EOMI, sclera anicteric ENT: Moist mucus membranes with significant secretions noted Neck: Normal ROM, supple Lungs: Lungs with transmitted airway noises Cardio: Regular rhythm, S1 and S2 present Abdomen: Distended with tympany. No grimacing noted upon palpation. No guarding , no rebound, no masses Extremities: Contracted upper and lower limbs. Distal pulses present SKIN: Warm, Dry, normal turgor Neurologic: Severe mental retardation, moving all extremities; unable to follow commands ED Treatment Course - LABORATORY CBC & Chemistry Diagram: 12/11/18 05:45 12/11/18 05:20 Medical Decision Making - Medical Decision Making 48yo M with PMH of dynamic ileus, sigmoid volvulus, severe MR (due to to cerebral anoxic injury), esophagitis, epilepsy, osteoporosis, sialoadenitis, porencephalic cysts, [employer]IDENT shunt sent from [facility] for congestion. Broad workup given patient's complex medical history Duoneb, solu-medrol CTAP to assess for volvulus/ileus CT chest to assess for infiltrate 12/09/18 19:55 CBC WBC 4.3 K/mm3 (4.0-10.0) 12/09/18 20:19 RBC 4.38 M/mm3 (4.00-5.60) 12/09/18 20:19 Hgb 12.9 GM/dL (11.7-16.9) 12/09/18 20:19 Hct 39.3 % (35.4-49) 12/09/18 20:19 MCV 89.7 fl (80-96) 12/09/18 20:19 MCH 29.5 pg (25.7-33.7) 12/09/18 20:19 MCHC 32.9 g/dl (32.0-35.9) 12/09/18 20:19 RDW 16.1 % (11.9-15.9) H 12/09/18 20:19 Plt Count 396 K/MM3 (134-434) 12/09/18 20:19 MPV 6.9 fl (7.5-11.1) L 12/09/18 20:19 Absolute Neuts (auto) 1.7 K/mm3 (1.5-8.0) 12/09/18 20:19 Neutrophils % 39.7 % (42.8-82.8) L D 12/09/18 20:19 Lymphocytes % 45.5 % (8-40) H D 12/09/18 20:19 Monocytes % 10.0 % (3.8-10.2) 12/09/18 20:19 Eosinophils % 4.2 % (0-4.5) 12/09/18 20:19 Basophils % 0.6 % (0-2.0) 12/09/18 20:19 Nucleated RBC % 0 % (0-0) 12/09/18 20:19 No anemia or leukocytosis CMP Sodium 131 mmol/L (136-145) L 12/09/18 20:19 Potassium 4.4 mmol/L (3.5-5.1) 12/09/18 20:19 Chloride 97 mmol/L (98-107) L 12/09/18 20:19 Carbon Dioxide 26 mmol/L (21-32) 12/09/18 20:19 Anion Gap 8 MMOL/L (8-16) 12/09/18 20:19 BUN 3.4 mg/dL (7-18) L 12/09/18 20:19 Creatinine 0.7 mg/dL (0.55-1.3) 12/09/18 20:19 Est GFR (CKD-EPI)AfAm 128.43 12/09/18 20:19 Est GFR (CKD-EPI)NonAf 110.81 12/09/18 20:19 Random Glucose 126 mg/dL (74-106) H 12/09/18 20:19 Lactic Acid 2.0 mmol/L (0.4-2.0) 12/09/18 20:19 Calcium 8.8 mg/dL (8.5-10.1) 12/09/18 20:19 Total Bilirubin 0.2 mg/dL (0.2-1) 12/09/18 20:19 AST 47 U/L (15-37) H 12/09/18 20:19 ALT 38 U/L (13-61) 12/09/18 20:19 Alkaline Phosphatase 158 U/L (45-117) H 12/09/18 20:19 Total Protein 8.1 g/dl (6.4-8.2) 12/09/18 20:19 Albumin 3.5 g/dl (3.4-5.0) 12/09/18 20:19 Mild hyponatremia Cr normal Lactate normal EKG: rate 104, QTc 436, sinus tachycardia 12/09/18 21:59 Discussed case with Karmen Blunt RN, who can be reached at [phone]. Patient was sent over for congestion and wheezing. Normal po intake. No vomiting. Last BM was two days ago and so patient is due for an enema. 12/09/18 22:18 CXR with dilated loops of bowel, my impression Pending official CT report, however, there are dilated loops of bowel with significant fecal impaction per my impression Fleet enema ordered Patient signed out to Dr. Stephenson 12/10/18 00:04 *DC/Admit/Observation/Transfer Diagnosis at time of Disposition: Bowel obstruction Qualifiers: Intestinal obstruction type: unspecified Intestinal obstruction extent: unspecified extent Qualified Code(s): K56.609 - Unspecified intestinal obstruction, unspecified as to partial versus complete obstruction - Discharge Dispostion Condition at time of disposition: Guarded - Referrals - Patient Instructions - Post Discharge Activity
[2018-12-09] MEDS ORDERED: ALBUTEROL SO4 2.5/IPRATROPIUM 0.5 INH SOL 3 ML VIAL.NEB. NEB ONE ×2 (19:52→20:21)
[2018-12-09] MEDS ORDERED: methylPREDNISolone NA SUCC 125 MG/2 ML VIAL IVPUSH ONE (19:52)
[2018-12-09] MEDS ORDERED: methylPREDNISolone NA SUCC 125 MG/2 ML VIAL ONE (20:21)
--- NOTE | 2018-12-09 20:34 | PDOC ---
Documentation entered by Mayra Callaway SCRIBE, acting as scribe for Kelly Morton DO. Kelly Morton DO: This documentation has been prepared by the Nilton lozano Xhesika, SCRIBE, under my direction and personally reviewed by me in its entirety. I confirm that the documentation accurately reflects all work, treatment, procedures, and medical decision making performed by me. 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 The patient is MR and unable to provide a history. Allergies: NKA - Physicial Exam PE: 12/09/18 20:01 GENERAL: Awake, alert, MR and unable to provide a history HEAD: (+) soft tissue growth through anterior head. No signs of trauma EYES: PERRLA, EOMI, sclera anicteric, conjunctiva clear ENT: (+) thick saliva secretion. Auricles normal inspection, nares patent, oropharynx clear without exudates. NECK: Normal ROM, supple, no lymphadenopathy, JVD, or masses LUNGS: (+) soft transmitted airway sounds. (+) typicnic. (+) wheezes. HEART: (+) tachycardic. Regular rate and rhythm, normal S1 and S2, no murmurs, rubs or gallops ABDOMEN: (+) distended, nontender, normoactive bowel sounds. No guarding, no rebound. No masses GENITALIA: external genitalia normal. EXTREMITIES: (+) contracted upper and lower extremity. no edema. No clubbing or cyanosis. No cords, erythema, or tenderness NEUROLOGICAL: Cranial nerves II through XII grossly intact. SKIN: Warm, Dry, normal turgor, no rashes or lesions noted. - Medical Decision Making 12/09/18 20:31 I, Dr. Kelly Morton, DO, attest that this document has been prepared under my direction and personally reviewed by me in its entirety. I further attest, that it accurately reflects all work, treatment, procedures and medical decision -making performed by me. 12/09/18 20:31 48yo male with hx of PMR from [place] with wheezing, congestion and distended abd -received nebs at the facility, still with wheezing - pulse ox 99% upon arrival , coughing up thick sputum- clear -distended abd with tympany - soft stool in rectum -will send labs, will need ct c/a/p for further eval - hx of obstruction and volvulus -will give neb and steroids in er -pt w contracted ue - elevated bp -will monitor and reassess 12/09/18 21:24 labs reviewed xray shows dilated loops of bowel 12/10/18 00:47 pt has had 3 bm in the ED abd is softer will add suppository 12/10/18 00:51 pt with ground glass infiltrates on ct will start abx ct shows colonic distension with fecal impaction - given suppository microblog sent to [facility] for further eval 12/10/18 01:41 resident discussing the case with sympny Heart Score/ECG Review - ECG Intrepretation Comment:: 12/09/18 21:25 sinus tach at 104, nl axis, nl interval, lvh, t wave flattening diffusely
[2018-12-09 20:36] LABS: BASO % 0.6 % (0-2.0); EOS % 4.2 % (0-4.5); HEMATOCRIT 39.3 % (35.4-49); HEMOGLOBIN 12.9 GM/dL (11.7-16.9); LYMPH % 45.5 % (8-40); MCH 29.5 pg (25.7-33.7); MCHC 32.9 g/dl (32.0-35.9); MEAN CELL VOLUME 89.7 fl (80-96); MEAN PLT VOLUME 6.9 fl (7.5-11.1); NEUT % 39.7 % (42.8-82.8); PLATELET COUNT 396 K/MM3 (134-434); RBC 4.38 M/mm3 (4.00-5.60); RDW 16.1 % (11.9-15.9); WHITE BLOOD COUNT 4.3 K/mm3 (4.0-10.0)
[2018-12-09 21:01] LABS: EPI CELLS 2.6 /HPF (0-5/HPF); HYALINE CASTS 8 /lpf (0-8); URINE APPEARANCE CLEAR; URINE BACTERIA 3.5 /hpf (NEGATIVE); URINE BILIRUBIN NEGATIVE (NEGATIVE); URINE COLOR YELLOW; URINE GLUCOSE (UA) NEGATIVE (NEGATIVE); URINE KETONE TRACE (NEGATIVE); URINE LEUK ESTERASE TRACE (NEGATIVE); URINE NITRITE NEGATIVE (NEGATIVE); URINE PROTEIN NEGATIVE (NEGATIVE); URINE RBC 3 /hpf (0-4); URINE UROBILINOGEN 0.2 mg/dL (0.2-1.0); URINE WBC 1 /hpf (0-5)
[2018-12-09 21:03] LABS: INR 1.04 (0.83-1.09); PROTHROMBIN TIME (PATIENT) 12.3 SEC (9.7-13.0)
[2018-12-09 21:06] LABS: ACTIVATED PTT 34.8 SECONDS (25.2-36.5)
[2018-12-09 21:17] LABS: ALBUMIN 3.5 g/dl (3.4-5.0); BILIRUBIN,TOTAL 0.2 mg/dL (0.2-1); BLOOD UREA NITROGEN 3.4 mg/dL (7-18); CALCIUM 8.8 mg/dL (8.5-10.1); CREATININE 0.7 mg/dL (0.55-1.3); POTASSIUM 4.4 mmol/L (3.5-5.1); TOT PROT 8.1 g/dl (6.4-8.2)
[2018-12-09] MEDS ORDERED: SODIUM CHLORIDE 1,000 ML IV STA (22:17)
[2018-12-09] MEDS ORDERED: SODIUM PHOSPHATE/NA BIPHOS 133 ML ENEMA PR ONE (23:18)
--- NOTE | 2018-12-10 00:32 | PDOC ---
*Physical Exam - Vital Signs Last Vital Signs Temp Pulse Resp BP Pulse Ox 98.5 F 94 H 24 H 156/123 H 96 12/09/18 19:31 12/09/18 23:06 12/09/18 19:31 12/09/18 23:06 12/09/18 23:06 ED Treatment Course - LABORATORY CBC & Chemistry Diagram: 12/11/18 05:45 12/11/18 05:20 - ADDITIONAL ORDERS Additional order review: Laboratory Results 12/09/18 12/09/18 12/09/18 20:19 20:19 20:19 PT with INR 12.30 INR 1.04 PTT (Actin FS) 34.8 Sodium 131 L Potassium 4.4 Chloride 97 L Carbon Dioxide 26 Anion Gap 8 BUN 3.4 L Creatinine 0.7 Est GFR (CKD-EPI)AfAm 128.43 Est GFR (CKD-EPI)NonAf 110.81 Random Glucose 126 H Lactic Acid 2.0 Calcium 8.8 Total Bilirubin 0.2 AST 47 H ALT 38 Alkaline Phosphatase 158 H Total Protein 8.1 Albumin 3.5 Urine Color Urine Appearance Urine pH Ur Specific [place] Urine Protein Urine Glucose (UA) Urine Ketones Urine Blood Urine Nitrite Urine Bilirubin Urine Urobilinogen Ur Leukocyte Esterase Urine WBC (Auto) Urine RBC (Auto) Urine Casts (Auto) U Epithel Cells (Auto) Urine Bacteria (Auto) Stool Occult Blood 12/09/18 12/09/18 20:15 20:14 PT with INR INR PTT (Actin FS) Sodium Potassium Chloride Carbon Dioxide Anion Gap BUN Creatinine Est GFR (CKD-EPI)AfAm Est GFR (CKD-EPI)NonAf Random Glucose Lactic Acid Calcium Total Bilirubin AST ALT Alkaline Phosphatase Total Protein Albumin Urine Color Yellow Urine Appearance Clear Urine pH 5.0 D Ur Specific [place] 1.027 Urine Protein Negative Urine Glucose (UA) Negative Urine Ketones Trace H Urine Blood Negative Urine Nitrite Negative Urine Bilirubin Negative Urine Urobilinogen 0.2 Ur Leukocyte Esterase Trace Urine WBC (Auto) 1 Urine RBC (Auto) 3 Urine Casts (Auto) 8 U Epithel Cells (Auto) 2.6 Urine Bacteria (Auto) 3.5 Stool Occult Blood Negative 12/09/18 20:19 RBC 4.38 MCV 89.7 MCHC 32.9 RDW 16.1 H MPV 6.9 L Neutrophils % 39.7 L D Lymphocytes % 45.5 H D Monocytes % 10.0 Eosinophils % 4.2 Basophils % 0.6 - Medications Given in the ED: ED Medications Discontinued Medications Generic Name Dose Route Start Last Admin Trade Name Laverne PRN Reason Stop Dose Admin Albuterol/Ipratropium 1 amp 12/09/18 19:52 12/09/18 20:20 Duoneb - NEB 12/09/18 19:53 1 amp ONCE ONE Administration Sodium Chloride 1,000 mls @ 1,000 mls/hr 12/09/18 22:17 12/09/18 22:50 Normal Saline - IV 12/09/18 23:16 1,000 mls/hr ASDIR STA Administration Methylprednisolone Sodium Succinate 125 mg 12/09/18 19:52 12/09/18 20:31 Solu-Medrol - IVPUSH 12/09/18 19:53 125 mg ONCE ONE Administration Medical Decision Making - Medical Decision Making I have assumed care of the patient from Dr. Quiroz, who has discussed the clinical presentation, work-up, and ED course thus far. 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 sent from [facility] for congestion and found to have evidence of obstruction on CT A&P Pending fleet enema Serial abdominal exams 12/10/18 00:32 Plan for admission for SBO and PNA Pt w/ multiple BMs s/p enema w/ mild improvement in abd distention Pt signed out to [facility] admitting Dispo: Admit *DC/Admit/Observation/Transfer Diagnosis at time of Disposition: Bowel obstruction Qualifiers: Intestinal obstruction type: unspecified Intestinal obstruction extent: unspecified extent Qualified Code(s): K56.609 - Unspecified intestinal obstruction, unspecified as to partial versus complete obstruction - Discharge Dispostion Condition at time of disposition: Guarded Decision to Admit order: Yes - Referrals - Patient Instructions - Post Discharge Activity
[2018-12-10] MEDS ORDERED: BISACODYL 10 MG SUPP.RECT PR ONE (00:47)
[2018-12-10] MEDS ORDERED: AZITHROMYCIN IVPB 500 MG in DEXTROSE 5%-WATER - 250 ML IVPB ONE (00:48)
[2018-12-10] MEDS ORDERED: SODIUM CHLORIDE 0.9% 1000 ML INFUS.BAG IV ONE (00:49)
[2018-12-10] MEDS ORDERED: BISACODYL 10 MG SUPP.RECT RC ONE (00:53)
[2018-12-10] MEDS ORDERED: AZITHROMYCIN IVPB 500 MG/250 ML BAG IVPB ONE (00:54)
--- NOTE | 2018-12-10 02:03 | PN ---
Teaching Attending Note Name of Resident: Suzy Fernandez ATTENDING PHYSICIAN STATEMENT I saw and evaluated the patient. I reviewed the resident's note and discussed the case with the resident. I agree with the resident's findings and plan as documented. 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 Patient is unable to follow commands or contribute to providing information. Per clinical consultation note : "'continued wheezing despite treatment duoned via nebulizer, occasional cough and congestion. R/o infiltrate" VS 97.5, Pulse 103, 96% O2 in room air, BP 157/ 93, Resp 40' via requesting provider [facility] [phone]." Aide at the bedside is unable to provide collateral history. Discussed case with Karmen Blunt RN at [place], who confirms patient was sent to the ER for congestion and wheezing and no other complaint. Patient has had normal oral intake. No vomiting noted. Last BM was two days ago and so patient is due for an enema but did not get it as he was sent to the ER instead. OBJECTIVE: Vital Signs Period Temp Pulse Resp BP Sys/Skinner Pulse Ox Last 24 Hr 98.5 F-98.5 F 86-100 18-24 136-185/113-132 96-99 HEENT: No Jaundice, eye redness or discharge, PERRLA; Normocephalic, atraumatic. External ears are normal and hearing is grossly intact. No nasal discharge. Neck: Supple, nontender. No palpable adenopathy or thyromegaly. No JVD Chest: Good effort. Diminished breath sounds. Wheezing with prolonged expiration. Clear to percussion. Heart: Regular. No S3, rub or murmur Abdomen: Distended, soft, tympanic; nontender and no HSM. No rebound or guarding. Normal bowel sounds. Ext: Peripheral pulses intact. No leg edema. Limb contracture. Skin: Warm and dry. No petechiae, rash or ecchymosis. Neuro: Alert. CN 2-12 grossly intact. Sensation grossly intact in all four extremities and DTR are symmetric. Psych: Appropriate mood and affect. Home Medications Medication Instructions Recorded Calcium Carbonate/Vitamin D3 1 each PO BID 03/30/17 [Oystercal-D 500 mg-400 Unit Tb] Carbamazepine [Carbamazepine ER] 300 mg PO DAILY 03/30/17 Cetirizine HCl 10 mg PO HS 03/30/17 Fluticasone Prop 0.05% Nasal 1 - 2 spray NS DAILY 03/30/17 [Flonase -] Magnesium Hydrox 2400MG/30Ml [Milk 30 ml PO DAILY 03/30/17 of Magnesia -] Multivit-Min/FA/Lycopen/Lutein 5 5ml PO DAILY 03/30/17 [Vitrum 50 Plus Senior Tablet] Phenobarbital 64.8 mg PO BID 03/30/17 Sodium Chloride 500 mg PO BID 03/30/17 clonazePAM [Klonopin -] 0.5 mg PO TID 03/30/17 Polyethylene Glycol 3350 [Miralax 17 gm PO AM bottle 07/10/18 119 gm Btl -] Sennosides [Senna -] 2 tab PO HS PRN tablet 07/10/18 Albuterol 2.5/Ipratropium 0.5 1 amp NEB PRN 12/10/18 [Duoneb -] Bacitracin - [Bacitracin Topical 1 applic TP TID 12/10/18 Ointment -] Carbamazepine [Carbamazepine ER] 200 mg PO AM 12/10/18 Carbamazepine [Carbamazepine ER] 400 mg PO HS 12/10/18 Docusate Sodium 100 mg PO HS 12/10/18 Glycerin Suppository Adult - 1 each RC PRN 12/10/18 Abnormal Lab Results 12/09/18 12/09/18 12/09/18 20:14 20:19 20:19 RDW 16.1 H MPV 6.9 L Neutrophils % 39.7 L D Lymphocytes % 45.5 H D Sodium 131 L Chloride 97 L BUN 3.4 L Random Glucose 126 H AST 47 H Alkaline Phosphatase 158 H Urine Ketones Trace H ASSESSMENT AND PLAN: 1. COPD exacerbation and Fecal impaction - Likely that patient has underlying chronic ?interstitial and ?obstructive lung disease - now exacerbated by compromised lung volume due to severe colonic distension and diaphragmatic splinting. CXR is rotated with elevated left hemidiaphragm and distended bowel loops with no clear infiltrate. CT chest shows mild bilateral upper lobe ground glass interstitial opacity - which may be chronic. CT abdomen and pelvis shows fecal impaction and colonic distension. EKG shows sinus tachycardia with no significant ST-T wave changes. Patient is responding well to fleet enema and will be continued on a bowel regimen. Will continue duoneb prn and solumedrol - no indication for antibiotics at this time. Consult Pulmonary - will benefit from outpatient PFT to properly characterize underlying lung disease. Will continue comprehensive care of all his comorbid issues and implement seizure, fall and aspiration precautions. Etiology of hyponatremia is unclear - will hydrate gently with IV NS since he has features of dehydration. 2. DVT prophylaxis - Lovenox 40 mg SQ q 24 hours. 3. Advance directives - Full code
--- NOTE | 2018-12-10 02:28 | HP ---
CHIEF COMPLAINT: congestion and constipation PCP: [facility] HISTORY OF PRESENT ILLNESS: Mr. Cantu is a 48 yo male with cerebral palsy, previous sigmoid volvulus, esophagitis, epilepsy, and osteoporosis presents with chest congestion and constipation. The patient is a resident at [facility]. History is limited as patient is non-verbal. His aide reports repeated visits to the hospital due to chest congestion. He does not recall when this last episode started exactly. The patient is wheezing and intermittently coughing. The cough is productive and has whitish/yellowish sputum. There are no reported fevers recently. Per record, the patient normally has a liquid diet. In the last 1-2 days, the patient has had loss of appetite. This is usually associated with him being "sick." Yesterday he did not have a bowel movement and his abdomen has become increasingly distended. Aide denies vomiting and diarrhea. ER course was notable for: (1) one-time dose azithromycin (2) solumedrol (3) Dulcolax suppository/Fleet enema x 4 bowel movements consistent with normal BM Recent Travel: none PAST MEDICAL HISTORY: 1. cerebral palsy 2. sigmoid volvulus 3. cortical blindness 4. esophagitis 5. epilepsy 6. osteoporosis 7. porencephalic cyst PAST SURGICAL HISTORY: thoracolumbar maryuri Social History: Smoking: none Alcohol: none Drugs: none Lives at [facility] Family History: unknown Allergies No medication allergies ceresin [From Eucerin] Allergy (Verified 12/09/18 19:29) corn Allergy (Verified 12/09/18 19:29) egg Allergy (Verified 12/09/18 19:29) emollient combination no.33 [From Eucerin] Allergy (Verified 12/09/18 19:29) isopropyl myristate [From Eucerin] Allergy (Verified 12/09/18 19:29) lanolin alcohols [From Eucerin] Allergy (Verified 12/09/18 19:29) latex Allergy (Verified 12/09/18 19:29) mineral oil [From Eucerin] Allergy (Verified 12/09/18 19:29) petrolatum,white [From Eucerin] Allergy (Verified 12/09/18 19:29) phenytoin sodium [From Dilantin] Allergy (Verified 12/09/18 19:29) phenytoin sodium extended [From Dilantin] Allergy (Verified 12/09/18 19:29) soap [From Eucerin] Allergy (Verified 12/09/18 19:29) strawberry Allergy (Verified 12/09/18 19:29) water [From Eucerin] Allergy (Verified 12/09/18 19:29) barley Allergy (Uncoded 12/09/18 19:29) rye Allergy (Uncoded 12/09/18 19:29) HOME MEDICATIONS: Home Medications Medication Instructions Recorded Calcium Carbonate/Vitamin D3 1 each PO BID 03/30/17 [Oystercal-D 500 mg-400 Unit Tb] Carbamazepine [Carbamazepine ER] 300 mg PO DAILY 03/30/17 Cetirizine HCl 10 mg PO HS 03/30/17 Fluticasone Prop 0.05% Nasal 1 - 2 spray NS DAILY 03/30/17 [Flonase -] Magnesium Hydrox 2400MG/30Ml [Milk 30 ml PO DAILY 03/30/17 of Magnesia -] Multivit-Min/FA/Lycopen/Lutein 5 5ml PO DAILY 03/30/17 [Vitrum 50 Plus Senior Tablet] Phenobarbital 64.8 mg PO BID 03/30/17 Sodium Chloride 500 mg PO BID 03/30/17 clonazePAM [Klonopin -] 0.5 mg PO TID 03/30/17 Polyethylene Glycol 3350 [Miralax 17 gm PO AM bottle 07/10/18 119 gm Btl -] Sennosides [Senna -] 2 tab PO HS PRN tablet 07/10/18 Albuterol 2.5/Ipratropium 0.5 1 amp NEB PRN 12/10/18 [Duoneb -] Bacitracin - [Bacitracin Topical 1 applic TP TID 12/10/18 Ointment -] Carbamazepine [Carbamazepine ER] 200 mg PO AM 12/10/18 Carbamazepine [Carbamazepine ER] 400 mg PO HS 12/10/18 Docusate Sodium 100 mg PO HS 12/10/18 Glycerin Suppository Adult - 1 each RC PRN 12/10/18 REVIEW OF SYSTEMS CONSTITUTIONAL: Present: loss of appetite Absent: fever, diaphoresis HEENT: Absent: rhinorrhea, nasal congestion CARDIOVASCULAR: unknown RESPIRATORY: Present: cough, wheezing GASTROINTESTINAL: Present: abdominal distention, constipation Absent: vomiting, diarrhea GENITOURINARY: Absent: dysuria MUSCULOSKELETAL: unknown SKIN: unknown HEMATOLOGIC/IMMUNOLOGIC: Absent: lymphadenopathy ENDOCRINE: unknown NEUROLOGIC: unknown PSYCHIATRIC: unknown Patient is non-verbal. PHYSICAL EXAMINATION Vital Signs - 24 hr 12/09/18 12/09/18 12/09/18 19:31 20:22 23:06 Temperature 98.5 F Pulse Rate 100 H 100 H 94 H Pulse Rate [ 94 H Apical] Respiratory 24 H Rate Blood Pressure 185/132 H Blood Pressure 156/123 H [Left Arm] O2 Sat by Pulse 99 97 96 Oximetry (%) 12/10/18 12/10/18 01:16 02:16 Temperature 98.5 F Pulse Rate Pulse Rate [ 100 H 86 Apical] Respiratory 24 H 18 Rate Blood Pressure Blood Pressure 163/113 H 136/116 H [Left Arm] O2 Sat by Pulse 96 98 Oximetry (%) GENERAL: Awake and alert, non-verbal HEAD: Large cyst on frontal bones at midline EYES: Pupils equal, round and reactive to light, sclera anicteric, conjunctiva clear, blindness EARS, NOSE, THROAT: Ears normal, nares patent. Moist mucous membranes. NECK: Limited motion, no JVD or masses LUNGS: Expiratory wheezing and rhonchi in lower lungs bilaterally. No accessory muscle use. HEART: Regular rate and rhythm, normal S1 and S2 without murmur, rub or gallop. ABDOMEN: Non-soft, nontender, distended, normoactive bowel sounds, no guarding, no rebound, no masses. No hepatomegaly or splenomegaly. MUSCULOSKELETAL: retracted left arm UPPER EXTREMITIES: warm, well-perfused. No cyanosis. No clubbing. No peripheral edema. LOWER EXTREMITIES:warm, well-perfused. No peripheral edema. NEUROLOGICAL: Unable to perform PSYCHIATRIC: Unable to perform SKIN: Warm, dry, normal turgor, no rashes or lesions noted, normal capillary refill. Laboratory Results - last 24 hr 12/09/18 12/09/18 12/09/18 20:14 20:15 20:19 WBC 4.3 RBC 4.38 Hgb 12.9 Hct 39.3 MCV 89.7 MCH 29.5 MCHC 32.9 RDW 16.1 H Plt Count 396 MPV 6.9 L Absolute Neuts (auto) 1.7 Neutrophils % 39.7 L D Lymphocytes % 45.5 H D Monocytes % 10.0 Eosinophils % 4.2 Basophils % 0.6 Nucleated RBC % 0 PT with INR INR PTT (Actin FS) Sodium Potassium Chloride Carbon Dioxide Anion Gap BUN Creatinine Est GFR (CKD-EPI)AfAm Est GFR (CKD-EPI)NonAf Random Glucose Lactic Acid Calcium Total Bilirubin AST ALT Alkaline Phosphatase Total Protein Albumin Urine Color Yellow Urine Appearance Clear Urine pH 5.0 D Ur Specific Tillar 1.027 Urine Protein Negative Urine Glucose (UA) Negative Urine Ketones Trace H Urine Blood Negative Urine Nitrite Negative Urine Bilirubin Negative Urine Urobilinogen 0.2 Ur Leukocyte Esterase Trace Urine WBC (Auto) 1 Urine RBC (Auto) 3 Urine Casts (Auto) 8 U Epithel Cells (Auto) 2.6 Urine Bacteria (Auto) 3.5 Stool Occult Blood Negative 12/09/18 12/09/18 12/09/18 20:19 20:19 20:19 WBC RBC Hgb Hct MCV MCH MCHC RDW Plt Count MPV Absolute Neuts (auto) Neutrophils % Lymphocytes % Monocytes % Eosinophils % Basophils % Nucleated RBC % PT with INR 12.30 INR 1.04 PTT (Actin FS) 34.8 Sodium 131 L Potassium 4.4 Chloride 97 L Carbon Dioxide 26 Anion Gap 8 BUN 3.4 L Creatinine 0.7 Est GFR (CKD-EPI)AfAm 128.43 Est GFR (CKD-EPI)NonAf 110.81 Random Glucose 126 H Lactic Acid 2.0 Calcium 8.8 Total Bilirubin 0.2 AST 47 H ALT 38 Alkaline Phosphatase 158 H Total Protein 8.1 Albumin 3.5 Urine Color Urine Appearance Urine pH Ur Specific Tillar Urine Protein Urine Glucose (UA) Urine Ketones Urine Blood Urine Nitrite Urine Bilirubin Urine Urobilinogen Ur Leukocyte Esterase Urine WBC (Auto) Urine RBC (Auto) Urine Casts (Auto) U Epithel Cells (Auto) Urine Bacteria (Auto) Stool Occult Blood ASSESSMENT/PLAN: -constipation/fecal impaction Patient has history of bowel problems, including constipation and is on daily medications for it. He has prior history of sigmoid volvulus as well. The patient has a noticeably distended, non-soft abdomen, which has decreased per aide following suppositories and enema administered in the hospital. CT showed diffuse air-filled colonic distention, which is increased compared to CT on . Also noted is moderate to marked elevation of the left diaphragm. Will continue suppositories with goal of further decreasing abdominal distention and impaction. Will start Miralax 17mg BID. -asthma exacerbation vs compression of lungs 2/2 fecal impaction Patient has intermittent cough and congestion that is normal. Per records, there is no true diagnosis of asthma but it is possible this is an asthma exacerbation given the patient has chronic pulmonary issues. Exam was positive for wheezing. CT showed bilateral upper lobe groundglass interstitial opacities. Recommended by radiology to consider follow-up. Will continue PRN duo -neb as home med and start Solu-medrol 40mg IV Q8H. Visit type - Emergency Visit Emergency Visit: Yes ED Registration Date: 12/10/18 Care time: The patient presented to the Emergency Department on the above date and was hospitalized for further evaluation of their emergent condition. - New Patient This patient is new to me today: Yes Date on this admission: 12/10/18 - Critical Care Critical Care patient: No
[2018-12-10] MEDS ORDERED: BISACODYL 10 MG SUPP.RECT PR PRN (03:40)
[2018-12-10 04:13] VITALS: BMI 21.5
[2018-12-10] MEDS ORDERED: ALBUTEROL SO4 2.5/IPRATROPIUM 0.5 INH SOL 3 ML VIAL.NEB. NEB PRN (05:30)
[2018-12-10] MEDS: clonazePAM 0.5 MG TABLET PO SCH ×3 (06:04→22:02)
[2018-12-10] MEDS ORDERED: methylPREDNISolone NA SUCC 40 MG/1 ML VIAL IVPUSH SCH (06:30)
[2018-12-10 07:15] LABS: MAGNESIUM 2.1 mg/dL (1.8-2.4); PHOSPHOROUS 2.9 mg/dL (2.5-4.9)
--- NOTE | 2018-12-10 09:23 | CON.PULM ---
Consult Consult Specialty:: PULMONARY Referred by:: Dr Michaels Reason for Consultation:: shortness of breath - History of Present Illness Chief Complaint: shortness of breath History of Present Illness: 48yo male with h/o anoxic brain injury, mental retardation, ileus, sigmoid volvulus, seizure disorder, h/o [employer] shunt who was sent from [place] for congestion and frequent sneezing. Noted to be in respiratory distress, tachypneic, given inhaled bronchodilators and solumedrol with improvement. Currently breathing at baseline per aide at bedside. Has not noticed significant cough or wheezing. No fevers recorded. - History Source History Provided By: Medical Record, Caregiver Limitations to Obtaining History: Clinical Condition - Past Medical History [employer]EARCH [employer]: Yes: Seizure (epilepsy), Other (profound MR, cortical blindness, frontal porencephaly, spastic diplegia, MANU[employer] shunt) Gastrointestinal: Yes: Constipation, GERD, Other (recurrent/chronic colonic dilation, sigmoid volvulus in March 2017) Musculoskeletal: Yes: Other (contractures of extremities) Additional Medical History: H&P reviewed. Please see H&P - Past Surgical History Past Surgical History: Yes: Colonoscopy (flex sig for decompression Mar 2017) - Alcohol/Substance Use Hx Alcohol Use: No History of Substance Use: reports: None - Smoking History Smoking history: Never smoked Have you smoked in the past 12 months: No - Social History Usual Living Arrangement: Other (residential facility) ADL: Support Services Home Medications - Allergies Allergies/Adverse Reactions: Allergies Allergy/AdvReac Type Severity Reaction Status Date / Time ceresin [From Eucerin] Allergy Verified 12/09/18 19:29 corn Allergy Verified 12/09/18 19:29 egg Allergy Verified 12/09/18 19:29 emollient combination no.33 Allergy Verified 12/09/18 19:29 [From Eucerin] isopropyl myristate Allergy Verified 12/09/18 19:29 [From Eucerin] lanolin alcohols Allergy Verified 12/09/18 19:29 [From Eucerin] latex Allergy Verified 12/09/18 19:29 mineral oil [From Eucerin] Allergy Verified 12/09/18 19:29 petrolatum,white Allergy Verified 12/09/18 19:29 [From Eucerin] phenytoin sodium Allergy Verified 12/09/18 19:29 [From Dilantin] phenytoin sodium extended Allergy Verified 12/09/18 19:29 [From Dilantin] soap [From Eucerin] Allergy Verified 12/09/18 19:29 strawberry Allergy Verified 12/09/18 19:29 water [From Eucerin] Allergy Verified 12/09/18 19:29 barley Allergy Uncoded 12/09/18 19:29 rye Allergy Uncoded 12/09/18 19:29 - Home Medications Home Medications: Ambulatory Orders Calcium Carbonate/Vitamin D3 [Oystercal-D 500 mg-400 Unit Tb] 1 each PO BID Carbamazepine [Carbamazepine ER] 300 mg PO DAILY 03/30/17 Cetirizine HCl 10 mg PO HS 03/30/17 Fluticasone Prop 0.05% Nasal [Flonase -] 1 - 2 spray NS DAILY 03/30/17 Magnesium Hydrox 2400MG/30Ml [Milk of Magnesia -] 30 ml PO DAILY 03/30/17 Multivit-Min/FA/Lycopen/Lutein [Vitrum 50 Plus Senior Tablet] 5 5ml PO DAILY Phenobarbital 64.8 mg PO BID 03/30/17 Sodium Chloride 500 mg PO BID 03/30/17 clonazePAM [Klonopin -] 0.5 mg PO TID 03/30/17 Polyethylene Glycol 3350 [Miralax 119 gm Btl -] 17 gm PO AM bottle 07/10/18 Sennosides [Senna -] 2 tab PO HS PRN tablet 07/10/18 Albuterol 2.5/Ipratropium 0.5 [Duoneb -] 1 amp NEB PRN 12/10/18 Bacitracin - [Bacitracin Topical Ointment -] 1 applic TP TID 12/10/18 Carbamazepine [Carbamazepine ER] 200 mg PO AM 12/10/18 Carbamazepine [Carbamazepine ER] 400 mg PO HS 12/10/18 Docusate Sodium 100 mg PO HS 12/10/18 Glycerin Suppository Adult - 1 each RC PRN 12/10/18 Review of Systems Unable to obtain ROS, reason: pt nonverbal Physical Exam Vital Sings: Vital Signs Temperature 97.6 F 12/10/18 03:20 Pulse Rate 90 12/10/18 03:20 Respiratory Rate 18 12/10/18 03:20 Blood Pressure 153/92 12/10/18 03:20 O2 Sat by Pulse Oximetry (%) 96 12/10/18 03:20 Constitutional: Yes: Calm Eyes: Yes: Conjunctiva Clear, EOM Intact HENT: Yes: Atraumatic, Normocephalic Neck: Yes: Supple, Trachea Midline Cardiovascular: Yes: Regular Rate and Rhythm Respiratory: Yes: Diminished (decreased breath sounds at the bases). No: Wheezes ...Clubbing: No Gastrointestinal: Yes: Normal Bowel Sounds, Soft, Distention. No: Tenderness Edema: No Labs: CBC, BMP 12/09/18 20:19 12/09/18 20:19 Imaging - Results Chest X-ray: Report Reviewed, Image Reviewed Cat Scan: Report Reviewed, Image Reviewed (elevated left hemidiaphragm with distended bowels, mild nonspecific bilateral upper lobe ground glass opacities) Assessment/Plan r/o Acute Asthma Exacerbation Colonic Distention appears to be chronic Mental Retardation Seizure Disorder - pt currently appears improved after receiving medrol and duonebs, no longer wheezing, saturating well on room air - can likely change steroids to PO prednisone 40mg daily and complete 5 day course - inhaled bronchodilators standing and PRN - O2 to keep Spo2 >90% - aspiration precautions - DVT prophylaxis Thank you for this consult Percy Bains MD
[2018-12-10] MEDS ORDERED: ALBUTEROL SO4 0.083% IH SOL 2.5 MG/3 ML VIAL.NEB. NEB PRN (09:25)
--- NOTE | 2018-12-10 10:14 | EKG ---
Test Reason : Blood Pressure : / mmHG Vent. Rate : 104 BPM Atrial Rate : 104 BPM P-R Int : 128 ms QRS Dur : 090 ms QT Int : 332 ms P-R-T Axes : 047 050 144 degrees QTc Int : 436 ms SINUS TACHYCARDIA NONSPECIFIC ST ABNORMALITY ABNORMAL ECG Confirmed by AAMIR GONZALEZ MD ([id number]) on 12/10/2018 10:14:25 AM Referred By: Confirmed By:AAMIR GONZALEZ MD
[2018-12-10] MEDS: ALBUTEROL SO4 2.5/IPRATROPIUM 0.5 INH SOL 3 ML VIAL.NEB. NEB SCH ×3 (11:23→20:37)
[2018-12-10] MEDS: POLYETHYLENE GLYCOL 3350 119 GM BTL PO SCH ×2 (11:24→22:04)
[2018-12-10] MEDS: ENOXAPARIN NA (PORCINE) 40 MG/0.4 ML DISP.SYRIN SQ SCH (11:24)
[2018-12-10] MEDS: PHENobarbital 30 MG TABLET PO SCH ×2 (11:24→22:02)
[2018-12-10] MEDS ORDERED: LORATADINE 10 MG TABLET PO SCH (22:00)
[2018-12-10] MEDS ORDERED: carBAMazepine XR 400 MG TAB.ER.12H PO SCH (22:00)
[2018-12-11] MEDS: clonazePAM 0.5 MG TABLET PO SCH ×2 (06:05→15:28)
[2018-12-11 07:21] LABS: HEMATOCRIT 32.1 % (35.4-49); HEMOGLOBIN 10.7 GM/dL (11.7-16.9); MCH 29.7 pg (25.7-33.7); MCHC 33.4 g/dl (32.0-35.9); MEAN CELL VOLUME 88.7 fl (80-96); PLATELET COUNT 323 K/MM3 (134-434); RBC 3.62 M/mm3 (4.00-5.60); RDW 15.8 % (11.9-15.9); WHITE BLOOD COUNT 3.9 K/mm3 (4.0-10.0)
[2018-12-11 07:44] LABS: BILIRUBIN,TOTAL 0.3 mg/dL (0.2-1); BLOOD UREA NITROGEN 9.5 mg/dL (7-18); CALCIUM 8.6 mg/dL (8.5-10.1); CREATININE 0.7 mg/dL (0.55-1.3); POTASSIUM 4.4 mmol/L (3.5-5.1); TOT PROT 6.7 g/dl (6.4-8.2)
[2018-12-11] MEDS: ALBUTEROL SO4 2.5/IPRATROPIUM 0.5 INH SOL 3 ML VIAL.NEB. NEB SCH ×3 (07:49→16:11)
--- NOTE | 2018-12-11 09:07 | PN ---
Physical Exam: SUBJECTIVE: Patient seen and examined. No acute events overnight. Pt did not have a BM overnight, but had 4 movements with enema in ED. Pt is nonverbal. No family or aide was present at bedside. OBJECTIVE: Vital Signs Period Temp Pulse Resp BP Sys/Skinner Pulse Ox Last 24 Hr 97.3 F-99 F 75-101 18-20 100-160/77-98 GENERAL: The patient is sleeping and in no acute distress. Pt is nonverbal. HEAD: Large cyst on frontal bones at midline. EYES: PERRL, sclera anicteric, conjunctiva clear. No ptosis. ENT: Ears normal, nares patent, oropharynx clear without exudates, moist mucous membranes. NECK: Limited motion, no JVD or masses. LUNGS: Decreased breath sounds BL. Mild expiratory wheezing in lower lungs BL. No accessory muscle use. HEART: Regular rate and rhythm, S1, S2 without murmur, rub or gallop. ABDOMEN: Non-soft, distended, nontender, normoactive bowel sounds, no guarding, no rebound, no hepatosplenomegaly, no masses. EXTREMITIES: Retracted upper and lower BL, 2+ pulses, warm, well-perfused, no edema. NEUROLOGICAL: Gait not observed. PSYCH: Unable to assess due to mental status. SKIN: Warm, dry, normal turgor, no rashes or lesions noted Laboratory Results - last 24 hr 12/11/18 12/11/18 05:20 05:45 WBC 3.9 L RBC 3.62 L Hgb 10.7 L Hct 32.1 L D MCV 88.7 MCH 29.7 MCHC 33.4 RDW 15.8 Plt Count 323 MPV 7.0 L Sodium 135 L Potassium 4.4 Chloride 101 Carbon Dioxide 27 Anion Gap 7 L BUN 9.5 Creatinine 0.7 Est GFR (CKD-EPI)AfAm 128.43 Est GFR (CKD-EPI)NonAf 110.81 Random Glucose 72 L Calcium 8.6 Total Bilirubin 0.3 AST 25 ALT 26 Alkaline Phosphatase 117 Total Protein 6.7 Albumin 3.0 L Active Medications Albuterol Sulfate (Ventolin 0.083% Nebulizer Soln -) 1 amp NEB Q4H PRN PRN Reason: SHORT OF BREATH/WHEEZING Albuterol/Ipratropium (Duoneb -) 1 amp NEB RQID LINO Last Admin: 12/11/18 07:49 Dose: 1 amp Bisacodyl (Dulcolax Suppository -) 10 mg LA DAILY PRN PRN Reason: CONSTIPATION Carbamazepine (Tegretol Xr -) 200 mg PO DAILY [facility] Last Admin: 12/10/18 11:25 Dose: 200 mg Carbamazepine (Tegretol Xr -) 400 mg PO HS [facility] Last Admin: 12/10/18 22:03 Dose: 400 mg Clonazepam (Klonopin -) 0.5 mg PO TID [facility] Last Admin: 12/11/18 06:05 Dose: 0.5 mg Enoxaparin Sodium (Lovenox -) 40 mg SQ DAILY [facility] Last Admin: 12/10/18 11:24 Dose: 40 mg Loratadine (Claritin -) 10 mg PO HS [facility] Last Admin: 12/10/18 22:02 Dose: 10 mg Phenobarbital (Phenobarbital -) 60 mg PO BID [facility] Last Admin: 12/10/18 22:02 Dose: 60 mg Polyethylene Glycol (Miralax (For Daily Use) -) 17 gm PO BID [facility] Last Admin: 12/10/18 22:04 Dose: 17 gm Prednisone (Deltasone -) 40 mg PO DAILY [facility] Stop: 12/14/18 10:01 ASSESSMENT/PLAN: 48 y/o M w/PMH of dynamic ileus, cortical blindness, cerebral palsy, severe MR, previous sigmoid volvulus, esophagitis, epilepsy, and osteoporosis presents with chest congestion and constipation. #Constipation/fecal impaction #Asthma exacerbation vs compression of lungs 2/2 fecal impaction Pt clinical improving s/p medrol and duonebs 40mg Prednisone po daily (day 1 of 4 day course) Inhaled bronchodilators standing and prn O2 to keep SpO2 > 90% Aspiration precautions Pulm on board, recommend PFT as outpatient #DVT prophylaxis Lovenox 40mg SQ q24hrs #FEN Liquid diet as tolerated #Dispo Advance directtive - full code
[2018-12-11] MEDS ORDERED: PT OWN MED DRAWER 7, Y5N ONE (09:36)
[2018-12-11] MEDS: POLYETHYLENE GLYCOL 3350 119 GM BTL PO SCH (09:38)
[2018-12-11] MEDS: ENOXAPARIN NA (PORCINE) 40 MG/0.4 ML DISP.SYRIN SQ SCH (09:38)
[2018-12-11] MEDS: PHENobarbital 30 MG TABLET PO SCH (09:38)
[2018-12-11] MEDS ORDERED: predniSONE 20 MG TABLET (UD) PO SCH (10:00)
--- NOTE | 2018-12-11 10:58 | PN ---
Progress Note (short form) - Note Progress Note: PULMONARY Constitutional: Yes: Calm Eyes: Yes: Conjunctiva Clear, EOM Intact HENT: Yes: Atraumatic, Normocephalic Neck: Yes: Supple, Trachea Midline Cardiovascular: Yes: Regular Rate and Rhythm Respiratory: Yes: Diminished (decreased breath sounds at the bases). No: Wheezes ...Clubbing: No Gastrointestinal: Yes: Normal Bowel Sounds, Soft, Distention. No: Tenderness Edema: No Labs: REVIEWED Chest X-ray: Report Reviewed, Image Reviewed Cat Scan: Report Reviewed, Image Reviewed (elevated left hemidiaphragm with distended bowels, mild nonspecific bilateral upper lobe ground glass opacities) Assessment/Plan Acute Asthma Exacerbation Colonic Distention likely chronic Mental Retardation Seizure Disorder - changed to prednisone can start tapering - inhaled bronchodilators standing and PRN - O2 to keep Spo2 >90% - aspiration precautions - DVT prophylaxis Kerry GREEN MD
--- NOTE | 2018-12-11 11:22 | PN ---
Teaching Attending Note Name of Resident: Lizbeth Torres ATTENDING PHYSICIAN STATEMENT I saw and evaluated the patient. I reviewed the resident's note and discussed the case with the resident. I agree with the resident's findings and plan as documented. SUBJECTIVE: No acute events overnight. Pt is nonverbal. OBJECTIVE: Vital Signs Temperature 99 F 12/11/18 05:00 Pulse Rate 75 12/11/18 05:00 Respiratory Rate 18 12/11/18 05:00 Blood Pressure 128/77 12/11/18 05:00 O2 Sat by Pulse Oximetry (%) 96 12/10/18 03:20 GENERAL: The patient is sleeping and in no acute distress. Pt is nonverbal. EYES: PERRL, sclera anicteric, conjunctiva clear. ENT: Ears normal, oropharynx clear without exudates, moist mucous membranes. NECK: Limited motion, no JVD or masses. LUNGS: Decreased breath sounds BL. No wheezing. No accessory muscle use. HEART: Regular rate and rhythm, S1, S2 without murmur, rub or gallop. ABDOMEN: Non-soft, NT, normoactive bowel sounds, no guarding, no rebound, no hepatosplenomegaly, no masses. EXTREMITIES: Retracted upper and lower BL, 2+ pulses, warm, well-perfused, no edema. NEUROLOGICAL: Gait not observed. PSYCH: pt is nonverbal. SKIN: Warm, dry, normal turgor, no rashes or lesions noted CBCD WBC 3.9 K/mm3 (4.0-10.0) L 12/11/18 05:45 RBC 3.62 M/mm3 (4.00-5.60) L 12/11/18 05:45 Hgb 10.7 GM/dL (11.7-16.9) L 12/11/18 05:45 Hct 32.1 % (35.4-49) L D 12/11/18 05:45 MCV 88.7 fl (80-96) 12/11/18 05:45 MCHC 33.4 g/dl (32.0-35.9) 12/11/18 05:45 RDW 15.8 % (11.9-15.9) 12/11/18 05:45 Plt Count 323 K/MM3 (134-434) 12/11/18 05:45 MPV 7.0 fl (7.5-11.1) L 12/11/18 05:45 CMP Sodium 135 mmol/L (136-145) L 12/11/18 05:20 Potassium 4.4 mmol/L (3.5-5.1) 12/11/18 05:20 Chloride 101 mmol/L (98-107) 12/11/18 05:20 Carbon Dioxide 27 mmol/L (21-32) 12/11/18 05:20 Anion Gap 7 MMOL/L (8-16) L 12/11/18 05:20 BUN 9.5 mg/dL (7-18) 12/11/18 05:20 Creatinine 0.7 mg/dL (0.55-1.3) 12/11/18 05:20 Random Glucose 72 mg/dL (74-106) L 12/11/18 05:20 Calcium 8.6 mg/dL (8.5-10.1) 12/11/18 05:20 Total Bilirubin 0.3 mg/dL (0.2-1) 12/11/18 05:20 AST 25 U/L (15-37) 12/11/18 05:20 ALT 26 U/L (13-61) 12/11/18 05:20 Alkaline Phosphatase 117 U/L (45-117) 12/11/18 05:20 Total Protein 6.7 g/dl (6.4-8.2) 12/11/18 05:20 Albumin 3.0 g/dl (3.4-5.0) L 12/11/18 05:20 Current Medications Generic Name Dose Route Start Last Admin Trade Name Freq PRN Reason Stop Dose Admin Albuterol Sulfate 1 amp 12/10/18 09:25 Ventolin 0.083% Nebulizer Soln - NEB Q4H PRN SHORT OF BREATH/WHEEZING Albuterol/Ipratropium 1 amp 12/10/18 12:00 12/11/18 07:49 Duoneb - NEB 1 amp RQID LINO Administration Bisacodyl 10 mg 12/10/18 03:40 12/11/18 09:39 Dulcolax Suppository - [place] 10 mg DAILY PRN Administration CONSTIPATION Carbamazepine 200 mg 12/10/18 10:00 12/11/18 09:39 Tegretol Xr - PO 200 mg DAILY LINO Administration Carbamazepine 400 mg 12/10/18 22:00 12/10/18 22:03 Tegretol Xr - PO 400 mg HS LINO Administration Clonazepam 0.5 mg 12/10/18 06:00 12/11/18 06:05 Klonopin - PO 0.5 mg TID LINO Administration Enoxaparin Sodium 40 mg 12/10/18 10:00 12/11/18 09:38 Lovenox - SQ 40 mg DAILY LINO Administration Loratadine 10 mg 12/10/18 22:00 12/10/18 22:02 Claritin - PO 10 mg HS LINO Administration Phenobarbital 60 mg 12/10/18 10:00 12/11/18 09:38 Phenobarbital - PO 60 mg BID LINO Administration Polyethylene Glycol 17 gm 12/10/18 10:00 12/11/18 09:38 Miralax (For Daily Use) - PO 17 gm BID LINO Administration Prednisone 40 mg 12/11/18 10:00 12/11/18 09:38 Deltasone - PO 12/14/18 10:01 40 mg DAILY LINO Administration Home Medications Medication Instructions Recorded Calcium Carbonate/Vitamin D3 1 each PO BID 03/30/17 [Oystercal-D 500 mg-400 Unit Tb] Carbamazepine [Carbamazepine ER] 300 mg PO DAILY 03/30/17 Cetirizine HCl 10 mg PO HS 03/30/17 Fluticasone Prop 0.05% Nasal 1 - 2 spray NS DAILY 03/30/17 [Flonase -] Magnesium Hydrox 2400MG/30Ml [Milk 30 ml PO DAILY 03/30/17 of Magnesia -] Multivit-Min/FA/Lycopen/Lutein 5 5ml PO DAILY 03/30/17 [Vitrum 50 Plus Senior Tablet] Phenobarbital 64.8 mg PO BID 03/30/17 Sodium Chloride 500 mg PO BID 03/30/17 clonazePAM [Klonopin -] 0.5 mg PO TID 03/30/17 Polyethylene Glycol 3350 [Miralax 17 gm PO AM bottle 07/10/18 119 gm Btl -] Sennosides [Senna -] 2 tab PO HS PRN tablet 07/10/18 Albuterol 2.5/Ipratropium 0.5 1 amp NEB PRN 12/10/18 [Duoneb -] Bacitracin - [Bacitracin Topical 1 applic TP TID 12/10/18 Ointment -] Carbamazepine [Carbamazepine ER] 200 mg PO AM 12/10/18 Carbamazepine [Carbamazepine ER] 400 mg PO HS 12/10/18 Docusate Sodium 100 mg PO HS 12/10/18 Glycerin Suppository Adult - 1 each RC PRN 12/10/18 Chest X-ray: Report Reviewed, Image Reviewed Cat Scan: elevated left hemidiaphragm with distended bowels, mild nonspecific bilateral upper lobe ground glass opacities ASSESSMENT AND PLAN: Patient is a 48 year old man with PMHx of dynamic ileus, cortical blindness, sigmoid volvulus, severe MR (due to to cerebral anoxic injury), esophagitis, epilepsy, osteoporosis, sialoadenitis, porencephalic cysts and [employer] shunt sent from [facility] for congestion. # Acute Asthma Exacerbation : saturating well on room air , tapered dose of prednisone x 5 days ordered, nebiuler txs prn, O2 to keep Spo2 >90% # Chronic colonic Distention : aspiration precautions # Severe Mental Retardation from [facility] home # Seizure Disorder DVT prophylaxis
[2018-12-11] MEDS ORDERED: SCOPOLAMINE HYDROBROMIDE 1 PATCH PATCH.TD72 TD SCH (13:15)
--- NOTE | 2018-12-11 14:46 | DS ---
Physical Exam: SUBJECTIVE: Patient seen and examined. No acute events overnight. Pt did not have a BM overnight, but had 4 movements with enema in ED. Pt is nonverbal. No family or aide was present at bedside. OBJECTIVE: Vital Signs Period Temp Pulse Resp BP Sys/Skinner Pulse Ox Last 24 Hr 97.3 F-99 F 75-101 18-20 100-160/77-98 PHYSICAL EXAM GENERAL: The patient is sleeping and in no acute distress. Pt is nonverbal. HEAD: Large cyst on frontal bones at midline. EYES: PERRL, sclera anicteric, conjunctiva clear. No ptosis. ENT: Ears normal, nares patent, oropharynx clear without exudates, moist mucous membranes. NECK: Limited motion, no JVD or masses. LUNGS: Decreased breath sounds BL. Mild expiratory wheezing in lower lungs BL. No accessory muscle use. HEART: Regular rate and rhythm, S1, S2 without murmur, rub or gallop. ABDOMEN: Non-soft, distended, nontender, normoactive bowel sounds, no guarding, no rebound, no hepatosplenomegaly, no masses. EXTREMITIES: Retracted upper and lower BL, 2+ pulses, warm, well-perfused, no edema. NEUROLOGICAL: Gait not observed. PSYCH: Unable to assess due to mental status. SKIN: Warm, dry, normal turgor, no rashes or lesions noted LABS Laboratory Results - last 24 hr 12/11/18 12/11/18 05:20 05:45 WBC 3.9 L RBC 3.62 L Hgb 10.7 L Hct 32.1 L D MCV 88.7 MCH 29.7 MCHC 33.4 RDW 15.8 Plt Count 323 MPV 7.0 L Sodium 135 L Potassium 4.4 Chloride 101 Carbon Dioxide 27 Anion Gap 7 L BUN 9.5 Creatinine 0.7 Est GFR (CKD-EPI)AfAm 128.43 Est GFR (CKD-EPI)NonAf 110.81 Random Glucose 72 L Calcium 8.6 Total Bilirubin 0.3 AST 25 ALT 26 Alkaline Phosphatase 117 Total Protein 6.7 Albumin 3.0 L HOSPITAL COURSE: Date of Admission:12/10/18 Patient is a 48 y/o M who was admitted for constipation and chest congestion. The patient is a resident at [facility]. In the ED, he received Dulcolax suppository and a fleet enema that resulted in 4 bowel movements consistent with normal BM. Pulmonary was consulted for his chest congestion and and he was diagnosed with acute asthma exacerbation. Per pulm, he was prescribed a 5 day po Prednisone taper and inhaled albuterol prn. Pt has clinically improved since admission. Patient's vitals are stable, his breathing has improved, and he is clinically stable to be discharged. CXR: Elevated left hemidiaphragm and distended bowel loops, no infiltrate CT chest: BL upper lobe ground glass insterstitial findings, likely chronic CT abd: fecal impaction and colonic distension EKG: sinus tachycardia and nonspecific T wave changes Blood, urine cultures: negative Minutes to complete discharge: 35 Discharge Summary Reason For Visit: ABDOMINAL DISTENSION,FECA INPACTION,PNEUMONIA Current Active Problems Functional quadriplegia (Chronic) Intellectual disability (Chronic) Seizure (Chronic) Condition: Improved - Instructions Diet, Activity, Other Instructions: You were admitted to the hospital for constipation and difficulty breathing ( asthma exacerbation). We treated your constipation with medication and enema ( evacuation of stool with a tube) and your constipation improved. We treated your mild intermittent asthma with steroid medications (Prednisone) and your symptoms improved. You should continue this medication at home as follows: - 30mg Prednisone once per day for 2 days - Then, 20mg Prednisone once per day for 2 days - Then, 10mg Prednisone once per day for 1 day You should follow up with your Primary Care Provider in one week. You should resume all home medications as prescribed. You should return to the Emergency Department if you have difficulty breathing, constipation, chest pain, fevers, nausea, or vomiting. Referrals: Kahlil Mcdaniels Jr [Non Staff, Medical] - Disposition: LONG-TERM FACILITY - Home Medications Comprehensive Discharge Medication List: Ambulatory Orders Calcium Carbonate/Vitamin D3 [Oystercal-D 500 mg-400 Unit Tb] 1 each PO BID Carbamazepine [Carbamazepine ER] 300 mg PO DAILY 03/30/17 Cetirizine HCl 10 mg PO HS 03/30/17 Fluticasone Prop 0.05% Nasal [Flonase -] 1 - 2 spray NS DAILY 03/30/17 Magnesium Hydrox 2400MG/30Ml [Milk of Magnesia -] 30 ml PO DAILY 03/30/17 Multivit-Min/FA/Lycopen/Lutein [Vitrum 50 Plus Senior Tablet] 5 5ml PO DAILY Phenobarbital 64.8 mg PO BID 03/30/17 Sodium Chloride 500 mg PO BID 03/30/17 clonazePAM [Klonopin -] 0.5 mg PO TID 03/30/17 Polyethylene Glycol 3350 [Miralax 119 gm Btl -] 17 gm PO AM bottle 07/10/18 Sennosides [Senna -] 2 tab PO HS PRN tablet 07/10/18 Albuterol 2.5/Ipratropium 0.5 [Duoneb -] 1 amp NEB PRN 12/10/18 Bacitracin - [Bacitracin Topical Ointment -] 1 applic TP TID 12/10/18 Carbamazepine [Carbamazepine ER] 200 mg PO AM 12/10/18 Carbamazepine [Carbamazepine ER] 400 mg PO HS 12/10/18 Docusate Sodium 100 mg PO HS 12/10/18 Glycerin Suppository Adult - 1 each RC PRN 12/10/18 Prednisone See Taper PO DAILY #11 tablet 12/11/18 This patient is new to me today: No Emergency Visit: No Critical Care patient: No - Discharge Referral Referred to [facility] No
[2018-12-11 18:15] VITALS: BP 125/89; PULSE 102; TEMP 98.8
== END 2018-12-11 19:49 | disposition home or self-care (01) | DRG 202 ==
LOC: JER 19:08 → JERBED 12-10 01:44 → J8W 12-10 02:47
PROVIDERS: ADMIT Internal Medicine; ATTEND Internal Medicine
DX: J45.21 Mild intermittent asthma with (acute) exacerbation (principal); R53.2 Functional quadriplegia; F72 Severe intellectual disabilities; G40.802 Other epilepsy, not intractable, without status epilepticus; Q04.6 Congenital cerebral cysts; G80.1 Spastic diplegic cerebral palsy; E87.1 Hypo-osmolality and hyponatremia; M81.8 Other osteoporosis without current pathological fracture; K11.20 Sialoadenitis, unspecified; K56.41 Fecal impaction; K20.8 Other esophagitis; H47.619 Cortical blindness, unspecified side of brain; K21.9 Gastro-esophageal reflux disease without esophagitis; K63.89 Other specified diseases of intestine; R00.0 Tachycardia, unspecified; Q65.89 Other specified congenital deformities of hip
CPT/HCPCS: 36415; 71045-TC-FY; 71260-TC; 74177-TC; 80053; 81003; 82272; 83605; 83735; 84100; 85025; 85027; 85610; 85730; 87040; 87086; 93005; 93010; 94640; 99285-25; J7030

== ENCOUNTER → 2019-01-06 | Emergency (ER) | payer OTHER | LOC: JER 19:36 ==

== ENCOUNTER 2019-03-07 13:44 | Inpatient (IN) | payer OTHER ==
--- NOTE | 2019-03-07 15:27 | PDOC ---
History of Present Illness - General Chief Complaint: Pain Stated Complaint: ABDOMINAL PAIN Time Seen by Provider: 03/07/19 15:26 History Source: Patient Exam Limitations: No Limitations - History of Present Illness Initial Comments: Pt is a 48 yo M, with PMH of severe MR (2/2 anoxic brain injury from ), seizure ds, LBO, ileus, and sigmoid volvulus, who is presenting from [facility] via EMS for decreased stool output and abdominal distension despite receiving 3 soap steffany enemas. Pt has tolerated PO intake with no vomiting, but only had minimal stool output yesterday after the enemas, and had worsening abdominal distension today. Pt cannot provide further ROS due to non-verbal status. Allergies: NKDA PCP: DR. Mcdaniels ([place]) Social: No cigarette, alcohol, or drug use. No recent travel or sick contacts. Surgical: multiple ileus/volvulus in the past. Usually treated with bowel rest, strict GI regimen. Spinal fusion. Family: no relevant history. 03/07/19 15:27 03/07/19 17:40 03/07/19 17:47 03/07/19 17:55 Past History - Travel Traveled outside of the country in the last 30 days: No Close contact w/someone who was outside of country & ill: No - Past Medical History Allergies/Adverse Reactions: Allergies Allergy/AdvReac Type Severity Reaction Status Date / Time ceresin [From Eucerin] Allergy Verified 03/07/19 16:34 corn Allergy Verified 03/07/19 16:34 egg Allergy Verified 03/07/19 16:34 emollient combination no.33 Allergy Verified 03/07/19 16:34 [From Eucerin] isopropyl myristate Allergy Verified 03/07/19 16:34 [From Eucerin] lanolin alcohols Allergy Verified 03/07/19 16:34 [From Eucerin] latex Allergy Verified 03/07/19 16:34 mineral oil [From Eucerin] Allergy Verified 03/07/19 16:34 petrolatum,white Allergy Verified 03/07/19 16:34 [From Eucerin] phenytoin sodium Allergy Verified 03/07/19 16:34 [From Dilantin] phenytoin sodium extended Allergy Verified 03/07/19 16:34 [From Dilantin] soap [From Eucerin] Allergy Verified 03/07/19 16:34 strawberry Allergy Verified 03/07/19 16:34 water [From Eucerin] Allergy Verified 03/07/19 16:34 barley Allergy Uncoded 03/07/19 16:34 rye Allergy Uncoded 03/07/19 16:34 Home Medications: Ambulatory Orders Calcium Carbonate/Vitamin D3 [Oystercal-D 500 mg-400 Unit Tb] 1 each PO BID Cetirizine HCl 10 mg PO HS 03/30/17 Fluticasone Prop 0.05% Nasal [Flonase -] 1 - 2 spray NS DAILY 03/30/17 Magnesium Hydrox 2400MG/30Ml [Milk of Magnesia -] 30 ml PO PRN PRN 03/30/17 Multivit-Min/FA/Lycopen/Lutein [Vitrum 50 Plus Senior Tablet] 5 5ml PO AM Phenobarbital 64.8 mg PO BID 03/30/17 clonazePAM [Klonopin -] 0.5 mg PO TID 03/30/17 Sennosides [Senna -] 2 tab PO HS PRN tablet 07/10/18 Albuterol 2.5/Ipratropium 0.5 [Duoneb -] 1 amp NEB PRN PRN 12/10/18 Docusate Sodium [Colace -] 300 mg PO HS #0 capsule 01/07/19 Polyethylene Glycol 3350 [Miralax 119 gm Btl -] 17 gm PO BID bottle 01/07/19 Sodium Chloride 500 mg PO BID 01/07/19 Carbamazepine [Carbamazepine ER] 400 mg PO HS 03/07/19 Carbamazepine [Carbamazepine ER] 500 mg PO AM 03/07/19 Electrolyte,Oral [Pedialyte -] 120 ml PO QID 03/07/19 Simethicone 80 mg PO Q6H PRN 03/07/19 Anemia: No Asthma: No Cancer: No Cardiac Disorders: No CVA: No COPD: No CHF: No Dementia: No Diabetes: No GI Disorders: Yes (esophagitis) Disorders: No HTN: No Hypercholesterolemia: No Liver Disease: No Seizures: Yes (general convulsive epilepsy) Thyroid Disease: No Other medical history: fecal impaction - Surgical History Abdominal Surgery: No Appendectomy: No Cardiac Surgery: No Cholecystectomy: No Lung Surgery: No Neurologic Surgery: No - Immunization History Immunization Up to Date: Yes - Psycho Social/Smoking Cessation Hx Smoking History: Never smoked Have you smoked in the past 12 months: No Hx Alcohol Use: No Drug/Substance Use Hx: No Substance Use Type: None Hx Substance Use Treatment: No Review of Systems - Review of Systems Able to Perform ROS?: No (see HPI; non-verbal) *Physical Exam - Vital Signs Last Vital Signs Temp Pulse Resp BP Pulse Ox 77 18 125/91 03/07/19 13:57 03/07/19 13:57 03/07/19 13:57 - Physical Exam Comments: Vitals stable, pt afebrile. Pt in NAD, thin body habitus. Pt alert with spontaneous eye opening. Pt non-verbal at baseline. 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 Chronic contracture of arms and legs. No midline spinal tenderness, step-offs, or crepitus. Head atraumatic. Chronic frontal bone mass. Eyes PERRLA, EOMI. Oropharynx without erythema or exudates, no LAD b/l. No nasal congestion. Hearing intact. Clear heart sounds, S1/S2, no JVD, b/l pedal edema, or heart murmur. Clear lung sounds, no respiratory distress, wheezes, crackles, or accessory muscle use. Hypoactive bowel sounds with firm distension. No rebound, no guarding, or grimace noted. Rectal exam with minimal stool in the vault. Small amount of loose brown stool present. Skin without jaundice or rash. 03/07/19 17:56 ED Treatment Course - LABORATORY CBC & Chemistry Diagram: 03/07/19 15:57 03/07/19 15:57 Medical Decision Making - Medical Decision Making Pt was seen at bedside, also will be seen by attending Dr. Morton. Pt presenting with worsening abdominal distension and minimal stool output, even after use of soap enemas at [place]. Will evaluate with labs and flat/upright abdominal x-ray for signs of obstruction or perforation. Will continue to reassess pt and monitor for symptomatic improvement. ECG: NSR, intervals WNL (HR 74, Pr 150, QRS 86, QTc 421). No TWIs or significant ST segment changes. No significant changes from prior ECG (01/07/2019) . 03/07/19 17:58 CBC and CMP WNL Provided semethicone for gas. Pt now passing loose brown stool, will hold on fleet enema. No air-fluid levels noted on abdominal x-rays, but extensive distended bowel loops consistent with prior x-rays. Will obtain non-contrast CT abd/pelvis to evaluate for obstruction. Pt admitted to hospitalist team. Pt requires NPO/bowel rest and evaluation by GI to determine if pt needs changes to bowel regimen. Pending CT to evaluate for obstruction. Pt resting comfortably. 03/07/19 18:04 Discharge - Discharge Information Problems reviewed: Yes Clinical Impression/Diagnosis: Ileus Condition: Stable - Admission Yes - Follow up/Referral - Patient Discharge Instructions - Post Discharge Activity
--- NOTE | 2019-03-07 15:45 | PDOC ---
Attending Attestation - Resident Resident Name: SaraGabi - ED Attending Attestation I have performed the following: I have examined & evaluated the patient, The case was reviewed & discussed with the resident, I agree w/resident's findings & plan, Exceptions are as noted - HPI HPI: 03/07/19 16:32 48yo male from [place] with hx of anoxia and sever MR with hx of ileus, lbo, sigmoid volvulus with distended abd. Pt has tolerated po. No n/v. Per the aide- at baseline other than distended abd. Pt with wet diaper upon arrival, but no stool. Pt with distended tympanic abd. Pt unable to provide any hx. - Physicial Exam PE: 03/07/19 16:35 Gen: awake, grinding teeth, moans heart: +s1s2 reg lungs: cta b/l abd: distended, tympanic, hypoactive bs ext: contracted UE and stiff LE neuro: awake, at baseline ms, moans and grinds teeth - Medical Decision Making 03/07/19 16:34 a/p: 48yo male with distended abd from [place] -concern for obstruction again -given 3 soap steffany enemas with minimal outpt, and now more distended -no n/v and pt is tolerating po -otherwise at baseline -labs sent, xray ordered -will review xray and monitor 03/07/19 17:10 dilated loops of airfilled bowel similar to prior presentation will give fleet for small amount of stool felt on rectal will give simethicone for air will admit to [facility] for bowel rest and further evla 03/07/19 17:24 resident discussed the case with waynelenora who accepts pt to service and requests ct imaging
[2019-03-07 16:04] LABS: EOS % 5.4 % (0-4.5); HEMATOCRIT 41.5 % (35.4-49); HEMOGLOBIN 14.2 GM/dL (11.7-16.9); LYMPH % 31.5 % (8-40); MCH 30.9 pg (25.7-33.7); MCHC 34.1 g/dl (32.0-35.9); MEAN CELL VOLUME 90.5 fl (80-96); MEAN PLT VOLUME 7.5 fl (7.5-11.1); MONO % 14.7 % (3.8-10.2); NEUT % 47.4 % (42.8-82.8); PLATELET COUNT 527 K/MM3 (134-434); RBC 4.58 M/mm3 (4.00-5.60); RDW 15.7 % (11.9-15.9)
[2019-03-07 16:42] LABS: ALBUMIN 3.9 g/dl (3.4-5.0); BILIRUBIN,TOTAL 0.3 mg/dL (0.2-1); BLOOD UREA NITROGEN 5.1 mg/dL (7-18); CALCIUM 9.5 mg/dL (8.5-10.1); CREATININE 0.7 mg/dL (0.55-1.3); POTASSIUM 5.2 mmol/L (3.5-5.1); TOT PROT 8.7 g/dl (6.4-8.2)
[2019-03-07] MEDS ORDERED: SODIUM CHLORIDE 1,000 ML IV STA (17:03)
[2019-03-07] MEDS ORDERED: SIMETHICONE 80 MG TAB.CHEW (FP) PO STA (17:09)
[2019-03-07 17:10] LABS: PLATELET ESTIMATE SLT INCREASE
[2019-03-07] MEDS ORDERED: SODIUM PHOSPHATE/NA BIPHOS 133 ML ENEMA PR ONE (17:10)
--- NOTE | 2019-03-07 17:54 | HP ---
CHIEF COMPLAINT: sent from [place] with abdominal Distension PCP: Dr. Mcdaniels HISTORY OF PRESENT ILLNESS: History obtained from charts, ED and [facility] RN. 48 yom with PMhx of dynamic ileus, cortical blindness, sigmoid volvulus, severe MR (due to to cerebral anoxic injury), esophagitis, epilepsy, osteoporosis, sialoadenitis, porencephalic cysts and FLOATER OPERATOR shunt, recurrent admissions with abdominal distension suspected from constipation/gas, that usually responds to enema was noted with abdominal distension, by his RN at [facility] yesterday, had a soap steffany enema after which had multiple loose BM with softer abdomen. Today again was noted with recurrent abdominal distension and sent to the ED. Per RN, has been eating well over the last few days, no fevers, chills, worsening cough or new concerns. Recent Travel: None PAST MEDICAL HISTORY: dynamic ileus, cortical blindness, sigmoid volvulus, severe MR (due to to cerebral anoxic injury), esophagitis, epilepsy, osteoporosis, sialoadenitis, porencephalic cysts and FLOATER OPERATOR shunt, recurrent admissions with abdominal distension suspected from constipation/gas, that usually responds to enema PAST SURGICAL HISTORY: thoracolumbar maryuri surgery Social History: Smoking: none Alcohol: none Drugs: none [facility] resident, dependent in ADLs Allergies ceresin [From Eucerin] Allergy (Verified 03/07/19 16:34) corn Allergy (Verified 03/07/19 16:34) egg Allergy (Verified 03/07/19 16:34) emollient combination no.33 [From Eucerin] Allergy (Verified 03/07/19 16:34) isopropyl myristate [From Eucerin] Allergy (Verified 03/07/19 16:34) lanolin alcohols [From Eucerin] Allergy (Verified 03/07/19 16:34) latex Allergy (Verified 03/07/19 16:34) mineral oil [From Eucerin] Allergy (Verified 03/07/19 16:34) petrolatum,white [From Eucerin] Allergy (Verified 03/07/19 16:34) phenytoin sodium [From Dilantin] Allergy (Verified 03/07/19 16:34) phenytoin sodium extended [From Dilantin] Allergy (Verified 03/07/19 16:34) soap [From Eucerin] Allergy (Verified 03/07/19 16:34) strawberry Allergy (Verified 03/07/19 16:34) water [From Eucerin] Allergy (Verified 03/07/19 16:34) barley Allergy (Uncoded 03/07/19 16:34) rye Allergy (Uncoded 03/07/19 16:34) HOME MEDICATIONS: Home Medications Medication Instructions Recorded Calcium Carbonate/Vitamin D3 1 each PO BID 03/30/17 [Oystercal-D 500 mg-400 Unit Tb] Cetirizine HCl 10 mg PO HS 03/30/17 Fluticasone Prop 0.05% Nasal 1 - 2 spray NS DAILY 03/30/17 [Flonase -] Magnesium Hydrox 2400MG/30Ml [Milk 30 ml PO PRN PRN 03/30/17 of Magnesia -] Multivit-Min/FA/Lycopen/Lutein 5 5ml PO AM 03/30/17 [Vitrum 50 Plus Senior Tablet] Phenobarbital 64.8 mg PO BID 03/30/17 clonazePAM [Klonopin -] 0.5 mg PO TID 03/30/17 Sennosides [Senna -] 2 tab PO HS PRN tablet 07/10/18 Albuterol 2.5/Ipratropium 0.5 1 amp NEB PRN PRN 12/10/18 [Duoneb -] Docusate Sodium [Colace -] 300 mg PO HS #0 capsule 01/07/19 Polyethylene Glycol 3350 [Miralax 17 gm PO BID bottle 01/07/19 119 gm Btl -] Sodium Chloride 500 mg PO BID 01/07/19 Carbamazepine [Carbamazepine ER] 400 mg PO HS 03/07/19 Carbamazepine [Carbamazepine ER] 500 mg PO AM 03/07/19 Electrolyte,Oral [Pedialyte -] 120 ml PO QID 03/07/19 Simethicone 80 mg PO Q6H PRN 03/07/19 REVIEW OF SYSTEMS 12 point ROS, per RN at the facility. Unable to get from the patient. PHYSICAL EXAMINATION Vital Signs - 24 hr 03/07/19 03/07/19 13:57 17:31 Temperature 97.8 F Pulse Rate 77 Respiratory 18 Rate Blood Pressure 125/91 Intake & Output 03/04/19 03/05/19 03/06/19 03/07/19 23:59 23:59 23:59 23:59 Weight 107 lb 3.2 oz GENERAL:awake, groans intermittently (baseline per aide at bedside), no acute distress HEAD: large cyst on frontal area EYES: Pupils equal, round and reactive to light, extraocular movements intact, sclera anicteric, conjunctiva clear. No lid lag. EARS, NOSE, THROAT: Ears normal, nares patent, oropharynx clear without exudates. Moist mucous membranes. NECK: soft, supple, no JVD LUNGS: limited exam given lack of co-operation, pos air entry, no rales or wheezing appreciated HEART: Regular rate and rhythm, normal S1 and S2 ABDOMEN: tympanic, distended, positive bowel sounds all over, no moaning on superificial or deep palpation, no voluntary or involuntary guarding or rigidity RECTAL: brown liquid stools felt in rectal vault, episodes of flatulence during the exam, MUSCULOSKELETAL: contractures, limited upper and lower extremity ROM UPPER EXTREMITIES: contractures, no edema LOWER EXTREMITIES: contractures, no edema NEUROLOGICAL: awake, responds to name intermittent groaning, facial symmetry, Extremities contractures, moves freely, further exam limited. PSYCHIATRIC: Groans, unco-operative SKIN: Warm, dry, normal turgor, no rashes or lesions noted, normal capillary refill. Laboratory Results - last 24 hr 03/07/19 03/07/19 15:57 15:57 WBC 5.0 RBC 4.58 Hgb 14.2 Hct 41.5 D MCV 90.5 MCH 30.9 MCHC 34.1 RDW 15.7 Plt Count 527 H D MPV 7.5 Absolute Neuts (auto) 2.4 Neutrophils % 47.4 D Lymphocytes % 31.5 D Monocytes % 14.7 H Eosinophils % 5.4 H D Basophils % 1.0 Nucleated RBC % 0 Platelet Estimate Slt increase Platelet Comment Sodium 130 L Potassium 5.2 H Chloride 93 L Carbon Dioxide 29 Anion Gap 7 L BUN 5.1 L Creatinine 0.7 Est GFR (CKD-EPI)AfAm 128.43 Est GFR (CKD-EPI)NonAf 110.81 Random Glucose 82 Calcium 9.5 Total Bilirubin 0.3 AST 50 H ALT 33 Alkaline Phosphatase 162 H Total Protein 8.7 H Albumin 3.9 Lipase 91 Abdominal Xray and Chest xray images reviewed ASSESSMENT/PLAN: 48 yom with PMhx of dynamic ileus, cortical blindness, sigmoid volvulus, severe MR (due to to cerebral anoxic injury), esophagitis, epilepsy, osteoporosis, sialoadenitis, porencephalic cysts and FLOATER OPERATOR shunt, recurrent admissions with abdominal distension suspected from constipation/gas, that usually responds to enema admitted with abdominal distension. -Abdominal distension, suspect from constipation/Gas, less likely ileus vs SBO -Severe MR (due to cerebral anoxic injury) -h/o dynamic ileus/Sigmoid volvulus -Cortical blindness -Esophagitis -Epilepsy -Osteoporosis -Sialoadenitis -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FLOATER OPERATOR shunt Plan: soft BM in the ED, passing gas. Low suspicion for ileus or SBO currently. Soap steffany enema x 1. Serial abdominal exams NPO CT A/P PO anti-epileptics DVTPPX lovenox Dispo d/c back to [facility] if symptoms resolve Discussed with Ed and aide at bedside Collateral information from RN at [facility] Admit to med-surg Total admit time 65 min. Family Medical History Family History: Unable to Obtain Visit type - Emergency Visit Emergency Visit: Yes Care time: The patient presented to the Emergency Department on the above date and was hospitalized for further evaluation of their emergent condition. - New Patient This patient is new to me today: Yes Date on this admission: 03/07/19 - Critical Care Critical Care patient: No
[2019-03-07] MEDS ORDERED: SIMETHICONE 80 MG TAB.CHEW (FP) PO PRN (18:06)
[2019-03-07] MEDS ORDERED: SENNOSIDES 8.6MG TABLET (FP) PO PRN (18:06)
[2019-03-07] MEDS ORDERED: ALBUTEROL SO4 2.5/IPRATROPIUM 0.5 INH SOL 3 ML VIAL.NEB. NEB PRN ×2 (18:06→18:32)
[2019-03-07] MEDS: DEXTROSE 5%-NORMAL SALINE 1,000 ML IV SCH (18:33)
[2019-03-07 21:16] LABS: EPI CELLS 1.5 /HPF (0-5/HPF); HYALINE CASTS 64 /lpf (0-8); URINE APPEARANCE CLOUDY; URINE BACTERIA 5988.7 /hpf (NEGATIVE); URINE BILIRUBIN NEGATIVE (NEGATIVE); URINE COLOR YELLOW; URINE GLUCOSE (UA) NEGATIVE (NEGATIVE); URINE KETONE NEGATIVE (NEGATIVE); URINE LEUK ESTERASE 3+ (NEGATIVE); URINE NITRITE POSITIVE (NEGATIVE); URINE PROTEIN NEGATIVE (NEGATIVE); URINE RBC 79 /hpf (0-4); URINE UROBILINOGEN 0.2 mg/dL (0.2-1.0); URINE WBC 129 /hpf (0-5)
[2019-03-08] MEDS ORDERED: PHENobarbital 30 MG TABLET PO SCH (01:12)
[2019-03-08] MEDS: DEXTROSE 5%-NORMAL SALINE 1,000 ML IV SCH ×3 (01:28→21:44)
[2019-03-08] MEDS: LORATADINE 10 MG TABLET PO SCH ×2 (01:28→21:45)
[2019-03-08] MEDS: carBAMazepine XR 400 MG TAB.ER.12H PO SCH ×2 (01:29→21:45)
[2019-03-08] MEDS: DOCUSATE SODIUM 100 MG CAPSULE (FP) PO SCH ×2 (01:29→21:45)
[2019-03-08] MEDS: clonazePAM 0.5 MG TABLET PO SCH ×4 (01:29→21:45)
[2019-03-08] MEDS: POLYETHYLENE GLYCOL 3350 119 GM BTL PO SCH ×4 (01:30→21:46)
[2019-03-08] MEDS: PHENobarbital 30 MG TABLET PO SCH ×3 (01:36→21:45)
--- NOTE | 2019-03-08 02:58 | PN ---
Progress Note (short form) - Note Progress Note: 48 y.o. M PMH dynamic ileus, cortical blindness, sigmoid volvulus, severe MR ( due to to cerebral anoxic injury), esophagitis, epilepsy, osteoporosis, sialoadenitis, porencephalic cysts and MANAGER GROUP shunt, recurrent hospital admissions for abdominal distension. Pt had soap steffany enema @ [place] yesterday with subsequent bowel movement, noted to remain distended & was brought into the hospital. Pt had CT abd/ pelvis done today, imaging brand ambassadors promotional sales results received by night team : -CT abd pel consistent with bowel obstruction 2/2 fecal impaction in the rectum. No volvulus, no obvious free intraperitoneal air or fluid identified. VS: 140/83 98.1F HR85 RR22 98% Phys exam: General: lying in bed, contracted, groaning intermittently Cardio: S1S2 heard no murmurs Pulm: CTABL Abd: + bowel sounds. Mildly tender (some groaning w/ palpation of abdomen). Tense, distended. No guarding noted. Rectal: No obvious external hemorrhoids/ bleeding/ fissures. Brown hard stool palpated within rectal vault. No digital hugo blood. #Bowel obstruction 2/2 fecal impaction -CT abd/pel report appreciated as above -Rectal exam performed -Manual disimpaction attempted, small amount of stool removed -Passing flatus -Dr. Taylor consulted Update as per 4:15AM, patient had 1 large bowel movement Case discussed with Dr. Cohen- night attending and Dr. Taylor- surgery Louise Roger M.D.-- Night float
[2019-03-08] MEDS: MULTIVITAMINS THER W-MINERALS COMBO TABLET (FP) PO SCH (06:35)
[2019-03-08 07:45] LABS: BASO % 0.7 % (0-2.0); EOS % 4.4 % (0-4.5); HEMATOCRIT 34.5 % (35.4-49); HEMOGLOBIN 11.6 GM/dL (11.7-16.9); LYMPH % 19.6 % (8-40); MCH 30.4 pg (25.7-33.7); MCHC 33.8 g/dl (32.0-35.9); MEAN CELL VOLUME 90.1 fl (80-96); MEAN PLT VOLUME 6.7 fl (7.5-11.1); MONO % 13.4 % (3.8-10.2); NEUT % 61.9 % (42.8-82.8); PLATELET COUNT 375 K/MM3 (134-434); RBC 3.83 M/mm3 (4.00-5.60); RDW 15.4 % (11.9-15.9)
[2019-03-08 08:29] LABS: ALBUMIN 3.2 g/dl (3.4-5.0); BILIRUBIN,TOTAL 0.4 mg/dL (0.2-1); BLOOD UREA NITROGEN 4.5 mg/dL (7-18); CALCIUM 8.3 mg/dL (8.5-10.1); CREATININE 0.6 mg/dL (0.55-1.3); MAGNESIUM 1.8 mg/dL (1.8-2.4); PHOSPHOROUS 3.7 mg/dL (2.5-4.9); POTASSIUM 4.3 mmol/L (3.5-5.1); TOT PROT 6.7 g/dl (6.4-8.2)
--- NOTE | 2019-03-08 09:57 | PN ---
Progress Note (short form) - Note Progress Note: HPI: Events overnight noted - manual disimpaction after imaging alerted to obstruction 2/2 to fecal retention in rectum. Pt today is in NAD and is comfortable in bed. Aide at bedside. 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 On RA CARD: RRR without murmurs appreciated ABD: Soft, nondistended, no grimmacing with palptation, hypoactive BS, no masses appreciated EXT: no edema CBC, BMP 03/08/19 06:59 03/08/19 06:59 Active Medications Albuterol/Ipratropium (Duoneb -) 1 amp NEB Q4H PRN PRN Reason: WHEEZING Carbamazepine (Tegretol Xr -) 400 mg PO HS [facility] Last Admin: 03/08/19 01:29 Dose: 400 mg Carbamazepine (Tegretol Xr -) 500 mg PO AM [facility] Last Admin: 03/08/19 10:55 Dose: 500 mg Clonazepam (Klonopin -) 0.5 mg PO TID [facility] Last Admin: 03/08/19 06:35 Dose: 0.5 mg Docusate Sodium (Colace -) 300 mg PO HS [facility] Last Admin: 03/08/19 01:29 Dose: 300 mg Enoxaparin Sodium (Lovenox -) 40 mg SQ DAILY [facility] Last Admin: 03/08/19 10:57 Dose: 40 mg Fluticasone Propionate (Flonase -) 2 spray NS DAILY [facility] Dextrose/Sodium Chloride (D5-Ns -) 1,000 mls @ 100 mls/hr IV ASDIR [facility] Last Admin: 03/08/19 01:28 Dose: 100 mls/hr Loratadine (Claritin -) 10 mg PO HS [facility] Last Admin: 03/08/19 01:28 Dose: 10 mg Multivitamins/Minerals (Theragran-M) 1 each PO AM [facility] Last Admin: 03/08/19 06:35 Dose: 1 each Phenobarbital (Phenobarbital -) 60 mg PO BID [facility] Last Admin: 03/08/19 10:51 Dose: 60 mg Polyethylene Glycol (Miralax (For Daily Use) -) 17 gm PO BID [facility] Last Admin: 03/08/19 11:00 Dose: Not Given Senna (Senna -) 2 tab PO HS PRN PRN Reason: CONSTIPATION Last Admin: 03/08/19 01:28 Dose: 2 tab Simethicone (Mylicon -) 80 mg PO Q6H PRN PRN Reason: GAS A/P Functional ileus 2/2 to fecal impaction Urinary Tract infection, complicated Cerebral anoxia with developmental delay Seizure disorder Sialoadenitis 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[employer]PER[employer] shunt --Markedly improved abdominal exam today --AXR to assess functional ileus/pSBO --Ordered soap-suds enema to be given --Continue Colace 200mg HS, Senna 2 tabs HS PRN, Miralax 17gm BID, Simethicone 80mg q6h PRN for constipation --UA suspicious for UTI --Urinary culture with straight cath Continue home seizure medications: Phenobarbital 60mg BID Klonopin 0.5mg TID Carbamazepine 500mg AM and 400mg HS FEN: Fluids: D5-1/2NS@100cc/hr Electrolyte abnormalities: Mild hyponatremia Nutrition: NPO except medications (sips) PPX: DVT - Lovenox SQ Dispo: continue monitoring Case discussed with Dr. Hallie Quezada, DO - IM PGY-3
[2019-03-08] MEDS ORDERED: PT OWN MED DRAWER 7, Y5N ONE (10:48)
[2019-03-08] MEDS: ENOXAPARIN NA (PORCINE) 40 MG/0.4 ML DISP.SYRIN SQ SCH (10:57)
--- NOTE | 2019-03-08 12:11 | PN ---
Teaching Attending Note Name of Resident: Joni Quezada ATTENDING PHYSICIAN STATEMENT I saw and evaluated the patient. I reviewed the resident's note and discussed the case with the resident. I agree with the resident's findings and plan as documented with exceptions below. SUBJECTIVE: patient seen and examined, non verbal, comfortable OBJECTIVE: Vital Signs Period Temp Pulse Resp BP Sys/Skinner Pulse Ox Last 24 Hr 97.8 F-98.4 F 77-98 18-22 125-147/74-91 97-98 Intake & Output 03/05/19 03/06/19 03/07/19 03/08/19 23:59 23:59 23:59 23:59 Intake Total 0 1000 Balance 0 1000 Weight 118 lb 6.4 oz General lying in stretcher, no acute distress Chest: decreased effort, no rales wheezing or rhonchi noted Abdomen:Soft resolved distension, no grimacing on palpation, no voluntary or involuntary guarding or rigidity, pos bowel sounds extremities: contractures Active Medications Albuterol/Ipratropium (Duoneb -) 1 amp NEB Q4H PRN PRN Reason: WHEEZING Carbamazepine (Tegretol Xr -) 400 mg PO HS [facility] Last Admin: 03/08/19 01:29 Dose: 400 mg Carbamazepine (Tegretol Xr -) 500 mg PO AM [facility] Last Admin: 03/08/19 10:55 Dose: 500 mg Clonazepam (Klonopin -) 0.5 mg PO TID [facility] Last Admin: 03/08/19 06:35 Dose: 0.5 mg Docusate Sodium (Colace -) 300 mg PO HS [facility] Last Admin: 03/08/19 01:29 Dose: 300 mg Enoxaparin Sodium (Lovenox -) 40 mg SQ DAILY [facility] Last Admin: 03/08/19 10:57 Dose: 40 mg Fluticasone Propionate (Flonase -) 2 spray NS DAILY [facility] Dextrose/Sodium Chloride (D5-Ns -) 1,000 mls @ 100 mls/hr IV ASDIR [facility] Last Admin: 03/08/19 01:28 Dose: 100 mls/hr Loratadine (Claritin -) 10 mg PO HS [facility] Last Admin: 03/08/19 01:28 Dose: 10 mg Multivitamins/Minerals (Theragran-M) 1 each PO AM [facility] Last Admin: 03/08/19 06:35 Dose: 1 each Phenobarbital (Phenobarbital -) 60 mg PO BID [facility] Last Admin: 03/08/19 10:51 Dose: 60 mg Polyethylene Glycol (Miralax (For Daily Use) -) 17 gm PO BID [facility] Last Admin: 03/08/19 11:00 Dose: Not Given Senna (Senna -) 2 tab PO HS PRN PRN Reason: CONSTIPATION Last Admin: 03/08/19 01:28 Dose: 2 tab Simethicone (Mylicon -) 80 mg PO Q6H PRN PRN Reason: GAS Laboratory Results - last 24 hr 03/07/19 03/07/19 03/07/19 15:30 15:57 15:57 WBC 5.0 RBC 4.58 Hgb 14.2 Hct 41.5 D MCV 90.5 MCH 30.9 MCHC 34.1 RDW 15.7 Plt Count 527 H D MPV 7.5 Absolute Neuts (auto) 2.4 Neutrophils % 47.4 D Lymphocytes % 31.5 D Monocytes % 14.7 H Eosinophils % 5.4 H D Basophils % 1.0 Nucleated RBC % 0 Platelet Estimate Slt increase Platelet Comment Sodium 130 L Potassium 5.2 H Chloride 93 L Carbon Dioxide 29 Anion Gap 7 L BUN 5.1 L Creatinine 0.7 Est GFR (CKD-EPI)AfAm 128.43 Est GFR (CKD-EPI)NonAf 110.81 Random Glucose 82 Calcium 9.5 Phosphorus Magnesium Total Bilirubin 0.3 AST 50 H ALT 33 Alkaline Phosphatase 162 H Creatine Kinase 191 Creatine Kinase Index 1.2 CK-MB (CK-2) 2.4 Troponin I < 0.02 Total Protein 8.7 H Albumin 3.9 Lipase 91 Urine Color Urine Appearance Urine pH Ur Specific [place] Urine Protein Urine Glucose (UA) Urine Ketones Urine Blood Urine Nitrite Urine Bilirubin Urine Urobilinogen Ur Leukocyte Esterase Urine WBC (Auto) Urine RBC (Auto) Urine Casts (Auto) U Pathogenic Cast Auto U Epithel Cells (Auto) Urine Bacteria (Auto) 03/07/19 03/08/19 03/08/19 20:35 06:59 06:59 WBC 4.0 RBC 3.83 L Hgb 11.6 L Hct 34.5 L D MCV 90.1 MCH 30.4 MCHC 33.8 RDW 15.4 Plt Count 375 D MPV 6.7 L D Absolute Neuts (auto) 2.5 Neutrophils % 61.9 D Lymphocytes % 19.6 D Monocytes % 13.4 H Eosinophils % 4.4 Basophils % 0.7 Nucleated RBC % 0 Platelet Estimate Platelet Comment Sodium 135 L Potassium 4.3 Chloride 102 Carbon Dioxide 26 Anion Gap 7 L BUN 4.5 L Creatinine 0.6 Est GFR (CKD-EPI)AfAm 136.83 Est GFR (CKD-EPI)NonAf 118.06 Random Glucose 81 Calcium 8.3 L Phosphorus 3.7 Magnesium 1.8 Total Bilirubin 0.4 AST 23 ALT 25 Alkaline Phosphatase 128 H Creatine Kinase Creatine Kinase Index CK-MB (CK-2) Troponin I Total Protein 6.7 Albumin 3.2 L Lipase Urine Color Yellow Urine Appearance Cloudy Urine pH 7.0 D Ur Specific [place] 1.015 Urine Protein Negative Urine Glucose (UA) Negative Urine Ketones Negative Urine Blood 2+ H Urine Nitrite Positive H Urine Bilirubin Negative Urine Urobilinogen 0.2 Ur Leukocyte Esterase 3+ H Urine WBC (Auto) 129 Urine RBC (Auto) 79 Urine Casts (Auto) 64 U Pathogenic Cast Auto None seen U Epithel Cells (Auto) 1.5 Urine Bacteria (Auto) 5988.7 CT A/P results reviewed Abdominal Xray from 03/08 images reviewed ASSESSMENT AND PLAN: 48 yom with PMhx of dynamic ileus, cortical blindness, sigmoid volvulus, severe MR (due to to cerebral anoxic injury), esophagitis, epilepsy, osteoporosis, sialoadenitis, porencephalic cysts and SHAREPOINT ADMINISTRATOR shunt, recurrent admissions with abdominal distension suspected from constipation/gas, that usually responds to enema admitted with abdominal distension. -Abdominal distension, suspect from constipation/Gas, less likely ileus vs SBO -Complicated UTI, suspect from constipation/fecal retention. -Severe MR (due to cerebral anoxic injury) -h/o dynamic ileus/Sigmoid volvulus -Cortical blindness -Esophagitis -Epilepsy -Osteoporosis -Sialoadenitis -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SHAREPOINT ADMINISTRATOR shunt Plan: Overnight events noted s/p fecal impaction Surgery consulted Patient was passing gas with loose BM in the ED. Current abdominal exam markedly improved, soft, resolved distension with pos bowel sounds Soap steffany enema x 1. Continue PO bowel regimen. Resume PO once BM if no further concerns. Send urine cx, start ceftriaxone PO anti-epileptics DVTPPX lovenox Dispo d/c back to [place] once symptoms resolve, likely in 48 hours. Discussed with nursing.
--- NOTE | 2019-03-08 13:17 | EKG ---
Test Reason : Blood Pressure : / mmHG Vent. Rate : 074 BPM Atrial Rate : 074 BPM P-R Int : 150 ms QRS Dur : 086 ms QT Int : 380 ms P-R-T Axes : 065 056 082 degrees QTc Int : 421 ms NORMAL SINUS RHYTHM INCREASED R/S RATIO IN V1, CONSIDER EARLY TRANSITION OR POSTERIOR INFARCT ABNORMAL ECG WHEN COMPARED WITH ECG OF 07-JAN-2019 02:50, NO SIGNIFICANT CHANGE WAS FOUND Confirmed by RUTH FOOTE MD ([id number]) on 03/08/2019 1:17:24 PM Referred By: Confirmed By:RUTH FOOTE MD
[2019-03-08] MEDS ORDERED: cefTRIAXone SODIUM 1 GM VIAL ONE (14:58)
[2019-03-08] MEDS ORDERED: DEXTROSE 5%-WATER - 50 ML IVPB ONE (14:58)
[2019-03-08] MEDS: CEFTRIAXONE 1 GM in DEXTROSE 5%-WATER - 50 ML IVPB SCH (14:59)
--- NOTE | 2019-03-08 15:41 | CONSULT ---
- Consultation REQUESTING PROVIDER: CONSULT REQUEST: We have been asked to surgically evaluate this patient for fecal impaction. PCP:Phong Sterling MD HISTORY OF PRESENT ILLNESS: The patient is a 48 yo male with a history of contracture, fecal impaction and ileus. He came to the hospital after being treated for constipation in his nursing facilty. He was noted to have distention and was treated with an enema. The patient had several bowel movements and the abdomen was softer. He was then again noted to be distended the following day and sent to ER for an evaluation. While here, he has had 1 bowel movement recorded. 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 Home Medications Medication Instructions Recorded Calcium Carbonate/Vitamin D3 1 each PO BID 03/30/17 [Oystercal-D 500 mg-400 Unit Tb] Cetirizine HCl 10 mg PO HS 03/30/17 Fluticasone Prop 0.05% Nasal 1 - 2 spray NS DAILY 03/30/17 [Flonase -] Magnesium Hydrox 2400MG/30Ml [Milk 30 ml PO PRN PRN 03/30/17 of Magnesia -] Multivit-Min/FA/Lycopen/Lutein 5 5ml PO AM 03/30/17 [Vitrum 50 Plus Senior Tablet] Phenobarbital 64.8 mg PO BID 03/30/17 clonazePAM [Klonopin -] 0.5 mg PO TID 03/30/17 Sennosides [Senna -] 2 tab PO HS PRN tablet 07/10/18 Albuterol 2.5/Ipratropium 0.5 1 amp NEB PRN PRN 12/10/18 [Duoneb -] Docusate Sodium [Colace -] 300 mg PO HS #0 capsule 01/07/19 Polyethylene Glycol 3350 [Miralax 17 gm PO BID bottle 01/07/19 119 gm Btl -] Sodium Chloride 500 mg PO BID 01/07/19 Carbamazepine [Carbamazepine ER] 400 mg PO HS 03/07/19 Carbamazepine [Carbamazepine ER] 500 mg PO AM 03/07/19 Electrolyte,Oral [Pedialyte -] 120 ml PO QID 03/07/19 Simethicone 80 mg PO Q6H PRN 03/07/19 Allergies Allergy/AdvReac Type Severity Reaction Status Date / Time ceresin [From Eucerin] Allergy Verified 03/07/19 16:34 corn Allergy Verified 03/07/19 16:34 egg Allergy Verified 03/07/19 16:34 emollient combination no.33 Allergy Verified 03/07/19 16:34 [From Eucerin] isopropyl myristate Allergy Verified 03/07/19 16:34 [From Eucerin] lanolin alcohols Allergy Verified 03/07/19 16:34 [From Eucerin] latex Allergy Verified 03/07/19 16:34 mineral oil [From Eucerin] Allergy Verified 03/07/19 16:34 petrolatum,white Allergy Verified 03/07/19 16:34 [From Eucerin] phenytoin sodium Allergy Verified 03/07/19 16:34 [From Dilantin] phenytoin sodium extended Allergy Verified 03/07/19 16:34 [From Dilantin] soap [From Eucerin] Allergy Verified 03/07/19 16:34 strawberry Allergy Verified 03/07/19 16:34 water [From Eucerin] Allergy Verified 03/07/19 16:34 barley Allergy Uncoded 03/07/19 16:34 rye Allergy Uncoded 03/07/19 16:34 REVIEW OF SYSTEMS: unable to obtain PHYSICAL EXAM: GENERAL: In no acute distress. ABDOMEN: Soft, nontender, Distended/tympanic. No masses or hernias noted. Rectal: No stool in the vault. No gross blood with exam, no masses noted. MUSCULOSKELETAL: bl contracted LE/and UE LOWER EXTREMITIES: 2+ pulses DP/ feet warm to touch. No ulcers/skin breakdown. Vital Signs Temperature 98.3 F 03/08/19 06:00 Pulse Rate 85 03/08/19 06:00 Respiratory Rate 22 H 03/08/19 06:00 Blood Pressure 127/74 03/08/19 06:00 O2 Sat by Pulse Oximetry (%) 97 03/07/19 22:03 Lab Results WBC 4.0 K/mm3 (4.0-10.0) 03/08/19 06:59 RBC 3.83 M/mm3 (4.00-5.60) L 03/08/19 06:59 Hgb 11.6 GM/dL (11.7-16.9) L 03/08/19 06:59 Hct 34.5 % (35.4-49) L D 03/08/19 06:59 MCV 90.1 fl (80-96) 03/08/19 06:59 MCHC 33.8 g/dl (32.0-35.9) 03/08/19 06:59 RDW 15.4 % (11.9-15.9) 03/08/19 06:59 Plt Count 375 K/MM3 (134-434) D 03/08/19 06:59 Sodium 135 mmol/L (136-145) L 03/08/19 06:59 Potassium 4.3 mmol/L (3.5-5.1) 03/08/19 06:59 Chloride 102 mmol/L (98-107) 03/08/19 06:59 Carbon Dioxide 26 mmol/L (21-32) 03/08/19 06:59 Anion Gap 7 MMOL/L (8-16) L 03/08/19 06:59 BUN 4.5 mg/dL (7-18) L 03/08/19 06:59 Creatinine 0.6 mg/dL (0.55-1.3) 03/08/19 06:59 Random Glucose 81 mg/dL (74-106) 03/08/19 06:59 Calcium 8.3 mg/dL (8.5-10.1) L 03/08/19 06:59 CT scan: Markedly distended air-filled colon. fecal material in the cecum/ rectum. No gross evidnece of colonic obstruction. Small bowel loops mildly distended wihtou evidence of small bowel obstruction Problem List - Problems (1) Abdominal distension Assessment/Plan: Case D/w Dr. Taylor, no evidnece of acute surgcial pathology. Pt with chronic large bowel dysfunction. Recommend GI consult/ enemas/oral medicaitons for fecal impaction. Npo/IV hydration with serial abd exams and abd xrays Monitor and replete electrolyes as needed. Code(s): R14.0 - ABDOMINAL DISTENSION (GASEOUS)
[2019-03-08] MEDS: FLUTICASONE PROP 0.05% 16 GM NASAL SPRAY NS SCH (19:16)
[2019-03-09] MEDS: clonazePAM 0.5 MG TABLET PO SCH ×3 (06:04→22:25)
[2019-03-09] MEDS: carBAMazepine XR 400 MG TAB.ER.12H PO SCH ×2 (06:04→22:27)
[2019-03-09] MEDS: MULTIVITAMINS THER W-MINERALS COMBO TABLET (FP) PO SCH (06:04)
[2019-03-09 08:37] LABS: HEMATOCRIT 34.5 % (35.4-49); HEMOGLOBIN 11.7 GM/dL (11.7-16.9); MCH 30.4 pg (25.7-33.7); MCHC 33.9 g/dl (32.0-35.9); MEAN CELL VOLUME 89.7 fl (80-96); MEAN PLT VOLUME 7.1 fl (7.5-11.1); PLATELET COUNT 352 K/MM3 (134-434); RBC 3.85 M/mm3 (4.00-5.60); RDW 15.3 % (11.9-15.9); WHITE BLOOD COUNT 2.6 K/mm3 (4.0-10.0)
[2019-03-09 08:59] LABS: BLOOD UREA NITROGEN 3.8 mg/dL (7-18); CALCIUM 8.5 mg/dL (8.5-10.1); CREATININE 0.5 mg/dL (0.55-1.3); MAGNESIUM 1.7 mg/dL (1.8-2.4); POTASSIUM 4.2 mmol/L (3.5-5.1)
[2019-03-09] MEDS ORDERED: cefTRIAXone SODIUM 1 GM VIAL ONE (09:20)
[2019-03-09] MEDS ORDERED: DEXTROSE 5%-WATER - 50 ML IVPB ONE (09:21)
[2019-03-09] MEDS: PHENobarbital 30 MG TABLET PO SCH ×2 (09:42→22:25)
[2019-03-09] MEDS: CEFTRIAXONE 1 GM in DEXTROSE 5%-WATER - 50 ML IVPB SCH (09:42)
[2019-03-09] MEDS: ENOXAPARIN NA (PORCINE) 40 MG/0.4 ML DISP.SYRIN SQ SCH (09:43)
[2019-03-09] MEDS: POLYETHYLENE GLYCOL 3350 119 GM BTL PO SCH ×2 (09:48→22:26)
--- NOTE | 2019-03-09 09:56 | PN ---
Teaching Attending Note Name of Resident: Joni Quezada ATTENDING PHYSICIAN STATEMENT I saw and evaluated the patient. I reviewed the resident's note and discussed the case with the resident. I agree with the resident's findings and plan as documented with exceptions below. SUBJECTIVE: patient seen and examined, comfortable, unable to assess for ROS. OBJECTIVE: Vital Signs Period Temp Pulse Resp BP Sys/Skinner Pulse Ox Last 24 Hr 97.4 F-98.9 F 67-100 18-20 125-148/61-96 98 Intake & Output 03/06/19 03/07/19 03/08/19 03/09/19 23:59 23:59 23:59 23:59 Intake Total 0 2100 1020 Balance 0 2100 1020 Weight 118 lb 6.4 oz General lying in stretcher, no acute distress Chest: decreased effort, no rales wheezing or rhonchi noted Abdomen:Soft, improved distension, no grimacing on palpation, no voluntary or involuntary guarding or rigidity, pos bowel sounds Extremities: Contractures Active Medications Albuterol/Ipratropium (Duoneb -) 1 amp NEB Q4H PRN PRN Reason: WHEEZING Carbamazepine (Tegretol Xr -) 400 mg PO HS [facility] Last Admin: 03/09/19 06:04 Dose: 400 mg Carbamazepine (Tegretol Xr -) 500 mg PO AM [facility] Last Admin: 03/09/19 06:06 Dose: 500 mg Clonazepam (Klonopin -) 0.5 mg PO TID [facility] Last Admin: 03/09/19 06:04 Dose: 0.5 mg Docusate Sodium (Colace -) 300 mg PO HS [facility] Last Admin: 03/08/19 21:45 Dose: 300 mg Enoxaparin Sodium (Lovenox -) 40 mg SQ DAILY [facility] Last Admin: 03/09/19 09:43 Dose: 40 mg Fluticasone Propionate (Flonase -) 2 spray NS DAILY [facility] Last Admin: 03/08/19 19:16 Dose: Not Given Dextrose/Sodium Chloride (D5-Ns -) 1,000 mls @ 100 mls/hr IV ASDIR [facility] Last Admin: 03/08/19 21:44 Dose: Not Given Ceftriaxone Sodium 1 gm/ (Dextrose) 50 mls @ 100 mls/hr IVPB DAILY [facility]; Protocol Last Admin: 03/09/19 09:42 Dose: 100 mls/hr Loratadine (Claritin -) 10 mg PO HS [facility] Last Admin: 03/08/19 21:45 Dose: 10 mg Multivitamins/Minerals (Theragran-M) 1 each PO AM [facility] Last Admin: 03/09/19 06:04 Dose: 1 each Phenobarbital (Phenobarbital -) 60 mg PO BID [facility] Last Admin: 03/09/19 09:42 Dose: 60 mg Polyethylene Glycol (Miralax (For Daily Use) -) 17 gm PO BID [facility] Last Admin: 03/09/19 09:48 Dose: Not Given Senna (Senna -) 2 tab PO HS PRN PRN Reason: CONSTIPATION Last Admin: 03/08/19 01:28 Dose: 2 tab Simethicone (Mylicon -) 80 mg PO Q6H PRN PRN Reason: GAS Laboratory Results - last 24 hr 03/09/19 03/09/19 07:16 07:16 WBC 2.6 L RBC 3.85 L Hgb 11.7 Hct 34.5 L MCV 89.7 MCH 30.4 MCHC 33.9 RDW 15.3 Plt Count 352 MPV 7.1 L Sodium 130 L Potassium 4.2 Chloride 95 L Carbon Dioxide 27 Anion Gap 8 BUN 3.8 L Creatinine 0.5 L Est GFR (CKD-EPI)AfAm 147.48 Est GFR (CKD-EPI)NonAf 127.25 Random Glucose 82 Calcium 8.5 Magnesium 1.7 L ASSESSMENT AND PLAN: 48 yom with PMhx of dynamic ileus, cortical blindness, sigmoid volvulus, severe MR (due to to cerebral anoxic injury), esophagitis, epilepsy, osteoporosis, sialoadenitis, porencephalic cysts and 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 -Abdominal distension, suspect from constipation/Gas, less likely ileus vs SBO -Complicated UTI, suspect from constipation/fecal retention. -Severe MR (due to cerebral anoxic injury) -h/o dynamic ileus/Sigmoid volvulus -Cortical blindness -Esophagitis -Epilepsy -Osteoporosis -Sialoadenitis -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RECREATIONAL LEADER shunt Plan: S/p fecal impaction on admission, s/p SSE yesterday, Passing gas, Abdominal exam continues to be better than admission. trial with fleet enema. Continue miralax/senna/colace. Surgery input noted Recurrent similar concerns. GI input. Resume diet once BM inhouse. Ceftriaxone day 2, follow up urine cultures. Continue anti-epileptics DVTPPX lovenox Dispo d/c back to [place] once symptoms resolve, likely in 24-48 hours. Discussed with nursing.
[2019-03-09] MEDS ORDERED: SODIUM PHOSPHATE/NA BIPHOS 133 ML ENEMA PR ONE (10:02)
[2019-03-09 11:42] VITALS: BMI 17.9
[2019-03-09] MEDS ORDERED: PT OWN MED DRAWER 7, Y5N ONE ×2 (11:45→21:40)
[2019-03-09] MEDS: DEXTROSE 5%-NORMAL SALINE 1,000 ML IV SCH ×3 (13:19→23:17)
--- NOTE | 2019-03-09 17:04 | PN ---
Progress Note (short form) - Note Progress Note: HPI: No overnight events. Pt comfortable without any significant BM last night/ this morning per RN. 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 On RA CARD: RRR without murmurs appreciated ABD: Soft, distended, tympanitic, no grimmacing with palptation, hypoactive BS, no masses appreciated EXT: no edema CBC, BMP 03/09/19 07:16 03/09/19 07:16 Active Medications Albuterol/Ipratropium (Duoneb -) 1 amp NEB Q4H PRN PRN Reason: WHEEZING Carbamazepine (Tegretol Xr -) 400 mg PO HS [facility] Last Admin: 03/09/19 06:04 Dose: 400 mg Carbamazepine (Tegretol Xr -) 500 mg PO AM [facility] Last Admin: 03/09/19 06:06 Dose: 500 mg Clonazepam (Klonopin -) 0.5 mg PO TID [facility] Last Admin: 03/09/19 15:00 Dose: 0.5 mg Docusate Sodium (Colace -) 300 mg PO HS [facility] Last Admin: 03/08/19 21:45 Dose: 300 mg Enoxaparin Sodium (Lovenox -) 40 mg SQ DAILY [facility] Last Admin: 03/09/19 09:43 Dose: 40 mg Fluticasone Propionate (Flonase -) 2 spray NS DAILY [facility] Last Admin: 03/08/19 19:16 Dose: Not Given Dextrose/Sodium Chloride (D5-Ns -) 1,000 mls @ 100 mls/hr IV ASDIR [facility] Last Admin: 03/09/19 13:19 Dose: 100 mls/hr Ceftriaxone Sodium 1 gm/ (Dextrose) 50 mls @ 100 mls/hr IVPB DAILY [facility]; Protocol Last Admin: 03/09/19 09:42 Dose: 100 mls/hr Loratadine (Claritin -) 10 mg PO HS [facility] Last Admin: 03/08/19 21:45 Dose: 10 mg Multivitamins/Minerals (Theragran-M) 1 each PO AM [facility] Last Admin: 03/09/19 06:04 Dose: 1 each Phenobarbital (Phenobarbital -) 60 mg PO BID [facility] Last Admin: 03/09/19 09:42 Dose: 60 mg Polyethylene Glycol (Miralax (For Daily Use) -) 17 gm PO BID [facility] Last Admin: 03/09/19 09:48 Dose: Not Given Senna (Senna -) 2 tab PO HS PRN PRN Reason: CONSTIPATION Last Admin: 03/08/19 01:28 Dose: 2 tab Simethicone (Mylicon -) 80 mg PO Q6H PRN PRN Reason: GAS A/P Functional ileus 2/2 to fecal impaction Urinary Tract infection, complicated Cerebral anoxia with developmental delay Seizure disorder Sialoadenitis 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JERSEY KNITTER shunt --AXR reviewed today; no significant change compared to yesterday --Continue Colace 200mg HS, Senna 2 tabs HS PRN, Miralax 17gm BID, Simethicone 80mg q6h PRN for constipation --Urine culture with G- bacilli, nonfermenter --Pt to initiate [place] --Await sensitivities of cultures Continue home seizure medications: Phenobarbital 60mg BID Klonopin 0.5mg TID Carbamazepine 500mg AM and 400mg HS GI consulted for recommendations FEN: Fluids: D5-NS@100cc/hr Electrolyte abnormalities: Mild hyponatremia (monitor) Nutrition: NPO except medications (sips) PPX: DVT - Lovenox SQ Dispo: continue monitoring Case discussed with Dr. Hallie Quezada, DO - IM PGY-3
--- NOTE | 2019-03-09 18:46 | CON.GI ---
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 Please see H&P - Past Surgical History Past Surgical History: Yes: Colonoscopy (flex sig for decompression Mar 2017) - Alcohol/Substance Use Hx Alcohol Use: No History of Substance Use: reports: None - Smoking History Smoking history: Never smoked Have you smoked in the past 12 months: No - Social History Usual Living Arrangement: Other (residential facility) ADL: Support Services Home Medications - Allergies Allergies/Adverse Reactions: Allergies Allergy/AdvReac Type Severity Reaction Status Date / Time ceresin [From Eucerin] Allergy Verified 03/07/19 16:34 corn Allergy Verified 03/07/19 16:34 egg Allergy Verified 03/07/19 16:34 emollient combination no.33 Allergy Verified 03/07/19 16:34 [From Eucerin] isopropyl myristate Allergy Verified 03/07/19 16:34 [From Eucerin] lanolin alcohols Allergy Verified 03/07/19 16:34 [From Eucerin] latex Allergy Verified 03/07/19 16:34 mineral oil [From Eucerin] Allergy Verified 03/07/19 16:34 petrolatum,white Allergy Verified 03/07/19 16:34 [From Eucerin] phenytoin sodium Allergy Verified 03/07/19 16:34 [From Dilantin] phenytoin sodium extended Allergy Verified 03/07/19 16:34 [From Dilantin] soap [From Eucerin] Allergy Verified 03/07/19 16:34 strawberry Allergy Verified 03/07/19 16:34 water [From Eucerin] Allergy Verified 03/07/19 16:34 barley Allergy Uncoded 03/07/19 16:34 rye Allergy Uncoded 03/07/19 16:34 - Home Medications Home Medications: Ambulatory Orders Calcium Carbonate/Vitamin D3 [Oystercal-D 500 mg-400 Unit Tb] 1 each PO BID Cetirizine HCl 10 mg PO HS 03/30/17 Fluticasone Prop 0.05% Nasal [Flonase -] 1 - 2 spray NS DAILY 03/30/17 Magnesium Hydrox 2400MG/30Ml [Milk of Magnesia -] 30 ml PO PRN PRN 03/30/17 Multivit-Min/FA/Lycopen/Lutein [Vitrum 50 Plus Senior Tablet] 5 5ml PO AM Phenobarbital 64.8 mg PO BID 03/30/17 clonazePAM [Klonopin -] 0.5 mg PO TID 03/30/17 Sennosides [Senna -] 2 tab PO HS PRN tablet 07/10/18 Albuterol 2.5/Ipratropium 0.5 [Duoneb -] 1 amp NEB PRN PRN 12/10/18 Docusate Sodium [Colace -] 300 mg PO HS #0 capsule 01/07/19 Polyethylene Glycol 3350 [Miralax 119 gm Btl -] 17 gm PO BID bottle 01/07/19 Sodium Chloride 500 mg PO BID 01/07/19 Carbamazepine [Carbamazepine ER] 400 mg PO HS 03/07/19 Carbamazepine [Carbamazepine ER] 500 mg PO AM 03/07/19 Electrolyte,Oral [Pedialyte -] 120 ml PO QID 03/07/19 Simethicone 80 mg PO Q6H PRN 03/07/19 Physical Exam-GI Vital Signs: Vital Signs Temperature 97.3 F L 03/09/19 14:17 Pulse Rate 65 03/09/19 14:17 Respiratory Rate 20 03/09/19 14:17 Blood Pressure 160/69 03/09/19 14:17 O2 Sat by Pulse Oximetry (%) 98 03/08/19 21:00 Labs: CBC, BMP 03/09/19 07:16 03/09/19 07:16
[2019-03-09] MEDS: FLUTICASONE PROP 0.05% 16 GM NASAL SPRAY NS SCH (20:12)
[2019-03-09] MEDS: LORATADINE 10 MG TABLET PO SCH (22:25)
[2019-03-09] MEDS: DOCUSATE SODIUM 100 MG CAPSULE (FP) PO SCH (22:26)
--- NOTE | 2019-03-09 23:19 | CONS ---
DATE OF CONSULTATION: DATE OF DICTATION: 03/09/2019 HISTORY OF PRESENT ILLNESS: Patient is a 48-year-old man who is nonverbal. 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 The patient is nonverbal and does not contribute to the HPI, which is obtained from the chart. PAST MEDICAL AND SURGICAL HISTORY: As listed in the HPI, with the addition of thoracolumbar maryuri surgery. SOCIAL HISTORY: [facility] resident. No smoking, drinking, or drugs. ALLERGIES: EUCERINE, CORN, EGG, LATEX, MINERAL OIL, PETROLEUM, DILANTIN, STRAWBERRIES, BARLEY, AND RYE. HOME MEDICATIONS: Reviewed and include calcium, Flonase, cetirizine, milk of magnesia, multivitamin, phenobarbital, clonazepam, senna, nebulizers, Colace, MiraLAX, carbamazepine, and simethicone. REVIEW OF SYSTEMS: Unable to obtain secondary to the patient's mental status. PHYSICAL EXAMINATION: Vital Signs: Temperature 97, pulse 65, blood pressure 160/69, pulse oximetry 100% on room air, respiratory rate 12. General: No acute distress. HEENT: Anicteric sclerae. Cardiovascular: S1, S2. Regular rate and rhythm. Abdomen: Soft, nontender; however, examination is limited secondary to the patient's body habits and he is contracted. It is tympanitic on examination. Extremities: Without any edema. LABORATORY: White cell count is 2.6, hemoglobin 11, hematocrit 34, MCV 89, platelet count 352. Sodium 130, potassium 4.2, BUN 3.8, creatinine 0.5, total bilirubin is 0.4, AST 23, ALT 25, alkaline phosphatase 128, lipase of 91. Nitrite in the urine, 2+ blood, and 3+ leukocyte esterase. He had an abdominal CT scan, which was performed on admission without contrast, which revealed markedly limited study with colonic distention, possibly related to fecal impaction. Abdominal x-ray was done today and revealed previous spinal stabilization hardware with generalized abdominal distention involving large and small bowel. No sign of pneumatosis or free air. Since the study on the , there was not much change. IMPRESSION: A 48-year-old man with severe mental retardation, ileus and volvulus, most likely secondary to his underlying comorbidities, now with colonic distention, possibly pseudo-obstruction. RECOMMENDATION: Cleansing tap water enemas daily. A rectal tube should be placed for decompression as needed. He can be given Senna 2 tablets p.o. daily. Repeat abdominal x-ray in the morning. Monitor abdominal examination. I would also recommend surgical consultation for completeness. Monitor electrolytes and keep them within normal limits. Avoid narcotics. Patient will be followed by the GI service. DO DEB VELÁSQUEZ/[id number]
[2019-03-10] MEDS: clonazePAM 0.5 MG TABLET PO SCH ×3 (06:41→23:05)
[2019-03-10] MEDS: MULTIVITAMINS THER W-MINERALS COMBO TABLET (FP) PO SCH (06:41)
[2019-03-10 08:13] LABS: HEMOGLOBIN 12.8 GM/dL (11.7-16.9); MCH 30.4 pg (25.7-33.7); MCHC 33.7 g/dl (32.0-35.9); MEAN PLT VOLUME 6.9 fl (7.5-11.1); PLATELET COUNT 364 K/MM3 (134-434); RBC 4.23 M/mm3 (4.00-5.60)
[2019-03-10 08:39] LABS: BLOOD UREA NITROGEN 3.1 mg/dL (7-18); CALCIUM 8.5 mg/dL (8.5-10.1); CREATININE 0.5 mg/dL (0.55-1.3); MAGNESIUM 1.9 mg/dL (1.8-2.4); POTASSIUM 4.1 mmol/L (3.5-5.1)
[2019-03-10] MEDS ORDERED: DEXTROSE 5%-WATER - 50 ML IVPB ONE (11:02)
[2019-03-10] MEDS ORDERED: cefTRIAXone SODIUM 1 GM VIAL ONE (11:02)
[2019-03-10] MEDS: CEFTRIAXONE 1 GM in DEXTROSE 5%-WATER - 50 ML IVPB SCH (11:04)
[2019-03-10] MEDS: ENOXAPARIN NA (PORCINE) 40 MG/0.4 ML DISP.SYRIN SQ SCH (11:04)
[2019-03-10] MEDS: FLUTICASONE PROP 0.05% 16 GM NASAL SPRAY NS SCH (11:05)
[2019-03-10] MEDS: PHENobarbital 30 MG TABLET PO SCH ×2 (11:05→23:05)
[2019-03-10] MEDS: POLYETHYLENE GLYCOL 3350 119 GM BTL PO SCH ×2 (12:27→23:04)
--- NOTE | 2019-03-10 16:10 | PN ---
Progress Note (short form) - Note Progress Note: HPI: No overnight events. Pt comfortable. BM today noted. 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 On RA CARD: RRR without murmurs appreciated ABD: Soft, improved distention, no grimmacing with palptation, hypoactive BS, no masses appreciated EXT: no edema CBC, BMP 03/10/19 07:30 03/10/19 07:30 Hepatic Panel Total Bilirubin 0.4 mg/dL (0.2-1) 03/08/19 06:59 AST 23 U/L (15-37) 03/08/19 06:59 ALT 25 U/L (13-61) 03/08/19 06:59 Alkaline Phosphatase 128 U/L (45-117) H 03/08/19 06:59 Albumin 3.2 g/dl (3.4-5.0) L 03/08/19 06:59 Active Medications Albuterol/Ipratropium (Duoneb -) 1 amp NEB Q4H PRN PRN Reason: WHEEZING Carbamazepine (Tegretol Xr -) 400 mg PO HS LINO Last Admin: 03/09/19 22:27 Dose: 400 mg Carbamazepine (Tegretol Xr -) 500 mg PO AM LINO Last Admin: 03/10/19 06:41 Dose: 500 mg Clonazepam (Klonopin -) 0.5 mg PO TID LINO Last Admin: 03/10/19 14:38 Dose: 0.5 mg Docusate Sodium (Colace -) 300 mg PO HS LINO Last Admin: 03/09/19 22:26 Dose: 300 mg Enoxaparin Sodium (Lovenox -) 40 mg SQ DAILY LINO Last Admin: 03/10/19 11:04 Dose: 40 mg Fluticasone Propionate (Flonase -) 2 spray NS DAILY LINO Last Admin: 03/10/19 11:05 Dose: 2 sprays Ceftriaxone Sodium 1 gm/ (Dextrose) 50 mls @ 100 mls/hr IVPB DAILY LINO; Protocol Last Admin: 03/10/19 11:04 Dose: 100 mls/hr Loratadine (Claritin -) 10 mg PO HS LINO Last Admin: 03/09/19 22:25 Dose: 10 mg Multivitamins/Minerals (Theragran-M) 1 each PO AM [facility] Last Admin: 03/10/19 06:41 Dose: 1 each Phenobarbital (Phenobarbital -) 60 mg PO BID [facility] Last Admin: 03/10/19 11:05 Dose: 60 mg Polyethylene Glycol (Miralax (For Daily Use) -) 17 gm PO BID [facility] Last Admin: 03/10/19 12:27 Dose: Not Given Senna (Senna -) 2 tab PO HS PRN PRN Reason: CONSTIPATION Last Admin: 03/08/19 01:28 Dose: 2 tab Simethicone (Mylicon -) 80 mg PO Q6H PRN PRN Reason: GAS A/P Functional ileus 2/2 to fecal impaction Urinary Tract infection, complicated Cerebral anoxia with developmental delay Seizure disorder Sialoadenitis 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 RUG REPAIRER 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 --AXR reviewed today; no significant change compared to yesterday --Rectal tube for decompression --Continue Colace 200mg HS, Senna 2 tabs HS PRN, Miralax 17gm BID, Simethicone 80mg q6h PRN for constipation --Urine culture with G- bacilli, nonfermenter --Pt to initiate Rocpehin --Await sensitivities of cultures Continue home seizure medications: Phenobarbital 60mg BID Klonopin 0.5mg TID Carbamazepine 500mg AM and 400mg HS GI consulted for recommendations FEN: Fluids: D5-NS@100cc/hr Electrolyte abnormalities: Hypernatremia likely drawn close to line of NS given rapid increase Nutrition: NPO except medications PPX: DVT - Lovenox SQ Dispo: continue monitoring Case discussed with Dr. Jono Quezada, DO - IM PGY-3
[2019-03-10] MEDS: DOCUSATE SODIUM 100 MG CAPSULE (FP) PO SCH (23:04)
[2019-03-10] MEDS: LORATADINE 10 MG TABLET PO SCH (23:05)
[2019-03-10] MEDS: carBAMazepine XR 400 MG TAB.ER.12H PO SCH (23:05)
[2019-03-11] MEDS: MULTIVITAMINS THER W-MINERALS COMBO TABLET (FP) PO SCH (06:19)
[2019-03-11] MEDS: clonazePAM 0.5 MG TABLET PO SCH ×3 (06:19→23:23)
[2019-03-11 08:11] LABS: BLOOD UREA NITROGEN 7.9 mg/dL (7-18); CREATININE 0.6 mg/dL (0.55-1.3); POTASSIUM 3.8 mmol/L (3.5-5.1)
[2019-03-11] MEDS ORDERED: cefTRIAXone SODIUM 1 GM VIAL ONE (09:21)
[2019-03-11] MEDS ORDERED: DEXTROSE 5%-WATER - 50 ML IVPB ONE (09:22)
[2019-03-11] MEDS: PHENobarbital 30 MG TABLET PO SCH ×2 (09:24→23:23)
[2019-03-11] MEDS: CEFTRIAXONE 1 GM in DEXTROSE 5%-WATER - 50 ML IVPB SCH (09:26)
[2019-03-11] MEDS: ENOXAPARIN NA (PORCINE) 40 MG/0.4 ML DISP.SYRIN SQ SCH (09:26)
[2019-03-11] MEDS: FLUTICASONE PROP 0.05% 16 GM NASAL SPRAY NS SCH (09:26)
[2019-03-11] MEDS: POLYETHYLENE GLYCOL 3350 119 GM BTL PO SCH ×2 (10:00→23:24)
--- NOTE | 2019-03-11 10:57 | CONSULT ---
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 Today again was noted with recurrent abdominal distension and sent to the ED. Per RN, has been eating well over the last few days, no fevers, chills, worsening cough or new concerns. Selected Entries 03/08/19 03/09/19 03/10/19 11:18 11:02 02:00 Breakfast NPO NPO Temperature 97.5 F L 03/10/19 03/10/19 03/10/19 05:51 12:53 15:03 Breakfast NPO Temperature 98.3 F 98.7 F 03/10/19 03/10/19 03/11/19 18:00 23:00 07:00 Breakfast Temperature 98.0 F 99.1 F 98.4 F 03/11/19 03/11/19 09:17 10:36 Breakfast 25% Temperature 97.9 F Laboratory Tests 03/09/19 03/10/19 07:16 07:30 WBC 2.6 L 4.0 Puree/thin liquid ordered. Known to me from 2017. MBS (-) Puree/thin liquids recommended. Pt was tolerating meds with nectar thick liquids. Today, diet initiated with cough following pudding, no liquids given. Sounded congested to nursing, rec swallow evaluation. Pt has been on puree, prune juice, jello, pedialyte QID daily (use thickener if appropriate), 6-8 oz water @ dinner at [facility]. 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) Gastrointestinal: Yes: Constipation, GERD, Other (recurrent/chronic colonic dilation, sigmoid volvulus in March 2017) Musculoskeletal: Yes: Other (contractures of extremities) - Past Surgical History Past Surgical History: Yes: Colonoscopy (flex sig for decompression Mar 2017) - Smoking History Smoking history: Never smoked Have you smoked in the past 12 months: No - Alcohol/Substance Use Hx Alcohol Use: No History of Substance Use: reports: None - Social History ADL: Support Services History - Admission Reason For Visit: ILEUS - General Mental Status: Awake and Alert Attention: Moderate Impairment (Opens mouth to spoon/cup actively and readily) Ability to Follow Directions: Poor Head/Neck Control: Needs Assist - Hearing Hearing: Normal Speech Evaluation - Communication Primary Language: MALAY Communication: Yes: Non-Communicable Oral Expression Ability: Yes: Non-Verbal - Speech Production Able to Make Needs Known: Yes: Severely Impaired Intelligibility: Yes: Severely Impaired - Speech Characteristics Voice Loudness: Normal Voice Pitch: Yes: Normal Voice Phonatory-based Quality: Yes: Normal - Language/Auditory Comprehension Observation: Able to respond to yes/no queries: No, Comprehends Conversational Speech: No (doubtful) - Swallow Evaluation/Bedside Assessment Current Nutritional Intake: Dysphagia Pureed, Thin Liquids Oral Secretions: Yes: WFL Facial Symmetry at Rest: Symmetrical Rate of Intake: WFL Bolus Size: WFL Labial Seal: WFL Oral Prep Time: WFL A-P Transit: WFL Pocketing: None Timing of Swallow: Delayed Coughing/Throat Clear: No Change in Voice: No Recommendations - Speech Evaluation, Impression/Plan Impression: Good vocal quality. Readily accepted thin liquid via cup, with rapid , continuous drinking without overt symptoms of aspiration.Pt seated fully upright with head flexed during assessment - Disposition Discharge to: [facility] - Dysphagia Impressions/Plan Swallowing Skills: WFL *Silent aspiration: cannot be R/O at bedside Dysphagia Treatment Plan: Small Bites, Chin Tuck/Down, Clear Pocket Food, Safe Rate, 1/2 tsp. at a time, Elevate HOB during feed Recommendations: Modified Barium Swallow (as out pt, if indicated per [facility]) - Recommendations Diet Consistency: Dysphagia Pureed Liquids: Thin Liquids Supplement: Ensure
[2019-03-11] MEDS ORDERED: SODIUM PHOSPHATE/NA BIPHOS 133 ML ENEMA PR SCH (20:13)
--- NOTE | 2019-03-11 20:13 | PN.GI ---
GI Progress Note Subjective: chart reviewed abdominal xrays reviewed, patient noted to have pseudiobstruction with no evidience of volvulus at this time he had good results from soap suds enemas - Objective Vital Signs: Vital Signs Temperature 99.1 F 03/11/19 18:00 Pulse Rate 85 03/11/19 18:00 Respiratory Rate 18 03/11/19 18:00 Blood Pressure 145/95 03/11/19 18:00 O2 Sat by Pulse Oximetry (%) 95 03/10/19 21:00 Constitutional: No Distress Eyes: Yes: Conjunctiva Clear HENT: Yes: Atraumatic Cardiovascular: Yes: Regular Rate and Rhythm Respiratory: Yes: CTA Bilaterally ...Auscultate: Yes: Normoactive Bowel Sounds ...Palpate: Yes: Soft. No: Firm/Rigid, Guarding, Hepatomegaly, Mass, Splenomegaly ...Percussion: Yes: Tympanitic Labs: CBC, BMP 03/10/19 07:30 03/11/19 06:25 Problem List - Problems (1) Pseudo-obstruction of intestine Assessment/Plan: R> fleet enemas every three days as an outpatient Miralax 34grams bid Code(s): K59.8 - OTHER SPECIFIED FUNCTIONAL INTESTINAL DISORDERS
--- NOTE | 2019-03-11 20:36 | PN ---
Progress Note (short form) - Note Progress Note: HPI: No overnight events. Pt comfortable. 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 On RA CARD: RRR without murmurs appreciated ABD: Soft, improved distention, no grimmacing with palptation, hypoactive BS, no masses appreciated EXT: no edema CBC, BMP 03/10/19 07:30 03/10/19 07:30 Hepatic Panel Total Bilirubin 0.4 mg/dL (0.2-1) 03/08/19 06:59 AST 23 U/L (15-37) 03/08/19 06:59 ALT 25 U/L (13-61) 03/08/19 06:59 Alkaline Phosphatase 128 U/L (45-117) H 03/08/19 06:59 Albumin 3.2 g/dl (3.4-5.0) L 03/08/19 06:59 Active Medications Albuterol/Ipratropium (Duoneb -) 1 amp NEB Q4H PRN PRN Reason: WHEEZING Carbamazepine (Tegretol Xr -) 400 mg PO HS LINO Last Admin: 03/09/19 22:27 Dose: 400 mg Carbamazepine (Tegretol Xr -) 500 mg PO AM LINO Last Admin: 03/10/19 06:41 Dose: 500 mg Clonazepam (Klonopin -) 0.5 mg PO TID LINO Last Admin: 03/10/19 14:38 Dose: 0.5 mg Docusate Sodium (Colace -) 300 mg PO HS LINO Last Admin: 03/09/19 22:26 Dose: 300 mg Enoxaparin Sodium (Lovenox -) 40 mg SQ DAILY LINO Last Admin: 03/10/19 11:04 Dose: 40 mg Fluticasone Propionate (Flonase -) 2 spray NS DAILY LINO Last Admin: 03/10/19 11:05 Dose: 2 sprays Ceftriaxone Sodium 1 gm/ (Dextrose) 50 mls @ 100 mls/hr IVPB DAILY LINO; Protocol Last Admin: 03/10/19 11:04 Dose: 100 mls/hr Loratadine (Claritin -) 10 mg PO HS LINO Last Admin: 03/09/19 22:25 Dose: 10 mg Multivitamins/Minerals (Theragran-M) 1 each PO AM [facility] Last Admin: 03/10/19 06:41 Dose: 1 each Phenobarbital (Phenobarbital -) 60 mg PO BID [facility] Last Admin: 03/10/19 11:05 Dose: 60 mg Polyethylene Glycol (Miralax (For Daily Use) -) 17 gm PO BID [facility] Last Admin: 03/10/19 12:27 Dose: Not Given Senna (Senna -) 2 tab PO HS PRN PRN Reason: CONSTIPATION Last Admin: 03/08/19 01:28 Dose: 2 tab Simethicone (Mylicon -) 80 mg PO Q6H PRN PRN Reason: GAS A/P Functional ileus 2/2 to fecal impaction Urinary Tract infection, complicated Cerebral anoxia with developmental delay Seizure disorder Sialoadenitis 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 Jono Quezada, DO - IM PGY-3 <Joni Quezada - Last Filed: 03/11/19 20:36> - Note Progress Note: Seen and examined; limited history 2/2 clinical condition. No overnight events. 10 sys ROS not feasable 2/2 above VS, labs, imaging all reviewed NAD, AAO, resting in bed RRR s1/2 no mgr Nontender +BS; chronically distended with likely sequelae of pseudoobstruction. Unchanged neuro exam Prior abdominal imaging personally reviewed; no evidence of true bowel obstruction. Discussed with sgy. A/P Likely pseudoobstruction; discussing with subspecialty services to obtain final recs prior to DC to [facility]. Anrticipate within 24-48 hours. No new clinical issues. Agree with resident asssessment and plan. <Chad De La Cruz - Last Filed: 03/11/19 23:52>
[2019-03-11] MEDS ORDERED: PT OWN MED DRAWER 7, Y5N ONE (23:22)
[2019-03-11] MEDS: DOCUSATE SODIUM 100 MG CAPSULE (FP) PO SCH (23:23)
[2019-03-11] MEDS: LORATADINE 10 MG TABLET PO SCH (23:24)
[2019-03-11] MEDS: carBAMazepine XR 400 MG TAB.ER.12H PO SCH (23:25)
[2019-03-12] MEDS: SODIUM PHOSPHATE/NA BIPHOS 133 ML ENEMA PR SCH ×3 (00:35→11:07)
[2019-03-12] MEDS: MULTIVITAMINS THER W-MINERALS COMBO TABLET (FP) PO SCH (06:46)
[2019-03-12] MEDS: clonazePAM 0.5 MG TABLET PO SCH ×2 (06:46→13:32)
[2019-03-12 08:21] LABS: BLOOD UREA NITROGEN 15.1 mg/dL (7-18); CREATININE 0.7 mg/dL (0.55-1.3); POTASSIUM 4.4 mmol/L (3.5-5.1)
--- NOTE | 2019-03-12 10:01 | DS ---
Physical Exam: seen and examined; agree with above aside from as documented by resident. No acute events, noted O2 sats. No new abdominal sx. Gi and surgical input noted. Discharging with recommendations observed. Minutes to complete discharge: 40 <JonoChad - Last Filed: 03/12/19 10:30> Physical Exam: SUBJECTIVE: HPI limited. No acute events. 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 On RA CARD: RRR without murmurs appreciated ABD: Soft, improved distention, no grimmacing with palptation, hypoactive BS, no masses appreciated EXT: no edema LABS Laboratory Results - last 24 hr 03/12/19 03/12/19 06:52 07:25 Sodium 136 Potassium 4.4 Chloride 101 Carbon Dioxide 28 Anion Gap 7 L BUN 15.1 Creatinine 0.7 Est GFR (CKD-EPI)AfAm 128.43 Est GFR (CKD-EPI)NonAf 110.81 POC Glucometer 72 Random Glucose 85 Calcium 9.0 Microbiology 03/08/19 13:20 Urine - Urine - Catheterized Urine Culture - Final Escherichia Coli Imaging: Initial AXR: 2 views of the abdomen reveal generalized abdominal distention compatible with ileus. Fecal impaction or gross constipation is not appreciated. Again noted is spinal support hardware. Since 01/07/2019, the stool content has essentially cleared. Correlation recommended. If symptoms persist, further imaging may be of help Abdominal Pelvis CT noncontrast: There is a markedly distended, largely air-filled colon. Fecal material is noted within the cecum and within the rectum. There is no gross evidence of colonic obstruction. Small bowel loops are mildly distended with no gross evidence of a small bowel obstruction. Examination of the pelvis demonstrates no evidence of pelvic masses or fluid collections. There is no evidence of acute bony pathology. IMPRESSION: Markedly limited study with colonic distention possibly related to fecal impaction. Clinical correlation and follow-up recommended. Please see above discussion. ECG: NORMAL SINUS RHYTHM INCREASED R/S RATIO IN V1, CONSIDER EARLY TRANSITION OR POSTERIOR INFARCT ABNORMAL ECG WHEN COMPARED WITH ECG OF 07-JAN-2019 02:50, NO SIGNIFICANT CHANGE WAS FOUND QTc 421ms HOSPITAL COURSE: Date of Admission:03/07/19 Date of Discharge: 03/12/19 Pt was admitted on 03/07/19 due to abdominal distention suspected to be possible obstruction. Upon further evaluation pt was noted to have fecal impaction in the rectum and functional ileus on AXR (as above). Pt was manually disimpacted with resultant slight decrease in distention. He was evaluated by GI and by general surgery who both recommended medical management with bowel regiments ( as below) alongside of tap-water enemas. Serial abdominal exams were performed along with periodic abdominal XR until pt had 2 large bowel movements. Pt's distention return to usual and his bowel sounds increased. Pt is being discharged back to [facility] with instructions to maintain bowel regiment as below and to continue Tap-water enemas TIW as needed for constipation. Pt never had difficulties with oxygenation/ventilation and thus did not have any hypoxic workup. He remains on RA at this time. Feeds were reintroduced and have been tolerated since initiation. Final Diagnoses: Functional ileus 2/2 to fecal impaction Urinary Tract infection, complicated Cerebral anoxia with developmental delay Seizure disorder Sialoadenitis 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[employer] shunt Functional Quadriplegia <Joni Quezada - Last Filed: 03/16/19 22:03> Discharge Summary Current Active Problems Ileus (Acute) Pseudo-obstruction of intestine (Acute) - Home Medications Comprehensive Discharge Medication List: Ambulatory Orders Calcium Carbonate/Vitamin D3 [Oystercal-D 500 mg-400 Unit Tb] 1 each PO BID Cetirizine HCl 10 mg PO HS 03/30/17 Fluticasone Prop 0.05% Nasal [Flonase -] 1 - 2 spray NS DAILY 03/30/17 Magnesium Hydrox 2400MG/30Ml [Milk of Magnesia -] 30 ml PO PRN PRN 03/30/17 Multivit-Min/FA/Lycopen/Lutein [Vitrum 50 Plus Senior Tablet] 5 5ml PO AM Phenobarbital 64.8 mg PO BID 03/30/17 clonazePAM [Klonopin -] 0.5 mg PO TID 03/30/17 Sennosides [Senna -] 2 tab PO HS PRN tablet 07/10/18 Albuterol 2.5/Ipratropium 0.5 [Duoneb -] 1 amp NEB PRN PRN 12/10/18 Docusate Sodium [Colace -] 300 mg PO HS #0 capsule 01/07/19 Polyethylene Glycol 3350 [Miralax 119 gm Btl -] 17 gm PO BID bottle 01/07/19 Sodium Chloride 500 mg PO BID 01/07/19 Carbamazepine [Carbamazepine ER] 400 mg PO HS 03/07/19 Carbamazepine [Carbamazepine ER] 500 mg PO AM 03/07/19 Electrolyte,Oral [Pedialyte -] 120 ml PO QID 03/07/19 Simethicone 80 mg PO Q6H PRN 03/07/19 Sodium Phosphate,[place]-Dibasic [Fleet Enema] 133 ml RC Q72H #30 enema 03/12/19 <Chad De La Cruz - Last Filed: 03/12/19 10:30> Problems reviewed: Yes Reason For Visit: ILEUS Current Active Problems Ileus (Acute) Pseudo-obstruction of intestine (Acute) - Home Medications Comprehensive Discharge Medication List: Ambulatory Orders Calcium Carbonate/Vitamin D3 [Oystercal-D 500 mg-400 Unit Tb] 1 each PO BID Cetirizine HCl 10 mg PO HS 03/30/17 Fluticasone Prop 0.05% Nasal [Flonase -] 1 - 2 spray NS DAILY 03/30/17 Magnesium Hydrox 2400MG/30Ml [Milk of Magnesia -] 30 ml PO PRN PRN 03/30/17 Multivit-Min/FA/Lycopen/Lutein [Vitrum 50 Plus Senior Tablet] 5 5ml PO AM Phenobarbital 64.8 mg PO BID 03/30/17 clonazePAM [Klonopin -] 0.5 mg PO TID 03/30/17 Sennosides [Senna -] 2 tab PO HS PRN tablet 07/10/18 Albuterol 2.5/Ipratropium 0.5 [Duoneb -] 1 amp NEB PRN PRN 12/10/18 Docusate Sodium [Colace -] 300 mg PO HS #0 capsule 01/07/19 Polyethylene Glycol 3350 [Miralax 119 gm Btl -] 17 gm PO BID bottle 01/07/19 Sodium Chloride 500 mg PO BID 01/07/19 Carbamazepine [Carbamazepine ER] 400 mg PO HS 03/07/19 Carbamazepine [Carbamazepine ER] 500 mg PO AM 03/07/19 Electrolyte,Oral [Pedialyte -] 120 ml PO QID 03/07/19 Simethicone 80 mg PO Q6H PRN 03/07/19 Sodium Phosphate,[place]-Dibasic [Fleet Enema] 133 ml RC Q72H #30 enema 03/12/19 <Joni Quezada - Last Filed: 03/16/19 22:03> Condition: Stable - Instructions Diet, Activity, Other Instructions: Pt was noted to have an ileus secondary to fecal impaction in the rectum with likely pseudoobstruction Medications: Continue home meds as below: Phenobarbital 60mg TWICE daily Klonopin 0.5mg THREE times daily Carbmazepine 500mg in the morning and 400mg at night Continue the following bowel regiment: Colace 300mg nightly Miralax 17gm TWICE daily Simethicone 80mg NEEDED up to every 6 hours Senna 2 tabs nightly NEEDED for constipation Fleet enemas every 3 days for constipation; hold if patient is having diarrhea DIET: Dysphagia puree diet with nectar liquids Follow-up: Please follow-up with Dr. Mcdaniels at [facility] for further management Referrals: Kahlil Mcdaniels Jr [Non Staff, Medical] - Disposition: HOME This patient is new to me today: No Emergency Visit: Yes ED Registration Date: 03/07/19 Care time: The patient presented to the Emergency Department on the above date and was hospitalized for further evaluation of their emergent condition. Critical Care patient: No - Discharge Referral Referred to [facility] No <Joni Quezada - Last Filed: 03/16/19 22:03> ATTENDING PHYSICIAN STATEMENT I saw and evaluated the patient. I reviewed the resident's note and discussed the case with the resident. I agree with the resident's findings and plan as documented. SUBJECTIVE: OBJECTIVE: ASSESSMENT AND PLAN: <Chad De La Cruz - Last Filed: 03/12/19 10:30> ATTENDING PHYSICIAN STATEMENT I saw and evaluated the patient. I reviewed the resident's note and discussed the case with the resident. I agree with the resident's findings and plan as documented. SUBJECTIVE: OBJECTIVE: ASSESSMENT AND PLAN: <Joni Quezada - Last Filed: 03/16/19 22:03>
[2019-03-12] MEDS ORDERED: cefTRIAXone SODIUM 1 GM VIAL ONE (11:12)
[2019-03-12] MEDS ORDERED: DEXTROSE 5%-WATER - 50 ML IVPB ONE (11:12)
[2019-03-12] MEDS: PHENobarbital 30 MG TABLET PO SCH (11:13)
[2019-03-12] MEDS: ENOXAPARIN NA (PORCINE) 40 MG/0.4 ML DISP.SYRIN SQ SCH (11:13)
[2019-03-12] MEDS: CEFTRIAXONE 1 GM in DEXTROSE 5%-WATER - 50 ML IVPB SCH (11:13)
[2019-03-12] MEDS: POLYETHYLENE GLYCOL 3350 119 GM BTL PO SCH (11:13)
--- NOTE | 2019-03-12 11:45 | PN ---
Progress Note, [employer] - Note Progress Note: Selected Entries 03/11/19 03/11/19 03/11/19 07:00 09:17 14:00 Breakfast Supper Temperature 98.4 F 97.9 F 99.2 F 03/11/19 03/11/19 03/11/19 18:00 18:15 22:00 Breakfast Supper 100% Temperature 99.1 F 99.0 F 03/12/19 03/12/19 06:20 11:32 Breakfast 100% Supper Temperature 98.1 F On puree/thin liquids, tolerating well,pending d/c.
[2019-03-12] MEDS: FLUTICASONE PROP 0.05% 16 GM NASAL SPRAY NS SCH (12:06)
[2019-03-12 15:17] VITALS: BP 140/92; PULSE 79; TEMP 97.5
== END 2019-03-12 14:45 | disposition home or self-care (01) | DRG 388 ==
LOC: JER 13:44 → JERBED 17:23 → J5S 21:46
PROVIDERS: ADMIT Hospitalist; ATTEND Internal Medicine
DX: K56.41 Fecal impaction (principal); R53.2 Functional quadriplegia; F72 Severe intellectual disabilities; G93.1 Anoxic brain damage, not elsewhere classified; N39.0 Urinary tract infection, site not specified; Q04.6 Congenital cerebral cysts; K59.8 Other specified functional intestinal disorders; G40.909 Epilepsy, unspecified, not intractable, without status epilepticus; H47.619 Cortical blindness, unspecified side of brain; K11.20 Sialoadenitis, unspecified; R14.0 Abdominal distension (gaseous); M81.0 Age-related osteoporosis without current pathological fracture; K20.9 Esophagitis, unspecified; E83.42 Hypomagnesemia
CPT/HCPCS: 36415; 71045-TC-FY; 74018-TC-FY; 74019-TC-FY; 74176-TC; 80048; 80053; 81003; 82550; 82553; 82962; 83690; 83735; 84100; 84484; 85025; 85027; 87086; 87186; 93005; 93010; 99285-25; J7030

== ENCOUNTER 2019-04-26 15:20 | Emergency (ER) | payer OTHER ==
--- NOTE | 2019-04-26 15:29 | PDOC ---
Rapid Medical Evaluation Chief Complaint: Constipation Time Seen by Provider: 04/26/19 15:25 Medical Evaluation: Allergies Allergy/AdvReac Type Severity Reaction Status Date / Time ceresin [From Eucerin] Allergy Verified 03/07/19 16:34 corn Allergy Verified 03/07/19 16:34 egg Allergy Verified 03/07/19 16:34 emollient combination no.33 Allergy Verified 03/07/19 16:34 [From Eucerin] isopropyl myristate Allergy Verified 03/07/19 16:34 [From Eucerin] lanolin alcohols Allergy Verified 03/07/19 16:34 [From Eucerin] latex Allergy Verified 03/07/19 16:34 mineral oil [From Eucerin] Allergy Verified 03/07/19 16:34 petrolatum,white Allergy Verified 03/07/19 16:34 [From Eucerin] phenytoin sodium Allergy Verified 03/07/19 16:34 [From Dilantin] phenytoin sodium extended Allergy Verified 03/07/19 16:34 [From Dilantin] soap [From Eucerin] Allergy Verified 03/07/19 16:34 strawberry Allergy Verified 03/07/19 16:34 water [From Eucerin] Allergy Verified 03/07/19 16:34 barley Allergy Uncoded 03/07/19 16:34 rye Allergy Uncoded 03/07/19 16:34 04/26/19 15:26 I have performed a brief in-person evaluation of this patient. The patient presents with a chief complaint of: sent from [place]- hyponatremia= Na129, BUN 2.0 Pertinent physical exam findings: non verbal, alert- here with aid who knows him , states behavior unchanged. I have ordered the following: Cbc , CMP. The patient will proceed to the ED for further evaluation. Discharge Disposition - Diagnosis Abnormal laboratory test - Referrals - Patient Instructions - Post Discharge Activity
[2019-04-26 15:33] VITALS: TEMP 97.8; BMI 19.1
--- NOTE | 2019-04-26 16:28 | PDOC ---
Attending Attestation - Resident Resident Name: YehAleksander - ED Attending Attestation I have performed the following: I have examined & evaluated the patient, The case was reviewed & discussed with the resident, I agree w/resident's findings & plan, Exceptions are as noted - HPI HPI: 04/26/19 16:24 48yo male from [place] with chronic constipation sent in for eval of cr 2 and sodium 129. Pt unable to provide any hx - nonverbal - Physicial Exam PE: 04/26/19 16:25 Gen: awake, moaning heart: +s1s2 reg lungs: bowel sounds heard in the lower chest [place] abd: distended, +hyperactive bs, no ttp, tympanic bs ext: no c/c/e - Medical Decision Making 04/26/19 16:25 a/p: 48yo male with hx of chronic constipation with abnl labs as outpt -distended abd, will need rectal exam -will send labs, xray abd -will monitor and reassess -pt is nontoxic in appearance, at his baseline ms -pt last bm was friday04/26/19 18:51 bun 2.6 sodium 129 xray is unchanged from prior- will give fleet and simethicone receiving ivf hydration will be stable for dc back to facility after ivf hydration and meds
[2019-04-26] MEDS ORDERED: LACTATED RINGERS SOLUTION 1000 ML INFUS.BAG IV ONE (17:44)
[2019-04-26 18:03] LABS: BASO % 0.7 % (0-2.0); EOS % 9.4 % (0-4.5); HEMATOCRIT 37.5 % (35.4-49); HEMOGLOBIN 12.6 GM/dL (11.7-16.9); LYMPH % 36.5 % (8-40); MCH 30.3 pg (25.7-33.7); MCHC 33.6 g/dl (32.0-35.9); MEAN CELL VOLUME 90.4 fl (80-96); MONO % 16.8 % (3.8-10.2); NEUT % 36.6 % (42.8-82.8); PLATELET COUNT 368 K/MM3 (134-434); RBC 4.15 M/mm3 (4.00-5.60); RDW 14.3 % (11.9-15.9); WHITE BLOOD COUNT 4.7 K/mm3 (4.0-10.0)
--- NOTE | 2019-04-26 18:09 | PDOC ---
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 Aide at bedside states pt eating like normal; w/o f/c/n/v. Past History - Past Medical History Allergies/Adverse Reactions: Allergies Allergy/AdvReac Type Severity Reaction Status Date / Time ceresin [From Eucerin] Allergy Verified 03/07/19 16:34 corn Allergy Verified 03/07/19 16:34 egg Allergy Verified 03/07/19 16:34 emollient combination no.33 Allergy Verified 03/07/19 16:34 [From Eucerin] isopropyl myristate Allergy Verified 03/07/19 16:34 [From Eucerin] lanolin alcohols Allergy Verified 03/07/19 16:34 [From Eucerin] latex Allergy Verified 03/07/19 16:34 mineral oil [From Eucerin] Allergy Verified 03/07/19 16:34 petrolatum,white Allergy Verified 03/07/19 16:34 [From Eucerin] phenytoin sodium Allergy Verified 03/07/19 16:34 [From Dilantin] phenytoin sodium extended Allergy Verified 03/07/19 16:34 [From Dilantin] soap [From Eucerin] Allergy Verified 03/07/19 16:34 strawberry Allergy Verified 03/07/19 16:34 water [From Eucerin] Allergy Verified 03/07/19 16:34 barley Allergy Uncoded 03/07/19 16:34 rye Allergy Uncoded 03/07/19 16:34 Home Medications: Ambulatory Orders Calcium Carbonate/Vitamin D3 [Oystercal-D 500 mg-400 Unit Tb] 1 each PO BID Cetirizine HCl 10 mg PO HS 03/30/17 Fluticasone Prop 0.05% Nasal [Flonase -] 1 - 2 spray NS DAILY 03/30/17 Magnesium Hydrox 2400MG/30Ml [Milk of Magnesia -] 30 ml PO PRN PRN 03/30/17 Multivit-Min/FA/Lycopen/Lutein [Vitrum 50 Plus Senior Tablet] 5 5ml PO AM Phenobarbital 64.8 mg PO BID 03/30/17 clonazePAM [Klonopin -] 0.5 mg PO TID 03/30/17 Sennosides [Senna -] 2 tab PO HS PRN tablet 07/10/18 Albuterol 2.5/Ipratropium 0.5 [Duoneb -] 1 amp NEB PRN PRN 12/10/18 Docusate Sodium [Colace -] 300 mg PO HS #0 capsule 01/07/19 Polyethylene Glycol 3350 [Miralax 119 gm Btl -] 17 gm PO BID bottle 01/07/19 Sodium Chloride 500 mg PO BID 01/07/19 Carbamazepine [Carbamazepine ER] 400 mg PO HS 03/07/19 Carbamazepine [Carbamazepine ER] 500 mg PO AM 03/07/19 Electrolyte,Oral [Pedialyte -] 120 ml PO QID 03/07/19 Simethicone 80 mg PO Q6H PRN 03/07/19 Sodium Phosphate,[place]-Dibasic [Fleet Enema] 133 ml RC Q72H #30 enema 03/12/19 Anemia: No Asthma: No Cancer: No Cardiac Disorders: No CVA: No COPD: No CHF: No Dementia: No Diabetes: No GI Disorders: Yes (esophagitis) Disorders: No HTN: No Hypercholesterolemia: No Liver Disease: No Seizures: Yes (general convulsive epilepsy) Thyroid Disease: No - Surgical History Abdominal Surgery: No Appendectomy: No Cardiac Surgery: No Cholecystectomy: No Lung Surgery: No Neurologic Surgery: No - Immunization History Immunization Up to Date: Yes - Psycho Social/Smoking Cessation Hx Smoking History: Unknown if ever smoked Have you smoked in the past 12 months: No Information on smoking cessation initiated: No Hx Alcohol Use: No Drug/Substance Use Hx: No Substance Use Type: None Hx Substance Use Treatment: No Review of Systems - Review of Systems Able to Perform ROS?: No Is the patient limited Slovak proficient: Yes *Physical Exam - Vital Signs Last Vital Signs Temp Pulse Resp BP Pulse Ox 97.8 F 102 H 16 134/101 H 96 04/26/19 15:27 04/26/19 15:27 04/26/19 15:27 04/26/19 15:27 04/26/19 15:27 - Physical Exam Comments: 04/29/19 06:01 PE: GEN: NAD, awake, and alert HEENT: NC/AT. Moist mucous membranes. Moaning / nonverbal. Supple neck w/ FROM. CV: S1/S2, RRR, no m/r/g LUNG: CTAB, no wheezes, crackles, rales, rhonchi. GI: soft, ndnt, +BS, no guarding, no rebound. Passed flatus during exam. RECTAL: No hemorrhoids, masses, lesions on inspection. No active bleeding or oozing from anus. Normal sphincter tone. No masses or nodules of the rectal vault palpated. No fecal impaction. No blood on glove EXTREMITIES: contractures SKIN: warm, dry, normal turgor NEURO: Moving all extremities well. ED Treatment Course - LABORATORY CBC & Chemistry Diagram: 04/26/19 17:45 04/26/19 22:59 Medical Decision Making - Medical Decision Making 04/26/19 18:03 MDM: 48M from [place] presenting with constipation and hyponatremia Unlikely SBO. - cbc, cmp - fluids - ABD XR 04/26/19 18:50 labs reviewed: low BUN 2.6 Na 129 - simethicone - await bm - likely dc back to [facility] 04/26/19 19:38 recheck BMP after LR and NS bolus plan as above 04/26/19 21:45 last bm 2 days ago recheck CMP 04/26/19 23:59 CMP reviewed Na 133 DC to [facility] Discharge - Discharge Information Problems reviewed: Yes Clinical Impression/Diagnosis: Abnormal laboratory test Condition: Stable Disposition: HOME - Follow up/Referral - Patient Discharge Instructions Patient Printed Discharge Instructions: Constipation, DI for Constipation Additional Instructions: Billy Cantu was evaluated and treated in the Emergency Department Mr. Cantu was given 2 liters of fluids. His sodium is now 133, improved from the 129 earlier. We recommend continuing fleet enemas as previously discussed per gastroenterology: every 2 days. Follow up with Mr. Cantu's primary care doctor to discuss this ED visit. Adjustments to medications or enema schedule should be considered. Return to the ED immediately if Mr. Cantu experiences any worsening, new, or concerning symptoms. - Post Discharge Activity
[2019-04-26 18:31] LABS: ALBUMIN 3.5 g/dl (3.4-5.0); BILIRUBIN,TOTAL 0.2 mg/dL (0.2-1); CALCIUM 9.2 mg/dL (8.5-10.1); CREATININE 0.7 mg/dL (0.55-1.3); POTASSIUM 4.5 mmol/L (3.5-5.1); TOT PROT 7.4 g/dl (6.4-8.2)
[2019-04-26 18:34] LABS: BLOOD UREA NITROGEN 2.6 mg/dL (7-18)
[2019-04-26] MEDS ORDERED: SIMETHICONE 40 MG/0.6 ML BOTTLE PO ONE (18:52)
[2019-04-26] MEDS ORDERED: SODIUM CHLORIDE 1,000 ML IV STA (18:54)
[2019-04-26 23:42] LABS: ALBUMIN 3.2 g/dl (3.4-5.0); BILIRUBIN,TOTAL 0.2 mg/dL (0.2-1); CALCIUM 8.9 mg/dL (8.5-10.1); CREATININE 0.6 mg/dL (0.55-1.3); POTASSIUM 4.4 mmol/L (3.5-5.1); TOT PROT 6.9 g/dl (6.4-8.2)
[2019-04-26 23:44] LABS: BLOOD UREA NITROGEN 2.4 mg/dL (7-18)
[2019-04-27 07:22] VITALS: BP 134/96; PULSE 97
== END 2019-04-27 02:19 | disposition home or self-care (01) ==
LOC: JER 15:20
PROC: 3E0337Z Introduction of Electrolytic and Water Balance Substance into Peripheral Vein, Percutaneous Approach (ICD-10-PCS; principal; 2019-04-26)
DX: K59.00 Constipation, unspecified (principal); E87.1 Hypo-osmolality and hyponatremia; F72 Severe intellectual disabilities; G40.802 Other epilepsy, not intractable, without status epilepticus; Z87.19 Personal history of other diseases of the digestive system; Z91.018 Allergy to other foods; Z91.012 Allergy to eggs; Z88.8 Allergy status to other drugs, medicaments and biological substances
CPT/HCPCS: 36415; 74019-TC-FY; 80053; 85025; 96360; 99282-25; J7030

== ENCOUNTER 2020-09-09 22:16 | Inpatient (IN) | payer OTHER ==
[2020-09-09] MEDS ORDERED: ONDANSETRON 4 MG/2 ML VIAL IVPUSH ONE (22:34)
[2020-09-09] MEDS ORDERED: SODIUM CHLORIDE 0.9% 500 ML INFUS.BAG IV ONE (22:34)
[2020-09-09] MEDS ORDERED: ONDANSETRON 4 MG/2 ML VIAL ONE (23:36)
[2020-09-09 23:42] LABS: BASO % 0.2 % (0-2.0); EOS % 0.8 % (0-4.5); HEMATOCRIT 41.6 % (35.4-49); HEMOGLOBIN 14.1 GM/dL (11.7-16.9); LYMPH % 11.9 % (8-40); MCH 30.7 pg (25.7-33.7); MCHC 33.8 g/dl (32.0-35.9); MEAN CELL VOLUME 90.7 fl (80-96); MEAN PLT VOLUME 7.4 fl (7.5-11.1); MONO % 8.7 % (3.8-10.2); NEUT % 78.4 % (42.8-82.8); PLATELET COUNT 382 K/MM3 (134-434); RBC 4.58 M/mm3 (4.00-5.60); WHITE BLOOD COUNT 7.9 K/mm3 (4.0-10.0)
[2020-09-09 23:48] LABS: INR 1.09 (0.83-1.09); PROTHROMBIN TIME (PATIENT) 13.2 SEC (9.7-13.0)
[2020-09-10 00:10] LABS: CALCIUM 10.2 mg/dL (8.5-10.1)
[2020-09-10 00:11] LABS: ALBUMIN 3.8 g/dl (3.4-5.0); BLOOD UREA NITROGEN 11.4 mg/dL (7-18)
[2020-09-10 00:14] LABS: CREATININE 0.8 mg/dL (0.55-1.3)
[2020-09-10 00:15] LABS: BILIRUBIN,TOTAL 0.3 mg/dL (0.2-1)
[2020-09-10 00:16] LABS: TOT PROT 8.3 g/dl (6.4-8.2)
[2020-09-10 00:18] LABS: LACTIC ACID 2.3 mmol/L (0.4-2.0)
[2020-09-10] MEDS ORDERED: MIDAZOLAM HCL 2 MG/2 ML SINGLE DOSE VIAL IVPUSH ONE (01:01)
[2020-09-10] MEDS ORDERED: MIDAZOLAM HCL 2 MG/2 ML SINGLE DOSE VIAL ONE (01:39)
[2020-09-10] MEDS ORDERED: ACETAMINOPHEN 325 MG TABLET (FP) PO PRN (04:51)
[2020-09-10] MEDS: SODIUM CHLORIDE 1,000 ML IV SCH ×2 (05:41→17:50)
[2020-09-10] MEDS ORDERED: carBAMazepine 200 MG TABLET ONE (07:30)
[2020-09-10] MEDS: CARBAMAZEPINE PO SCH (07:48)
[2020-09-10] MEDS ORDERED: ENOXAPARIN NA (PORCINE) 40 MG/0.4 ML DISP.SYRIN SQ ONE (10:21)
[2020-09-10] MEDS ORDERED: PANTOPRAZOLE 40 MG TABLET ONE ×2 (10:21→10:34)
[2020-09-10] MEDS ORDERED: PHENobarbital 30 MG TABLET ONE ×2 (10:21→10:33)
[2020-09-10] MEDS: PANTOPRAZOLE 40 MG TABLET PO SCH (10:36)
[2020-09-10] MEDS: ENOXAPARIN NA (PORCINE) 40 MG/0.4 ML DISP.SYRIN SQ SCH (10:36)
[2020-09-10] MEDS: PHENobarbital 30 MG TABLET PO SCH ×2 (10:36→21:44)
[2020-09-10 15:17] VITALS: BMI 18.3
[2020-09-10] MEDS: carBAMazepine XR 400 MG TAB.ER.12H PO SCH (21:45)
[2020-09-11] MEDS: SODIUM CHLORIDE 1,000 ML IV SCH (06:04)
[2020-09-11] MEDS: CARBAMAZEPINE PO SCH (06:04)
[2020-09-11] MEDS: PHENobarbital 30 MG TABLET PO SCH ×2 (10:13→21:57)
[2020-09-11] MEDS: ENOXAPARIN NA (PORCINE) 40 MG/0.4 ML DISP.SYRIN SQ SCH (10:13)
[2020-09-11] MEDS: PANTOPRAZOLE 40 MG TABLET PO SCH (10:14)
[2020-09-11 10:49] LABS: ALBUMIN 3.6 g/dl (3.4-5.0)
[2020-09-11 10:51] LABS: BLOOD UREA NITROGEN 5.6 mg/dL (7-18); MAGNESIUM 1.8 mg/dL (1.8-2.4)
[2020-09-11 10:52] LABS: CREATININE 0.6 mg/dL (0.55-1.3)
[2020-09-11 10:53] LABS: BILIRUBIN,TOTAL 0.5 mg/dL (0.2-1); TOT PROT 7.4 g/dl (6.4-8.2)
[2020-09-11] MEDS ORDERED: SODIUM CHLORIDE 1,000 ML IV SCH (10:53)
[2020-09-11] MEDS ORDERED: PT OWN MED DRAWER 7, Y5N ONE ×2 (11:14→21:22)
[2020-09-11 11:45] LABS: BASO % 0.8 % (0-2.0); EOS % 5.2 % (0-4.5); HEMATOCRIT 36.9 % (35.4-49); HEMOGLOBIN 12.5 GM/dL (11.7-16.9); LYMPH % 34.4 % (8-40); MCH 30.8 pg (25.7-33.7); MCHC 33.9 g/dl (32.0-35.9); MEAN CELL VOLUME 90.9 fl (80-96); MONO % 11.9 % (3.8-10.2); NEUT % 47.7 % (42.8-82.8); RBC 4.06 M/mm3 (4.00-5.60); RDW 13.9 % (11.9-15.9); WHITE BLOOD COUNT 4.8 K/mm3 (4.0-10.0)
[2020-09-11] MEDS: SODIUM CHLORIDE 1 GM TABLET PO SCH (12:23)
[2020-09-11 12:48] LABS: MEAN PLT VOLUME 8.3 fl (7.5-11.1); PLATELET COUNT 309 K/MM3 (134-434)
[2020-09-11 12:49] LABS: PLATELET ESTIMATE NORMAL
[2020-09-11 14:32] LABS: CALCIUM 8.5 mg/dL (8.5-10.1)
[2020-09-11 14:33] LABS: BLOOD UREA NITROGEN 5.5 mg/dL (7-18)
[2020-09-11 14:36] LABS: CREATININE 0.5 mg/dL (0.55-1.3)
[2020-09-11] MEDS: carBAMazepine XR 400 MG TAB.ER.12H PO SCH (21:57)
[2020-09-12] MEDS: CARBAMAZEPINE PO SCH (06:05)
[2020-09-12 06:12] VITALS: PULSE 87
[2020-09-12] MEDS ORDERED: PT OWN MED DRAWER 7, Y5N ONE (09:09)
[2020-09-12] MEDS: PANTOPRAZOLE 40 MG TABLET PO SCH (09:16)
[2020-09-12] MEDS: ENOXAPARIN NA (PORCINE) 40 MG/0.4 ML DISP.SYRIN SQ SCH (09:16)
[2020-09-12] MEDS: PHENobarbital 30 MG TABLET PO SCH (09:16)
[2020-09-12] MEDS: SODIUM CHLORIDE 1 GM TABLET PO SCH (09:17)
[2020-09-12] MEDS ORDERED: DOCUSATE NA 100 MG/10 ML UNIT-DOSE CUPS PO PRN (10:00)
[2020-09-12] MEDS ORDERED: KCL 10 MEQ IVPB 10 MEQ/100 ML INFUS.BAG IVPB SCH (10:00)
[2020-09-12 10:07] LABS: BLOOD UREA NITROGEN 6.1 mg/dL (7-18); CALCIUM 8.9 mg/dL (8.5-10.1); MAGNESIUM 1.9 mg/dL (1.8-2.4)
[2020-09-12 10:10] LABS: CREATININE 0.6 mg/dL (0.55-1.3); PHOSPHOROUS 3.5 mg/dL (2.5-4.9)
[2020-09-12] MEDS ORDERED: POTASSIUM CHLORIDE TABS 20 MEQ TABLET.ER (FP) PO ONE (15:01)
[2020-09-12 15:33] VITALS: BP 141/87; TEMP 98.5
== END 2020-09-12 17:28 | DRG 388 ==
LOC: JER 22:16 → JERBED 09-10 03:27 → J8W 09-10 11:15
PROVIDERS: ADMIT Hospitalist; ATTEND Internal Medicine
DX: K56.7 Ileus, unspecified (principal); R53.2 Functional quadriplegia; F72 Severe intellectual disabilities; Q43.8 Other specified congenital malformations of intestine; Q67.5 Congenital deformity of spine; E87.1 Hypo-osmolality and hyponatremia; G40.909 Epilepsy, unspecified, not intractable, without status epilepticus; K59.09 Other constipation; K20.90 Esophagitis, unspecified without bleeding; H47.20 Unspecified optic atrophy; M81.0 Age-related osteoporosis without current pathological fracture; L30.9 Dermatitis, unspecified; H47.612 Cortical blindness, left side of brain; H47.611 Cortical blindness, right side of brain; K11.20 Sialoadenitis, unspecified
CPT/HCPCS: 36415; 74018-TC-FY; 74176-TC; 80048; 80053; 83605; 83735; 84100; 85025; 85610; 93005; 93010; 97161-GP; 99285-25; C9803; U0003; U0005

== ENCOUNTER 2020-11-29 16:20 | Inpatient (IN) | payer OTHER ==
[2020-11-29 16:48] VITALS: BMI 17.9
[2020-11-29] MEDS ORDERED: MIDAZOLAM HCL 2 MG/2 ML SINGLE DOSE VIAL IM ONE (17:58)
[2020-11-29] MEDS ORDERED: MIDAZOLAM HCL 2 MG/2 ML SINGLE DOSE VIAL ONE (18:01)
[2020-11-29 19:54] LABS: BASO % 0.2 % (0-2.0); EOS % 0.3 % (0-4.5); HEMATOCRIT 39.7 % (35.4-49); HEMOGLOBIN 13.6 GM/dL (11.7-16.9); LYMPH % 17.5 % (8-40); MCH 30.3 pg (25.7-33.7); MCHC 34.4 g/dl (32.0-35.9); MEAN CELL VOLUME 88.3 fl (80-96); MEAN PLT VOLUME 7.1 fl (7.5-11.1); MONO % 13.6 % (3.8-10.2); NEUT % 68.4 % (42.8-82.8); PLATELET COUNT 387 10^3/uL (134-434); RDW 13.6 % (11.9-15.9); WHITE BLOOD COUNT 7.5 K/mm3 (4.0-10.0)
[2020-11-29 19:59] LABS: INR 1.05 (0.83-1.09); PROTHROMBIN TIME (PATIENT) 12.9 SEC (9.7-13.0)
[2020-11-29 20:02] LABS: ACTIVATED PTT 30.1 SECONDS (25.2-36.5)
[2020-11-29 20:13] LABS: CALCIUM 9.6 mg/dL (8.5-10.1)
[2020-11-29 20:15] LABS: ALBUMIN 4.1 g/dl (3.4-5.0); BLOOD UREA NITROGEN 6.2 mg/dL (7-18)
[2020-11-29 20:17] LABS: CREATININE 0.7 mg/dL (0.55-1.3)
[2020-11-29 20:20] LABS: BILIRUBIN,TOTAL 0.4 mg/dL (0.2-1); TOT PROT 8.3 g/dl (6.4-8.2)
[2020-11-29] MEDS ORDERED: KCL 10 MEQ IVPB 10 MEQ/100 ML INFUS.BAG IVPB ONE (22:14)
[2020-11-29] MEDS ORDERED: KCL 10 MEQ IVPB 10 MEQ/100 ML INFUS.BAG IVPB SCH ×2 (22:15)
[2020-11-29 22:54] LABS: MAGNESIUM 2.2 mg/dL (1.8-2.4)
[2020-11-30 03:42] LABS: EPI CELLS 9 /uL (0-25.1); HYALINE CASTS 4 /uL (0-3.1); PH,URINE 6.5 (5.0-8.0); URINE APPEARANCE CLOUDY; URINE BACTERIA >9,000 /uL (0-1359); URINE BILIRUBIN NEGATIVE (NEGATIVE); URINE COLOR YELLOW; URINE GLUCOSE (UA) NEGATIVE (NEGATIVE); URINE KETONE NEGATIVE (NEGATIVE); URINE LEUK ESTERASE TRACE (NEGATIVE); URINE NITRITE POSITIVE (NEGATIVE); URINE PROTEIN 1+ (NEGATIVE); URINE RBC 163 /uL (0-23.9); URINE UROBILINOGEN 0.2 mg/dL (0.2-1.0); URINE WBC 702 /uL (0-25.8)
[2020-11-30] MEDS ORDERED: KCL 10 MEQ IVPB 10 MEQ/100 ML INFUS.BAG IVPB ONE ×2 (03:54→05:05)
[2020-11-30] MEDS: KCL 10 MEQ IVPB 10 MEQ/100 ML INFUS.BAG IVPB SCH ×5 (03:58→21:19)
[2020-11-30] MEDS ORDERED: diazePAM CARPU-JECT 10 MG/2 ML DISP.SYRIN ONE (06:20)
[2020-11-30] MEDS ORDERED: CEFTRIAXONE 1 GM/50 ML BAG ONE (06:21)
[2020-11-30] MEDS: CEFTRIAXONE 1 GM in DEXTROSE 5%-WATER - 50 ML IVPB SCH (06:24)
[2020-11-30] MEDS: diazePAM CARPU-JECT 10 MG/2 ML DISP.SYRIN IVPUSH SCH ×3 (06:25→22:51)
[2020-11-30 08:02] LABS: URINE CRYSTALS MANY /hpf
[2020-11-30] MEDS ORDERED: PHENobarbital SODIUM 65 MG/1 ML VIAL IVPB SCH (10:00)
[2020-11-30 11:01] LABS: HEMATOCRIT 39.1 % (35.4-49); HEMOGLOBIN 12.9 GM/dL (11.7-16.9); MCH 29.7 pg (25.7-33.7); MEAN CELL VOLUME 90.1 fl (80-96); MEAN PLT VOLUME 7.4 fl (7.5-11.1); PLATELET COUNT 315 10^3/uL (134-434); RBC 4.34 M/mm3 (4.00-5.60); RDW 13.5 % (11.9-15.9); WHITE BLOOD COUNT 7.5 K/mm3 (4.0-10.0)
[2020-11-30 11:24] LABS: ALBUMIN 3.7 g/dl (3.4-5.0); BLOOD UREA NITROGEN 6.9 mg/dL (7-18); MAGNESIUM 2.1 mg/dL (1.8-2.4)
[2020-11-30 11:26] LABS: CREATININE 0.6 mg/dL (0.55-1.3); PHOSPHOROUS 2.9 mg/dL (2.5-4.9)
[2020-11-30 11:28] LABS: BILIRUBIN,TOTAL 0.5 mg/dL (0.2-1); TOT PROT 7.6 g/dl (6.4-8.2)
[2020-11-30] MEDS: ENOXAPARIN NA (PORCINE) 40 MG/0.4 ML DISP.SYRIN SQ SCH (16:30)
[2020-11-30] MEDS ORDERED: SODIUM CHLORIDE 1,000 ML IV SCH (17:00)
[2020-11-30] MEDS: PHENobarbital SODIUM 65 MG/1 ML VIAL IVPB SCH ×2 (17:01→22:09)
[2020-12-01] MEDS: diazePAM CARPU-JECT 10 MG/2 ML DISP.SYRIN IVPUSH SCH (05:52)
[2020-12-01] MEDS ORDERED: LORazepam 2 MG/ML SDV VIAL IVPUSH PRN (07:16)
[2020-12-01 08:31] LABS: HEMATOCRIT 36.9 % (35.4-49); HEMOGLOBIN 12.2 GM/dL (11.7-16.9); MCH 29.7 pg (25.7-33.7); MCHC 33.1 g/dl (32.0-35.9); MEAN CELL VOLUME 89.9 fl (80-96); MEAN PLT VOLUME 7.3 fl (7.5-11.1); PLATELET COUNT 310 10^3/uL (134-434); RBC 4.11 M/mm3 (4.00-5.60); RDW 13.6 % (11.9-15.9); WHITE BLOOD COUNT 5.4 K/mm3 (4.0-10.0)
[2020-12-01 08:51] LABS: BLOOD UREA NITROGEN 9.1 mg/dL (7-18); CALCIUM 8.4 mg/dL (8.5-10.1)
[2020-12-01 08:52] LABS: ALBUMIN 3.3 g/dl (3.4-5.0); MAGNESIUM 1.9 mg/dL (1.8-2.4)
[2020-12-01 08:55] LABS: BILIRUBIN,TOTAL 0.5 mg/dL (0.2-1); CREATININE 0.5 mg/dL (0.55-1.3); PHOSPHOROUS 2.7 mg/dL (2.5-4.9); TOT PROT 6.8 g/dl (6.4-8.2)
[2020-12-01] MEDS ORDERED: Lacosamide 200 MG/20 ML VIAL IVPB SCH ×2 (10:00→11:45)
[2020-12-01] MEDS ORDERED: DEXTROSE 5%-WATER - 50 ML IVPB ONE (10:07)
[2020-12-01] MEDS ORDERED: cefTRIAXone SODIUM 1 GM VIAL ONE (10:07)
[2020-12-01] MEDS: ENOXAPARIN NA (PORCINE) 40 MG/0.4 ML DISP.SYRIN SQ SCH (10:10)
[2020-12-01] MEDS: CEFTRIAXONE 1 GM in DEXTROSE 5%-WATER - 50 ML IVPB SCH (10:10)
[2020-12-01] MEDS ORDERED: diazePAM CARPU-JECT 10 MG/2 ML DISP.SYRIN IVPUSH PRN (10:21)
[2020-12-01] MEDS: PHENobarbital SODIUM 65 MG/1 ML VIAL IVPB SCH (10:52)
[2020-12-01 14:24] VITALS: BP 143/84; PULSE 73; TEMP 98
== END 2020-12-01 15:20 | disposition short-term general hospital (02) | DRG 388 ==
LOC: JER 16:20 → JERBED 11-30 00:41 → J8W 11-30 10:23
PROVIDERS: ADMIT Internal Medicine; ATTEND Student in an Organized Health Care Education/Training Program
PROC: 0DJD8ZZ Inspection of Lower Intestinal Tract, Via Natural or Artificial Opening Endoscopic (ICD-10-PCS; principal; 2020-11-30 12:00)
DX: K56.2 Volvulus (principal); R53.2 Functional quadriplegia; F72 Severe intellectual disabilities; G93.1 Anoxic brain damage, not elsewhere classified; N39.0 Urinary tract infection, site not specified; K63.89 Other specified diseases of intestine; E87.6 Hypokalemia; G40.909 Epilepsy, unspecified, not intractable, without status epilepticus
CPT/HCPCS: 36415; 71045-TC-FY; 74018-TC-FY; 74177-TC; 80053; 80184; 81003; 83605; 83735; 84100; 85025; 85027; 85610; 85730; 93005; 93010; 99285-25; C9803; Q9967; U0003; U0005